=== PATIENT | male | born 1940 | race Caucasian/White ===

== ENCOUNTER 2018-09-08 13:16 | Inpatient (IN) | payer MEDICARE, OTHER ==
[~2018-09-08] VITALS: Ht 188 cm; Wt 103.3 kg
[2018-09-08 13:10] VITALS: BP 134/84
[2018-09-08] MEDS ORDERED: ACETAMINOPHEN 325 MG TABLET PO PRN (13:30)
[2018-09-08] MEDS ORDERED: MAG HYDROX/AL HYDROX/SIMETH 30 ML ORAL.SUSP PO PRN (13:30)
[2018-09-08] MEDS ORDERED: METHYL SALICYLATE/MENTHOL TOPICAL OINTMENT 29GM TUBE. TP PRN (13:30)
[2018-09-08] MEDS ORDERED: ASPI-630 PO (13:35)
[2018-09-08] MEDS ORDERED: [UNRECOGNIZED DRUG - OTHER] PO PRN (13:45)
[2018-09-08] MEDS ORDERED: CHLOR MAL PO PRN (13:45)
[2018-09-08] MEDS ORDERED: DEXTROMETHORPHAN HBR PO PRN (13:45)
[2018-09-08] MEDS ORDERED: MEMA10TA PO (13:47)
[2018-09-08] MEDS ORDERED: MULT1TAB52 PO (13:47)
[2018-09-08] MEDS ORDERED: DONE10TA61 PO (13:47)
[2018-09-08] MEDS ORDERED: DOXA4TAB2 PO (13:47)
[2018-09-08] MEDS ORDERED: SERT100T PO (13:47)
[2018-09-08] MEDS ORDERED: METF500T16 PO (13:47)
[2018-09-08] MEDS ORDERED: DEXT1TAB3 PO (13:47)
[2018-09-08] MEDS ORDERED: FINA5TAB PO (13:47)
[2018-09-08] MEDS ORDERED: NEBI5TAB2 PO (13:47)
[2018-09-08] MEDS ORDERED: LORA2TAB89 PO (13:47)
[2018-09-08] MEDS ORDERED: LISI40TA PO (13:47)
[2018-09-08] MEDS ORDERED: GLYB2.5T2 PO (13:47)
[2018-09-08] MEDS ORDERED: OMEG1CAP38 PO (13:47)
[2018-09-08] MEDS ORDERED: LOSA100T14 PO ×2 (13:47)
[2018-09-08] MEDS ORDERED: DEXTROSE 50% 25 GM / 50ML DISP.SYRIN. IV PRN (14:00)
[2018-09-08] MEDS: LORazepam 1 MG TABLET PO SCH ×2 (16:20→21:25)
[2018-09-08] MEDS: metFORMIN 500 MG TABLET PO SCH (16:20)
[2018-09-08] MEDS: INSULIN LISPRO 300 UNITS/3 ML INSULN.PEN. SQ SCH ×2 (16:30→21:00)
[2018-09-08 16:34] VITALS: BP 160/88
--- NOTE | 2018-09-08 20:15 | HP ---
ADMIT DATE: 09/08/2018 PSYCHIATRIC ADMISSION HISTORY/EVALUATION This note covers elements not covered in my initial note of 09/08/2018. IDENTIFYING DATA: The patient is a 78-year-old male referred to us from [facility] by Dr. Raghu Suggs, his primary care physician, on account of worsening confusion, being physically and verbally aggressive towards his at home. He was unmanageable at the [facility], pulling out his IV, impulsive, restless. He was wandering at night, having marked insomnia. was unable to take care of him at home. He had been on one-on-one status due to the above behaviors. This was discontinued on 09/06/2018. The patient's behaviors have been unmanageable, dangerous. Nursing facility is unable to accept him to be psychiatrically stable and he is referred to us for inpatient psychiatric stabilization. I also discussed the patient with followed La Jones, social service/behavioral therapy coordinator on several occasions and reviewed information from [facility] prior to the patient's admission. CHIEF COMPLAINT: "I don't know." The patient responded after I asked him when he came here and then asked him what kind of work he used to do. He was quite distractible, picking up things on his bed as I met with him in his room, oblivious of his circumstances. HISTORY OF PRESENT ILLNESS: The patient has a history of dementia, Alzheimer's vascular type. He has been living at home with his . Behaviors were progressively unmanageable. He was admitted to [facility] as noted and then referred to us. He has had some sleep and appetite changes, needed on one-on-one status. No clear history of bipolar disorder, suicidal or homicidal ideation. PAST PSYCHIATRIC HISTORY: As above. MEDICAL HISTORY: Hypertension, diabetes mellitus, anemia, atrial flutter, hyperlipidemia. The patient walks independently. He has a history of falls with the last fall on 09/03/2018. ALLERGIES: MORPHINE. CODE STATUS: DNR. DIET: ADA soft diet. CURRENT PSYCHOTROPICS: Electronic medical record was reviewed. FAMILY HISTORY: Noncontributory. SOCIAL HISTORY: The patient lives at home with his . No alcohol or drug abuse, physical, sexual or elder abuse history is noted. Not known to be a perpetrator. REVIEW OF SYSTEMS: No CV, , pulmonary, eye, ENT system symptoms on review. Reliability poor. MENTAL STATUS EXAMINATION: Oriented to himself. Insight, judgment, recent and remote memory, attention, concentration, fund of knowledge poor, consistent with his diagnosis. IMPRESSION: Major neurocognitive disorder, Alzheimer, vascular with delusion, depression, behavioral disturbance; anxiety disorder, unspecified; impulse control disorder, unspecified. Rest as above. PLAN: Admit to Geropsychiatry Unit at [facility]. I will see the patient daily individually from a psychiatric standpoint and medical followup with Dr. Field. Continue the patient on his current psychotropics, observe baseline, then make further adjustments as clinically indicated. Estimated length of stay is 10-12 days. DISPOSITION: To group home at discharge. MAN Alessandra HERNANDEZ MD DR: TIEN/priyank JOB#: [id number] / [id number]
[2018-09-08] MEDS: FINASTERIDE 5 MG TABLET PO SCH (21:25)
[2018-09-08] MEDS: ASPIRIN 81 MG TAB.CHEW PO SCH (21:25)
[2018-09-08] MEDS: LISINOPRIL 20 MG TABLET PO SCH (21:25)
[2018-09-08] MEDS: MEMANTINE 10 MG TABLET. PO SCH (21:25)
[2018-09-08] MEDS: METOPROLOL TART IMMED RELEASE 25 MG TABLET PO SCH (21:26)
[2018-09-08] MEDS: DONEPEZIL HCL 10 MG TABLET PO SCH (21:26)
[2018-09-08] MEDS: LOSARTAN 50 MG TABLET. PO SCH (21:26)
[2018-09-08] MEDS: DOXAZOSIN MESYLATE 4 MG TABLET PO SCH (21:26)
--- NOTE | 2018-09-08 22:42 | PDOC ---
Exam Note: Roderick Note: Please also refer to the separate dictated note~for this date of service dictated separately.~Patient seen individually. Discussed the patient with Nursing staff reviewed the chart.~Reviewed interim history and current functioning. Reviewed vital signs,~Labs/ Radiology~and current medications noted below. Continue current treatment with the changes noted in the dictated addendum note Assessment: Vital Signs: Vital Signs Date Time Temp Pulse Resp B/P (MAP) Pulse Ox O2 Delivery O2 Flow Rate FiO2 09/08/18 21:26 60 160/88 09/08/18 16:34 97.7 18 96 Labs: Laboratory Tests Test 09/08/18 17:05 09/08/18 19:13 Glucose (Fingerstick) 148 mg/dL (70-99) H 238 mg/dL (70-99) H Current Medications: Meds: Current Medications Acetaminophen (Tylenol) 650 mg PRN Q6HRS PRN PO PAIN / TEMP; Start 09/08/18 at 13:30 Multi-Ingredient Ointment (Analgesic [place]) 1 blas PRN QID PRN TP MUSCLE PAIN; Start 09/08/18 at 13:30 Al Hydroxide/Mg Hydroxide (Mylanta Plus Xs) 15 ml PRN AFTMEALHC PRN PO DYSPEPSIA; Start 09/08/18 at 13:30 Magnesium Hydroxide (Milk Of Magnesia) 2,400 mg PRN QHS PRN PO CONSTIPATION; Start 09/08/18 at 13:30 Aspirin (Children'S Aspirin) 81 mg QHS PO Last administered on 09/08/18at 21:25 ; Start 09/08/18 at 21:00 Non-Formulary Medication (Dextromethorphan Hbr/Chlor-Mal (Coricidin Hbp Cough & Cold Tab)) 1 each PRN QID PRN PO COUGH; Start 09/08/18 at 13:45; Status UNV Donepezil HCl (Aricept) 10 mg QHS PO Last administered on 09/08/18at 21:26; Start 09/08/18 at 21:00 Doxazosin Mesylate (Cardura) 4 mg QHS PO Last administered on 09/08/18at 21:26; Start 09/08/18 at 21:00 Finasteride (Proscar) 5 mg QHS PO Last administered on 09/08/18at 21:25; Start 09/08/18 at 21:00 Lisinopril (Prinivil) 40 mg BID PO Last administered on 09/08/18at 21:25; Start 09/08/18 at 21:00 Lorazepam (Ativan) 2 mg TID PO Last administered on 09/08/18at 21:25; Start at 14:00 Losartan Potassium (Cozaar) 50 mg DAILY PO ; Start 09/09/18 at 09:00 Losartan Potassium (Cozaar) 100 mg BID PO Last administered on 09/08/18at 21:26 ; Start 09/08/18 at 21:00 Memantine (Namenda) 10 mg BID PO Last administered on 09/08/18at 21:25; Start at 21:00 Metformin HCl (Glucophage) 500 mg BIDWMEALS PO Last administered on 09/08/18at 16:20; Start 09/08/18 at 17:00 Multivitamins/ Calcium (Thera-M Plus) 1 tab DAILY PO ; Start 09/09/18 at 09:00 Metoprolol Tartrate (Lopressor) 25 mg BID PO Last administered on 09/08/18at 21: 26; Start 09/08/18 at 21:00 Fish Oil (Fish Oil) 1,000 mg DAILY PO ; Start 09/09/18 at 09:00 Insulin Human Lispro (HumaLOG) 0-7 UNITS QIDACHS SQ ; Start 09/08/18 at 16:30 Dextrose 12.5 gm PRN Q15MIN PRN IV SEE COMMENTS; Start 09/08/18 at 14:00 Active Scripts Active Reported Zoloft (Sertraline Hcl) 100 Mg Tablet 100 Mg PO BID Frederic 3 Fish Oil Softgel (Frederic-3 Fatty Acids/Fish Oil) 1 Each Capsule. 1 Each PO DAILY Bystolic (Nebivolol Hcl) 5 Mg Tablet 5 Mg PO DAILY Multivitamins (Multivitamin) 1 Each Tablet 1 Tab PO DAILY Metformin Hcl 500 Mg Tablet 500 Mg PO BIDWMEALS Namenda (Memantine Hcl) 10 Mg Tablet 10 Mg PO BID Losartan Potassium 100 Mg Tablet 100 Mg PO BID Losartan Potassium 100 Mg Tablet 50 Mg PO DAILY Ativan (Lorazepam) 2 Mg Tablet 2 Mg PO TID Lisinopril 40 Mg Tablet 40 Mg PO BID Glyburide 2.5 Mg Tablet 2.5 Mg PO BID Proscar (Finasteride) 5 Mg Tablet 5 Mg PO QHS Cardura (Doxazosin Mesylate) 4 Mg Tablet 4 Mg PO QHS Aricept (Donepezil Hcl) 10 Mg Tablet 10 Mg PO QHS Coricidin Hbp Cough & Cold Tab (Dextromethorphan Hbr/Chlor-Mal) 1 Each Tablet 1 Each PO PRN QID PRN Aspirin 81 Mg Tab.chew 81 Mg PO QHS I have reviewed the current psychotropics carefully including drug interactions. Risk benefit ratio favors no change other than as noted in my dictated progress note. Diagnosis: Problems: (1) Anxiety disorder (2) Dementia in Alzheimer's disease with delusions (3) Dementia in Alzheimer's disease with depression (4) Dementia, vascular, with delusions (5) Dementia, vascular, with depression (6) Impulse control disorder GERTRUDE HERNANDEZ MD Sep 08, 2018 22:42
[2018-09-09 06:54] VITALS: BP 133/84
[2018-09-09] MEDS: INSULIN LISPRO 300 UNITS/3 ML INSULN.PEN. SQ SCH ×4 (07:30→19:53)
[2018-09-09 07:37] LABS: BASO % 1 % (0-3); EOS # 0.3 x10^3/uL (0.0-0.7); EOS % 5 % (0-3); HEMATOCRIT 38.4 % (39.0-53.0); HEMOGLOBIN 12.5 g/dL (13.0-17.5); LYMPH % 19 % (24-48); MEAN CORPUSCULAR HEMOGLOBIN 28 pg (25-35); MEAN CORPUSCULAR HGB CONC 33 g/dL (31-37); MEAN CORPUSCULAR VOLUME 87 fL (79-100); MONO # 0.4 x10^3/uL (0.0-1.1); MONO % 9 % (0-9); NEUT # 3.4 x10^3uL (1.8-7.7); NEUT % 67 % (31-73); PLATELET COUNT 197 x10^3/uL (140-400); RED BLOOD COUNT 4.43 x10^6/uL (4.30-5.70); RED CELL DISTRIBUTION WIDTH 14.8 % (11.5-14.5); WHITE BLOOD COUNT 5.1 x10^3/uL (4.0-11.0)
[2018-09-09 07:51] LABS: ALBUMIN 3.5 g/dL (3.4-5.0); CALCIUM 8.8 mg/dL (8.5-10.1); CREATININE 0.8 mg/dL (0.7-1.3); GFR 93.5; MAGNESIUM 1.7 mg/dL (1.8-2.4); POTASSIUM 3.8 mmol/L (3.5-5.1); TOTAL BILIRUBIN 0.8 mg/dL (0.2-1.0); TOTAL PROTEIN 7.1 g/dL (6.4-8.2)
[2018-09-09] MEDS: MEMANTINE 10 MG TABLET. PO SCH ×2 (08:18→19:52)
[2018-09-09] MEDS: LISINOPRIL 20 MG TABLET PO SCH ×2 (08:20→19:52)
[2018-09-09] MEDS: metFORMIN 500 MG TABLET PO SCH ×2 (08:20→16:45)
[2018-09-09] MEDS: METOPROLOL TART IMMED RELEASE 25 MG TABLET PO SCH ×2 (08:21→20:00)
[2018-09-09] MEDS: LORazepam 1 MG TABLET PO SCH ×3 (08:22→20:00)
[2018-09-09] MEDS: MULTIVITAMIN with MINERAL TABLET. PO SCH (08:23)
[2018-09-09] MEDS: OMEGA-3 FATTY ACIDS/FISH OIL 1,000 MG CAPSULE. PO SCH (08:23)
[2018-09-09] MEDS: SERTRALINE 100 MG TABLET. PO SCH ×2 (08:23→19:52)
[2018-09-09] MEDS: glyBURIDE 5 MG TABLET PO SCH ×2 (08:23→16:45)
[2018-09-09] MEDS ORDERED: LOSARTAN 50 MG TABLET. PO SCH (09:00)
[2018-09-09] MEDS: LOSARTAN 50 MG TABLET. PO SCH ×2 (09:00→19:59)
[2018-09-09 16:17] VITALS: BP 159/84
[2018-09-09] MEDS: DIVALPROEX 125 MG CAP.SPRINK PO SCH (16:45)
[2018-09-09 17:12] LABS: THYROXINE 4.6 ug/dL (4.5-12.0)
[2018-09-09 17:54] LABS: THYROID STIM HORMONE (TSH) 1.687 uIU/mL (0.358-3.740)
[2018-09-09 19:43] VITALS: BP 159/85
[2018-09-09] MEDS: ASPIRIN 81 MG TAB.CHEW PO SCH (19:52)
[2018-09-09] MEDS: FINASTERIDE 5 MG TABLET PO SCH (19:52)
[2018-09-09] MEDS: DONEPEZIL HCL 10 MG TABLET PO SCH (19:52)
[2018-09-09] MEDS: DOXAZOSIN MESYLATE 4 MG TABLET PO SCH (20:00)
[2018-09-09 20:09] LABS: HEMOGLOBIN A1C 5.7 % (4.8-5.6)
--- NOTE | 2018-09-09 22:34 | PDOC ---
Exam Note: Roderick Note: Please also refer to the separate dictated note~for this date of service dictated separately.~Patient seen individually. Discussed the patient with Nursing staff reviewed the chart.~Reviewed interim history and current functioning. Reviewed vital signs,~Labs/ Radiology~and current medications noted below. Continue current treatment with the changes noted in the dictated addendum note Assessment: Vital Signs: Vital Signs Date Time Temp Pulse Resp B/P (MAP) Pulse Ox O2 Delivery O2 Flow Rate FiO2 09/09/18 20:00 81 159/85 09/09/18 16:17 98.7 20 94 I&O Intake and Output 09/09/18 07:01 Intake Total 365 ml Balance 365 ml Intake Oral 365 ml # Voids 2 Labs: Laboratory Tests Test 09/09/18 07:05 09/09/18 07:35 09/09/18 12:25 09/09/18 17:01 White Blood Count 5.1 x10^3/uL (4.0-11.0) Red Blood Count 4.43 x10^6/uL (4.30-5.70) Hemoglobin 12.5 g/dL (13.0-17.5) L Hematocrit 38.4 % (39.0-53.0) L Mean Corpuscular Volume 87 fL (79-100) Mean Corpuscular Hemoglobin 28 pg (25-35) Mean Corpuscular Hemoglobin Concent 33 g/dL (31-37) Red Cell Distribution Width 14.8 % (11.5-14.5) H Platelet Count 197 x10^3/uL (140-400) Neutrophils (%) (Auto) 67 % (31-73) Lymphocytes (%) (Auto) 19 % (24-48) L Monocytes (%) (Auto) 9 % (0-9) Eosinophils (%) (Auto) 5 % (0-3) H Basophils (%) (Auto) 1 % (0-3) Neutrophils # (Auto) 3.4 x10^3uL (1.8-7.7) Lymphocytes # (Auto) 1.0 x10^3/uL (1.0-4.8) Monocytes # (Auto) 0.4 x10^3/uL (0.0-1.1) Eosinophils # (Auto) 0.3 x10^3/uL (0.0-0.7) Basophils # (Auto) 0.0 x10^3/uL (0.0-0.2) Sodium Level 143 mmol/L (136-145) Potassium Level 3.8 mmol/L (3.5-5.1) Chloride Level 104 mmol/L (98-107) Carbon Dioxide Level 30 mmol/L (21-32) Anion Gap 9 (6-14) Blood Urea Nitrogen 17 mg/dL (8-26) Creatinine 0.8 mg/dL (0.7-1.3) Estimated GFR (Cockcroft-Gault) 93.5 BUN/Creatinine Ratio 21 (6-20) H Glucose Level 155 mg/dL (70-99) H Hemoglobin A1c 5.7 % (4.8-5.6) H Calcium Level 8.8 mg/dL (8.5-10.1) Magnesium Level 1.7 mg/dL (1.8-2.4) L Iron Level 47 ug/dL (65-175) L Total Iron Binding Capacity 331 ug/dL (250-450) Iron Saturation 14 % (15-34) L Total Bilirubin 0.8 mg/dL (0.2-1.0) Aspartate Amino Transferase (AST) 18 U/L (15-37) Alanine Aminotransferase (ALT) 22 U/L (16-63) Alkaline Phosphatase 83 U/L (46-116) Total Protein 7.1 g/dL (6.4-8.2) Albumin 3.5 g/dL (3.4-5.0) Albumin/Globulin Ratio 1.0 (1.0-1.7) Triglycerides Level 81 mg/dL (0-150) Cholesterol Level 177 mg/dL (0-200) LDL Cholesterol, Calculated 100 mg/dL (0-100) VLDL Cholesterol, Calculated 16 mg/dL (0-40) Non-HDL Cholesterol Calculated 116 mg/dL (0-129) HDL Cholesterol 61 mg/dL (40-60) H Cholesterol/HDL Ratio 2.0 25-Hydroxy Vitamin D Total 32.4 ng/mL (30-100) Thyroid Stimulating Hormone (TSH) 1.687 uIU/mL (0.358-3.740) Thyroxine (T4) 4.6 ug/dL (4.5-12.0) Total Triiodothyronine (TT3) 67 ng/dL (71-180) L Treponema pallidum Antibody Nonreactive (Nonreactive) Glucose (Fingerstick) 150 mg/dL (70-99) H 131 mg/dL (70-99) H 81 mg/dL (70-99) Test 09/09/18 19:14 Glucose (Fingerstick) 149 mg/dL (70-99) H Current Medications: Meds: Current Medications Acetaminophen (Tylenol) 650 mg PRN Q6HRS PRN PO PAIN / TEMP; Start 09/08/18 at 13:30 Multi-Ingredient Ointment (Analgesic [place]ley) 1 blas PRN QID PRN TP MUSCLE PAIN; Start 09/08/18 at 13:30 Al Hydroxide/Mg Hydroxide (Mylanta Plus Xs) 15 ml PRN AFTMEALHC PRN PO DYSPEPSIA; Start 09/08/18 at 13:30 Magnesium Hydroxide (Milk Of Magnesia) 2,400 mg PRN QHS PRN PO CONSTIPATION; Start 09/08/18 at 13:30 Aspirin (Children'S Aspirin) 81 mg QHS PO Last administered on 09/09/18at 19:52 ; Start 09/08/18 at 21:00 Non-Formulary Medication (Dextromethorphan Hbr/Chlor-Mal (Coricidin Hbp Cough & Cold Tab)) 1 each PRN QID PRN PO COUGH; Start 09/08/18 at 13:45; Status UNV Donepezil HCl (Aricept) 10 mg QHS PO Last administered on 09/09/18at 19:52; Start 09/08/18 at 21:00 Doxazosin Mesylate (Cardura) 4 mg QHS PO Last administered on 09/09/18at 20:00; Start 09/08/18 at 21:00 Finasteride (Proscar) 5 mg QHS PO Last administered on 09/09/18at 19:52; Start 09/08/18 at 21:00 Lisinopril (Prinivil) 40 mg BID PO Last administered on 09/09/18at 19:52; Start 09/08/18 at 21:00 Lorazepam (Ativan) 2 mg TID PO Last administered on 09/08/18at 21:25; Start at 14:00; Stop 09/09/18 at 06:58; Status DC Losartan Potassium (Cozaar) 50 mg DAILY PO Last administered on 09/09/18 08:19 ; Start 09/09/18 at 09:00 Losartan Potassium (Cozaar) 100 mg BID PO Last administered on 09/09/18 19:59 ; Start 09/08/18 at 21:00 Memantine (Namenda) 10 mg BID PO Last administered on 09/09/18 19:52; Start at 21:00 Metformin HCl (Glucophage) 500 mg BIDWMEALS PO Last administered on 09/09/18 16:45; Start 09/08/18 at 17:00 Multivitamins/ Calcium (Thera-M Plus) 1 tab DAILY PO Last administered on 08:23; Start 09/09/18 at 09:00 Metoprolol Tartrate (Lopressor) 25 mg BID PO Last administered on 09/09/18 08: 21; Start 09/08/18 at 21:00; Stop 09/09/18 at 09:58; Status DC Fish Oil (Fish Oil) 1,000 mg DAILY PO Last administered on 09/09/18 08:23; Start 09/09/18 at 09:00 Insulin Human Lispro (HumaLOG) 0-7 UNITS QIDACHS SQ ; Start 09/08/18 at 16:30 Dextrose 12.5 gm PRN Q15MIN PRN IV SEE COMMENTS; Start 09/08/18 at 14:00 Glyburide (Diabeta) 5 mg BIDWMEALS PO Last administered on 09/09/18 16:45; Start 09/09/18 at 08:00 Sertraline HCl (Zoloft) 100 mg BID PO Last administered on 09/09/18 19:52; Start 09/09/18 at 09:00 Lorazepam (Ativan) 1 mg TID PO Last administered on 09/09/18 20:00; Start at 09:00 Divalproex Sodium (Depakote Sprinkles) 125 mg BIDWMEALS PO Last administered on 09/09/18 16:45; Start 09/09/18 at 17:00 Metoprolol Tartrate (Lopressor) 25 mg BID PO Last administered on 09/09/18at 20: 00; Start 09/09/18 at 21:00 Active Scripts Active Reported Zoloft (Sertraline Hcl) 100 Mg Tablet 100 Mg PO BID [place]all 3 Fish Oil Softgel (Walthall-3 Fatty Acids/Fish Oil) 1 Each Capsule.dr 1 Each PO DAILY Bystolic (Nebivolol Hcl) 5 Mg Tablet 5 Mg PO DAILY Multivitamins (Multivitamin) 1 Each Tablet 1 Tab PO DAILY Metformin Hcl 500 Mg Tablet 500 Mg PO BIDWMEALS Namenda (Memantine Hcl) 10 Mg Tablet 10 Mg PO BID Ativan (Lorazepam) 2 Mg Tablet 1 Mg PO TID Lisinopril 40 Mg Tablet 40 Mg PO BID Glyburide 2.5 Mg Tablet 5 Mg PO BID Proscar (Finasteride) 5 Mg Tablet 5 Mg PO QHS Cardura (Doxazosin Mesylate) 4 Mg Tablet 4 Mg PO QHS Aricept (Donepezil Hcl) 10 Mg Tablet 10 Mg PO QHS Coricidin Hbp Cough & Cold Tab (Dextromethorphan Hbr/Chlor-Mal) 1 Each Tablet 1 Each PO PRN QID PRN Aspirin 81 Mg Tab.chew 81 Mg PO QHS I have reviewed the current psychotropics carefully including drug interactions. Risk benefit ratio favors no change other than as noted in my dictated progress note. Diagnosis: Problems: (1) Anxiety disorder (2) Dementia in Alzheimer's disease with delusions (3) Dementia in Alzheimer's disease with depression (4) Dementia, vascular, with delusions (5) Dementia, vascular, with depression (6) Impulse control disorder GERTRUDE HERNANDEZ MD Sep 09, 2018 22:34
--- NOTE | 2018-09-09 23:00 | CONS ---
DATE OF CONSULTATION: 09/09/2018 REASON FOR CONSULTATION: Medical management. HISTORY OF PRESENT ILLNESS: The patient is a 78-year-old male patient who was referred from [facility] by his primary care physician, on account of worsening confusion, being physically and verbally aggressive towards his at home. He was unmanageable even at [facility], pulling out his IV, impulsive, restless. He was wondering at nighttime, having marked insomnia. He was on 1:1 status due to above behavior and as he could not be placed in any other nursing facility because of his behavior. He was admitted to this unit for inpatient psychiatric stabilization. The patient is very demented and does not really give any useful information when I asked him this afternoon. PAST MEDICAL HISTORY: Significant for hypertension, type 2 diabetes mellitus, anemia, atrial fibrillation/flutter, and hyperlipidemia. PAST SURGICAL HISTORY: Unremarkable. ALLERGIES: HE IS ALLERGIC TO MORPHINE. MEDICATIONS: He is currently on following medications: He is on Aricept 10 mg at bedtime, omega-3 fatty acid 1000 mg once a day, Cardura 4 mg at bedtime, Bystolic 5 mg once a day, lisinopril 40 mg twice a day, losartan potassium 50 mg daily, losartan potassium 100 mg b.i.d., aspirin 81 mg once a day, sertraline 100 mg twice a day. He is on lorazepam 1 mg 3 times a day, Namenda 10 mg p.o. b.i.d., dextromethorphan for Coricidin HBP for cough and cold, he takes 1 tablet 4 times a day. He is on metformin 500 mg twice a day, glyburide 5 mg twice a day, multivitamin 1 tablet once a day, finasteride 5 mg at bedtime. FAMILY HISTORY: Noncontributory. SOCIAL HISTORY: Apparently, he used to live at home with his . He does not smoke, drink alcohol, or do recreational drugs. REVIEW OF SYSTEMS: Unobtainable. PHYSICAL EXAMINATION: GENERAL: When I saw him this afternoon, he was sitting on the edge of the bed comfortably in no apparent distress. He was slightly pale, but no jaundice, cyanosis, or thyromegaly. No jugular venous distension. No lower limb edema. VITAL SIGNS: His heart rate was 78, blood pressure was 133/84, temperature was 98, respiratory rate 20, and oxygen saturation was 100% on room air. HEAD, EYES, EAR, NOSE, AND THROAT: Showed normocephalic, atraumatic. NECK: Supple. HEART: Showed normal first and second heart sounds. No gallop, rub, or murmur. CHEST: Clear to auscultation. No crepitation or rhonchi. ABDOMEN: Distended, soft, nontender. NEUROLOGIC: He was demented, but without any obvious lateralizing sign. Apparently, he is able to ambulate with a walker without assistance. LABORATORY DATA: Showed a serum sodium 143, potassium 3.8, chloride 104, bicarbonate 30, anion gap of 9, BUN 17, creatinine 0.8, estimated GFR was 93 mL per minute. His glucose was 155. His calcium was 8.8, magnesium was 1.7. Total bilirubin, AST, ALT, alkaline phosphatase were normal. Total protein was 7.1, albumin was 3.5. His white cell count was 5100, hemoglobin 12.5, hematocrit 38.4, MCV 87, and platelet count of 197,000 with normal manual differential. IMPRESSION AND PLAN: In summary, this is a 78-year-old male patient who was [facility] inpatient psychiatric stabilization as he was becoming extremely confused, being physically and verbally aggressive towards his . Even at the hospital, he was very unmanageable, pulled his IV, impulsive, restless, was wondering throughout the night having marked insomnia and he was actually on 1:1 status due to above behavior. As the patient was unmanageable, nursing facilities were unable to accept him because of his aggressive behavior, and therefore, he was admitted to this unit for inpatient psychiatric stabilization. Medically, the patient apparently is known to have hypertension, type 2 diabetes, atrial flutter, hyperlipidemia. All his vital signs seem to be stable. His lab works are also within acceptable range. I reviewed all his medications and he is on a very strange combination of medication. He is on losartan 100 mg twice a day and again losartan 50 mg once a day and lisinopril 40 mg twice a day. I am not sure what the rationale for that. He is on an FRANSISCO inhibitor and ARB. I would probably discontinue one of them and if he continues to be hypertensive, we will add a different class of antihypertensive medications. Thank you, Dr. Beebe for allowing me to participate in the care of this patient. SUZIE GLEASON MD DR: ARTURO/priyank JOB#: [id number] / [id number]
[2018-09-10 06:28] VITALS: BP 172/86
[2018-09-10] MEDS: MULTIVITAMIN with MINERAL TABLET. PO SCH (08:04)
[2018-09-10] MEDS: LISINOPRIL 20 MG TABLET PO SCH ×2 (08:04→19:54)
[2018-09-10] MEDS: LOSARTAN 50 MG TABLET. PO SCH (08:05)
[2018-09-10] MEDS: SERTRALINE 100 MG TABLET. PO SCH ×2 (08:05→19:55)
[2018-09-10] MEDS: metFORMIN 500 MG TABLET PO SCH ×2 (08:06→17:27)
[2018-09-10] MEDS: OMEGA-3 FATTY ACIDS/FISH OIL 1,000 MG CAPSULE. PO SCH (08:06)
[2018-09-10] MEDS: MEMANTINE 10 MG TABLET. PO SCH ×2 (08:06→19:55)
[2018-09-10] MEDS: glyBURIDE 5 MG TABLET PO SCH ×2 (08:06→17:26)
[2018-09-10] MEDS: METOPROLOL TART IMMED RELEASE 25 MG TABLET PO SCH ×2 (08:06→20:15)
[2018-09-10] MEDS: DIVALPROEX 125 MG CAP.SPRINK PO SCH ×2 (08:06→17:27)
[2018-09-10] MEDS: LORazepam 1 MG TABLET PO SCH ×3 (08:08→19:55)
[2018-09-10] MEDS: INSULIN LISPRO 300 UNITS/3 ML INSULN.PEN. SQ SCH ×4 (08:17→20:16)
[2018-09-10 16:09] VITALS: BP 108/69
[2018-09-10] MEDS: ASPIRIN 81 MG TAB.CHEW PO SCH (19:54)
[2018-09-10] MEDS: DONEPEZIL HCL 10 MG TABLET PO SCH (19:54)
[2018-09-10] MEDS: FINASTERIDE 5 MG TABLET PO SCH (19:54)
[2018-09-10] MEDS: DOXAZOSIN MESYLATE 4 MG TABLET PO SCH (20:15)
[2018-09-10] MEDS: MIRTAZAPINE 7.5 MG TABLET. PO SCH (20:16)
--- NOTE | 2018-09-10 23:00 | PDOC ---
Exam Note: Roderick Note: Please also refer to the separate dictated note~for this date of service dictated separately.~Patient seen individually. Discussed the patient with Nursing staff reviewed the chart.~Reviewed interim history and current functioning. Reviewed vital signs,~Labs/ Radiology~and current medications noted below. Continue current treatment with the changes noted in the dictated addendum note Assessment: Vital Signs: Vital Signs Date Time Temp Pulse Resp B/P (MAP) Pulse Ox O2 Delivery O2 Flow Rate FiO2 09/10/18 20:15 85 108/69 09/10/18 16:09 97.8 19 95 Room Air I&O Intake and Output 09/10/18 07:01 Intake Total 965 ml Balance 965 ml Intake Oral 965 ml # Voids 1 # Bowel Movements 1 Labs: Laboratory Tests Test 09/10/18 07:03 09/10/18 11:45 09/10/18 16:55 09/10/18 19:07 Glucose (Fingerstick) 152 mg/dL (70-99) H 175 mg/dL (70-99) H 245 mg/dL (70-99) H 165 mg/dL (70-99) H Current Medications: Meds: Current Medications Acetaminophen (Tylenol) 650 mg PRN Q6HRS PRN PO PAIN / TEMP; Start 09/08/18 at 13:30 Multi-Ingredient Ointment (Analgesic [place]) 1 blas PRN QID PRN TP MUSCLE PAIN; Start 09/08/18 at 13:30 Al Hydroxide/Mg Hydroxide (Mylanta Plus Xs) 15 ml PRN AFTMEALHC PRN PO DYSPEPSIA; Start 09/08/18 at 13:30 Magnesium Hydroxide (Milk Of Magnesia) 2,400 mg PRN QHS PRN PO CONSTIPATION; Start 09/08/18 at 13:30 Aspirin (Children'S Aspirin) 81 mg QHS PO Last administered on 09/10/18at 19:54; Start 09/08/18 at 21:00 Non-Formulary Medication (Dextromethorphan Hbr/Chlor-Mal (Coricidin Hbp Cough & Cold Tab)) 1 each PRN QID PRN PO COUGH; Start 09/08/18 at 13:45; Status UNV Donepezil HCl (Aricept) 10 mg QHS PO Last administered on 09/10/18at 19:54; Start 09/08/18 at 21:00 Doxazosin Mesylate (Cardura) 4 mg QHS PO Last administered on 09/10/18 20:15; Start 09/08/18 at 21:00 Finasteride (Proscar) 5 mg QHS PO Last administered on 09/10/18 19:54; Start at 21:00 Lisinopril (Prinivil) 40 mg BID PO Last administered on 09/10/18 19:54; Start 09/08/18 at 21:00 Lorazepam (Ativan) 2 mg TID PO Last administered on 09/08/18 21:25; Start at 14:00; Stop 09/09/18 at 06:58; Status DC Losartan Potassium (Cozaar) 50 mg DAILY PO Last administered on 09/09/18at 08:19 ; Start 09/09/18 at 09:00; Stop 09/10/18 at 12:41; Status DC Losartan Potassium (Cozaar) 100 mg BID PO Last administered on 09/10/18 08:05; Start 09/08/18 at 21:00; Stop 09/10/18 at 12:41; Status DC Memantine (Namenda) 10 mg BID PO Last administered on 09/10/18 19:55; Start at 21:00 Metformin HCl (Glucophage) 500 mg BIDWMEALS PO Last administered on 09/10/18 17 :27; Start 09/08/18 at 17:00 Multivitamins/ Calcium (Thera-M Plus) 1 tab DAILY PO Last administered on 08:04; Start 09/09/18 at 09:00 Metoprolol Tartrate (Lopressor) 25 mg BID PO Last administered on 09/09/18 08: 21; Start 09/08/18 at 21:00; Stop 09/09/18 at 09:58; Status DC Fish Oil (Fish Oil) 1,000 mg DAILY PO Last administered on 09/10/18 08:06; Start 09/09/18 at 09:00 Insulin Human Lispro (HumaLOG) 0-7 UNITS QIDACHS SQ Last administered on 17:29; Start 09/08/18 at 16:30 Dextrose 12.5 gm PRN Q15MIN PRN IV SEE COMMENTS; Start 09/08/18 at 14:00 Glyburide (Diabeta) 5 mg BIDWMEALS PO Last administered on 09/10/18at 17:26; Start 09/09/18 at 08:00 Sertraline HCl (Zoloft) 100 mg BID PO Last administered on 09/10/18at 19:55; Start 09/09/18 at 09:00 Lorazepam (Ativan) 1 mg TID PO Last administered on 09/10/18 19:55; Start 09/09 at 09:00 Divalproex Sodium (Depakote Sprinkles) 125 mg BIDWMEALS PO Last administered on 09/10/18 17:27; Start 09/09/18 at 17:00 Metoprolol Tartrate (Lopressor) 25 mg BID PO Last administered on 09/10/18at 08: 06; Start 09/09/18 at 21:00; Stop 09/10/18 at 12:45; Status DC Metoprolol Tartrate (Lopressor) 50 mg BID PO Last administered on 09/10/18at 20: 15; Start 09/10/18 at 21:00 Trazodone HCl (Desyrel) 50 mg PRN QHS PRN PO INSOMNIA, MAY REPEAT IN 1HR; Start 09/10/18 at 17:00 Mirtazapine (Remeron) 7.5 mg QHS PO Last administered on 09/10/18at 20:16; Start 09/10/18 at 21:00 Active Scripts Active Reported Zoloft (Sertraline Hcl) 100 Mg Tablet 100 Mg PO BID [place] 3 Fish Oil Softgel ([place]-3 Fatty Acids/Fish Oil) 1 Each Capsule. 1 Each PO DAILY Bystolic (Nebivolol Hcl) 5 Mg Tablet 5 Mg PO DAILY Multivitamins (Multivitamin) 1 Each Tablet 1 Tab PO DAILY Metformin Hcl 500 Mg Tablet 500 Mg PO BIDWMEALS Namenda (Memantine Hcl) 10 Mg Tablet 10 Mg PO BID Ativan (Lorazepam) 2 Mg Tablet 1 Mg PO TID Lisinopril 40 Mg Tablet 40 Mg PO BID Glyburide 2.5 Mg Tablet 5 Mg PO BID Proscar (Finasteride) 5 Mg Tablet 5 Mg PO QHS Cardura (Doxazosin Mesylate) 4 Mg Tablet 4 Mg PO QHS Aricept (Donepezil Hcl) 10 Mg Tablet 10 Mg PO QHS Coricidin Hbp Cough & Cold Tab (Dextromethorphan Hbr/Chlor-Mal) 1 Each Tablet 1 Each PO PRN QID PRN Aspirin 81 Mg Tab.chew 81 Mg PO QHS I have reviewed the current psychotropics carefully including drug interactions. Risk benefit ratio favors no change other than as noted in my dictated progress note. Diagnosis: Problems: (1) Anxiety disorder (2) Dementia in Alzheimer's disease with delusions (3) Dementia in Alzheimer's disease with depression (4) Dementia, vascular, with delusions (5) Dementia, vascular, with depression (6) Impulse control disorder GERTRUDE HERNANDEZ MD Sep 10, 2018 23:00
--- NOTE | 2018-09-10 23:04 | PN ---
DATE: 09/09/2018 PSYCHIATRIC PROGRESS NOTE This late entry 09/09/2018 covers elements not covered in my initial note. SUBJECTIVE: I met with the patient in the evening, staffed at treatment team meeting with the entire team in the morning. The patient slept 6 hours previous night. Appetite 100%. He has been confused, sexually inappropriate with staff members. He has been grabbing the breasts and butt of female nursing staff per nursing report. He has been aggressive at home, reviewed his history at length. REVIEW OF SYSTEMS: No CV, , pulmonary, eye, ENT system symptoms on review. MENTAL STATUS EXAM: Oriented to himself. Insight, judgment, recent and remote memory, attention, concentration, fund of knowledge poor consistent with his diagnosis mentioned in my initial note. IMPRESSION: Major neurocognitive disorder, Alzheimer, vascular with delusion, depression, behavioral disturbance; anxiety disorder, unspecified; impulse control disorder, unspecified. PLAN: Continue psychotropics from initial note. Start Depakote Sprinkles 125 mg b.i.d. Check CBC, CMP, valproic acid level in 3 days. Rest unchanged from initial note. MAN Alessandra HERNANDEZ MD DR: TIEN/priyank JOB#: [id number] / [id number]
[2018-09-11 06:17] VITALS: BP 111/70
[2018-09-11] MEDS: INSULIN LISPRO 300 UNITS/3 ML INSULN.PEN. SQ SCH ×4 (07:30→20:22)
[2018-09-11] MEDS: METOPROLOL TART IMMED RELEASE 25 MG TABLET PO SCH ×2 (07:42→20:22)
[2018-09-11] MEDS: OMEGA-3 FATTY ACIDS/FISH OIL 1,000 MG CAPSULE. PO SCH (07:42)
[2018-09-11] MEDS: MEMANTINE 10 MG TABLET. PO SCH ×2 (07:42→20:16)
[2018-09-11] MEDS: DIVALPROEX 125 MG CAP.SPRINK PO SCH ×2 (07:42→16:40)
[2018-09-11] MEDS: glyBURIDE 5 MG TABLET PO SCH ×2 (07:42→16:40)
[2018-09-11] MEDS: metFORMIN 500 MG TABLET PO SCH ×2 (07:42→16:40)
[2018-09-11] MEDS: MULTIVITAMIN with MINERAL TABLET. PO SCH (07:42)
[2018-09-11] MEDS: LORazepam 1 MG TABLET PO SCH ×3 (07:43→20:16)
[2018-09-11] MEDS: LISINOPRIL 20 MG TABLET PO SCH ×2 (07:43→20:22)
[2018-09-11] MEDS: SERTRALINE 100 MG TABLET. PO SCH ×2 (07:45→20:16)
[2018-09-11] MEDS: CEPHALEXIN 250 MG CAPSULE PO SCH ×2 (14:00→20:16)
[2018-09-11 16:04] VITALS: BP 110/74
[2018-09-11] MEDS: ASPIRIN 81 MG TAB.CHEW PO SCH (20:16)
[2018-09-11] MEDS: MIRTAZAPINE 7.5 MG TABLET. PO SCH (20:16)
[2018-09-11] MEDS: DONEPEZIL HCL 10 MG TABLET PO SCH (20:16)
[2018-09-11] MEDS: FINASTERIDE 5 MG TABLET PO SCH (20:16)
[2018-09-11 20:21] VITALS: BP 161/74
[2018-09-11] MEDS: DOXAZOSIN MESYLATE 4 MG TABLET PO SCH (20:21)
--- NOTE | 2018-09-11 22:26 | PDOC ---
Exam Note: Roderick Note: Please also refer to the separate dictated note~for this date of service dictated separately.~Patient seen individually. Discussed the patient with Nursing staff reviewed the chart.~Reviewed interim history and current functioning. Reviewed vital signs,~Labs/ Radiology~and current medications noted below. Continue current treatment with the changes noted in the dictated addendum note Assessment: Vital Signs: Vital Signs Date Time Temp Pulse Resp B/P (MAP) Pulse Ox O2 Delivery O2 Flow Rate FiO2 09/11/18 20:22 80 161/74 09/11/18 16:04 97.8 20 97 09/10/18 16:09 Room Air I&O Intake and Output 09/11/18 07:01 Intake Total 840 ml Balance 840 ml Intake Oral 840 ml # Voids 1 Labs: Laboratory Tests Test 09/11/18 07:05 09/11/18 11:46 09/11/18 16:55 09/11/18 19:26 Glucose (Fingerstick) 119 mg/dL (70-99) H 175 mg/dL (70-99) H 119 mg/dL (70-99) H 101 mg/dL (70-99) H Current Medications: Meds: Current Medications Acetaminophen (Tylenol) 650 mg PRN Q6HRS PRN PO PAIN / TEMP; Start 09/08/18 at 13:30 Multi-Ingredient Ointment (Analgesic [place]) 1 blas PRN QID PRN TP MUSCLE PAIN; Start 09/08/18 at 13:30 Al Hydroxide/Mg Hydroxide (Mylanta Plus Xs) 15 ml PRN AFTMEALHC PRN PO DYSPEPSIA; Start 09/08/18 at 13:30 Magnesium Hydroxide (Milk Of Magnesia) 2,400 mg PRN QHS PRN PO CONSTIPATION; Start 09/08/18 at 13:30 Aspirin (Children'S Aspirin) 81 mg QHS PO Last administered on 09/11/18at 20:16; Start 09/08/18 at 21:00 Non-Formulary Medication (Dextromethorphan Hbr/Chlor-Mal (Coricidin Hbp Cough & Cold Tab)) 1 each PRN QID PRN PO COUGH; Start 09/08/18 at 13:45; Status UNV Donepezil HCl (Aricept) 10 mg QHS PO Last administered on 2/2/19at 20:16; Start 09/08/18 at 21:00 Doxazosin Mesylate (Cardura) 4 mg QHS PO Last administered on 09/11/18 20:21; Start 09/08/18 at 21:00 Finasteride (Proscar) 5 mg QHS PO Last administered on 09/11/18 20:16; Start at 21:00 Lisinopril (Prinivil) 40 mg BID PO Last administered on 09/11/18 20:22; Start 09/08/18 at 21:00 Lorazepam (Ativan) 2 mg TID PO Last administered on 09/08/18 21:25; Start at 14:00; Stop 09/09/18 at 06:58; Status DC Losartan Potassium (Cozaar) 50 mg DAILY PO Last administered on 09/09/18 08:19 ; Start 09/09/18 at 09:00; Stop 09/10/18 at 12:41; Status DC Losartan Potassium (Cozaar) 100 mg BID PO Last administered on 09/10/18 08:05; Start 09/08/18 at 21:00; Stop 09/10/18 at 12:41; Status DC Memantine (Namenda) 10 mg BID PO Last administered on 09/11/18 20:16; Start at 21:00 Metformin HCl (Glucophage) 500 mg BIDWMEALS PO Last administered on 09/11/18 16 :40; Start 09/08/18 at 17:00 Multivitamins/ Calcium (Thera-M Plus) 1 tab DAILY PO Last administered on 07:42; Start 09/09/18 at 09:00 Metoprolol Tartrate (Lopressor) 25 mg BID PO Last administered on 09/09/18 08: 21; Start 09/08/18 at 21:00; Stop 09/09/18 at 09:58; Status DC Fish Oil (Fish Oil) 1,000 mg DAILY PO Last administered on 09/11/18 07:42; Start 09/09/18 at 09:00 Insulin Human Lispro (HumaLOG) 0-7 UNITS QIDACHS SQ Last administered on 11:30; Start 09/08/18 at 16:30 Dextrose 12.5 gm PRN Q15MIN PRN IV SEE COMMENTS; Start 09/08/18 at 14:00 Glyburide (Diabeta) 5 mg BIDWMEALS PO Last administered on 09/11/18 16:40; Start 09/09/18 at 08:00 Sertraline HCl (Zoloft) 100 mg BID PO Last administered on 09/11/18 20:16; Start 09/09/18 at 09:00 Lorazepam (Ativan) 1 mg TID PO Last administered on 09/11/18 20:16; Start 09/09 at 09:00 Divalproex Sodium (Depakote Sprinkles) 125 mg BIDWMEALS PO Last administered on 09/11/18 16:40; Start 09/09/18 at 17:00 Metoprolol Tartrate (Lopressor) 25 mg BID PO Last administered on 09/10/18 08: 06; Start 09/09/18 at 21:00; Stop 09/10/18 at 12:45; Status DC Metoprolol Tartrate (Lopressor) 50 mg BID PO Last administered on 09/11/18 20: 22; Start 09/10/18 at 21:00 Trazodone HCl (Desyrel) 50 mg PRN QHS PRN PO INSOMNIA, MAY REPEAT IN 1HR; Start 09/10/18 at 17:00 Mirtazapine (Remeron) 7.5 mg QHS PO Last administered on 09/11/18 20:16; Start 09/10/18 at 21:00 Cephalexin HCl (Keflex) 500 mg TID PO Last administered on 09/11/18 20:16; Start 09/11/18 at 14:00; Stop 09/21/18 at 13:59 Active Scripts Active Reported Zoloft (Sertraline Hcl) 100 Mg Tablet 100 Mg PO BID [place] 3 Fish Oil Softgel ([place]-3 Fatty Acids/Fish Oil) 1 Each Capsule. 1 Each PO DAILY Bystolic (Nebivolol Hcl) 5 Mg Tablet 5 Mg PO DAILY Multivitamins (Multivitamin) 1 Each Tablet 1 Tab PO DAILY Metformin Hcl 500 Mg Tablet 500 Mg PO BIDWMEALS Namenda (Memantine Hcl) 10 Mg Tablet 10 Mg PO BID Ativan (Lorazepam) 2 Mg Tablet 1 Mg PO TID Lisinopril 40 Mg Tablet 40 Mg PO BID Glyburide 2.5 Mg Tablet 5 Mg PO BID Proscar (Finasteride) 5 Mg Tablet 5 Mg PO QHS Cardura (Doxazosin Mesylate) 4 Mg Tablet 4 Mg PO QHS Aricept (Donepezil Hcl) 10 Mg Tablet 10 Mg PO QHS Coricidin Hbp Cough & Cold Tab (Dextromethorphan Hbr/Chlor-Mal) 1 Each Tablet 1 Each PO PRN QID PRN Aspirin 81 Mg Tab.chew 81 Mg PO QHS I have reviewed the current psychotropics carefully including drug interactions. Risk benefit ratio favors no change other than as noted in my dictated progress note. Diagnosis: Problems: (1) Anxiety disorder (2) Dementia in Alzheimer's disease with delusions (3) Dementia in Alzheimer's disease with depression (4) Dementia, vascular, with delusions (5) Dementia, vascular, with depression (6) Impulse control disorder GERTRUDE HERNANDEZ MD Sep 11, 2018 22:26
[2018-09-11] MEDS: traZODone 50 MG TABLET. PO PRN (23:36)
[2018-09-12] MEDS: traZODone 50 MG TABLET. PO PRN (00:41)
[2018-09-12 06:06] VITALS: BP 108/73
[2018-09-12] MEDS: INSULIN LISPRO 300 UNITS/3 ML INSULN.PEN. SQ SCH ×4 (07:30→19:57)
[2018-09-12] MEDS: SERTRALINE 100 MG TABLET. PO SCH (07:40)
[2018-09-12] MEDS: OMEGA-3 FATTY ACIDS/FISH OIL 1,000 MG CAPSULE. PO SCH (07:40)
[2018-09-12] MEDS: MULTIVITAMIN with MINERAL TABLET. PO SCH (07:40)
[2018-09-12] MEDS: metFORMIN 500 MG TABLET PO SCH ×2 (07:40→16:48)
[2018-09-12] MEDS: CEPHALEXIN 250 MG CAPSULE PO SCH ×3 (07:40→19:56)
[2018-09-12] MEDS: MEMANTINE 10 MG TABLET. PO SCH ×2 (07:40→19:52)
[2018-09-12] MEDS: glyBURIDE 5 MG TABLET PO SCH ×2 (07:40→16:49)
[2018-09-12] MEDS: DIVALPROEX 125 MG CAP.SPRINK PO SCH ×2 (07:41→16:48)
[2018-09-12] MEDS: LISINOPRIL 20 MG TABLET PO SCH ×2 (07:41→19:52)
[2018-09-12] MEDS: METOPROLOL TART IMMED RELEASE 25 MG TABLET PO SCH ×2 (07:42→19:53)
[2018-09-12] MEDS: LORazepam 1 MG TABLET PO SCH ×3 (07:43→19:56)
[2018-09-12 10:41] LABS: BASO # 0.1 x10^3/uL (0.0-0.2); BASO % 1 % (0-3); EOS # 0.3 x10^3/uL (0.0-0.7); EOS % 5 % (0-3); HEMATOCRIT 39.4 % (39.0-53.0); HEMOGLOBIN 12.8 g/dL (13.0-17.5); LYMPH % 18 % (24-48); MEAN CORPUSCULAR HEMOGLOBIN 29 pg (25-35); MEAN CORPUSCULAR HGB CONC 33 g/dL (31-37); MEAN CORPUSCULAR VOLUME 88 fL (79-100); MONO # 0.5 x10^3/uL (0.0-1.1); MONO % 9 % (0-9); NEUT # 3.6 x10^3uL (1.8-7.7); NEUT % 67 % (31-73); PLATELET COUNT 202 x10^3/uL (140-400); RED BLOOD COUNT 4.49 x10^6/uL (4.30-5.70); RED CELL DISTRIBUTION WIDTH 14.9 % (11.5-14.5); WHITE BLOOD COUNT 5.4 x10^3/uL (4.0-11.0)
[2018-09-12 10:54] LABS: ALBUMIN 3.6 g/dL (3.4-5.0); ALBUMIN/GLOBULIN RATIO 0.9 (1.0-1.7); ALK PHOS 95 U/L (46-116); ALT (SGPT) 20 U/L (16-63); ANION GAP 9 (6-14); AST (SGOT) 14 U/L (15-37); BLOOD UREA NITROGEN 23 mg/dL (8-26); BUN/CREATININE RATIO 23 (6-20); CALCIUM 9.4 mg/dL (8.5-10.1); CARBON DIOXIDE 30 mmol/L (21-32); CHLORIDE 106 mmol/L (98-107); GFR 72.3; GLUCOSE 248 mg/dL (70-99); POTASSIUM 4.1 mmol/L (3.5-5.1); SODIUM 145 mmol/L (136-145); TOTAL BILIRUBIN 0.6 mg/dL (0.2-1.0); TOTAL PROTEIN 7.4 g/dL (6.4-8.2)
[2018-09-12 11:04] LABS: VAL ACID 17 mcg/mL (50-100)
[2018-09-12 16:11] VITALS: BP 149/86
[2018-09-12] MEDS: ASPIRIN 81 MG TAB.CHEW PO SCH (19:52)
[2018-09-12] MEDS: MIRTAZAPINE 7.5 MG TABLET. PO SCH (19:53)
[2018-09-12] MEDS: DONEPEZIL HCL 10 MG TABLET PO SCH (19:53)
[2018-09-12] MEDS: FINASTERIDE 5 MG TABLET PO SCH (19:53)
[2018-09-12] MEDS: DOXAZOSIN MESYLATE 4 MG TABLET PO SCH (19:56)
[2018-09-12] MEDS: LACTOBACILLUS RHAMNOSUS GG 1 CAPSULE. PO SCH (19:56)
--- NOTE | 2018-09-12 22:28 | PDOC ---
Exam Note: Roderick Note: Please also refer to the separate dictated note~for this date of service dictated separately.~Patient seen individually. Discussed the patient with Nursing staff reviewed the chart.~Reviewed interim history and current functioning. Reviewed vital signs,~Labs/ Radiology~and current medications noted below. Continue current treatment with the changes noted in the dictated addendum note Assessment: Vital Signs: Vital Signs Date Time Temp Pulse Resp B/P (MAP) Pulse Ox O2 Delivery O2 Flow Rate FiO2 09/12/18 19:56 81 149/86 09/12/18 16:11 97.3 20 94 Room Air I&O Intake and Output 09/12/18 07:01 Intake Total 845 ml Balance 845 ml Intake Oral 845 ml # Voids 1 Labs: Laboratory Tests Test 09/12/18 07:37 09/12/18 10:25 09/12/18 11:44 09/12/18 16:33 Glucose (Fingerstick) 137 mg/dL (70-99) H 215 mg/dL (70-99) H 63 mg/dL (70-99) L White Blood Count 5.4 x10^3/uL (4.0-11.0) Red Blood Count 4.49 x10^6/uL (4.30-5.70) Hemoglobin 12.8 g/dL (13.0-17.5) L Hematocrit 39.4 % (39.0-53.0) Mean Corpuscular Volume 88 fL (79-100) Mean Corpuscular Hemoglobin 29 pg (25-35) Mean Corpuscular Hemoglobin Concent 33 g/dL (31-37) Red Cell Distribution Width 14.9 % (11.5-14.5) H Platelet Count 202 x10^3/uL (140-400) Neutrophils (%) (Auto) 67 % (31-73) Lymphocytes (%) (Auto) 18 % (24-48) L Monocytes (%) (Auto) 9 % (0-9) Eosinophils (%) (Auto) 5 % (0-3) H Basophils (%) (Auto) 1 % (0-3) Neutrophils # (Auto) 3.6 x10^3uL (1.8-7.7) Lymphocytes # (Auto) 1.0 x10^3/uL (1.0-4.8) Monocytes # (Auto) 0.5 x10^3/uL (0.0-1.1) Eosinophils # (Auto) 0.3 x10^3/uL (0.0-0.7) Basophils # (Auto) 0.1 x10^3/uL (0.0-0.2) Sodium Level 145 mmol/L (136-145) Potassium Level 4.1 mmol/L (3.5-5.1) Chloride Level 106 mmol/L (98-107) Carbon Dioxide Level 30 mmol/L (21-32) Anion Gap 9 (6-14) Blood Urea Nitrogen 23 mg/dL (8-26) Creatinine 1.0 mg/dL (0.7-1.3) Estimated GFR (Cockcroft-Gault) 72.3 BUN/Creatinine Ratio 23 (6-20) H Glucose Level 248 mg/dL (70-99) H Calcium Level 9.4 mg/dL (8.5-10.1) Total Bilirubin 0.6 mg/dL (0.2-1.0) Aspartate Amino Transferase (AST) 14 U/L (15-37) L Alanine Aminotransferase (ALT) 20 U/L (16-63) Alkaline Phosphatase 95 U/L (46-116) Total Protein 7.4 g/dL (6.4-8.2) Albumin 3.6 g/dL (3.4-5.0) Albumin/Globulin Ratio 0.9 (1.0-1.7) L Valproic Acid Level 17 mcg/mL (50-100) L Valproic Acid Last Dose Date 09/11/2018 Valproic Acid Last Dose Time 1700 Test 09/12/18 19:20 Glucose (Fingerstick) 180 mg/dL (70-99) H Current Medications: Meds: Current Medications Acetaminophen (Tylenol) 650 mg PRN Q6HRS PRN PO PAIN / TEMP; Start 09/08/18 at 13:30 Multi-Ingredient Ointment (Analgesic [place]) 1 blas PRN QID PRN TP MUSCLE PAIN; Start 09/08/18 at 13:30 Al Hydroxide/Mg Hydroxide (Mylanta Plus Xs) 15 ml PRN AFTMEALHC PRN PO DYSPEPSIA; Start 09/08/18 at 13:30 Magnesium Hydroxide (Milk Of Magnesia) 2,400 mg PRN QHS PRN PO CONSTIPATION; Start 09/08/18 at 13:30 Aspirin (Children'S Aspirin) 81 mg QHS PO Last administered on 09/12/18 19:52; Start 09/08/18 at 21:00 Non-Formulary Medication (Dextromethorphan Hbr/Chlor-Mal (Coricidin Hbp Cough & Cold Tab)) 1 each PRN QID PRN PO COUGH; Start 09/08/18 at 13:45; Status UNV Donepezil HCl (Aricept) 10 mg QHS PO Last administered on 09/12/18 19:53; Start 09/08/18 at 21:00 Doxazosin Mesylate (Cardura) 4 mg QHS PO Last administered on 09/12/18 19:56; Start 09/08/18 at 21:00 Finasteride (Proscar) 5 mg QHS PO Last administered on 09/12/18 19:53; Start at 21:00 Lisinopril (Prinivil) 40 mg BID PO Last administered on 09/12/18 19:52; Start 09/08/18 at 21:00 Lorazepam (Ativan) 2 mg TID PO Last administered on 09/08/18 21:25; Start at 14:00; Stop 09/09/18 at 06:58; Status DC Losartan Potassium (Cozaar) 50 mg DAILY PO Last administered on 09/09/18 08:19 ; Start 09/09/18 at 09:00; Stop 09/10/18 at 12:41; Status DC Losartan Potassium (Cozaar) 100 mg BID PO Last administered on 09/10/18 08:05; Start 09/08/18 at 21:00; Stop 09/10/18 at 12:41; Status DC Memantine (Namenda) 10 mg BID PO Last administered on 09/12/18 19:52; Start at 21:00 Metformin HCl (Glucophage) 500 mg BIDWMEALS PO Last administered on 09/12/18 16 :48; Start 09/08/18 at 17:00 Multivitamins/ Calcium (Thera-M Plus) 1 tab DAILY PO Last administered on 07:40; Start 09/09/18 at 09:00 Metoprolol Tartrate (Lopressor) 25 mg BID PO Last administered on 09/09/18 08: 21; Start 09/08/18 at 21:00; Stop 09/09/18 at 09:58; Status DC Fish Oil (Fish Oil) 1,000 mg DAILY PO Last administered on 09/12/18 07:40; Start 09/09/18 at 09:00 Insulin Human Lispro (HumaLOG) 0-7 UNITS QIDACHS SQ Last administered on 13:08; Start 09/08/18 at 16:30 Dextrose 12.5 gm PRN Q15MIN PRN IV SEE COMMENTS; Start 09/08/18 at 14:00 Glyburide (Diabeta) 5 mg BIDWMEALS PO Last administered on 09/12/18 16:49; Start 09/09/18 at 08:00 Sertraline HCl (Zoloft) 100 mg BID PO Last administered on 09/12/18 07:40; Start 09/09/18 at 09:00; Stop 09/12/18 at 19:10; Status DC Lorazepam (Ativan) 1 mg TID PO Last administered on 09/11/18 20:16; Start 09/09 at 09:00; Stop 09/12/18 at 01:04; Status DC Divalproex Sodium (Depakote Sprinkles) 125 mg BIDWMEALS PO Last administered on 09/12/18 16:48; Start 09/09/18 at 17:00 Metoprolol Tartrate (Lopressor) 25 mg BID PO Last administered on 09/10/18 08: 06; Start 09/09/18 at 21:00; Stop 09/10/18 at 12:45; Status DC Metoprolol Tartrate (Lopressor) 50 mg BID PO Last administered on 09/12/18 19: 53; Start 09/10/18 at 21:00 Trazodone HCl (Desyrel) 50 mg PRN QHS PRN PO INSOMNIA, MAY REPEAT IN 1HR Last administered on 09/12/18 00:41; Start 09/10/18 at 17:00 Mirtazapine (Remeron) 7.5 mg QHS PO Last administered on 09/12/18 19:53; Start 09/10/18 at 21:00 Cephalexin HCl (Keflex) 500 mg TID PO Last administered on 09/12/18 19:56; Start 09/11/18 at 14:00; Stop 09/21/18 at 13:59 Lorazepam (Ativan) 0.75 mg DAILY PO Last administered on 09/12/18at 07:43; Start 09/12/18 at 09:00 Lorazepam (Ativan) 1 mg BID@1300,2100 PO Last administered on 09/12/18 19:56; Start 09/12/18 at 13:00; Stop 09/14/18 at 21:01 Lorazepam (Ativan) 0.75 mg DAILY@1300 PO ; Start 09/15/18 at 13:00 Lorazepam (Ativan) 1 mg QHS PO ; Start 09/15/18 at 21:00; Stop 09/17/18 at 21:01 Lorazepam (Ativan) 0.75 mg HS PO ; Start 09/18/18 at 21:00 Lactobacillus Rhamnosus (Culturelle) 1 cap BID PO Last administered on 19:56; Start 09/12/18 at 21:00 Sertraline HCl (Zoloft) 150 mg DAILY08 PO ; Start 09/13/18 at 08:00 Olanzapine (ZyPREXA ZYDIS) 5 mg PRN Q2HR PRN PO PSYCHOSIS Last administered on 09/12/18 21:26; Start 09/12/18 at 21:30 Active Scripts Active Reported Zoloft (Sertraline Hcl) 100 Mg Tablet 100 Mg PO BID [place] 3 Fish Oil Softgel ([place]-3 Fatty Acids/Fish Oil) 1 Each Capsule. 1 Each PO DAILY Bystolic (Nebivolol Hcl) 5 Mg Tablet 5 Mg PO DAILY Multivitamins (Multivitamin) 1 Each Tablet 1 Tab PO DAILY Metformin Hcl 500 Mg Tablet 500 Mg PO BIDWMEALS Namenda (Memantine Hcl) 10 Mg Tablet 10 Mg PO BID Ativan (Lorazepam) 2 Mg Tablet 1 Mg PO TID Lisinopril 40 Mg Tablet 40 Mg PO BID Glyburide 2.5 Mg Tablet 5 Mg PO BID Proscar (Finasteride) 5 Mg Tablet 5 Mg PO QHS Cardura (Doxazosin Mesylate) 4 Mg Tablet 4 Mg PO QHS Aricept (Donepezil Hcl) 10 Mg Tablet 10 Mg PO QHS Coricidin Hbp Cough & Cold Tab (Dextromethorphan Hbr/Chlor-Mal) 1 Each Tablet 1 Each PO PRN QID PRN Aspirin 81 Mg Tab.chew 81 Mg PO QHS I have reviewed the current psychotropics carefully including drug interactions. Risk benefit ratio favors no change other than as noted in my dictated progress note. Diagnosis: Problems: (1) Anxiety disorder (2) Dementia in Alzheimer's disease with delusions (3) Dementia in Alzheimer's disease with depression (4) Dementia, vascular, with delusions (5) Dementia, vascular, with depression (6) Impulse control disorder GERTRUDE HERNANDEZ MD Sep 12, 2018 22:28
--- NOTE | 2018-09-12 23:13 | PN ---
DATE: 09/10/2018 PSYCHIATRIC PROGRESS NOTE This is a late entry for 09/10/2018 and covers elements not covered in my initial note. SUBJECTIVE: I met with the patient in the evening. The patient slept just one hour previous night. He has not been sexually grabbing out others but seems to stare at female nursing staff per nursing report. He has been holding things, somewhat obsessive. REVIEW OF SYSTEMS: No CV, , pulmonary, eye, ENT system symptoms on review. Reliability poor. MENTAL STATUS EXAM: Oriented to himself. Insight, judgment, recent and remote memory, attention, concentration, fund of knowledge poor, consistent with his diagnosis. IMPRESSION: Major neurocognitive disorder, Alzheimer, vascular with delusion, depression, behavioral disturbance. Rest unchanged. PLAN: No change from initial note, but we will go ahead and add Remeron 7.5 mg at bedtime for his insomnia, trazodone 50 mg at bedtime p.r.n., may repeat x 1 for insomnia. Rest unchanged. MAN Alessandra HERNANDEZ MD DR: TIEN/priyank JOB#: [id number] / [id number]
[2018-09-13 06:12] VITALS: BP 101/69
[2018-09-13] MEDS: INSULIN LISPRO 300 UNITS/3 ML INSULN.PEN. SQ SCH ×4 (07:30→20:58)
[2018-09-13] MEDS: OMEGA-3 FATTY ACIDS/FISH OIL 1,000 MG CAPSULE. PO SCH (07:35)
[2018-09-13] MEDS: DIVALPROEX 125 MG CAP.SPRINK PO SCH ×2 (07:35→16:32)
[2018-09-13] MEDS: LACTOBACILLUS RHAMNOSUS GG 1 CAPSULE. PO SCH ×2 (07:36→20:10)
[2018-09-13] MEDS: MEMANTINE 10 MG TABLET. PO SCH ×2 (07:36→20:10)
[2018-09-13] MEDS: LORazepam 1 MG TABLET PO SCH ×3 (07:36→20:12)
[2018-09-13] MEDS: MULTIVITAMIN with MINERAL TABLET. PO SCH (07:36)
[2018-09-13] MEDS: CEPHALEXIN 250 MG CAPSULE PO SCH ×3 (07:36→20:18)
[2018-09-13] MEDS: glyBURIDE 5 MG TABLET PO SCH ×2 (07:36→16:32)
[2018-09-13] MEDS: metFORMIN 500 MG TABLET PO SCH ×2 (07:36→16:32)
[2018-09-13] MEDS: SERTRALINE 100 MG TABLET. PO SCH (07:41)
[2018-09-13] MEDS: LISINOPRIL 20 MG TABLET PO SCH ×2 (09:00→20:19)
[2018-09-13] MEDS: METOPROLOL TART IMMED RELEASE 25 MG TABLET PO SCH ×2 (09:00→20:19)
[2018-09-13 16:16] VITALS: BP 109/73
[2018-09-13] MEDS: ASPIRIN 81 MG TAB.CHEW PO SCH (20:10)
[2018-09-13] MEDS: MIRTAZAPINE 7.5 MG TABLET. PO SCH (20:10)
[2018-09-13] MEDS: FINASTERIDE 5 MG TABLET PO SCH (20:10)
[2018-09-13] MEDS: DONEPEZIL HCL 10 MG TABLET PO SCH (20:11)
--- NOTE | 2018-09-13 20:13 | PN ---
DATE: 09/11/2018 PSYCHIATRIC PROGRESS NOTE This late entry 09/11/2018 covers elements not covered in my initial note. SUBJECTIVE: I met with the patient in the evening. The patient slept 7-1/4 hours previous night. He has been sexually inappropriate with staff and combative with cares, totally disorganized, oriented to himself. Labs are to be checked on 09/12/2018. REVIEW OF SYSTEMS: No CV, , pulmonary, eye, ENT system symptoms on review. Reliability poor. MENTAL STATUS EXAM: Oriented to himself. Insight, judgment, recent and remote memory, attention, concentration, fund of knowledge poor, consistent with his diagnosis mentioned in my initial note. PLAN: No change from initial note. We will make further adjustments, specifically with the Depakote post-labs received back. MAN Alessandra HERNANDEZ MD DR: TIEN/priyank JOB#: [id number] / [id number]
[2018-09-13] MEDS: DOXAZOSIN MESYLATE 4 MG TABLET PO SCH (20:22)
[2018-09-13 20:23] VITALS: BP 131/81
--- NOTE | 2018-09-13 22:34 | PDOC ---
Exam Note: Roderick Note: Please also refer to the separate dictated note~for this date of service dictated separately.~Patient seen individually. Discussed the patient with Nursing staff reviewed the chart.~Reviewed interim history and current functioning. Reviewed vital signs,~Labs/ Radiology~and current medications noted below. Continue current treatment with the changes noted in the dictated addendum note Assessment: Vital Signs: Vital Signs Date Time Temp Pulse Resp B/P (MAP) Pulse Ox O2 Delivery O2 Flow Rate FiO2 09/13/18 20:23 85 131/81 (98) 09/13/18 16:16 98.2 19 95 09/12/18 16:11 Room Air I&O Intake and Output 09/13/18 07:01 Intake Total 820 ml Balance 820 ml Intake Oral 820 ml # Bowel Movements 1 Labs: Laboratory Tests Test 09/13/18 07:19 09/13/18 11:38 09/13/18 17:01 09/13/18 20:52 Glucose (Fingerstick) 99 mg/dL (70-99) 122 mg/dL (70-99) H 226 mg/dL (70-99) H 64 mg/dL (70-99) L Test 09/13/18 21:57 Glucose (Fingerstick) 80 mg/dL (70-99) Current Medications: Meds: Current Medications Acetaminophen (Tylenol) 650 mg PRN Q6HRS PRN PO PAIN / TEMP; Start 09/08/18 at 13:30 Multi-Ingredient Ointment (Analgesic [place]) 1 blas PRN QID PRN TP MUSCLE PAIN; Start 09/08/18 at 13:30 Al Hydroxide/Mg Hydroxide (Mylanta Plus Xs) 15 ml PRN AFTMEALHC PRN PO DYSPEPSIA; Start 09/08/18 at 13:30 Magnesium Hydroxide (Milk Of Magnesia) 2,400 mg PRN QHS PRN PO CONSTIPATION; Start 09/08/18 at 13:30 Aspirin (Children'S Aspirin) 81 mg QHS PO Last administered on 09/13/18at 20:10; Start 09/08/18 at 21:00 Non-Formulary Medication (Dextromethorphan Hbr/Chlor-Mal (Coricidin Hbp Cough & Cold Tab)) 1 each PRN QID PRN PO COUGH; Start 09/08/18 at 13:45; Status UNV Donepezil HCl (Aricept) 10 mg QHS PO Last administered on 09/13/18 20:11; Start 09/08/18 at 21:00 Doxazosin Mesylate (Cardura) 4 mg QHS PO Last administered on 09/13/18 20:22; Start 09/08/18 at 21:00 Finasteride (Proscar) 5 mg QHS PO Last administered on 09/13/18 20:10; Start at 21:00 Lisinopril (Prinivil) 40 mg BID PO Last administered on 09/13/18 20:19; Start 09/08/18 at 21:00 Lorazepam (Ativan) 2 mg TID PO Last administered on 09/08/18 21:25; Start at 14:00; Stop 09/09/18 at 06:58; Status DC Losartan Potassium (Cozaar) 50 mg DAILY PO Last administered on 09/09/18 08:19 ; Start 09/09/18 at 09:00; Stop 09/10/18 at 12:41; Status DC Losartan Potassium (Cozaar) 100 mg BID PO Last administered on 09/10/18 08:05; Start 09/08/18 at 21:00; Stop 09/10/18 at 12:41; Status DC Memantine (Namenda) 10 mg BID PO Last administered on 09/13/18 20:10; Start at 21:00 Metformin HCl (Glucophage) 500 mg BIDWMEALS PO Last administered on 09/13/18 16 :32; Start 09/08/18 at 17:00 Multivitamins/ Calcium (Thera-M Plus) 1 tab DAILY PO Last administered on 07:36; Start 09/09/18 at 09:00 Metoprolol Tartrate (Lopressor) 25 mg BID PO Last administered on 09/09/18 08: 21; Start 09/08/18 at 21:00; Stop 09/09/18 at 09:58; Status DC Fish Oil (Fish Oil) 1,000 mg DAILY PO Last administered on 09/13/18 07:35; Start 09/09/18 at 09:00 Insulin Human Lispro (HumaLOG) 0-7 UNITS QIDACHS SQ Last administered on 18:15; Start 09/08/18 at 16:30 Dextrose 12.5 gm PRN Q15MIN PRN IV SEE COMMENTS; Start 09/08/18 at 14:00 Glyburide (Diabeta) 5 mg BIDWMEALS PO Last administered on 09/13/18 16:32; Start 09/09/18 at 08:00 Sertraline HCl (Zoloft) 100 mg BID PO Last administered on 09/12/18 07:40; Start 09/09/18 at 09:00; Stop 09/12/18 at 19:10; Status DC Lorazepam (Ativan) 1 mg TID PO Last administered on 09/11/18 20:16; Start 09/09 at 09:00; Stop 09/12/18 at 01:04; Status DC Divalproex Sodium (Depakote Sprinkles) 125 mg BIDWMEALS PO Last administered on 09/13/18 16:32; Start 09/09/18 at 17:00 Metoprolol Tartrate (Lopressor) 25 mg BID PO Last administered on 09/10/18 08: 06; Start 09/09/18 at 21:00; Stop 09/10/18 at 12:45; Status DC Metoprolol Tartrate (Lopressor) 50 mg BID PO Last administered on 09/13/18 20: 19; Start 09/10/18 at 21:00 Trazodone HCl (Desyrel) 50 mg PRN QHS PRN PO INSOMNIA, MAY REPEAT IN 1HR Last administered on 09/12/18 00:41; Start 09/10/18 at 17:00 Mirtazapine (Remeron) 7.5 mg QHS PO Last administered on 09/13/18 20:10; Start 09/10/18 at 21:00 Cephalexin HCl (Keflex) 500 mg TID PO Last administered on 09/13/18 20:18; Start 09/11/18 at 14:00; Stop 09/21/18 at 13:59 Lorazepam (Ativan) 0.75 mg DAILY PO Last administered on 09/13/18 07:36; Start 09/12/18 at 09:00 Lorazepam (Ativan) 1 mg BID@1300,2100 PO Last administered on 09/13/18at 20:12; Start 09/12/18 at 13:00; Stop 09/14/18 at 21:01 Lorazepam (Ativan) 0.75 mg DAILY@1300 PO ; Start 09/15/18 at 13:00 Lorazepam (Ativan) 1 mg QHS PO ; Start 09/15/18 at 21:00; Stop 09/17/18 at 21:01 Lorazepam (Ativan) 0.75 mg HS PO ; Start 09/18/18 at 21:00 Lactobacillus Rhamnosus (Culturelle) 1 cap BID PO Last administered on at 20:10; Start 09/12/18 at 21:00 Sertraline HCl (Zoloft) 150 mg DAILY08 PO Last administered on 09/13/18at 07:41; Start 09/13/18 at 08:00 Olanzapine (ZyPREXA ZYDIS) 5 mg PRN Q2HR PRN PO PSYCHOSIS Last administered on 09/12/18at 21:26; Start 09/12/18 at 21:30 Active Scripts Active Reported Zoloft (Sertraline Hcl) 100 Mg Tablet 100 Mg PO BID [place] 3 Fish Oil Softgel ([place]-3 Fatty Acids/Fish Oil) 1 Each Capsule.dr 1 Each PO DAILY Bystolic (Nebivolol Hcl) 5 Mg Tablet 5 Mg PO DAILY Multivitamins (Multivitamin) 1 Each Tablet 1 Tab PO DAILY Metformin Hcl 500 Mg Tablet 500 Mg PO BIDWMEALS Namenda (Memantine Hcl) 10 Mg Tablet 10 Mg PO BID Ativan (Lorazepam) 2 Mg Tablet 1 Mg PO TID Lisinopril 40 Mg Tablet 40 Mg PO BID Glyburide 2.5 Mg Tablet 5 Mg PO BID Proscar (Finasteride) 5 Mg Tablet 5 Mg PO QHS Cardura (Doxazosin Mesylate) 4 Mg Tablet 4 Mg PO QHS Aricept (Donepezil Hcl) 10 Mg Tablet 10 Mg PO QHS Coricidin Hbp Cough & Cold Tab (Dextromethorphan Hbr/Chlor-Mal) 1 Each Tablet 1 Each PO PRN QID PRN Aspirin 81 Mg Tab.chew 81 Mg PO QHS I have reviewed the current psychotropics carefully including drug interactions. Risk benefit ratio favors no change other than as noted in my dictated progress note. Diagnosis: Problems: (1) Anxiety disorder (2) Dementia in Alzheimer's disease with delusions (3) Dementia in Alzheimer's disease with depression (4) Dementia, vascular, with delusions (5) Dementia, vascular, with depression (6) Impulse control disorder GERTRUDE HERNANDEZ MD Sep 13, 2018 22:33
--- NOTE | 2018-09-13 22:51 | PN ---
DATE: 09/12/2018 This late entry for 09/12/2018 covers elements not covered in my initial note. SUBJECTIVE: I met with the patient in the evening. The patient slept just half hour previous night despite trazodone x 2 and Remeron. He has refused his dinner, somewhat sedated earlier in the day. REVIEW OF SYSTEMS: No CV, , pulmonary, eye, ENT system symptoms on review. Reliability poor. MENTAL STATUS EXAM: Oriented to himself. Insight, judgment, recent and remote memory, attention, concentration, fund of knowledge poor, consistent with his diagnosis. Late in the evening of 09/12/2018 and late at night, I was called by the nursing staff. The patient was extremely agitated, aggressive, unmanageable. It took 3 staff members to control him. We did add Zyprexa p.r.n. and this seemed to help him. REVIEW OF SYSTEMS: No CV, , pulmonary, eye, ENT system symptoms on review. Reliability poor. MENTAL STATUS EXAM: Oriented to himself. Insight, judgment, recent and remote memory, attention, concentration, fund of knowledge poor, consistent with his diagnosis. IMPRESSION: Major neurocognitive disorder, Alzheimer, vascular with delusion, depression, behavioral disturbance; anxiety disorder, unspecified; impulse control disorder, unspecified. PLAN: Zoloft at 200 mg a day could be increasing his agitation. We will reduce it to 150 mg a day. Start Zyprexa p.r.n. Rest unchanged from initial note. Ativan is being tapered. GERTRUDE HERNANDEZ MD DR: TIEN/priyank JOB#: [id number] / [id number]
[2018-09-14 06:17] VITALS: BP 109/74
[2018-09-14] MEDS: INSULIN LISPRO 300 UNITS/3 ML INSULN.PEN. SQ SCH ×4 (07:30→19:39)
[2018-09-14] MEDS: OMEGA-3 FATTY ACIDS/FISH OIL 1,000 MG CAPSULE. PO SCH (08:36)
[2018-09-14] MEDS: SERTRALINE 100 MG TABLET. PO SCH (08:37)
[2018-09-14] MEDS: metFORMIN 500 MG TABLET PO SCH ×2 (08:37→17:32)
[2018-09-14] MEDS: DIVALPROEX 125 MG CAP.SPRINK PO SCH ×2 (08:37→17:34)
[2018-09-14] MEDS: MEMANTINE 10 MG TABLET. PO SCH ×2 (08:37→19:36)
[2018-09-14] MEDS: MULTIVITAMIN with MINERAL TABLET. PO SCH (08:37)
[2018-09-14] MEDS: LACTOBACILLUS RHAMNOSUS GG 1 CAPSULE. PO SCH ×2 (08:37→19:38)
[2018-09-14] MEDS: CEPHALEXIN 250 MG CAPSULE PO SCH ×3 (08:37→19:36)
[2018-09-14] MEDS: METOPROLOL TART IMMED RELEASE 25 MG TABLET PO SCH ×2 (08:40→19:36)
[2018-09-14] MEDS: LISINOPRIL 20 MG TABLET PO SCH ×2 (08:40→19:37)
[2018-09-14] MEDS: glyBURIDE 5 MG TABLET PO SCH ×2 (08:41→17:34)
[2018-09-14] MEDS: LORazepam 1 MG TABLET PO SCH ×3 (08:42→19:40)
[2018-09-14 17:06] VITALS: BP 140/89
[2018-09-14] MEDS: traZODone 50 MG TABLET. PO PRN (19:35)
[2018-09-14] MEDS: DOXAZOSIN MESYLATE 4 MG TABLET PO SCH (19:35)
[2018-09-14] MEDS: DONEPEZIL HCL 10 MG TABLET PO SCH (19:36)
[2018-09-14] MEDS: ASPIRIN 81 MG TAB.CHEW PO SCH (19:36)
[2018-09-14] MEDS: FINASTERIDE 5 MG TABLET PO SCH (19:38)
[2018-09-14] MEDS: MIRTAZAPINE 7.5 MG TABLET. PO SCH (19:38)
--- NOTE | 2018-09-14 22:51 | PDOC ---
Exam Note: Roderick Note: Please also refer to the separate dictated note~for this date of service dictated separately.~Patient seen individually. Discussed the patient with Nursing staff reviewed the chart.~Reviewed interim history and current functioning. Reviewed vital signs,~Labs/ Radiology~and current medications noted below. Continue current treatment with the changes noted in the dictated addendum note Assessment: Vital Signs: Vital Signs Date Time Temp Pulse Resp B/P (MAP) Pulse Ox O2 Delivery O2 Flow Rate FiO2 09/14/18 19:37 78 140/89 09/14/18 17:06 98.1 22 100 09/12/18 16:11 Room Air I&O Intake and Output 09/14/18 07:01 Intake Total 820 ml Balance 820 ml Intake Oral 820 ml # Bowel Movements 1 Labs: Laboratory Tests Test 09/14/18 07:46 09/14/18 11:55 09/14/18 17:16 09/14/18 19:15 Glucose (Fingerstick) 86 mg/dL (70-99) 91 mg/dL (70-99) 175 mg/dL (70-99) H 108 mg/dL (70-99) H Current Medications: Meds: Current Medications Acetaminophen (Tylenol) 650 mg PRN Q6HRS PRN PO PAIN / TEMP; Start 09/08/18 at 13:30 Multi-Ingredient Ointment (Analgesic [place]) 1 blas PRN QID PRN TP MUSCLE PAIN; Start 09/08/18 at 13:30 Al Hydroxide/Mg Hydroxide (Mylanta Plus Xs) 15 ml PRN AFTMEALHC PRN PO DYSPEPSIA; Start 09/08/18 at 13:30 Magnesium Hydroxide (Milk Of Magnesia) 2,400 mg PRN QHS PRN PO CONSTIPATION; Start 09/08/18 at 13:30 Aspirin (Children'S Aspirin) 81 mg QHS PO Last administered on 09/14/18at 19:36; Start 09/08/18 at 21:00 Non-Formulary Medication (Dextromethorphan Hbr/Chlor-Mal (Coricidin Hbp Cough & Cold Tab)) 1 each PRN QID PRN PO COUGH; Start 09/08/18 at 13:45; Status UNV Donepezil HCl (Aricept) 10 mg QHS PO Last administered on 09/14/18at 19:36; Start 09/08/18 at 21:00 Doxazosin Mesylate (Cardura) 4 mg QHS PO Last administered on 09/14/18 19:35; Start 09/08/18 at 21:00 Finasteride (Proscar) 5 mg QHS PO Last administered on 09/14/18 19:38; Start at 21:00 Lisinopril (Prinivil) 40 mg BID PO Last administered on 09/14/18 19:37; Start 09/08/18 at 21:00 Lorazepam (Ativan) 2 mg TID PO Last administered on 09/08/18 21:25; Start at 14:00; Stop 09/09/18 at 06:58; Status DC Losartan Potassium (Cozaar) 50 mg DAILY PO Last administered on 09/09/18 08:19 ; Start 09/09/18 at 09:00; Stop 09/10/18 at 12:41; Status DC Losartan Potassium (Cozaar) 100 mg BID PO Last administered on 09/10/18 08:05; Start 09/08/18 at 21:00; Stop 09/10/18 at 12:41; Status DC Memantine (Namenda) 10 mg BID PO Last administered on 09/14/18 19:36; Start at 21:00 Metformin HCl (Glucophage) 500 mg BIDWMEALS PO Last administered on 09/14/18 17 :32; Start 09/08/18 at 17:00 Multivitamins/ Calcium (Thera-M Plus) 1 tab DAILY PO Last administered on 08:37; Start 09/09/18 at 09:00 Metoprolol Tartrate (Lopressor) 25 mg BID PO Last administered on 09/09/18 08: 21; Start 09/08/18 at 21:00; Stop 09/09/18 at 09:58; Status DC Fish Oil (Fish Oil) 1,000 mg DAILY PO Last administered on 09/14/18 08:36; Start 09/09/18 at 09:00 Insulin Human Lispro (HumaLOG) 0-7 UNITS QIDACHS SQ Last administered on 17:36; Start 09/08/18 at 16:30 Dextrose 12.5 gm PRN Q15MIN PRN IV SEE COMMENTS; Start 09/08/18 at 14:00 Glyburide (Diabeta) 5 mg BIDWMEALS PO Last administered on 09/14/18 17:34; Start 09/09/18 at 08:00 Sertraline HCl (Zoloft) 100 mg BID PO Last administered on 09/12/18 07:40; Start 09/09/18 at 09:00; Stop 09/12/18 at 19:10; Status DC Lorazepam (Ativan) 1 mg TID PO Last administered on 09/11/18 20:16; Start 09/09 at 09:00; Stop 09/12/18 at 01:04; Status DC Divalproex Sodium (Depakote Sprinkles) 125 mg BIDWMEALS PO Last administered on 09/14/18 08:37; Start 09/09/18 at 17:00; Stop 09/14/18 at 16:37; Status DC Metoprolol Tartrate (Lopressor) 25 mg BID PO Last administered on 09/10/18 08: 06; Start 09/09/18 at 21:00; Stop 09/10/18 at 12:45; Status DC Metoprolol Tartrate (Lopressor) 50 mg BID PO Last administered on 09/14/18 19: 36; Start 09/10/18 at 21:00 Trazodone HCl (Desyrel) 50 mg PRN QHS PRN PO INSOMNIA, MAY REPEAT IN 1HR Last administered on 09/14/18 19:35; Start 09/10/18 at 17:00 Mirtazapine (Remeron) 7.5 mg QHS PO Last administered on 09/14/18 19:38; Start 09/10/18 at 21:00 Cephalexin HCl (Keflex) 500 mg TID PO Last administered on 09/14/18 19:36; Start 09/11/18 at 14:00; Stop 09/21/18 at 13:59 Lorazepam (Ativan) 0.75 mg DAILY PO Last administered on 09/14/18 08:42; Start 09/12/18 at 09:00 Lorazepam (Ativan) 1 mg BID@1300,2100 PO Last administered on 09/14/18 19:40; Start 09/12/18 at 13:00; Stop 09/14/18 at 21:01; Status DC Lorazepam (Ativan) 0.75 mg DAILY@1300 PO ; Start 09/15/18 at 13:00 Lorazepam (Ativan) 1 mg QHS PO ; Start 09/15/18 at 21:00; Stop 09/17/18 at 21:01 Lorazepam (Ativan) 0.75 mg HS PO ; Start 09/18/18 at 21:00 Lactobacillus Rhamnosus (Culturelle) 1 cap BID PO Last administered on at 19:38; Start 09/12/18 at 21:00 Sertraline HCl (Zoloft) 150 mg DAILY08 PO Last administered on 09/14/18at 08:37; Start 09/13/18 at 08:00 Olanzapine (ZyPREXA ZYDIS) 5 mg PRN Q2HR PRN PO PSYCHOSIS Last administered on 09/12/18at 21:26; Start 09/12/18 at 21:30 Divalproex Sodium (Depakote Sprinkles) 250 mg BIDWMEALS PO Last administered on 09/14/18at 17:34; Start 09/14/18 at 17:00 Active Scripts Active Reported Zoloft (Sertraline Hcl) 100 Mg Tablet 100 Mg PO BID [place] 3 Fish Oil Softgel ([place]-3 Fatty Acids/Fish Oil) 1 Each Capsule.dr 1 Each PO DAILY Bystolic (Nebivolol Hcl) 5 Mg Tablet 5 Mg PO DAILY Multivitamins (Multivitamin) 1 Each Tablet 1 Tab PO DAILY Metformin Hcl 500 Mg Tablet 500 Mg PO BIDWMEALS Namenda (Memantine Hcl) 10 Mg Tablet 10 Mg PO BID Ativan (Lorazepam) 2 Mg Tablet 1 Mg PO TID Lisinopril 40 Mg Tablet 40 Mg PO BID Glyburide 2.5 Mg Tablet 5 Mg PO BID Proscar (Finasteride) 5 Mg Tablet 5 Mg PO QHS Cardura (Doxazosin Mesylate) 4 Mg Tablet 4 Mg PO QHS Aricept (Donepezil Hcl) 10 Mg Tablet 10 Mg PO QHS Coricidin Hbp Cough & Cold Tab (Dextromethorphan Hbr/Chlor-Mal) 1 Each Tablet 1 Each PO PRN QID PRN Aspirin 81 Mg Tab.chew 81 Mg PO QHS I have reviewed the current psychotropics carefully including drug interactions. Risk benefit ratio favors no change other than as noted in my dictated progress note. Diagnosis: Problems: (1) Anxiety disorder (2) Dementia in Alzheimer's disease with delusions (3) Dementia in Alzheimer's disease with depression (4) Dementia, vascular, with delusions (5) Dementia, vascular, with depression (6) Impulse control disorder GERTRUDE HERNANDEZ MD Sep 14, 2018 22:51
--- NOTE | 2018-09-14 23:27 | PN ---
DATE: 09/13/2018 PSYCHIATRIC PROGRESS NOTE This late entry for 09/13/2017 covers elements not covered in my initial note. SUBJECTIVE: I met with the patient in the evening. The patient slept 6-1/4 hours previous night. 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 Three people had to hold him in the quiet room area with the doors open because he was totally out of control. We started Zyprexa p.r.n. He slept until lunchtime, takes meds in pudding, at lunchtime was interactive with physical therapy staff. REVIEW OF SYSTEMS: No CV, , pulmonary, eye, ENT system symptoms on review. Reliability poor. MENTAL STATUS EXAM: Oriented to himself. Insight, judgment, recent and remote memory, attention, concentration, fund of knowledge poor, consistent with his diagnosis mentioned in my initial note. PLAN: No changes from initial note, but we may adjust the Depakote as a mood stabilizer since last valproic acid level was subtherapeutic at 17. We will give it another day and decide. GERTRUDE HERNANDEZ MD DR: TIEN/priyank JOB#: [id number] / [id number]
[2018-09-15 05:53] VITALS: BP 150/87
[2018-09-15] MEDS: INSULIN LISPRO 300 UNITS/3 ML INSULN.PEN. SQ SCH ×4 (07:30→20:55)
[2018-09-15] MEDS: OMEGA-3 FATTY ACIDS/FISH OIL 1,000 MG CAPSULE. PO SCH (07:56)
[2018-09-15] MEDS: MEMANTINE 10 MG TABLET. PO SCH ×2 (07:57→21:00)
[2018-09-15] MEDS: LACTOBACILLUS RHAMNOSUS GG 1 CAPSULE. PO SCH ×2 (07:57→20:58)
[2018-09-15] MEDS: MULTIVITAMIN with MINERAL TABLET. PO SCH (07:57)
[2018-09-15] MEDS: glyBURIDE 5 MG TABLET PO SCH ×2 (07:57→16:33)
[2018-09-15] MEDS: CEPHALEXIN 250 MG CAPSULE PO SCH ×3 (07:57→20:56)
[2018-09-15] MEDS: metFORMIN 500 MG TABLET PO SCH ×2 (07:57→16:33)
[2018-09-15] MEDS: SERTRALINE 100 MG TABLET. PO SCH (07:57)
[2018-09-15] MEDS: DIVALPROEX 125 MG CAP.SPRINK PO SCH ×2 (07:57→16:33)
[2018-09-15] MEDS: LORazepam 1 MG TABLET PO SCH ×3 (08:05→21:00)
[2018-09-15] MEDS: LISINOPRIL 20 MG TABLET PO SCH ×2 (09:00→20:56)
[2018-09-15] MEDS: METOPROLOL TART IMMED RELEASE 25 MG TABLET PO SCH ×2 (09:00→21:00)
[2018-09-15 16:04] VITALS: BP 121/71
[2018-09-15 19:39] VITALS: BP 150/86
[2018-09-15] MEDS: ASPIRIN 81 MG TAB.CHEW PO SCH (20:56)
[2018-09-15] MEDS: DONEPEZIL HCL 10 MG TABLET PO SCH (20:56)
[2018-09-15] MEDS: MIRTAZAPINE 7.5 MG TABLET. PO SCH (20:56)
[2018-09-15] MEDS: DOXAZOSIN MESYLATE 4 MG TABLET PO SCH (20:58)
[2018-09-15] MEDS: FINASTERIDE 5 MG TABLET PO SCH (20:58)
--- NOTE | 2018-09-15 22:50 | PDOC ---
Exam Note: Roderick Note: Please also refer to the separate dictated note~for this date of service dictated separately.~Patient seen individually. Discussed the patient with Nursing staff reviewed the chart.~Reviewed interim history and current functioning. Reviewed vital signs,~Labs/ Radiology~and current medications noted below. Continue current treatment with the changes noted in the dictated addendum note Assessment: Vital Signs: Vital Signs Date Time Temp Pulse Resp B/P (MAP) Pulse Ox O2 Delivery O2 Flow Rate FiO2 09/15/18 21:00 79 150/86 09/15/18 16:04 97.5 18 96 09/12/18 16:11 Room Air I&O Intake and Output 09/15/18 07:01 Intake Total 840 ml Balance 840 ml Intake Oral 840 ml # Voids 1 # Bowel Movements 1 Labs: Laboratory Tests Test 09/15/18 07:19 09/15/18 07:39 09/15/18 08:53 09/15/18 11:46 Glucose (Fingerstick) 58 mg/dL (70-99) L 61 mg/dL (70-99) L 118 mg/dL (70-99) H 106 mg/dL (70-99) H Test 09/15/18 16:11 09/15/18 19:11 Glucose (Fingerstick) 163 mg/dL (70-99) H 171 mg/dL (70-99) H Current Medications: Meds: Current Medications Acetaminophen (Tylenol) 650 mg PRN Q6HRS PRN PO PAIN / TEMP; Start 09/08/18 at 13:30 Multi-Ingredient Ointment (Analgesic [place]) 1 blas PRN QID PRN TP MUSCLE PAIN; Start 09/08/18 at 13:30 Al Hydroxide/Mg Hydroxide (Mylanta Plus Xs) 15 ml PRN AFTMEALHC PRN PO DYSPEPSIA; Start 09/08/18 at 13:30 Magnesium Hydroxide (Milk Of Magnesia) 2,400 mg PRN QHS PRN PO CONSTIPATION; Start 09/08/18 at 13:30 Aspirin (Children'S Aspirin) 81 mg QHS PO Last administered on 09/15/18at 20:56; Start 09/08/18 at 21:00 Non-Formulary Medication (Dextromethorphan Hbr/Chlor-Mal (Coricidin Hbp Cough & Cold Tab)) 1 each PRN QID PRN PO COUGH; Start 09/08/18 at 13:45; Status UNV Donepezil HCl (Aricept) 10 mg QHS PO Last administered on 09/15/18 20:56; Start 09/08/18 at 21:00 Doxazosin Mesylate (Cardura) 4 mg QHS PO Last administered on 09/15/18 20:58; Start 09/08/18 at 21:00 Finasteride (Proscar) 5 mg QHS PO Last administered on 09/15/18 20:58; Start at 21:00 Lisinopril (Prinivil) 40 mg BID PO Last administered on 09/15/18 20:56; Start 09/08/18 at 21:00 Lorazepam (Ativan) 2 mg TID PO Last administered on 09/08/18 21:25; Start at 14:00; Stop 09/09/18 at 06:58; Status DC Losartan Potassium (Cozaar) 50 mg DAILY PO Last administered on 09/09/18 08:19 ; Start 09/09/18 at 09:00; Stop 09/10/18 at 12:41; Status DC Losartan Potassium (Cozaar) 100 mg BID PO Last administered on 09/10/18 08:05; Start 09/08/18 at 21:00; Stop 09/10/18 at 12:41; Status DC Memantine (Namenda) 10 mg BID PO Last administered on 09/15/18 21:00; Start at 21:00 Metformin HCl (Glucophage) 500 mg BIDWMEALS PO Last administered on 09/15/18 16 :33; Start 09/08/18 at 17:00 Multivitamins/ Calcium (Thera-M Plus) 1 tab DAILY PO Last administered on 07:57; Start 09/09/18 at 09:00 Metoprolol Tartrate (Lopressor) 25 mg BID PO Last administered on 09/09/18 08: 21; Start 09/08/18 at 21:00; Stop 09/09/18 at 09:58; Status DC Fish Oil (Fish Oil) 1,000 mg DAILY PO Last administered on 09/15/18 07:56; Start 09/09/18 at 09:00 Insulin Human Lispro (HumaLOG) 0-7 UNITS QIDACHS SQ Last administered on 17:06; Start 09/08/18 at 16:30 Dextrose 12.5 gm PRN Q15MIN PRN IV SEE COMMENTS; Start 09/08/18 at 14:00 Glyburide (Diabeta) 5 mg BIDWMEALS PO Last administered on 09/15/18at 16:33; Start 09/09/18 at 08:00 Sertraline HCl (Zoloft) 100 mg BID PO Last administered on 09/12/18 07:40; Start 09/09/18 at 09:00; Stop 09/12/18 at 19:10; Status DC Lorazepam (Ativan) 1 mg TID PO Last administered on 09/11/18 20:16; Start 09/09 at 09:00; Stop 09/12/18 at 01:04; Status DC Divalproex Sodium (Depakote Sprinkles) 125 mg BIDWMEALS PO Last administered on 09/14/18at 08:37; Start 09/09/18 at 17:00; Stop 09/14/18 at 16:37; Status DC Metoprolol Tartrate (Lopressor) 25 mg BID PO Last administered on 09/10/18 08: 06; Start 09/09/18 at 21:00; Stop 09/10/18 at 12:45; Status DC Metoprolol Tartrate (Lopressor) 50 mg BID PO Last administered on 09/14/18at 19: 36; Start 09/10/18 at 21:00; Stop 09/15/18 at 16:09; Status DC Trazodone HCl (Desyrel) 50 mg PRN QHS PRN PO INSOMNIA, MAY REPEAT IN 1HR Last administered on 09/14/18 19:35; Start 09/10/18 at 17:00 Mirtazapine (Remeron) 7.5 mg QHS PO Last administered on 09/15/18 20:56; Start 09/10/18 at 21:00 Cephalexin HCl (Keflex) 500 mg TID PO Last administered on 09/15/18 20:56; Start 09/11/18 at 14:00; Stop 09/21/18 at 13:59 Lorazepam (Ativan) 0.75 mg DAILY PO Last administered on 09/15/18 08:05; Start 09/12/18 at 09:00 Lorazepam (Ativan) 1 mg BID@1300,2100 PO Last administered on 09/14/18 19:40; Start 09/12/18 at 13:00; Stop 09/14/18 at 21:01; Status DC Lorazepam (Ativan) 0.75 mg DAILY@1300 PO ; Start 09/15/18 at 13:00 Lorazepam (Ativan) 1 mg QHS PO Last administered on 09/15/18 21:00; Start at 21:00; Stop 09/17/18 at 21:01 Lorazepam (Ativan) 0.75 mg HS PO ; Start 09/18/18 at 21:00 Lactobacillus Rhamnosus (Culturelle) 1 cap BID PO Last administered on 20:58; Start 09/12/18 at 21:00 Sertraline HCl (Zoloft) 150 mg DAILY08 PO Last administered on 09/15/18 07:57; Start 09/13/18 at 08:00 Olanzapine (ZyPREXA ZYDIS) 5 mg PRN Q2HR PRN PO PSYCHOSIS Last administered on 09/15/18 13:18; Start 09/12/18 at 21:30 Divalproex Sodium (Depakote Sprinkles) 250 mg BIDWMEALS PO Last administered on 09/15/18 16:33; Start 09/14/18 at 17:00 Metoprolol Tartrate (Lopressor) 25 mg BID PO Last administered on 09/15/18 21: 00; Start 09/15/18 at 21:00 Active Scripts Active Reported Zoloft (Sertraline Hcl) 100 Mg Tablet 100 Mg PO BID [place] 3 Fish Oil Softgel ([place]-3 Fatty Acids/Fish Oil) 1 Each Capsule.dr 1 Each PO DAILY Bystolic (Nebivolol Hcl) 5 Mg Tablet 5 Mg PO DAILY Multivitamins (Multivitamin) 1 Each Tablet 1 Tab PO DAILY Metformin Hcl 500 Mg Tablet 500 Mg PO BIDWMEALS Namenda (Memantine Hcl) 10 Mg Tablet 10 Mg PO BID Ativan (Lorazepam) 2 Mg Tablet 1 Mg PO TID Lisinopril 40 Mg Tablet 40 Mg PO BID Glyburide 2.5 Mg Tablet 5 Mg PO BID Proscar (Finasteride) 5 Mg Tablet 5 Mg PO QHS Cardura (Doxazosin Mesylate) 4 Mg Tablet 4 Mg PO QHS Aricept (Donepezil Hcl) 10 Mg Tablet 10 Mg PO QHS Coricidin Hbp Cough & Cold Tab (Dextromethorphan Hbr/Chlor-Mal) 1 Each Tablet 1 Each PO PRN QID PRN Aspirin 81 Mg Tab.chew 81 Mg PO QHS I have reviewed the current psychotropics carefully including drug interactions. Risk benefit ratio favors no change other than as noted in my dictated progress note. Diagnosis: Problems: (1) Anxiety disorder (2) Dementia in Alzheimer's disease with delusions (3) Dementia in Alzheimer's disease with depression (4) Dementia, vascular, with delusions (5) Dementia, vascular, with depression (6) Impulse control disorder GERTRUDE HERNANDEZ MD Sep 15, 2018 22:50
--- NOTE | 2018-09-15 23:56 | PN ---
DATE: 09/14/2018 PSYCHIATRIC PROGRESS NOTE This late entry, 09/14/2018, covers elements not covered in my initial note. SUBJECTIVE: I met with the patient in the evening. The patient slept 3-3/4 hours previous night. He slept till 11 a.m. He was sexually and verbally aggressive, has had some loose stools grabbing out at staff. REVIEW OF SYSTEMS: No CV, , pulmonary, eye, ENT system symptoms on review. MENTAL STATUS EXAM: Oriented to himself. Insight, judgment, recent and remote memory, attention, concentration, fund of knowledge poor, consistent with his diagnosis mentioned in my initial note. PLAN: Valproic acid level subtherapeutic at 17 on Depakote 125 mg twice a day. We will increase this to 250 mg twice a day. Check CBC, CMP, valproic acid level in 3 days. Rest unchanged from initial note. MAN Alessandra HERNANDEZ MD DR: TIEN/priyank JOB#: [id number] / [id number]
[2018-09-16 06:41] VITALS: BP 125/73
[2018-09-16] MEDS: INSULIN LISPRO 300 UNITS/3 ML INSULN.PEN. SQ SCH ×4 (07:30→19:43)
[2018-09-16] MEDS: DIVALPROEX 125 MG CAP.SPRINK PO SCH ×2 (07:55→17:19)
[2018-09-16] MEDS: metFORMIN 500 MG TABLET PO SCH ×2 (07:56→17:19)
[2018-09-16] MEDS: MULTIVITAMIN with MINERAL TABLET. PO SCH (07:56)
[2018-09-16] MEDS: SERTRALINE 100 MG TABLET. PO SCH (07:56)
[2018-09-16] MEDS: CEPHALEXIN 250 MG CAPSULE PO SCH ×3 (07:56→19:39)
[2018-09-16] MEDS: MEMANTINE 10 MG TABLET. PO SCH ×2 (07:56→19:38)
[2018-09-16] MEDS: glyBURIDE 5 MG TABLET PO SCH ×2 (07:56→17:19)
[2018-09-16] MEDS: LACTOBACILLUS RHAMNOSUS GG 1 CAPSULE. PO SCH ×2 (07:56→19:39)
[2018-09-16] MEDS: OMEGA-3 FATTY ACIDS/FISH OIL 1,000 MG CAPSULE. PO SCH (07:56)
[2018-09-16] MEDS: METOPROLOL TART IMMED RELEASE 25 MG TABLET PO SCH ×2 (07:57→19:39)
[2018-09-16] MEDS: LISINOPRIL 20 MG TABLET PO SCH ×2 (07:57→19:38)
[2018-09-16] MEDS: LORazepam 1 MG TABLET PO SCH ×3 (08:00→19:41)
[2018-09-16 16:57] VITALS: BP 109/71
[2018-09-16] MEDS: DONEPEZIL HCL 10 MG TABLET PO SCH (19:38)
[2018-09-16] MEDS: ASPIRIN 81 MG TAB.CHEW PO SCH (19:39)
[2018-09-16] MEDS: FINASTERIDE 5 MG TABLET PO SCH (19:39)
[2018-09-16] MEDS: MIRTAZAPINE 7.5 MG TABLET. PO SCH (19:39)
[2018-09-16] MEDS: DOXAZOSIN MESYLATE 4 MG TABLET PO SCH (19:40)
[2018-09-16] MEDS: traZODone 50 MG TABLET. PO SCH (19:43)
[2018-09-16] MEDS: traZODone 50 MG TABLET. PO PRN (21:15)
--- NOTE | 2018-09-16 22:28 | PDOC ---
Exam Note: Roderick Note: Please also refer to the separate dictated note~for this date of service dictated separately.~Patient seen individually. Discussed the patient with Nursing staff reviewed the chart.~Reviewed interim history and current functioning. Reviewed vital signs,~Labs/ Radiology~and current medications noted below. Continue current treatment with the changes noted in the dictated addendum note Assessment: Vital Signs: Vital Signs Date Time Temp Pulse Resp B/P (MAP) Pulse Ox O2 Delivery O2 Flow Rate FiO2 09/16/18 19:40 85 132/87 09/16/18 16:57 20 95 09/16/18 06:41 98.3 09/12/18 16:11 Room Air I&O Intake and Output 09/16/18 07:01 Intake Total 1200 ml Balance 1200 ml Intake Oral 1200 ml # Voids 1 Labs: Laboratory Tests Test 09/16/18 07:40 09/16/18 11:18 09/16/18 17:01 09/16/18 19:19 Glucose (Fingerstick) 142 mg/dL (70-99) H 184 mg/dL (70-99) H 206 mg/dL (70-99) H 153 mg/dL (70-99) H Current Medications: Meds: Current Medications Acetaminophen (Tylenol) 650 mg PRN Q6HRS PRN PO PAIN / TEMP; Start 09/08/18 at 13:30 Multi-Ingredient Ointment (Analgesic [place]) 1 blas PRN QID PRN TP MUSCLE PAIN; Start 09/08/18 at 13:30 Al Hydroxide/Mg Hydroxide (Mylanta Plus Xs) 15 ml PRN AFTMEALHC PRN PO DYSPEPSIA; Start 09/08/18 at 13:30 Magnesium Hydroxide (Milk Of Magnesia) 2,400 mg PRN QHS PRN PO CONSTIPATION; Start 09/08/18 at 13:30 Aspirin (Children'S Aspirin) 81 mg QHS PO Last administered on 09/16/18at 19:39; Start 09/08/18 at 21:00 Non-Formulary Medication (Dextromethorphan Hbr/Chlor-Mal (Coricidin Hbp Cough & Cold Tab)) 1 each PRN QID PRN PO COUGH; Start 09/08/18 at 13:45; Status UNV Donepezil HCl (Aricept) 10 mg QHS PO Last administered on 09/16/18 19:38; Start 09/08/18 at 21:00 Doxazosin Mesylate (Cardura) 4 mg QHS PO Last administered on 09/16/18 19:40; Start 09/08/18 at 21:00 Finasteride (Proscar) 5 mg QHS PO Last administered on 09/16/18 19:39; Start at 21:00 Lisinopril (Prinivil) 40 mg BID PO Last administered on 09/16/18 19:38; Start 09/08/18 at 21:00 Lorazepam (Ativan) 2 mg TID PO Last administered on 09/08/18 21:25; Start at 14:00; Stop 09/09/18 at 06:58; Status DC Losartan Potassium (Cozaar) 50 mg DAILY PO Last administered on 09/09/18 08:19 ; Start 09/09/18 at 09:00; Stop 09/10/18 at 12:41; Status DC Losartan Potassium (Cozaar) 100 mg BID PO Last administered on 09/10/18 08:05; Start 09/08/18 at 21:00; Stop 09/10/18 at 12:41; Status DC Memantine (Namenda) 10 mg BID PO Last administered on 09/16/18 19:38; Start at 21:00 Metformin HCl (Glucophage) 500 mg BIDWMEALS PO Last administered on 09/16/18 17 :19; Start 09/08/18 at 17:00 Multivitamins/ Calcium (Thera-M Plus) 1 tab DAILY PO Last administered on 07:56; Start 09/09/18 at 09:00 Metoprolol Tartrate (Lopressor) 25 mg BID PO Last administered on 09/09/18 08: 21; Start 09/08/18 at 21:00; Stop 09/09/18 at 09:58; Status DC Fish Oil (Fish Oil) 1,000 mg DAILY PO Last administered on 09/16/18 07:56; Start 09/09/18 at 09:00 Insulin Human Lispro (HumaLOG) 0-7 UNITS QIDACHS SQ Last administered on 17:19; Start 09/08/18 at 16:30 Dextrose 12.5 gm PRN Q15MIN PRN IV SEE COMMENTS; Start 09/08/18 at 14:00 Glyburide (Diabeta) 5 mg BIDWMEALS PO Last administered on 09/16/18 17:19; Start 09/09/18 at 08:00 Sertraline HCl (Zoloft) 100 mg BID PO Last administered on 09/12/18 07:40; Start 09/09/18 at 09:00; Stop 09/12/18 at 19:10; Status DC Lorazepam (Ativan) 1 mg TID PO Last administered on 09/11/18 20:16; Start 09/09 at 09:00; Stop 09/12/18 at 01:04; Status DC Divalproex Sodium (Depakote Sprinkles) 125 mg BIDWMEALS PO Last administered on 09/14/18 08:37; Start 09/09/18 at 17:00; Stop 09/14/18 at 16:37; Status DC Metoprolol Tartrate (Lopressor) 25 mg BID PO Last administered on 09/10/18 08: 06; Start 09/09/18 at 21:00; Stop 09/10/18 at 12:45; Status DC Metoprolol Tartrate (Lopressor) 50 mg BID PO Last administered on 09/14/18 19: 36; Start 09/10/18 at 21:00; Stop 09/15/18 at 16:09; Status DC Trazodone HCl (Desyrel) 50 mg PRN QHS PRN PO INSOMNIA Last administered on 21:15; Start 09/10/18 at 17:00 Mirtazapine (Remeron) 7.5 mg QHS PO Last administered on 09/16/18 19:39; Start 09/10/18 at 21:00 Cephalexin HCl (Keflex) 500 mg TID PO Last administered on 09/16/18 19:39; Start 09/11/18 at 14:00; Stop 09/21/18 at 13:59 Lorazepam (Ativan) 0.75 mg DAILY PO Last administered on 09/16/18 08:00; Start 09/12/18 at 09:00 Lorazepam (Ativan) 1 mg BID@1300,2100 PO Last administered on 09/14/18 19:40; Start 09/12/18 at 13:00; Stop 09/14/18 at 21:01; Status DC Lorazepam (Ativan) 0.75 mg DAILY@1300 PO Last administered on 09/16/18 12:26; Start 09/15/18 at 13:00 Lorazepam (Ativan) 1 mg QHS PO Last administered on 09/16/18 19:41; Start at 21:00; Stop 09/17/18 at 21:01 Lorazepam (Ativan) 0.75 mg HS PO ; Start 09/18/18 at 21:00 Lactobacillus Rhamnosus (Culturelle) 1 cap BID PO Last administered on 19:39; Start 09/12/18 at 21:00 Sertraline HCl (Zoloft) 150 mg DAILY08 PO Last administered on 09/16/18 07:56; Start 09/13/18 at 08:00 Olanzapine (ZyPREXA ZYDIS) 5 mg PRN Q2HR PRN PO PSYCHOSIS Last administered on 09/16/18 21:15; Start 09/12/18 at 21:30 Divalproex Sodium (Depakote Sprinkles) 250 mg BIDWMEALS PO Last administered on 09/16/18 17:19; Start 09/14/18 at 17:00 Metoprolol Tartrate (Lopressor) 25 mg BID PO Last administered on 09/16/18 19: 39; Start 09/15/18 at 21:00 Trazodone HCl (Desyrel) 50 mg QHS PO Last administered on 09/16/18 19:43; Start 09/16/18 at 21:00 Active Scripts Active Reported Zoloft (Sertraline Hcl) 100 Mg Tablet 100 Mg PO BID [place] 3 Fish Oil Softgel ([place]-3 Fatty Acids/Fish Oil) 1 Each Capsule.dr 1 Each PO DAILY Bystolic (Nebivolol Hcl) 5 Mg Tablet 5 Mg PO DAILY Multivitamins (Multivitamin) 1 Each Tablet 1 Tab PO DAILY Metformin Hcl 500 Mg Tablet 500 Mg PO BIDWMEALS Namenda (Memantine Hcl) 10 Mg Tablet 10 Mg PO BID Ativan (Lorazepam) 2 Mg Tablet 1 Mg PO TID Lisinopril 40 Mg Tablet 40 Mg PO BID Glyburide 2.5 Mg Tablet 5 Mg PO BID Proscar (Finasteride) 5 Mg Tablet 5 Mg PO QHS Cardura (Doxazosin Mesylate) 4 Mg Tablet 4 Mg PO QHS Aricept (Donepezil Hcl) 10 Mg Tablet 10 Mg PO QHS Coricidin Hbp Cough & Cold Tab (Dextromethorphan Hbr/Chlor-Mal) 1 Each Tablet 1 Each PO PRN QID PRN Aspirin 81 Mg Tab.chew 81 Mg PO QHS I have reviewed the current psychotropics carefully including drug interactions. Risk benefit ratio favors no change other than as noted in my dictated progress note. Diagnosis: Problems: (1) Anxiety disorder (2) Dementia in Alzheimer's disease with delusions (3) Dementia in Alzheimer's disease with depression (4) Dementia, vascular, with delusions (5) Dementia, vascular, with depression (6) Impulse control disorder GERTRUDE HERNANDEZ MD Sep 16, 2018 22:28
[2018-09-17 05:54] VITALS: BP 174/96
[2018-09-17] MEDS: INSULIN LISPRO 300 UNITS/3 ML INSULN.PEN. SQ SCH ×4 (07:30→19:35)
[2018-09-17] MEDS: MEMANTINE 10 MG TABLET. PO SCH ×2 (08:56→18:42)
[2018-09-17] MEDS: OMEGA-3 FATTY ACIDS/FISH OIL 1,000 MG CAPSULE. PO SCH (08:56)
[2018-09-17] MEDS: LACTOBACILLUS RHAMNOSUS GG 1 CAPSULE. PO SCH ×2 (08:56→18:42)
[2018-09-17] MEDS: metFORMIN 500 MG TABLET PO SCH ×2 (08:56→17:27)
[2018-09-17] MEDS: DIVALPROEX 125 MG CAP.SPRINK PO SCH ×2 (08:57→17:27)
[2018-09-17] MEDS: CEPHALEXIN 250 MG CAPSULE PO SCH ×3 (08:57→18:43)
[2018-09-17] MEDS: METOPROLOL TART IMMED RELEASE 25 MG TABLET PO SCH ×2 (08:57→18:46)
[2018-09-17] MEDS: glyBURIDE 5 MG TABLET PO SCH ×2 (08:57→17:27)
[2018-09-17] MEDS: LISINOPRIL 20 MG TABLET PO SCH ×2 (08:57→18:44)
[2018-09-17] MEDS: SERTRALINE 100 MG TABLET. PO SCH (08:58)
[2018-09-17] MEDS: MULTIVITAMIN with MINERAL TABLET. PO SCH (09:00)
[2018-09-17] MEDS: LORazepam 1 MG TABLET PO SCH ×3 (09:00→18:43)
[2018-09-17 09:44] LABS: BASO # 0.1 x10^3/uL (0.0-0.2); BASO % 1 % (0-3); EOS # 0.3 x10^3/uL (0.0-0.7); EOS % 5 % (0-3); HEMATOCRIT 38.3 % (39.0-53.0); HEMOGLOBIN 12.6 g/dL (13.0-17.5); LYMPH # 1.1 x10^3/uL (1.0-4.8); LYMPH % 18 % (24-48); MEAN CORPUSCULAR HEMOGLOBIN 29 pg (25-35); MEAN CORPUSCULAR HGB CONC 33 g/dL (31-37); MEAN CORPUSCULAR VOLUME 87 fL (79-100); MONO # 0.5 x10^3/uL (0.0-1.1); MONO % 9 % (0-9); NEUT # 4.1 x10^3uL (1.8-7.7); NEUT % 67 % (31-73); PLATELET COUNT 190 x10^3/uL (140-400); RED BLOOD COUNT 4.39 x10^6/uL (4.30-5.70); RED CELL DISTRIBUTION WIDTH 15.1 % (11.5-14.5)
[2018-09-17 10:00] LABS: ALBUMIN 3.5 g/dL (3.4-5.0); ALBUMIN/GLOBULIN RATIO 0.9 (1.0-1.7); ALK PHOS 89 U/L (46-116); ALT (SGPT) 21 U/L (16-63); ANION GAP 7 (6-14); AST (SGOT) 17 U/L (15-37); BLOOD UREA NITROGEN 24 mg/dL (8-26); BUN/CREATININE RATIO 24 (6-20); CALCIUM 9.2 mg/dL (8.5-10.1); CARBON DIOXIDE 32 mmol/L (21-32); CHLORIDE 106 mmol/L (98-107); GFR 72.3; GLUCOSE 159 mg/dL (70-99); POTASSIUM 4.3 mmol/L (3.5-5.1); SODIUM 145 mmol/L (136-145); TOTAL BILIRUBIN 0.5 mg/dL (0.2-1.0); TOTAL PROTEIN 7.2 g/dL (6.4-8.2)
[2018-09-17 10:02] LABS: VAL ACID 10 mcg/mL (50-100)
[2018-09-17 16:44] VITALS: BP 109/69
[2018-09-17] MEDS: DONEPEZIL HCL 10 MG TABLET PO SCH (18:42)
[2018-09-17] MEDS: MIRTAZAPINE 7.5 MG TABLET. PO SCH (18:42)
[2018-09-17] MEDS: ASPIRIN 81 MG TAB.CHEW PO SCH (18:43)
[2018-09-17] MEDS: FINASTERIDE 5 MG TABLET PO SCH (18:43)
[2018-09-17] MEDS: traZODone 50 MG TABLET. PO SCH (18:43)
[2018-09-17] MEDS: DOXAZOSIN MESYLATE 4 MG TABLET PO SCH (18:46)
--- NOTE | 2018-09-17 20:10 | PN ---
DATE: 09/15/2018 This late entry for 09/15/2018 covers elements not covered in my initial note. SUBJECTIVE: I met with the patient in the evening and staffed at a treatment team meeting with the entire team earlier in the day. The patient's , Hilda Minor, attended the treatment team meeting. Appetite 80%. Slept for 3-1/4 hours previous night, remains confused, pleasant during the day, eating in the dining room, remains somewhat obsessive, tries to flush his briefs in the toilet. indicated how she would always be with them in the toilet at home, so that he did not do things like that, but in nursing facilities and in the hospital, he has a tendency to slip by the staff and gets into the toilet himself. At times, he makes inappropriate comments to female staff that are sexually explicit, sometimes direct and sometimes indirect and we will monitor this. REVIEW OF SYSTEMS: No CV, , pulmonary, eye, ENT system symptoms on review. Reviewed his history at length. MENTAL STATUS EXAM: Oriented to himself. Insight, judgment, recent and remote memory, attention, concentration, fund of knowledge poor, consistent with his diagnosis mentioned in my initial note. PLAN: No change from initial note and we will continue to adjust psychotropics as clinically indicated. MAN Alessandra HERNANDEZ MD DR: TIEN/priyank JOB#: [id number] / [id number]
--- NOTE | 2018-09-17 22:24 | PN ---
DATE: 09/16/2018 This late entry for 09/16/2018 covers elements not covered in my initial note. SUBJECTIVE: I met with the patient in the evening. The patient slept just 1-1/4 hours previous night. He continues to make inappropriate comments to female staff members, wanting to them, compliant with medications. REVIEW OF SYSTEMS: No CV, , pulmonary, eye, ENT system symptoms on review. Reliability poor. MENTAL STATUS EXAM: Oriented to himself. Insight, judgment, recent and remote memory, attention, concentration, fund of knowledge poor, consistent with his diagnosis mentioned in my initial note. PLAN: No change from initial note, but we will change the trazodone to 50 mg at bedtime scheduled, may repeat x 1 for insomnia. Rest unchanged. Consider Provera if sexually inappropriate behaviors persist despite adjustment of the Depakote. Next set of labs are due on 09/17/2018. MAN Alessandra HERNANDEZ MD DR: TIEN/priyank JOB#: [id number] / [id number]
--- NOTE | 2018-09-17 22:38 | PDOC ---
Exam Note: Roderick Note: Please also refer to the separate dictated note~for this date of service dictated separately.~Patient seen individually. Discussed the patient with Nursing staff reviewed the chart.~Reviewed interim history and current functioning. Reviewed vital signs,~Labs/ Radiology~and current medications noted below. Continue current treatment with the changes noted in the dictated addendum note Assessment: Vital Signs: Vital Signs Date Time Temp Pulse Resp B/P (MAP) Pulse Ox O2 Delivery O2 Flow Rate FiO2 09/17/18 18:46 72 109/69 09/17/18 16:44 98.1 20 96 Room Air I&O Intake and Output 09/17/18 07:01 Intake Total 780 ml Balance 780 ml Intake Oral 780 ml # Voids 1 Labs: Laboratory Tests Test 09/17/18 07:05 09/17/18 09:31 09/17/18 11:27 09/17/18 16:47 Glucose (Fingerstick) 77 mg/dL (70-99) 140 mg/dL (70-99) H 214 mg/dL (70-99) H White Blood Count 6.0 x10^3/uL (4.0-11.0) Red Blood Count 4.39 x10^6/uL (4.30-5.70) Hemoglobin 12.6 g/dL (13.0-17.5) L Hematocrit 38.3 % (39.0-53.0) L Mean Corpuscular Volume 87 fL (79-100) Mean Corpuscular Hemoglobin 29 pg (25-35) Mean Corpuscular Hemoglobin Concent 33 g/dL (31-37) Red Cell Distribution Width 15.1 % (11.5-14.5) H Platelet Count 190 x10^3/uL (140-400) Neutrophils (%) (Auto) 67 % (31-73) Lymphocytes (%) (Auto) 18 % (24-48) L Monocytes (%) (Auto) 9 % (0-9) Eosinophils (%) (Auto) 5 % (0-3) H Basophils (%) (Auto) 1 % (0-3) Neutrophils # (Auto) 4.1 x10^3uL (1.8-7.7) Lymphocytes # (Auto) 1.1 x10^3/uL (1.0-4.8) Monocytes # (Auto) 0.5 x10^3/uL (0.0-1.1) Eosinophils # (Auto) 0.3 x10^3/uL (0.0-0.7) Basophils # (Auto) 0.1 x10^3/uL (0.0-0.2) Sodium Level 145 mmol/L (136-145) Potassium Level 4.3 mmol/L (3.5-5.1) Chloride Level 106 mmol/L (98-107) Carbon Dioxide Level 32 mmol/L (21-32) Anion Gap 7 (6-14) Blood Urea Nitrogen 24 mg/dL (8-26) Creatinine 1.0 mg/dL (0.7-1.3) Estimated GFR (Cockcroft-Gault) 72.3 BUN/Creatinine Ratio 24 (6-20) H Glucose Level 159 mg/dL (70-99) H Calcium Level 9.2 mg/dL (8.5-10.1) Total Bilirubin 0.5 mg/dL (0.2-1.0) Aspartate Amino Transferase (AST) 17 U/L (15-37) Alanine Aminotransferase (ALT) 21 U/L (16-63) Alkaline Phosphatase 89 U/L (46-116) Total Protein 7.2 g/dL (6.4-8.2) Albumin 3.5 g/dL (3.4-5.0) Albumin/Globulin Ratio 0.9 (1.0-1.7) L Valproic Acid Level 10 mcg/mL (50-100) L Valproic Acid Last Dose Date 09/16/2018 Valproic Acid Last Dose Time 1700 Test 09/17/18 19:11 Glucose (Fingerstick) 118 mg/dL (70-99) H Current Medications: Meds: Current Medications Acetaminophen (Tylenol) 650 mg PRN Q6HRS PRN PO PAIN / TEMP; Start 09/08/18 at 13:30 Multi-Ingredient Ointment (Analgesic [place]) 1 blas PRN QID PRN TP MUSCLE PAIN; Start 09/08/18 at 13:30 Al Hydroxide/Mg Hydroxide (Mylanta Plus Xs) 15 ml PRN AFTMEALHC PRN PO DYSPEPSIA; Start 09/08/18 at 13:30 Magnesium Hydroxide (Milk Of Magnesia) 2,400 mg PRN QHS PRN PO CONSTIPATION; Start 09/08/18 at 13:30 Aspirin (Children'S Aspirin) 81 mg QHS PO Last administered on 09/17/18 18:43; Start 09/08/18 at 21:00 Non-Formulary Medication (Dextromethorphan Hbr/Chlor-Mal (Coricidin Hbp Cough & Cold Tab)) 1 each PRN QID PRN PO COUGH; Start 09/08/18 at 13:45; Status UNV Donepezil HCl (Aricept) 10 mg QHS PO Last administered on 09/17/18 18:42; Start 09/08/18 at 21:00 Doxazosin Mesylate (Cardura) 4 mg QHS PO Last administered on 09/17/18 18:46; Start 09/08/18 at 21:00 Finasteride (Proscar) 5 mg QHS PO Last administered on 09/17/18 18:43; Start at 21:00 Lisinopril (Prinivil) 40 mg BID PO Last administered on 09/17/18 08:57; Start 09/08/18 at 21:00 Lorazepam (Ativan) 2 mg TID PO Last administered on 09/08/18 21:25; Start at 14:00; Stop 09/09/18 at 06:58; Status DC Losartan Potassium (Cozaar) 50 mg DAILY PO Last administered on 09/09/18 08:19 ; Start 09/09/18 at 09:00; Stop 09/10/18 at 12:41; Status DC Losartan Potassium (Cozaar) 100 mg BID PO Last administered on 09/10/18 08:05; Start 09/08/18 at 21:00; Stop 09/10/18 at 12:41; Status DC Memantine (Namenda) 10 mg BID PO Last administered on 09/17/18 18:42; Start at 21:00 Metformin HCl (Glucophage) 500 mg BIDWMEALS PO Last administered on 09/17/18 17 :27; Start 09/08/18 at 17:00 Multivitamins/ Calcium (Thera-M Plus) 1 tab DAILY PO Last administered on 09:00; Start 09/09/18 at 09:00 Metoprolol Tartrate (Lopressor) 25 mg BID PO Last administered on 09/09/18 08: 21; Start 09/08/18 at 21:00; Stop 09/09/18 at 09:58; Status DC Fish Oil (Fish Oil) 1,000 mg DAILY PO Last administered on 09/17/18 08:56; Start 09/09/18 at 09:00 Insulin Human Lispro (HumaLOG) 0-7 UNITS QIDACHS SQ Last administered on 17:27; Start 09/08/18 at 16:30 Dextrose 12.5 gm PRN Q15MIN PRN IV SEE COMMENTS; Start 09/08/18 at 14:00 Glyburide (Diabeta) 5 mg BIDWMEALS PO Last administered on 09/17/18 17:27; Start 09/09/18 at 08:00 Sertraline HCl (Zoloft) 100 mg BID PO Last administered on 09/12/18 07:40; Start 09/09/18 at 09:00; Stop 09/12/18 at 19:10; Status DC Lorazepam (Ativan) 1 mg TID PO Last administered on 09/11/18 20:16; Start 09/09 at 09:00; Stop 09/12/18 at 01:04; Status DC Divalproex Sodium (Depakote Sprinkles) 125 mg BIDWMEALS PO Last administered on 09/14/18 08:37; Start 09/09/18 at 17:00; Stop 09/14/18 at 16:37; Status DC Metoprolol Tartrate (Lopressor) 25 mg BID PO Last administered on 09/10/18 08: 06; Start 09/09/18 at 21:00; Stop 09/10/18 at 12:45; Status DC Metoprolol Tartrate (Lopressor) 50 mg BID PO Last administered on 09/14/18 19: 36; Start 09/10/18 at 21:00; Stop 09/15/18 at 16:09; Status DC Trazodone HCl (Desyrel) 50 mg PRN QHS PRN PO INSOMNIA Last administered on 21:15; Start 09/10/18 at 17:00 Mirtazapine (Remeron) 7.5 mg QHS PO Last administered on 09/17/18 18:42; Start 09/10/18 at 21:00 Cephalexin HCl (Keflex) 500 mg TID PO Last administered on 09/17/18 18:43; Start 09/11/18 at 14:00; Stop 09/21/18 at 13:59 Lorazepam (Ativan) 0.75 mg DAILY PO Last administered on 09/17/18 09:00; Start 09/12/18 at 09:00 Lorazepam (Ativan) 1 mg BID@1300,2100 PO Last administered on 09/14/18 19:40; Start 09/12/18 at 13:00; Stop 09/14/18 at 21:01; Status DC Lorazepam (Ativan) 0.75 mg DAILY@1300 PO Last administered on 09/17/18 12:59; Start 09/15/18 at 13:00 Lorazepam (Ativan) 1 mg QHS PO Last administered on 09/17/18 18:43; Start at 21:00; Stop 09/17/18 at 21:01; Status DC Lorazepam (Ativan) 0.75 mg HS PO ; Start 09/18/18 at 21:00 Lactobacillus Rhamnosus (Culturelle) 1 cap BID PO Last administered on 18:42; Start 09/12/18 at 21:00 Sertraline HCl (Zoloft) 150 mg DAILY08 PO Last administered on 09/17/18 08:58; Start 09/13/18 at 08:00 Olanzapine (ZyPREXA ZYDIS) 5 mg PRN Q2HR PRN PO PSYCHOSIS Last administered on 09/16/18 21:15; Start 09/12/18 at 21:30 Divalproex Sodium (Depakote Sprinkles) 250 mg BIDWMEALS PO Last administered on 09/17/18 17:27; Start 09/14/18 at 17:00 Metoprolol Tartrate (Lopressor) 25 mg BID PO Last administered on 09/17/18 18: 46; Start 09/15/18 at 21:00 Trazodone HCl (Desyrel) 50 mg QHS PO Last administered on 09/17/18 18:43; Start 09/16/18 at 21:00 Active Scripts Active Reported Zoloft (Sertraline Hcl) 100 Mg Tablet 100 Mg PO BID [place] 3 Fish Oil Softgel ([place]-3 Fatty Acids/Fish Oil) 1 Each Capsule.dr 1 Each PO DAILY Bystolic (Nebivolol Hcl) 5 Mg Tablet 5 Mg PO DAILY Multivitamins (Multivitamin) 1 Each Tablet 1 Tab PO DAILY Metformin Hcl 500 Mg Tablet 500 Mg PO BIDWMEALS Namenda (Memantine Hcl) 10 Mg Tablet 10 Mg PO BID Ativan (Lorazepam) 2 Mg Tablet 1 Mg PO TID Lisinopril 40 Mg Tablet 40 Mg PO BID Glyburide 2.5 Mg Tablet 5 Mg PO BID Proscar (Finasteride) 5 Mg Tablet 5 Mg PO QHS Cardura (Doxazosin Mesylate) 4 Mg Tablet 4 Mg PO QHS Aricept (Donepezil Hcl) 10 Mg Tablet 10 Mg PO QHS Coricidin Hbp Cough & Cold Tab (Dextromethorphan Hbr/Chlor-Mal) 1 Each Tablet 1 Each PO PRN QID PRN Aspirin 81 Mg Tab.chew 81 Mg PO QHS I have reviewed the current psychotropics carefully including drug interactions. Risk benefit ratio favors no change other than as noted in my dictated progress note. Diagnosis: Problems: (1) Anxiety disorder (2) Dementia in Alzheimer's disease with delusions (3) Dementia in Alzheimer's disease with depression (4) Dementia, vascular, with delusions (5) Dementia, vascular, with depression (6) Impulse control disorder GERTRUDE HERNANDEZ MD Sep 17, 2018 22:38
[2018-09-18] MEDS: traZODone 50 MG TABLET. PO PRN (01:22)
[2018-09-18 06:38] VITALS: BP 148/83
[2018-09-18] MEDS: INSULIN LISPRO 300 UNITS/3 ML INSULN.PEN. SQ SCH ×4 (07:48→21:00)
[2018-09-18] MEDS: DIVALPROEX 125 MG CAP.SPRINK PO SCH ×2 (11:34→17:25)
[2018-09-18] MEDS: SERTRALINE 100 MG TABLET. PO SCH (11:35)
[2018-09-18] MEDS: glyBURIDE 5 MG TABLET PO SCH ×2 (11:35→17:24)
[2018-09-18] MEDS: metFORMIN 500 MG TABLET PO SCH ×2 (11:35→17:24)
[2018-09-18] MEDS: LACTOBACILLUS RHAMNOSUS GG 1 CAPSULE. PO SCH ×2 (11:37→21:50)
[2018-09-18] MEDS: OMEGA-3 FATTY ACIDS/FISH OIL 1,000 MG CAPSULE. PO SCH (11:37)
[2018-09-18] MEDS: LORazepam 1 MG TABLET PO SCH ×3 (11:37→21:58)
[2018-09-18] MEDS: CEPHALEXIN 250 MG CAPSULE PO SCH ×3 (11:38→21:51)
[2018-09-18] MEDS: MEMANTINE 10 MG TABLET. PO SCH ×2 (11:38→21:51)
[2018-09-18] MEDS: METOPROLOL TART IMMED RELEASE 25 MG TABLET PO SCH ×2 (11:38→22:13)
[2018-09-18] MEDS: LISINOPRIL 20 MG TABLET PO SCH ×2 (11:39→22:13)
[2018-09-18] MEDS: MULTIVITAMIN with MINERAL TABLET. PO SCH (11:39)
[2018-09-18 16:45] VITALS: BP 174/88
[2018-09-18] MEDS: DONEPEZIL HCL 10 MG TABLET PO SCH (21:50)
[2018-09-18] MEDS: FINASTERIDE 5 MG TABLET PO SCH (21:50)
[2018-09-18] MEDS: ASPIRIN 81 MG TAB.CHEW PO SCH (21:50)
[2018-09-18] MEDS: traZODone 50 MG TABLET. PO SCH (21:51)
[2018-09-18] MEDS: MIRTAZAPINE 7.5 MG TABLET. PO SCH (21:51)
--- NOTE | 2018-09-18 21:58 | PDOC ---
Exam Note: Roderick Note: Please also refer to the separate dictated note~for this date of service dictated separately.~Patient seen individually. Discussed the patient with Nursing staff reviewed the chart.~Reviewed interim history and current functioning. Reviewed vital signs,~Labs/ Radiology~and current medications noted below. Continue current treatment with the changes noted in the dictated addendum note Assessment: Vital Signs: Vital Signs Date Time Temp Pulse Resp B/P (MAP) Pulse Ox O2 Delivery O2 Flow Rate FiO2 09/18/18 16:45 97.9 54 18 174/88 (116) 99 09/18/18 06:38 Room Air I&O Intake and Output 09/18/18 07:01 Intake Total 945 ml Balance 945 ml Intake Oral 945 ml # Voids 1 Labs: Laboratory Tests Test 09/18/18 07:07 09/18/18 11:31 09/18/18 16:43 09/18/18 19:10 Glucose (Fingerstick) 84 mg/dL (70-99) 102 mg/dL (70-99) H 220 mg/dL (70-99) H 129 mg/dL (70-99) H Current Medications: Meds: Current Medications Acetaminophen (Tylenol) 650 mg PRN Q6HRS PRN PO PAIN / TEMP; Start 09/08/18 at 13:30 Multi-Ingredient Ointment (Analgesic [place]) 1 blas PRN QID PRN TP MUSCLE PAIN; Start 09/08/18 at 13:30 Al Hydroxide/Mg Hydroxide (Mylanta Plus Xs) 15 ml PRN AFTMEALHC PRN PO DYSPEPSIA; Start 09/08/18 at 13:30 Magnesium Hydroxide (Milk Of Magnesia) 2,400 mg PRN QHS PRN PO CONSTIPATION; Start 09/08/18 at 13:30 Aspirin (Children'S Aspirin) 81 mg QHS PO Last administered on 09/18/18at 21:50; Start 09/08/18 at 21:00 Non-Formulary Medication (Dextromethorphan Hbr/Chlor-Mal (Coricidin Hbp Cough & Cold Tab)) 1 each PRN QID PRN PO COUGH; Start 09/08/18 at 13:45; Status UNV Donepezil HCl (Aricept) 10 mg QHS PO Last administered on 09/18/18at 21:50; Start 09/08/18 at 21:00 Doxazosin Mesylate (Cardura) 4 mg QHS PO Last administered on 09/17/18 18:46; Start 09/08/18 at 21:00 Finasteride (Proscar) 5 mg QHS PO Last administered on 09/18/18 21:50; Start at 21:00 Lisinopril (Prinivil) 40 mg BID PO Last administered on 09/18/18 11:39; Start 09/08/18 at 21:00 Lorazepam (Ativan) 2 mg TID PO Last administered on 09/08/18 21:25; Start at 14:00; Stop 09/09/18 at 06:58; Status DC Losartan Potassium (Cozaar) 50 mg DAILY PO Last administered on 09/09/18 08:19 ; Start 09/09/18 at 09:00; Stop 09/10/18 at 12:41; Status DC Losartan Potassium (Cozaar) 100 mg BID PO Last administered on 09/10/18 08:05; Start 09/08/18 at 21:00; Stop 09/10/18 at 12:41; Status DC Memantine (Namenda) 10 mg BID PO Last administered on 09/18/18 21:51; Start at 21:00 Metformin HCl (Glucophage) 500 mg BIDWMEALS PO Last administered on 09/18/18 17 :24; Start 09/08/18 at 17:00 Multivitamins/ Calcium (Thera-M Plus) 1 tab DAILY PO Last administered on 11:39; Start 09/09/18 at 09:00 Metoprolol Tartrate (Lopressor) 25 mg BID PO Last administered on 09/09/18 08: 21; Start 09/08/18 at 21:00; Stop 09/09/18 at 09:58; Status DC Fish Oil (Fish Oil) 1,000 mg DAILY PO Last administered on 09/18/18 11:37; Start 09/09/18 at 09:00 Insulin Human Lispro (HumaLOG) 0-7 UNITS QIDACHS SQ Last administered on 17:40; Start 09/08/18 at 16:30 Dextrose 12.5 gm PRN Q15MIN PRN IV SEE COMMENTS; Start 09/08/18 at 14:00 Glyburide (Diabeta) 5 mg BIDWMEALS PO Last administered on 09/18/18 17:24; Start 09/09/18 at 08:00 Sertraline HCl (Zoloft) 100 mg BID PO Last administered on 09/12/18 07:40; Start 09/09/18 at 09:00; Stop 09/12/18 at 19:10; Status DC Lorazepam (Ativan) 1 mg TID PO Last administered on 09/11/18 20:16; Start 09/09 at 09:00; Stop 09/12/18 at 01:04; Status DC Divalproex Sodium (Depakote Sprinkles) 125 mg BIDWMEALS PO Last administered on 09/14/18 08:37; Start 09/09/18 at 17:00; Stop 09/14/18 at 16:37; Status DC Metoprolol Tartrate (Lopressor) 25 mg BID PO Last administered on 09/10/18 08: 06; Start 09/09/18 at 21:00; Stop 09/10/18 at 12:45; Status DC Metoprolol Tartrate (Lopressor) 50 mg BID PO Last administered on 09/14/18 19: 36; Start 09/10/18 at 21:00; Stop 09/15/18 at 16:09; Status DC Trazodone HCl (Desyrel) 50 mg PRN QHS PRN PO INSOMNIA Last administered on 01:22; Start 09/10/18 at 17:00 Mirtazapine (Remeron) 7.5 mg QHS PO Last administered on 09/18/18 21:51; Start 09/10/18 at 21:00 Cephalexin HCl (Keflex) 500 mg TID PO Last administered on 09/18/18 21:51; Start 09/11/18 at 14:00; Stop 09/21/18 at 13:59 Lorazepam (Ativan) 0.75 mg DAILY PO Last administered on 09/18/18 11:37; Start 09/12/18 at 09:00 Lorazepam (Ativan) 1 mg BID@1300,2100 PO Last administered on 09/14/18 19:40; Start 09/12/18 at 13:00; Stop 09/14/18 at 21:01; Status DC Lorazepam (Ativan) 0.75 mg DAILY@1300 PO Last administered on 09/18/18 15:12; Start 09/15/18 at 13:00 Lorazepam (Ativan) 1 mg QHS PO Last administered on 09/17/18 18:43; Start at 21:00; Stop 09/17/18 at 21:01; Status DC Lorazepam (Ativan) 0.75 mg HS PO ; Start 09/18/18 at 21:00 Lactobacillus Rhamnosus (Culturelle) 1 cap BID PO Last administered on 21:50; Start 09/12/18 at 21:00 Sertraline HCl (Zoloft) 150 mg DAILY08 PO Last administered on 09/18/18 11:35; Start 09/13/18 at 08:00 Olanzapine (ZyPREXA ZYDIS) 5 mg PRN Q2HR PRN PO PSYCHOSIS Last administered on 09/16/18 21:15; Start 09/12/18 at 21:30 Divalproex Sodium (Depakote Sprinkles) 250 mg BIDWMEALS PO Last administered on 09/18/18 17:25; Start 09/14/18 at 17:00 Metoprolol Tartrate (Lopressor) 25 mg BID PO Last administered on 09/18/18 11: 38; Start 09/15/18 at 21:00 Trazodone HCl (Desyrel) 50 mg QHS PO Last administered on 09/18/18 21:51; Start 09/16/18 at 21:00 Active Scripts Active Reported Zoloft (Sertraline Hcl) 100 Mg Tablet 100 Mg PO BID [place] 3 Fish Oil Softgel ([place]-3 Fatty Acids/Fish Oil) 1 Each Capsule. 1 Each PO DAILY Bystolic (Nebivolol Hcl) 5 Mg Tablet 5 Mg PO DAILY Multivitamins (Multivitamin) 1 Each Tablet 1 Tab PO DAILY Metformin Hcl 500 Mg Tablet 500 Mg PO BIDWMEALS Namenda (Memantine Hcl) 10 Mg Tablet 10 Mg PO BID Ativan (Lorazepam) 2 Mg Tablet 1 Mg PO TID Lisinopril 40 Mg Tablet 40 Mg PO BID Glyburide 2.5 Mg Tablet 5 Mg PO BID Proscar (Finasteride) 5 Mg Tablet 5 Mg PO QHS Cardura (Doxazosin Mesylate) 4 Mg Tablet 4 Mg PO QHS Aricept (Donepezil Hcl) 10 Mg Tablet 10 Mg PO QHS Coricidin Hbp Cough & Cold Tab (Dextromethorphan Hbr/Chlor-Mal) 1 Each Tablet 1 Each PO PRN QID PRN Aspirin 81 Mg Tab.chew 81 Mg PO QHS I have reviewed the current psychotropics carefully including drug interactions. Risk benefit ratio favors no change other than as noted in my dictated progress note. Diagnosis: Problems: (1) Anxiety disorder (2) Dementia in Alzheimer's disease with delusions (3) Dementia in Alzheimer's disease with depression (4) Dementia, vascular, with delusions (5) Dementia, vascular, with depression (6) Impulse control disorder GERTRUDE HERNANDEZ MD Sep 18, 2018 21:58
[2018-09-18] MEDS: DOXAZOSIN MESYLATE 4 MG TABLET PO SCH (22:12)
--- NOTE | 2018-09-18 23:27 | PN ---
DATE: 09/17/2018 PSYCHIATRIC PROGRESS NOTE This late entry for 09/17/2018 covers elements not covered in my initial note. SUBJECTIVE: I met with the patient in the evening. The patient slept 7 hours previous night. Per nursing report, remains confused, did "pretty good." Remains sexually inappropriate, intrusive at night with the other patients. REVIEW OF SYSTEMS: No CV, , pulmonary, eye, ENT system symptoms on review. Reliability poor. MENTAL STATUS EXAM: Oriented to himself. Insight, judgment, recent and remote memory, attention, concentration, fund of knowledge poor consistent with his diagnosis mentioned in my initial note. PLAN: No change from initial note. MAN Alessandra HERNANDEZ MD DR: TIEN/priyank JOB#: [id number] / [id number]
[2018-09-19 06:47] VITALS: BP 117/65
[2018-09-19] MEDS: INSULIN LISPRO 300 UNITS/3 ML INSULN.PEN. SQ SCH ×4 (07:30→20:13)
[2018-09-19] MEDS: DIVALPROEX 125 MG CAP.SPRINK PO SCH ×2 (12:10→17:17)
[2018-09-19] MEDS: LACTOBACILLUS RHAMNOSUS GG 1 CAPSULE. PO SCH ×2 (12:11→20:06)
[2018-09-19] MEDS: SERTRALINE 100 MG TABLET. PO SCH (12:11)
[2018-09-19] MEDS: CEPHALEXIN 250 MG CAPSULE PO SCH ×3 (12:11→20:05)
[2018-09-19] MEDS: OMEGA-3 FATTY ACIDS/FISH OIL 1,000 MG CAPSULE. PO SCH (12:11)
[2018-09-19] MEDS: metFORMIN 500 MG TABLET PO SCH ×2 (12:11→17:20)
[2018-09-19] MEDS: MEMANTINE 10 MG TABLET. PO SCH ×2 (12:12→20:06)
[2018-09-19] MEDS: METOPROLOL TART IMMED RELEASE 25 MG TABLET PO SCH ×2 (12:12→20:07)
[2018-09-19] MEDS: MULTIVITAMIN with MINERAL TABLET. PO SCH (12:13)
[2018-09-19] MEDS: LISINOPRIL 20 MG TABLET PO SCH ×2 (12:13→20:07)
[2018-09-19] MEDS: glyBURIDE 5 MG TABLET PO SCH ×2 (12:17→17:20)
[2018-09-19] MEDS: LORazepam 1 MG TABLET PO SCH ×3 (12:18→20:06)
[2018-09-19 17:03] VITALS: BP 120/67
[2018-09-19] MEDS: traZODone 50 MG TABLET. PO SCH (20:05)
[2018-09-19] MEDS: DONEPEZIL HCL 10 MG TABLET PO SCH (20:05)
[2018-09-19] MEDS: FINASTERIDE 5 MG TABLET PO SCH (20:05)
[2018-09-19] MEDS: ASPIRIN 81 MG TAB.CHEW PO SCH (20:06)
[2018-09-19] MEDS: DOXAZOSIN MESYLATE 4 MG TABLET PO SCH (20:06)
[2018-09-19] MEDS: MIRTAZAPINE 7.5 MG TABLET. PO SCH (20:15)
--- NOTE | 2018-09-19 22:47 | PDOC ---
Exam Note: Roderick Note: Please also refer to the separate dictated note~for this date of service dictated separately.~Patient seen individually. Discussed the patient with Nursing staff reviewed the chart.~Reviewed interim history and current functioning. Reviewed vital signs,~Labs/ Radiology~and current medications noted below. Continue current treatment with the changes noted in the dictated addendum note Assessment: Vital Signs: Vital Signs Date Time Temp Pulse Resp B/P (MAP) Pulse Ox O2 Delivery O2 Flow Rate FiO2 09/19/18 20:07 88 120/67 09/19/18 17:03 97.7 20 94 09/19/18 06:47 Room Air I&O Intake and Output 09/19/18 07:01 Intake Total 680 ml Balance 680 ml Intake Oral 680 ml # Voids 1 # Bowel Movements 2 Labs: Laboratory Tests Test 09/19/18 08:05 09/19/18 11:56 09/19/18 17:15 09/19/18 19:31 Glucose (Fingerstick) 83 mg/dL (70-99) 103 mg/dL (70-99) H 159 mg/dL (70-99) H 194 mg/dL (70-99) H Current Medications: Meds: Current Medications Acetaminophen (Tylenol) 650 mg PRN Q6HRS PRN PO PAIN / TEMP; Start 09/08/18 at 13:30 Multi-Ingredient Ointment (Analgesic [place]) 1 blas PRN QID PRN TP MUSCLE PAIN; Start 09/08/18 at 13:30 Al Hydroxide/Mg Hydroxide (Mylanta Plus Xs) 15 ml PRN AFTMEALHC PRN PO DYSPEPSIA; Start 09/08/18 at 13:30 Magnesium Hydroxide (Milk Of Magnesia) 2,400 mg PRN QHS PRN PO CONSTIPATION; Start 09/08/18 at 13:30 Aspirin (Children'S Aspirin) 81 mg QHS PO Last administered on 09/19/18at 20:06 ; Start 09/08/18 at 21:00 Non-Formulary Medication (Dextromethorphan Hbr/Chlor-Mal (Coricidin Hbp Cough & Cold Tab)) 1 each PRN QID PRN PO COUGH; Start 09/08/18 at 13:45; Status UNV Donepezil HCl (Aricept) 10 mg QHS PO Last administered on 2/10/19at 20:05; Start 09/08/18 at 21:00 Doxazosin Mesylate (Cardura) 4 mg QHS PO Last administered on 09/19/18 20:06; Start 09/08/18 at 21:00 Finasteride (Proscar) 5 mg QHS PO Last administered on 09/19/18 20:05; Start 09/08/18 at 21:00 Lisinopril (Prinivil) 40 mg BID PO Last administered on 09/19/18 20:07; Start 09/08/18 at 21:00 Lorazepam (Ativan) 2 mg TID PO Last administered on 09/08/18 21:25; Start at 14:00; Stop 09/09/18 at 06:58; Status DC Losartan Potassium (Cozaar) 50 mg DAILY PO Last administered on 09/09/18 08:19 ; Start 09/09/18 at 09:00; Stop 09/10/18 at 12:41; Status DC Losartan Potassium (Cozaar) 100 mg BID PO Last administered on 09/10/18 08:05; Start 09/08/18 at 21:00; Stop 09/10/18 at 12:41; Status DC Memantine (Namenda) 10 mg BID PO Last administered on 09/19/18 20:06; Start at 21:00 Metformin HCl (Glucophage) 500 mg BIDWMEALS PO Last administered on 09/19/18 17:20; Start 09/08/18 at 17:00 Multivitamins/ Calcium (Thera-M Plus) 1 tab DAILY PO Last administered on 12:13; Start 09/09/18 at 09:00 Metoprolol Tartrate (Lopressor) 25 mg BID PO Last administered on 09/09/18 08: 21; Start 09/08/18 at 21:00; Stop 09/09/18 at 09:58; Status DC Fish Oil (Fish Oil) 1,000 mg DAILY PO Last administered on 09/19/18 12:11; Start 09/09/18 at 09:00 Insulin Human Lispro (HumaLOG) 0-7 UNITS QIDACHS SQ Last administered on 17:20; Start 09/08/18 at 16:30 Dextrose 12.5 gm PRN Q15MIN PRN IV SEE COMMENTS; Start 09/08/18 at 14:00 Glyburide (Diabeta) 5 mg BIDWMEALS PO Last administered on 09/19/18 17:20; Start 09/09/18 at 08:00 Sertraline HCl (Zoloft) 100 mg BID PO Last administered on 09/12/18 07:40; Start 09/09/18 at 09:00; Stop 09/12/18 at 19:10; Status DC Lorazepam (Ativan) 1 mg TID PO Last administered on 09/11/18 20:16; Start 09/09 at 09:00; Stop 09/12/18 at 01:04; Status DC Divalproex Sodium (Depakote Sprinkles) 125 mg BIDWMEALS PO Last administered on 09/14/18 08:37; Start 09/09/18 at 17:00; Stop 09/14/18 at 16:37; Status DC Metoprolol Tartrate (Lopressor) 25 mg BID PO Last administered on 09/10/18 08: 06; Start 09/09/18 at 21:00; Stop 09/10/18 at 12:45; Status DC Metoprolol Tartrate (Lopressor) 50 mg BID PO Last administered on 09/14/18 19: 36; Start 09/10/18 at 21:00; Stop 09/15/18 at 16:09; Status DC Trazodone HCl (Desyrel) 50 mg PRN QHS PRN PO INSOMNIA Last administered on 01:22; Start 09/10/18 at 17:00 Mirtazapine (Remeron) 7.5 mg QHS PO Last administered on 09/18/18 21:51; Start 09/10/18 at 21:00; Stop 09/19/18 at 00:07; Status DC Cephalexin HCl (Keflex) 500 mg TID PO Last administered on 09/19/18 20:05; Start 09/11/18 at 14:00; Stop 09/21/18 at 13:59 Lorazepam (Ativan) 0.75 mg DAILY PO Last administered on 09/19/18 12:18; Start 09/12/18 at 09:00 Lorazepam (Ativan) 1 mg BID@1300,2100 PO Last administered on 09/14/18 19:40; Start 09/12/18 at 13:00; Stop 09/14/18 at 21:01; Status DC Lorazepam (Ativan) 0.75 mg DAILY@1300 PO Last administered on 09/18/18 15:12; Start 09/15/18 at 13:00 Lorazepam (Ativan) 1 mg QHS PO Last administered on 09/17/18 18:43; Start at 21:00; Stop 09/17/18 at 21:01; Status DC Lorazepam (Ativan) 0.75 mg HS PO Last administered on 09/19/18 20:06; Start at 21:00 Lactobacillus Rhamnosus (Culturelle) 1 cap BID PO Last administered on 20:06; Start 09/12/18 at 21:00 Sertraline HCl (Zoloft) 150 mg DAILY08 PO Last administered on 09/19/18 12:11 ; Start 09/13/18 at 08:00 Olanzapine (ZyPREXA ZYDIS) 5 mg PRN Q2HR PRN PO PSYCHOSIS Last administered on 09/19/18 18:00; Start 09/12/18 at 21:30 Divalproex Sodium (Depakote Sprinkles) 250 mg BIDWMEALS PO Last administered on 09/19/18 17:17; Start 09/14/18 at 17:00 Metoprolol Tartrate (Lopressor) 25 mg BID PO Last administered on 09/19/18 20: 07; Start 09/15/18 at 21:00 Trazodone HCl (Desyrel) 50 mg QHS PO Last administered on 09/19/18 20:05; Start 09/16/18 at 21:00 Mirtazapine (Remeron) 15 mg QHS PO Last administered on 09/19/18 20:15; Start 09/19/18 at 21:00 Active Scripts Active Reported Zoloft (Sertraline Hcl) 100 Mg Tablet 100 Mg PO BID [place] 3 Fish Oil Softgel ([place]-3 Fatty Acids/Fish Oil) 1 Each Capsule.dr 1 Each PO DAILY Bystolic (Nebivolol Hcl) 5 Mg Tablet 5 Mg PO DAILY Multivitamins (Multivitamin) 1 Each Tablet 1 Tab PO DAILY Metformin Hcl 500 Mg Tablet 500 Mg PO BIDWMEALS Namenda (Memantine Hcl) 10 Mg Tablet 10 Mg PO BID Ativan (Lorazepam) 2 Mg Tablet 1 Mg PO TID Lisinopril 40 Mg Tablet 40 Mg PO BID Glyburide 2.5 Mg Tablet 5 Mg PO BID Proscar (Finasteride) 5 Mg Tablet 5 Mg PO QHS Cardura (Doxazosin Mesylate) 4 Mg Tablet 4 Mg PO QHS Aricept (Donepezil Hcl) 10 Mg Tablet 10 Mg PO QHS Coricidin Hbp Cough & Cold Tab (Dextromethorphan Hbr/Chlor-Mal) 1 Each Tablet 1 Each PO PRN QID PRN Aspirin 81 Mg Tab.chew 81 Mg PO QHS I have reviewed the current psychotropics carefully including drug interactions. Risk benefit ratio favors no change other than as noted in my dictated progress note. Diagnosis: Problems: (1) Anxiety disorder (2) Dementia in Alzheimer's disease with delusions (3) Dementia in Alzheimer's disease with depression (4) Dementia, vascular, with delusions (5) Dementia, vascular, with depression (6) Impulse control disorder GERTRUDE HERNANDEZ MD Sep 19, 2018 22:46
--- NOTE | 2018-09-20 00:23 | PN ---
DATE: 09/18/2018 PSYCHIATRIC PROGRESS NOTE This late entry 09/18/2018 covers elements not covered in my initial note. SUBJECTIVE: I met with the patient in the evening. The patient slept just 1-1/2 hours previous night despite taking trazodone x 2. Continues to wander, makes inappropriate sexual comments at times, but not physically aggressive. REVIEW OF SYSTEMS: No CV, , pulmonary, eye, ENT system symptoms on review. Reliability poor. MENTAL STATUS EXAM: Oriented to himself. Insight, judgment, recent and remote memory, attention, concentration, fund of knowledge poor, consistent with his diagnosis mentioned in my initial note. PLAN: Increase Remeron from 7.5 mg at bedtime to 15 mg p.o. at bedtime consequent to his insomnia. Continue trazodone. Rest of the psychotropics unchanged for now. MAN Alessandra HERNANDEZ MD DR: TIEN/priyank JOB#: [id number] / [id number]
[2018-09-20] MEDS: traZODone 50 MG TABLET. PO PRN (01:00)
[2018-09-20 06:07] VITALS: BP 157/83
[2018-09-20] MEDS: INSULIN LISPRO 300 UNITS/3 ML INSULN.PEN. SQ SCH ×4 (07:30→20:02)
[2018-09-20 07:34] LABS: BASO # 0.1 x10^3/uL (0.0-0.2); BASO % 1 % (0-3); EOS # 0.3 x10^3/uL (0.0-0.7); EOS % 6 % (0-3); HEMATOCRIT 38.3 % (39.0-53.0); HEMOGLOBIN 12.5 g/dL (13.0-17.5); LYMPH # 1.2 x10^3/uL (1.0-4.8); LYMPH % 25 % (24-48); MEAN CORPUSCULAR HEMOGLOBIN 28 pg (25-35); MEAN CORPUSCULAR HGB CONC 33 g/dL (31-37); MEAN CORPUSCULAR VOLUME 87 fL (79-100); MONO # 0.5 x10^3/uL (0.0-1.1); MONO % 10 % (0-9); NEUT # 2.9 x10^3uL (1.8-7.7); NEUT % 59 % (31-73); PLATELET COUNT 182 x10^3/uL (140-400); RED BLOOD COUNT 4.39 x10^6/uL (4.30-5.70); RED CELL DISTRIBUTION WIDTH 15.2 % (11.5-14.5); WHITE BLOOD COUNT 4.9 x10^3/uL (4.0-11.0)
[2018-09-20 07:47] LABS: ALBUMIN 3.2 g/dL (3.4-5.0); ALBUMIN/GLOBULIN RATIO 0.9 (1.0-1.7); ALK PHOS 85 U/L (46-116); ALT (SGPT) 14 U/L (16-63); ANION GAP 5 (6-14); AST (SGOT) 16 U/L (15-37); BLOOD UREA NITROGEN 18 mg/dL (8-26); BUN/CREATININE RATIO 26 (6-20); CALCIUM 9.1 mg/dL (8.5-10.1); CARBON DIOXIDE 33 mmol/L (21-32); CHLORIDE 107 mmol/L (98-107); CREATININE 0.7 mg/dL (0.7-1.3); GFR 109.1; GLUCOSE 77 mg/dL (70-99); POTASSIUM 3.6 mmol/L (3.5-5.1); SODIUM 145 mmol/L (136-145); TOTAL BILIRUBIN 0.5 mg/dL (0.2-1.0); TOTAL PROTEIN 6.8 g/dL (6.4-8.2)
[2018-09-20 07:48] LABS: VAL ACID 19 mcg/mL (50-100)
[2018-09-20] MEDS: DIVALPROEX 125 MG CAP.SPRINK PO SCH ×2 (09:56→17:26)
[2018-09-20] MEDS: glyBURIDE 5 MG TABLET PO SCH ×2 (09:56→17:26)
[2018-09-20] MEDS: metFORMIN 500 MG TABLET PO SCH ×2 (09:56→17:26)
[2018-09-20] MEDS: SERTRALINE 100 MG TABLET. PO SCH (09:57)
[2018-09-20] MEDS: LACTOBACILLUS RHAMNOSUS GG 1 CAPSULE. PO SCH ×2 (09:58→19:52)
[2018-09-20] MEDS: OMEGA-3 FATTY ACIDS/FISH OIL 1,000 MG CAPSULE. PO SCH (09:58)
[2018-09-20] MEDS: LORazepam 1 MG TABLET PO SCH ×3 (09:58→20:01)
[2018-09-20] MEDS: CEPHALEXIN 250 MG CAPSULE PO SCH ×3 (10:16→19:52)
[2018-09-20] MEDS: MEMANTINE 10 MG TABLET. PO SCH ×2 (10:17→19:52)
[2018-09-20] MEDS: METOPROLOL TART IMMED RELEASE 25 MG TABLET PO SCH ×2 (10:17→19:58)
[2018-09-20] MEDS: MULTIVITAMIN with MINERAL TABLET. PO SCH (10:18)
[2018-09-20] MEDS: LISINOPRIL 20 MG TABLET PO SCH ×2 (10:18→19:59)
[2018-09-20 16:37] VITALS: BP 94/57
[2018-09-20] MEDS: FINASTERIDE 5 MG TABLET PO SCH (19:51)
[2018-09-20] MEDS: traZODone 50 MG TABLET. PO SCH (19:51)
[2018-09-20] MEDS: DONEPEZIL HCL 10 MG TABLET PO SCH (19:51)
[2018-09-20] MEDS: MIRTAZAPINE 7.5 MG TABLET. PO SCH (19:52)
[2018-09-20] MEDS: ASPIRIN 81 MG TAB.CHEW PO SCH (19:52)
[2018-09-20 19:57] VITALS: BP 109/75
[2018-09-20] MEDS: DOXAZOSIN MESYLATE 4 MG TABLET PO SCH (19:58)
--- NOTE | 2018-09-20 21:22 | PN ---
DATE: 09/19/2018 PSYCHIATRIC PROGRESS NOTE This late entry for 09/19/2018 covers elements not covered in my initial note. SUBJECTIVE: I met with the patient in the evening. The patient slept 4 hours previous night, which is an improvement for him. He continues to have some sexually inappropriate talk with the female. 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 Agitated around dinnertime, received Zyprexa at 0530. REVIEW OF SYSTEMS: No CV, , pulmonary, eye, ENT system symptoms on review. Reliability poor. MENTAL STATUS EXAM: Oriented to himself. Insight, judgment, recent and remote memory, attention, concentration, fund of knowledge poor consistent with his diagnosis mentioned in my initial note. PLAN: No change from initial note. Check labs morning of 09/20/2018, may start Provera for his sexually inappropriate behaviors. Rest unchanged from initial note. MAN Alessandra HERNANDEZ MD DR: TIEN/priyank JOB#: [id number] / [id number]
[2018-09-21 05:45] VITALS: BP 106/69
[2018-09-21] MEDS: INSULIN LISPRO 300 UNITS/3 ML INSULN.PEN. SQ SCH ×4 (07:52→20:51)
[2018-09-21] MEDS: SERTRALINE 100 MG TABLET. PO SCH (08:12)
[2018-09-21] MEDS: OMEGA-3 FATTY ACIDS/FISH OIL 1,000 MG CAPSULE. PO SCH (08:12)
[2018-09-21] MEDS: CEPHALEXIN 250 MG CAPSULE PO SCH (08:15)
[2018-09-21] MEDS: METOPROLOL TART IMMED RELEASE 25 MG TABLET PO SCH ×2 (08:16→20:48)
[2018-09-21] MEDS: MULTIVITAMIN with MINERAL TABLET. PO SCH (08:16)
[2018-09-21] MEDS: LACTOBACILLUS RHAMNOSUS GG 1 CAPSULE. PO SCH ×2 (08:16→20:48)
[2018-09-21] MEDS: MEMANTINE 10 MG TABLET. PO SCH ×2 (08:16→20:49)
[2018-09-21] MEDS: metFORMIN 500 MG TABLET PO SCH ×2 (08:17→17:13)
[2018-09-21] MEDS: DIVALPROEX 125 MG CAP.SPRINK PO SCH ×2 (08:17→17:13)
[2018-09-21] MEDS: glyBURIDE 5 MG TABLET PO SCH ×2 (08:17→17:13)
[2018-09-21] MEDS: LISINOPRIL 20 MG TABLET PO SCH ×2 (08:17→20:49)
[2018-09-21] MEDS: LORazepam 1 MG TABLET PO SCH ×3 (08:18→20:51)
--- NOTE | 2018-09-21 09:18 | PDOC ---
Exam Note: Roderick Note: Late entry for DOS 09.20.2018. Please also refer to the separate dictated note~ for this date of service dictated separately.~Patient seen individually. Discussed the patient with Nursing staff reviewed the chart.~Reviewed interim history and current functioning. Reviewed vital signs,~Labs/ Radiology~and current medications noted below. Continue current treatment with the changes noted in the dictated addendum note Assessment: Vital Signs: VS - Last 72 Hours, by Label Date Time Temp Pulse Resp B/P (MAP) Pulse Ox O2 Delivery O2 Flow Rate FiO2 09/21/18 08:17 77 106/69 09/21/18 08:16 77 106/69 09/21/18 05:45 97.9 77 18 106/69 (81) 96 09/20/18 19:59 87 109/75 09/20/18 19:58 87 109/75 09/20/18 19:58 87 109/75 09/20/18 19:57 87 109/75 (86) 09/20/18 16:37 97.2 54 18 94/57 (69) 91 09/20/18 10:18 63 157/83 09/20/18 10:17 63 157/83 09/20/18 06:07 98.0 63 16 157/83 (107) 93 09/19/18 20:07 88 120/67 09/19/18 20:07 88 120/67 09/19/18 20:06 88 120/67 09/19/18 17:03 97.7 88 20 120/67 (84) 94 09/19/18 12:13 60 117/65 09/19/18 06:47 98.0 60 18 117/65 (82) 93 Room Air 09/18/18 22:13 80 176/102 09/18/18 22:13 80 176/102 09/18/18 22:12 80 176/102 09/18/18 16:45 97.9 54 18 174/88 (116) 99 09/18/18 11:39 78 148/83 09/18/18 11:38 78 148/83 Vital Signs Date Time Temp Pulse Resp B/P (MAP) Pulse Ox O2 Delivery O2 Flow Rate FiO2 09/21/18 08:17 77 106/69 09/21/18 05:45 97.9 18 96 09/19/18 06:47 Room Air I&O Intake and Output 09/21/18 07:00 Intake Total 600 ml Balance 600 ml Intake Oral 600 ml # Voids 1 Labs: Laboratory Tests Test 09/20/18 11:56 09/20/18 16:59 09/20/18 19:13 09/21/18 07:29 Glucose (Fingerstick) 100 mg/dL (70-99) H 149 mg/dL (70-99) H 226 mg/dL (70-99) H 71 mg/dL (70-99) Current Medications: Meds: Current Medications Acetaminophen (Tylenol) 650 mg PRN Q6HRS PRN PO PAIN / TEMP; Start 09/08/18 at 13:30 Multi-Ingredient Ointment (Analgesic [place]) 1 blas PRN QID PRN TP MUSCLE PAIN; Start 09/08/18 at 13:30 Al Hydroxide/Mg Hydroxide (Mylanta Plus Xs) 15 ml PRN AFTMEALHC PRN PO DYSPEPSIA; Start 09/08/18 at 13:30 Magnesium Hydroxide (Milk Of Magnesia) 2,400 mg PRN QHS PRN PO CONSTIPATION; Start 09/08/18 at 13:30 Aspirin (Children'S Aspirin) 81 mg QHS PO Last administered on 09/20/18 19:52 ; Start 09/08/18 at 21:00 Non-Formulary Medication (Dextromethorphan Hbr/Chlor-Mal (Coricidin Hbp Cough & Cold Tab)) 1 each PRN QID PRN PO COUGH; Start 09/08/18 at 13:45; Status UNV Donepezil HCl (Aricept) 10 mg QHS PO Last administered on 09/20/18 19:51; Start 09/08/18 at 21:00 Doxazosin Mesylate (Cardura) 4 mg QHS PO Last administered on 09/20/18 19:58; Start 09/08/18 at 21:00 Finasteride (Proscar) 5 mg QHS PO Last administered on 09/20/18 19:51; Start 09/08/18 at 21:00 Lisinopril (Prinivil) 40 mg BID PO Last administered on 09/21/18 08:17; Start 09/08/18 at 21:00 Lorazepam (Ativan) 2 mg TID PO Last administered on 09/08/18 21:25; Start at 14:00; Stop 09/09/18 at 06:58; Status DC Losartan Potassium (Cozaar) 50 mg DAILY PO Last administered on 09/09/18 08:19 ; Start 09/09/18 at 09:00; Stop 09/10/18 at 12:41; Status DC Losartan Potassium (Cozaar) 100 mg BID PO Last administered on 09/10/18 08:05; Start 09/08/18 at 21:00; Stop 09/10/18 at 12:41; Status DC Memantine (Namenda) 10 mg BID PO Last administered on 09/21/18 08:16; Start at 21:00 Metformin HCl (Glucophage) 500 mg BIDWMEALS PO Last administered on 09/21/18 08:17; Start 09/08/18 at 17:00 Multivitamins/ Calcium (Thera-M Plus) 1 tab DAILY PO Last administered on 08:16; Start 09/09/18 at 09:00 Metoprolol Tartrate (Lopressor) 25 mg BID PO Last administered on 09/09/18 08: 21; Start 09/08/18 at 21:00; Stop 09/09/18 at 09:58; Status DC Fish Oil (Fish Oil) 1,000 mg DAILY PO Last administered on 09/21/18 08:12; Start 09/09/18 at 09:00 Insulin Human Lispro (HumaLOG) 0-7 UNITS QIDACHS SQ Last administered on 20:02; Start 09/08/18 at 16:30 Dextrose 12.5 gm PRN Q15MIN PRN IV SEE COMMENTS; Start 09/08/18 at 14:00 Glyburide (Diabeta) 5 mg BIDWMEALS PO Last administered on 09/21/18 08:17; Start 09/09/18 at 08:00 Sertraline HCl (Zoloft) 100 mg BID PO Last administered on 09/12/18 07:40; Start 09/09/18 at 09:00; Stop 09/12/18 at 19:10; Status DC Lorazepam (Ativan) 1 mg TID PO Last administered on 2/2/19at 20:16; Start 09/09 at 09:00; Stop 09/12/18 at 01:04; Status DC Divalproex Sodium (Depakote Sprinkles) 125 mg BIDWMEALS PO Last administered on 09/14/18 08:37; Start 09/09/18 at 17:00; Stop 09/14/18 at 16:37; Status DC Metoprolol Tartrate (Lopressor) 25 mg BID PO Last administered on 09/10/18 08: 06; Start 09/09/18 at 21:00; Stop 09/10/18 at 12:45; Status DC Metoprolol Tartrate (Lopressor) 50 mg BID PO Last administered on 09/14/18 19: 36; Start 09/10/18 at 21:00; Stop 09/15/18 at 16:09; Status DC Trazodone HCl (Desyrel) 50 mg PRN QHS PRN PO INSOMNIA Last administered on 09/20 01:00; Start 09/10/18 at 17:00 Mirtazapine (Remeron) 7.5 mg QHS PO Last administered on 09/18/18 21:51; Start 09/10/18 at 21:00; Stop 09/19/18 at 00:07; Status DC Cephalexin HCl (Keflex) 500 mg TID PO Last administered on 09/21/18 08:15; Start 09/11/18 at 14:00; Stop 09/21/18 at 13:59 Lorazepam (Ativan) 0.75 mg DAILY PO Last administered on 09/21/18 08:18; Start 09/12/18 at 09:00 Lorazepam (Ativan) 1 mg BID@1300,2100 PO Last administered on 09/14/18 19:40; Start 09/12/18 at 13:00; Stop 09/14/18 at 21:01; Status DC Lorazepam (Ativan) 0.75 mg DAILY@1300 PO Last administered on 09/20/18 13:05; Start 09/15/18 at 13:00 Lorazepam (Ativan) 1 mg QHS PO Last administered on 09/17/18 18:43; Start at 21:00; Stop 09/17/18 at 21:01; Status DC Lorazepam (Ativan) 0.75 mg HS PO Last administered on 09/20/18 20:01; Start at 21:00 Lactobacillus Rhamnosus (Culturelle) 1 cap BID PO Last administered on 08:16; Start 09/12/18 at 21:00 Sertraline HCl (Zoloft) 150 mg DAILY08 PO Last administered on 09/21/18 08:12 ; Start 09/13/18 at 08:00 Olanzapine (ZyPREXA ZYDIS) 5 mg PRN Q2HR PRN PO PSYCHOSIS Last administered on 09/19/18 18:00; Start 09/12/18 at 21:30 Divalproex Sodium (Depakote Sprinkles) 250 mg BIDWMEALS PO Last administered on 09/21/18 08:17; Start 09/14/18 at 17:00 Metoprolol Tartrate (Lopressor) 25 mg BID PO Last administered on 09/21/18 08: 16; Start 09/15/18 at 21:00 Trazodone HCl (Desyrel) 50 mg QHS PO Last administered on 09/20/18 19:51; Start 09/16/18 at 21:00 Mirtazapine (Remeron) 15 mg QHS PO Last administered on 09/20/18 19:52; Start 09/19/18 at 21:00 Medroxyprogesterone Acetate (Provera) 2.5 mg DAILY PO Last administered on 09/21 08:22; Start 09/21/18 at 09:00 Active Scripts Active Reported Zoloft (Sertraline Hcl) 100 Mg Tablet 100 Mg PO BID [place] 3 Fish Oil Softgel ([place]-3 Fatty Acids/Fish Oil) 1 Each Capsule. 1 Each PO DAILY Bystolic (Nebivolol Hcl) 5 Mg Tablet 5 Mg PO DAILY Multivitamins (Multivitamin) 1 Each Tablet 1 Tab PO DAILY Metformin Hcl 500 Mg Tablet 500 Mg PO BIDWMEALS Namenda (Memantine Hcl) 10 Mg Tablet 10 Mg PO BID Ativan (Lorazepam) 2 Mg Tablet 1 Mg PO TID Lisinopril 40 Mg Tablet 40 Mg PO BID Glyburide 2.5 Mg Tablet 5 Mg PO BID Proscar (Finasteride) 5 Mg Tablet 5 Mg PO QHS Cardura (Doxazosin Mesylate) 4 Mg Tablet 4 Mg PO QHS Aricept (Donepezil Hcl) 10 Mg Tablet 10 Mg PO QHS Coricidin Hbp Cough & Cold Tab (Dextromethorphan Hbr/Chlor-Mal) 1 Each Tablet 1 Each PO PRN QID PRN Aspirin 81 Mg Tab.chew 81 Mg PO QHS I have reviewed the current psychotropics carefully including drug interactions. Risk benefit ratio favors no change other than as noted in my dictated progress note. Diagnosis: Problems: (1) Anxiety disorder (2) Dementia in Alzheimer's disease with delusions (3) Dementia in Alzheimer's disease with depression (4) Dementia, vascular, with delusions (5) Dementia, vascular, with depression (6) Impulse control disorder GERTRUDE HERNANDEZ MD Sep 21, 2018 09:18
[2018-09-21 15:09] VITALS: BP 121/51
[2018-09-21] MEDS: MIRTAZAPINE 7.5 MG TABLET. PO SCH (20:47)
[2018-09-21] MEDS: ASPIRIN 81 MG TAB.CHEW PO SCH (20:47)
[2018-09-21] MEDS: DONEPEZIL HCL 10 MG TABLET PO SCH (20:48)
[2018-09-21] MEDS: FINASTERIDE 5 MG TABLET PO SCH (20:48)
[2018-09-21] MEDS: DOXAZOSIN MESYLATE 4 MG TABLET PO SCH (20:49)
[2018-09-21] MEDS: traZODone 50 MG TABLET. PO SCH (20:49)
--- NOTE | 2018-09-21 21:03 | PN ---
DATE: 09/20/2018 This late entry for 09/20/2018 covers elements not covered in my initial note. SUBJECTIVE: I met with the patient in the evening. The patient slept just 1-1/4 hours previous night. 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 REVIEW OF SYSTEMS: No CV, , pulmonary, eye, ENT system symptoms on review. Reliability poor. MENTAL STATUS EXAM: Oriented to himself. Insight, judgment, recent and remote memory, attention, concentration, fund of knowledge poor, consistent with his diagnosis mentioned in my initial note. PLAN: Continue current psychotropics and we will go ahead and start Provera 2.5 mg p.o. daily. Rest unchanged from initial note. MAN Alessandra HERNANDEZ MD DR: TIEN/priyank JOB#: [id number] / [id number]
--- NOTE | 2018-09-21 22:41 | PDOC ---
Exam Note: Roderick Note: Please also refer to the separate dictated note~for this date of service dictated separately.~Patient seen individually. Discussed the patient with Nursing staff reviewed the chart.~Reviewed interim history and current functioning. Reviewed vital signs,~Labs/ Radiology~and current medications noted below. Continue current treatment with the changes noted in the dictated addendum note Assessment: Vital Signs: Vital Signs Date Time Temp Pulse Resp B/P (MAP) Pulse Ox O2 Delivery O2 Flow Rate FiO2 09/21/18 20:49 78 121/51 09/21/18 15:09 97.7 20 98 09/19/18 06:47 Room Air I&O Intake and Output 09/21/18 07:00 Intake Total 600 ml Balance 600 ml Intake Oral 600 ml # Voids 1 Labs: Laboratory Tests Test 09/21/18 07:29 09/21/18 11:52 09/21/18 16:51 09/21/18 19:29 Glucose (Fingerstick) 71 mg/dL (70-99) 77 mg/dL (70-99) 163 mg/dL (70-99) H 216 mg/dL (70-99) H Current Medications: Meds: Current Medications Acetaminophen (Tylenol) 650 mg PRN Q6HRS PRN PO PAIN / TEMP; Start 09/08/18 at 13:30 Multi-Ingredient Ointment (Analgesic [place]) 1 blas PRN QID PRN TP MUSCLE PAIN; Start 09/08/18 at 13:30 Al Hydroxide/Mg Hydroxide (Mylanta Plus Xs) 15 ml PRN AFTMEALHC PRN PO DYSPEPSIA; Start 09/08/18 at 13:30 Magnesium Hydroxide (Milk Of Magnesia) 2,400 mg PRN QHS PRN PO CONSTIPATION; Start 09/08/18 at 13:30 Aspirin (Children'S Aspirin) 81 mg QHS PO Last administered on 09/21/18at 20:47 ; Start 09/08/18 at 21:00 Non-Formulary Medication (Dextromethorphan Hbr/Chlor-Mal (Coricidin Hbp Cough & Cold Tab)) 1 each PRN QID PRN PO COUGH; Start 09/08/18 at 13:45; Status UNV Donepezil HCl (Aricept) 10 mg QHS PO Last administered on 09/21/18at 20:48; Start 09/08/18 at 21:00 Doxazosin Mesylate (Cardura) 4 mg QHS PO Last administered on 09/20/18 19:58; Start 09/08/18 at 21:00 Finasteride (Proscar) 5 mg QHS PO Last administered on 09/21/18 20:48; Start 09/08/18 at 21:00 Lisinopril (Prinivil) 40 mg BID PO Last administered on 09/21/18 08:17; Start 09/08/18 at 21:00 Lorazepam (Ativan) 2 mg TID PO Last administered on 09/08/18 21:25; Start at 14:00; Stop 09/09/18 at 06:58; Status DC Losartan Potassium (Cozaar) 50 mg DAILY PO Last administered on 09/09/18 08:19 ; Start 09/09/18 at 09:00; Stop 09/10/18 at 12:41; Status DC Losartan Potassium (Cozaar) 100 mg BID PO Last administered on 09/10/18 08:05; Start 09/08/18 at 21:00; Stop 09/10/18 at 12:41; Status DC Memantine (Namenda) 10 mg BID PO Last administered on 09/21/18 20:49; Start at 21:00 Metformin HCl (Glucophage) 500 mg BIDWMEALS PO Last administered on 09/21/18 17:13; Start 09/08/18 at 17:00 Multivitamins/ Calcium (Thera-M Plus) 1 tab DAILY PO Last administered on 08:16; Start 09/09/18 at 09:00 Metoprolol Tartrate (Lopressor) 25 mg BID PO Last administered on 09/09/18 08: 21; Start 09/08/18 at 21:00; Stop 09/09/18 at 09:58; Status DC Fish Oil (Fish Oil) 1,000 mg DAILY PO Last administered on 09/21/18 08:12; Start 09/09/18 at 09:00 Insulin Human Lispro (HumaLOG) 0-7 UNITS QIDACHS SQ Last administered on 17:14; Start 09/08/18 at 16:30 Dextrose 12.5 gm PRN Q15MIN PRN IV SEE COMMENTS; Start 09/08/18 at 14:00 Glyburide (Diabeta) 5 mg BIDWMEALS PO Last administered on 09/21/18 17:13; Start 09/09/18 at 08:00 Sertraline HCl (Zoloft) 100 mg BID PO Last administered on 09/12/18 07:40; Start 09/09/18 at 09:00; Stop 09/12/18 at 19:10; Status DC Lorazepam (Ativan) 1 mg TID PO Last administered on 09/11/18 20:16; Start 09/09 at 09:00; Stop 09/12/18 at 01:04; Status DC Divalproex Sodium (Depakote Sprinkles) 125 mg BIDWMEALS PO Last administered on 09/14/18 08:37; Start 09/09/18 at 17:00; Stop 09/14/18 at 16:37; Status DC Metoprolol Tartrate (Lopressor) 25 mg BID PO Last administered on 09/10/18 08: 06; Start 09/09/18 at 21:00; Stop 09/10/18 at 12:45; Status DC Metoprolol Tartrate (Lopressor) 50 mg BID PO Last administered on 09/14/18 19: 36; Start 09/10/18 at 21:00; Stop 09/15/18 at 16:09; Status DC Trazodone HCl (Desyrel) 50 mg PRN QHS PRN PO INSOMNIA Last administered on 09/20 01:00; Start 09/10/18 at 17:00 Mirtazapine (Remeron) 7.5 mg QHS PO Last administered on 09/18/18 21:51; Start 09/10/18 at 21:00; Stop 09/19/18 at 00:07; Status DC Cephalexin HCl (Keflex) 500 mg TID PO Last administered on 09/21/18 08:15; Start 09/11/18 at 14:00; Stop 09/21/18 at 13:59; Status DC Lorazepam (Ativan) 0.75 mg DAILY PO Last administered on 09/21/18 08:18; Start 09/12/18 at 09:00 Lorazepam (Ativan) 1 mg BID@1300,2100 PO Last administered on 09/14/18 19:40; Start 09/12/18 at 13:00; Stop 09/14/18 at 21:01; Status DC Lorazepam (Ativan) 0.75 mg DAILY@1300 PO Last administered on 09/20/18 13:05; Start 09/15/18 at 13:00 Lorazepam (Ativan) 1 mg QHS PO Last administered on 09/17/18 18:43; Start at 21:00; Stop 09/17/18 at 21:01; Status DC Lorazepam (Ativan) 0.75 mg HS PO Last administered on 09/21/18 20:51; Start at 21:00 Lactobacillus Rhamnosus (Culturelle) 1 cap BID PO Last administered on 20:48; Start 09/12/18 at 21:00 Sertraline HCl (Zoloft) 150 mg DAILY08 PO Last administered on 09/21/18 08:12 ; Start 09/13/18 at 08:00 Olanzapine (ZyPREXA ZYDIS) 5 mg PRN Q2HR PRN PO PSYCHOSIS Last administered on 09/19/18 18:00; Start 09/12/18 at 21:30 Divalproex Sodium (Depakote Sprinkles) 250 mg BIDWMEALS PO Last administered on 09/21/18 08:17; Start 09/14/18 at 17:00; Stop 09/21/18 at 16:47; Status DC Metoprolol Tartrate (Lopressor) 25 mg BID PO Last administered on 09/21/18 20: 48; Start 09/15/18 at 21:00 Trazodone HCl (Desyrel) 50 mg QHS PO Last administered on 09/21/18 20:49; Start 09/16/18 at 21:00 Mirtazapine (Remeron) 15 mg QHS PO Last administered on 09/21/18 20:47; Start 09/19/18 at 21:00 Medroxyprogesterone Acetate (Provera) 2.5 mg DAILY PO Last administered on 09/21 08:22; Start 09/21/18 at 09:00 Divalproex Sodium (Depakote Sprinkles) 375 mg BIDWMEALS PO Last administered on 09/21/18at 17:13; Start 09/21/18 at 17:00 Active Scripts Active Reported Zoloft (Sertraline Hcl) 100 Mg Tablet 100 Mg PO BID [place] 3 Fish Oil Softgel ([place]-3 Fatty Acids/Fish Oil) 1 Each Capsule.dr 1 Each PO DAILY Bystolic (Nebivolol Hcl) 5 Mg Tablet 5 Mg PO DAILY Multivitamins (Multivitamin) 1 Each Tablet 1 Tab PO DAILY Metformin Hcl 500 Mg Tablet 500 Mg PO BIDWMEALS Namenda (Memantine Hcl) 10 Mg Tablet 10 Mg PO BID Ativan (Lorazepam) 2 Mg Tablet 1 Mg PO TID Lisinopril 40 Mg Tablet 40 Mg PO BID Glyburide 2.5 Mg Tablet 5 Mg PO BID Proscar (Finasteride) 5 Mg Tablet 5 Mg PO QHS Cardura (Doxazosin Mesylate) 4 Mg Tablet 4 Mg PO QHS Aricept (Donepezil Hcl) 10 Mg Tablet 10 Mg PO QHS Coricidin Hbp Cough & Cold Tab (Dextromethorphan Hbr/Chlor-Mal) 1 Each Tablet 1 Each PO PRN QID PRN Aspirin 81 Mg Tab.chew 81 Mg PO QHS I have reviewed the current psychotropics carefully including drug interactions. Risk benefit ratio favors no change other than as noted in my dictated progress note. Diagnosis: Problems: (1) Anxiety disorder (2) Dementia in Alzheimer's disease with delusions (3) Dementia in Alzheimer's disease with depression (4) Dementia, vascular, with delusions (5) Dementia, vascular, with depression (6) Impulse control disorder GERTRUDE HERNANDEZ MD Sep 21, 2018 22:41
[2018-09-22 05:59] VITALS: BP 170/78
[2018-09-22] MEDS: DIVALPROEX 125 MG CAP.SPRINK PO SCH ×2 (08:17→17:34)
[2018-09-22] MEDS: glyBURIDE 5 MG TABLET PO SCH ×2 (08:18→17:34)
[2018-09-22] MEDS: SERTRALINE 100 MG TABLET. PO SCH (08:18)
[2018-09-22] MEDS: metFORMIN 500 MG TABLET PO SCH ×2 (08:18→17:34)
[2018-09-22] MEDS: OMEGA-3 FATTY ACIDS/FISH OIL 1,000 MG CAPSULE. PO SCH (08:19)
[2018-09-22] MEDS: LORazepam 1 MG TABLET PO SCH ×3 (08:19→20:18)
[2018-09-22] MEDS: LACTOBACILLUS RHAMNOSUS GG 1 CAPSULE. PO SCH ×2 (08:19→20:13)
[2018-09-22] MEDS: MEMANTINE 10 MG TABLET. PO SCH ×2 (08:20→20:13)
[2018-09-22] MEDS: METOPROLOL TART IMMED RELEASE 25 MG TABLET PO SCH ×2 (08:20→20:14)
[2018-09-22] MEDS: MULTIVITAMIN with MINERAL TABLET. PO SCH (08:21)
[2018-09-22] MEDS: INSULIN LISPRO 300 UNITS/3 ML INSULN.PEN. SQ SCH ×4 (08:21→20:23)
[2018-09-22] MEDS: LISINOPRIL 20 MG TABLET PO SCH ×2 (08:21→20:13)
[2018-09-22 16:10] VITALS: BP 153/84
[2018-09-22] MEDS: MIRTAZAPINE 7.5 MG TABLET. PO SCH (20:12)
[2018-09-22] MEDS: FINASTERIDE 5 MG TABLET PO SCH (20:12)
[2018-09-22] MEDS: traZODone 50 MG TABLET. PO SCH (20:13)
[2018-09-22] MEDS: DOXAZOSIN MESYLATE 4 MG TABLET PO SCH (20:14)
[2018-09-22] MEDS: ASPIRIN 81 MG TAB.CHEW PO SCH (20:14)
[2018-09-22] MEDS: DONEPEZIL HCL 10 MG TABLET PO SCH (20:16)
--- NOTE | 2018-09-22 22:21 | PDOC ---
Exam Note: Roderick Note: Please also refer to the separate dictated note~for this date of service dictated separately.~Patient seen individually. Discussed the patient with Nursing staff reviewed the chart.~Reviewed interim history and current functioning. Reviewed vital signs,~Labs/ Radiology~and current medications noted below. Continue current treatment with the changes noted in the dictated addendum note Assessment: Vital Signs: Vital Signs Date Time Temp Pulse Resp B/P (MAP) Pulse Ox O2 Delivery O2 Flow Rate FiO2 09/22/18 20:14 73 153/84 09/22/18 16:10 98.1 18 95 09/19/18 06:47 Room Air I&O Intake and Output 09/22/18 07:00 Intake Total 960 ml Balance 960 ml Intake Oral 960 ml Labs: Laboratory Tests Test 09/22/18 07:29 09/22/18 11:35 09/22/18 16:24 09/22/18 19:07 Glucose (Fingerstick) 60 mg/dL (70-99) L 163 mg/dL (70-99) H 96 mg/dL (70-99) 163 mg/dL (70-99) H Current Medications: Meds: Current Medications Acetaminophen (Tylenol) 650 mg PRN Q6HRS PRN PO PAIN / TEMP; Start 09/08/18 at 13:30 Multi-Ingredient Ointment (Analgesic [place]) 1 blas PRN QID PRN TP MUSCLE PAIN; Start 09/08/18 at 13:30 Al Hydroxide/Mg Hydroxide (Mylanta Plus Xs) 15 ml PRN AFTMEALHC PRN PO DYSPEPSIA; Start 09/08/18 at 13:30 Magnesium Hydroxide (Milk Of Magnesia) 2,400 mg PRN QHS PRN PO CONSTIPATION; Start 09/08/18 at 13:30 Aspirin (Children'S Aspirin) 81 mg QHS PO Last administered on 09/22/18at 20:14 ; Start 09/08/18 at 21:00 Non-Formulary Medication (Dextromethorphan Hbr/Chlor-Mal (Coricidin Hbp Cough & Cold Tab)) 1 each PRN QID PRN PO COUGH; Start 09/08/18 at 13:45; Status UNV Donepezil HCl (Aricept) 10 mg QHS PO Last administered on 09/22/18at 20:16; Start 09/08/18 at 21:00 Doxazosin Mesylate (Cardura) 4 mg QHS PO Last administered on 09/22/18 20:14; Start 09/08/18 at 21:00 Finasteride (Proscar) 5 mg QHS PO Last administered on 09/22/18 20:12; Start 09/08/18 at 21:00 Lisinopril (Prinivil) 40 mg BID PO Last administered on 09/22/18 20:13; Start 09/08/18 at 21:00 Lorazepam (Ativan) 2 mg TID PO Last administered on 09/08/18 21:25; Start at 14:00; Stop 09/09/18 at 06:58; Status DC Losartan Potassium (Cozaar) 50 mg DAILY PO Last administered on 09/09/18 08:19 ; Start 09/09/18 at 09:00; Stop 09/10/18 at 12:41; Status DC Losartan Potassium (Cozaar) 100 mg BID PO Last administered on 09/10/18 08:05; Start 09/08/18 at 21:00; Stop 09/10/18 at 12:41; Status DC Memantine (Namenda) 10 mg BID PO Last administered on 09/22/18 20:13; Start at 21:00 Metformin HCl (Glucophage) 500 mg BIDWMEALS PO Last administered on 09/22/18 17:34; Start 09/08/18 at 17:00 Multivitamins/ Calcium (Thera-M Plus) 1 tab DAILY PO Last administered on 08:21; Start 09/09/18 at 09:00 Metoprolol Tartrate (Lopressor) 25 mg BID PO Last administered on 09/09/18 08: 21; Start 09/08/18 at 21:00; Stop 09/09/18 at 09:58; Status DC Fish Oil (Fish Oil) 1,000 mg DAILY PO Last administered on 09/22/18 08:19; Start 09/09/18 at 09:00 Insulin Human Lispro (HumaLOG) 0-7 UNITS QIDACHS SQ Last administered on 12:26; Start 09/08/18 at 16:30 Dextrose 12.5 gm PRN Q15MIN PRN IV SEE COMMENTS; Start 09/08/18 at 14:00 Glyburide (Diabeta) 5 mg BIDWMEALS PO Last administered on 09/22/18 17:34; Start 09/09/18 at 08:00 Sertraline HCl (Zoloft) 100 mg BID PO Last administered on 09/12/18 07:40; Start 09/09/18 at 09:00; Stop 09/12/18 at 19:10; Status DC Lorazepam (Ativan) 1 mg TID PO Last administered on 09/11/18 20:16; Start 09/09 at 09:00; Stop 09/12/18 at 01:04; Status DC Divalproex Sodium (Depakote Sprinkles) 125 mg BIDWMEALS PO Last administered on 09/14/18 08:37; Start 09/09/18 at 17:00; Stop 09/14/18 at 16:37; Status DC Metoprolol Tartrate (Lopressor) 25 mg BID PO Last administered on 09/10/18 08: 06; Start 09/09/18 at 21:00; Stop 09/10/18 at 12:45; Status DC Metoprolol Tartrate (Lopressor) 50 mg BID PO Last administered on 09/14/18 19: 36; Start 09/10/18 at 21:00; Stop 09/15/18 at 16:09; Status DC Trazodone HCl (Desyrel) 50 mg PRN QHS PRN PO INSOMNIA Last administered on 09/20 01:00; Start 09/10/18 at 17:00 Mirtazapine (Remeron) 7.5 mg QHS PO Last administered on 09/18/18 21:51; Start 09/10/18 at 21:00; Stop 09/19/18 at 00:07; Status DC Cephalexin HCl (Keflex) 500 mg TID PO Last administered on 09/21/18 08:15; Start 09/11/18 at 14:00; Stop 09/21/18 at 13:59; Status DC Lorazepam (Ativan) 0.75 mg DAILY PO Last administered on 09/22/18 08:19; Start 09/12/18 at 09:00 Lorazepam (Ativan) 1 mg BID@1300,2100 PO Last administered on 09/14/18 19:40; Start 09/12/18 at 13:00; Stop 09/14/18 at 21:01; Status DC Lorazepam (Ativan) 0.75 mg DAILY@1300 PO Last administered on 09/22/18 12:56; Start 09/15/18 at 13:00 Lorazepam (Ativan) 1 mg QHS PO Last administered on 09/17/18 18:43; Start at 21:00; Stop 09/17/18 at 21:01; Status DC Lorazepam (Ativan) 0.75 mg HS PO Last administered on 09/22/18 20:18; Start at 21:00 Lactobacillus Rhamnosus (Culturelle) 1 cap BID PO Last administered on 20:13; Start 09/12/18 at 21:00 Sertraline HCl (Zoloft) 150 mg DAILY08 PO Last administered on 09/22/18 08:18 ; Start 09/13/18 at 08:00 Olanzapine (ZyPREXA ZYDIS) 5 mg PRN Q2HR PRN PO PSYCHOSIS Last administered on 09/22/18 09:14; Start 09/12/18 at 21:30 Divalproex Sodium (Depakote Sprinkles) 250 mg BIDWMEALS PO Last administered on 09/21/18 08:17; Start 09/14/18 at 17:00; Stop 09/21/18 at 16:47; Status DC Metoprolol Tartrate (Lopressor) 25 mg BID PO Last administered on 09/22/18 20: 14; Start 09/15/18 at 21:00 Trazodone HCl (Desyrel) 50 mg QHS PO Last administered on 09/22/18 20:13; Start 09/16/18 at 21:00 Mirtazapine (Remeron) 15 mg QHS PO Last administered on 09/22/18 20:12; Start 09/19/18 at 21:00 Medroxyprogesterone Acetate (Provera) 2.5 mg DAILY PO Last administered on 09/22 08:21; Start 09/21/18 at 09:00 Divalproex Sodium (Depakote Sprinkles) 375 mg BIDWMEALS PO Last administered on 09/22/18at 17:34; Start 09/21/18 at 17:00 Active Scripts Active Reported Zoloft (Sertraline Hcl) 100 Mg Tablet 100 Mg PO BID [place] 3 Fish Oil Softgel ([place]-3 Fatty Acids/Fish Oil) 1 Each Capsule.dr 1 Each PO DAILY Bystolic (Nebivolol Hcl) 5 Mg Tablet 5 Mg PO DAILY Multivitamins (Multivitamin) 1 Each Tablet 1 Tab PO DAILY Metformin Hcl 500 Mg Tablet 500 Mg PO BIDWMEALS Namenda (Memantine Hcl) 10 Mg Tablet 10 Mg PO BID Ativan (Lorazepam) 2 Mg Tablet 1 Mg PO TID Lisinopril 40 Mg Tablet 40 Mg PO BID Glyburide 2.5 Mg Tablet 5 Mg PO BID Proscar (Finasteride) 5 Mg Tablet 5 Mg PO QHS Cardura (Doxazosin Mesylate) 4 Mg Tablet 4 Mg PO QHS Aricept (Donepezil Hcl) 10 Mg Tablet 10 Mg PO QHS Coricidin Hbp Cough & Cold Tab (Dextromethorphan Hbr/Chlor-Mal) 1 Each Tablet 1 Each PO PRN QID PRN Aspirin 81 Mg Tab.chew 81 Mg PO QHS I have reviewed the current psychotropics carefully including drug interactions. Risk benefit ratio favors no change other than as noted in my dictated progress note. Diagnosis: Problems: (1) Anxiety disorder (2) Dementia in Alzheimer's disease with delusions (3) Dementia in Alzheimer's disease with depression (4) Dementia, vascular, with delusions (5) Dementia, vascular, with depression (6) Impulse control disorder GERTRUDE HERNANDEZ MD Sep 22, 2018 22:21
--- NOTE | 2018-09-22 23:00 | PN ---
DATE: 09/21/2018 PSYCHIATRIC PROGRESS NOTE This late entry for 09/21/2018, covers elements not covered in my initial note. SUBJECTIVE: I met with the patient in the evening. The patient slept 5-1/2 hours previous night. The patient slept through breakfast, took a snack later. He runs into the room of other patients, picks up things and has been hoarding them. When the staff tried to get these from him, he was swinging at staff, yelling, cursing, quite labile. Staff were almost concerned about physical safety from him. REVIEW OF SYSTEMS: No CV, , pulmonary, eye, ENT system symptoms on review. Reliability poor. MENTAL STATUS EXAM: Oriented to himself. Insight, judgment, recent and remote memory, attention, concentration, fund of knowledge poor, consistent with his diagnosis mentioned in my initial note. PLAN: Valproic acid level on the was 19, subtherapeutic, increase Depakote sprinkles to 375 mg b.i.d. Check labs and valproic acid level in 3 days. Rest unchanged for now. MAN Alessandra HERNANDEZ MD DR: TIEN/priyank JOB#: [id number] / [id number]
[2018-09-23 05:31] VITALS: BP 123/92
[2018-09-23] MEDS: INSULIN LISPRO 300 UNITS/3 ML INSULN.PEN. SQ SCH ×4 (09:28→19:55)
[2018-09-23] MEDS: DIVALPROEX 125 MG CAP.SPRINK PO SCH ×2 (09:29→17:24)
[2018-09-23] MEDS: metFORMIN 500 MG TABLET PO SCH ×2 (09:38→17:24)
[2018-09-23] MEDS: glyBURIDE 5 MG TABLET PO SCH ×2 (09:38→17:24)
[2018-09-23] MEDS: SERTRALINE 100 MG TABLET. PO SCH (09:39)
[2018-09-23] MEDS: OMEGA-3 FATTY ACIDS/FISH OIL 1,000 MG CAPSULE. PO SCH (09:40)
[2018-09-23] MEDS: LORazepam 1 MG TABLET PO SCH ×3 (09:40→19:58)
[2018-09-23] MEDS: LACTOBACILLUS RHAMNOSUS GG 1 CAPSULE. PO SCH ×2 (09:40→19:39)
[2018-09-23] MEDS: METOPROLOL TART IMMED RELEASE 25 MG TABLET PO SCH ×2 (09:42→19:56)
[2018-09-23] MEDS: MEMANTINE 10 MG TABLET. PO SCH ×2 (09:42→19:39)
[2018-09-23] MEDS: LISINOPRIL 20 MG TABLET PO SCH ×2 (09:42→19:56)
[2018-09-23] MEDS: MULTIVITAMIN with MINERAL TABLET. PO SCH (09:42)
[2018-09-23 16:36] VITALS: BP 101/77
[2018-09-23] MEDS: MIRTAZAPINE 7.5 MG TABLET. PO SCH (19:39)
[2018-09-23] MEDS: FINASTERIDE 5 MG TABLET PO SCH (19:39)
[2018-09-23] MEDS: traZODone 50 MG TABLET. PO SCH (19:40)
[2018-09-23] MEDS: DONEPEZIL HCL 10 MG TABLET PO SCH (19:40)
[2018-09-23] MEDS: ASPIRIN 81 MG TAB.CHEW PO SCH (19:40)
[2018-09-23 19:54] VITALS: BP 114/52
[2018-09-23] MEDS: DOXAZOSIN MESYLATE 4 MG TABLET PO SCH (19:56)
--- NOTE | 2018-09-23 22:41 | PDOC ---
Exam Note: Roderick Note: Please also refer to the separate dictated note~for this date of service dictated separately.~Patient seen individually. Discussed the patient with Nursing staff reviewed the chart.~Reviewed interim history and current functioning. Reviewed vital signs,~Labs/ Radiology~and current medications noted below. Continue current treatment with the changes noted in the dictated addendum note Assessment: Vital Signs: Vital Signs Date Time Temp Pulse Resp B/P (MAP) Pulse Ox O2 Delivery O2 Flow Rate FiO2 09/23/18 19:56 85 114/52 09/23/18 16:36 97.4 18 99 09/19/18 06:47 Room Air I&O Intake and Output 09/23/18 06:59 Intake Total 1440 ml Balance 1440 ml Intake Oral 1440 ml Labs: Laboratory Tests Test 09/23/18 07:57 09/23/18 12:17 09/23/18 16:47 09/23/18 19:24 Glucose (Fingerstick) 77 mg/dL (70-99) 99 mg/dL (70-99) 199 mg/dL (70-99) H 121 mg/dL (70-99) H Current Medications: Meds: Current Medications Acetaminophen (Tylenol) 650 mg PRN Q6HRS PRN PO PAIN / TEMP; Start 09/08/18 at 13:30 Multi-Ingredient Ointment (Analgesic [place]) 1 blas PRN QID PRN TP MUSCLE PAIN; Start 09/08/18 at 13:30 Al Hydroxide/Mg Hydroxide (Mylanta Plus Xs) 15 ml PRN AFTMEALHC PRN PO DYSPEPSIA; Start 09/08/18 at 13:30 Magnesium Hydroxide (Milk Of Magnesia) 2,400 mg PRN QHS PRN PO CONSTIPATION; Start 09/08/18 at 13:30 Aspirin (Children'S Aspirin) 81 mg QHS PO Last administered on 09/23/18at 19:40 ; Start 09/08/18 at 21:00 Non-Formulary Medication (Dextromethorphan Hbr/Chlor-Mal (Coricidin Hbp Cough & Cold Tab)) 1 each PRN QID PRN PO COUGH; Start 09/08/18 at 13:45; Status UNV Donepezil HCl (Aricept) 10 mg QHS PO Last administered on 09/23/18at 19:40; Start 09/08/18 at 21:00 Doxazosin Mesylate (Cardura) 4 mg QHS PO Last administered on 09/23/18 19:56; Start 09/08/18 at 21:00 Finasteride (Proscar) 5 mg QHS PO Last administered on 09/23/18 19:39; Start 09/08/18 at 21:00 Lisinopril (Prinivil) 40 mg BID PO Last administered on 09/23/18 19:56; Start 09/08/18 at 21:00 Lorazepam (Ativan) 2 mg TID PO Last administered on 09/08/18 21:25; Start at 14:00; Stop 09/09/18 at 06:58; Status DC Losartan Potassium (Cozaar) 50 mg DAILY PO Last administered on 09/09/18 08:19 ; Start 09/09/18 at 09:00; Stop 09/10/18 at 12:41; Status DC Losartan Potassium (Cozaar) 100 mg BID PO Last administered on 09/10/18 08:05; Start 09/08/18 at 21:00; Stop 09/10/18 at 12:41; Status DC Memantine (Namenda) 10 mg BID PO Last administered on 09/23/18 19:39; Start at 21:00 Metformin HCl (Glucophage) 500 mg BIDWMEALS PO Last administered on 09/23/18 17:24; Start 09/08/18 at 17:00 Multivitamins/ Calcium (Thera-M Plus) 1 tab DAILY PO Last administered on 09:42; Start 09/09/18 at 09:00 Metoprolol Tartrate (Lopressor) 25 mg BID PO Last administered on 09/09/18 08: 21; Start 09/08/18 at 21:00; Stop 09/09/18 at 09:58; Status DC Fish Oil (Fish Oil) 1,000 mg DAILY PO Last administered on 09/23/18 09:40; Start 09/09/18 at 09:00 Insulin Human Lispro (HumaLOG) 0-7 UNITS QIDACHS SQ Last administered on 17:23; Start 09/08/18 at 16:30 Dextrose 12.5 gm PRN Q15MIN PRN IV SEE COMMENTS; Start 09/08/18 at 14:00 Glyburide (Diabeta) 5 mg BIDWMEALS PO Last administered on 09/23/18 17:24; Start 09/09/18 at 08:00 Sertraline HCl (Zoloft) 100 mg BID PO Last administered on 09/12/18 07:40; Start 09/09/18 at 09:00; Stop 09/12/18 at 19:10; Status DC Lorazepam (Ativan) 1 mg TID PO Last administered on 09/11/18 20:16; Start 09/09 at 09:00; Stop 09/12/18 at 01:04; Status DC Divalproex Sodium (Depakote Sprinkles) 125 mg BIDWMEALS PO Last administered on 09/14/18 08:37; Start 09/09/18 at 17:00; Stop 09/14/18 at 16:37; Status DC Metoprolol Tartrate (Lopressor) 25 mg BID PO Last administered on 09/10/18 08: 06; Start 09/09/18 at 21:00; Stop 09/10/18 at 12:45; Status DC Metoprolol Tartrate (Lopressor) 50 mg BID PO Last administered on 09/14/18 19: 36; Start 09/10/18 at 21:00; Stop 09/15/18 at 16:09; Status DC Trazodone HCl (Desyrel) 50 mg PRN QHS PRN PO INSOMNIA Last administered on 09/20 01:00; Start 09/10/18 at 17:00 Mirtazapine (Remeron) 7.5 mg QHS PO Last administered on 09/18/18 21:51; Start 09/10/18 at 21:00; Stop 09/19/18 at 00:07; Status DC Cephalexin HCl (Keflex) 500 mg TID PO Last administered on 09/21/18 08:15; Start 09/11/18 at 14:00; Stop 09/21/18 at 13:59; Status DC Lorazepam (Ativan) 0.75 mg DAILY PO Last administered on 09/23/18 09:40; Start 09/12/18 at 09:00 Lorazepam (Ativan) 1 mg BID@1300,2100 PO Last administered on 09/14/18 19:40; Start 09/12/18 at 13:00; Stop 09/14/18 at 21:01; Status DC Lorazepam (Ativan) 0.75 mg DAILY@1300 PO Last administered on 09/23/18 12:16; Start 09/15/18 at 13:00 Lorazepam (Ativan) 1 mg QHS PO Last administered on 09/17/18 18:43; Start at 21:00; Stop 09/17/18 at 21:01; Status DC Lorazepam (Ativan) 0.75 mg HS PO Last administered on 09/23/18 19:58; Start at 21:00 Lactobacillus Rhamnosus (Culturelle) 1 cap BID PO Last administered on 19:39; Start 09/12/18 at 21:00 Sertraline HCl (Zoloft) 150 mg DAILY08 PO Last administered on 09/23/18 09:39 ; Start 09/13/18 at 08:00 Olanzapine (ZyPREXA ZYDIS) 5 mg PRN Q2HR PRN PO PSYCHOSIS Last administered on 09/22/18 09:14; Start 09/12/18 at 21:30 Divalproex Sodium (Depakote Sprinkles) 250 mg BIDWMEALS PO Last administered on 09/21/18 08:17; Start 09/14/18 at 17:00; Stop 09/21/18 at 16:47; Status DC Metoprolol Tartrate (Lopressor) 25 mg BID PO Last administered on 09/23/18 19: 56; Start 09/15/18 at 21:00 Trazodone HCl (Desyrel) 50 mg QHS PO Last administered on 09/23/18 19:40; Start 09/16/18 at 21:00 Mirtazapine (Remeron) 15 mg QHS PO Last administered on 09/23/18 19:39; Start 09/19/18 at 21:00 Medroxyprogesterone Acetate (Provera) 2.5 mg DAILY PO Last administered on 09/23 09:42; Start 09/21/18 at 09:00 Divalproex Sodium (Depakote Sprinkles) 375 mg BIDWMEALS PO Last administered on 09/23/18at 17:24; Start 09/21/18 at 17:00 Active Scripts Active Reported Zoloft (Sertraline Hcl) 100 Mg Tablet 100 Mg PO BID [place] 3 Fish Oil Softgel ([place]-3 Fatty Acids/Fish Oil) 1 Each Capsule.dr 1 Each PO DAILY Bystolic (Nebivolol Hcl) 5 Mg Tablet 5 Mg PO DAILY Multivitamins (Multivitamin) 1 Each Tablet 1 Tab PO DAILY Metformin Hcl 500 Mg Tablet 500 Mg PO BIDWMEALS Namenda (Memantine Hcl) 10 Mg Tablet 10 Mg PO BID Ativan (Lorazepam) 2 Mg Tablet 1 Mg PO TID Lisinopril 40 Mg Tablet 40 Mg PO BID Glyburide 2.5 Mg Tablet 5 Mg PO BID Proscar (Finasteride) 5 Mg Tablet 5 Mg PO QHS Cardura (Doxazosin Mesylate) 4 Mg Tablet 4 Mg PO QHS Aricept (Donepezil Hcl) 10 Mg Tablet 10 Mg PO QHS Coricidin Hbp Cough & Cold Tab (Dextromethorphan Hbr/Chlor-Mal) 1 Each Tablet 1 Each PO PRN QID PRN Aspirin 81 Mg Tab.chew 81 Mg PO QHS I have reviewed the current psychotropics carefully including drug interactions. Risk benefit ratio favors no change other than as noted in my dictated progress note. Diagnosis: Problems: (1) Anxiety disorder (2) Dementia in Alzheimer's disease with delusions (3) Dementia in Alzheimer's disease with depression (4) Dementia, vascular, with delusions (5) Dementia, vascular, with depression (6) Impulse control disorder GERTRUDE HERNANDEZ MD Sep 23, 2018 22:41
[2018-09-23] MEDS: traZODone 50 MG TABLET. PO PRN (23:23)
[2018-09-24 06:25] VITALS: BP 136/76
[2018-09-24] MEDS: INSULIN LISPRO 300 UNITS/3 ML INSULN.PEN. SQ SCH ×4 (07:30→19:54)
[2018-09-24] MEDS: MEMANTINE 10 MG TABLET. PO SCH ×2 (09:04→19:49)
[2018-09-24] MEDS: MULTIVITAMIN with MINERAL TABLET. PO SCH (09:04)
[2018-09-24] MEDS: DIVALPROEX 125 MG CAP.SPRINK PO SCH ×2 (09:04→17:22)
[2018-09-24] MEDS: metFORMIN 500 MG TABLET PO SCH ×2 (09:04→17:37)
[2018-09-24] MEDS: OMEGA-3 FATTY ACIDS/FISH OIL 1,000 MG CAPSULE. PO SCH (09:04)
[2018-09-24] MEDS: glyBURIDE 5 MG TABLET PO SCH ×2 (09:05→17:37)
[2018-09-24] MEDS: LISINOPRIL 20 MG TABLET PO SCH ×2 (09:05→19:49)
[2018-09-24] MEDS: METOPROLOL TART IMMED RELEASE 25 MG TABLET PO SCH ×2 (09:05→19:47)
[2018-09-24] MEDS: SERTRALINE 100 MG TABLET. PO SCH (09:06)
[2018-09-24] MEDS: LACTOBACILLUS RHAMNOSUS GG 1 CAPSULE. PO SCH ×2 (09:06→19:46)
[2018-09-24] MEDS: LORazepam 1 MG TABLET PO SCH ×3 (09:09→19:48)
[2018-09-24] MEDS: MAGNESIUM HYDROXIDE 2,400 MG/30 ML ORAL.SUSP. PO PRN (12:29)
[2018-09-24 16:52] VITALS: BP 123/79
[2018-09-24] MEDS ORDERED: traZODone 100 MG TABLET. PO PRN (17:00)
[2018-09-24] MEDS: DOXAZOSIN MESYLATE 4 MG TABLET PO SCH (19:47)
[2018-09-24] MEDS: FINASTERIDE 5 MG TABLET PO SCH (19:48)
[2018-09-24] MEDS: MIRTAZAPINE 7.5 MG TABLET. PO SCH (19:48)
[2018-09-24] MEDS: ASPIRIN 81 MG TAB.CHEW PO SCH (19:49)
[2018-09-24] MEDS: DONEPEZIL HCL 10 MG TABLET PO SCH (19:49)
[2018-09-24] MEDS: traZODone 100 MG TABLET. PO SCH (19:50)
--- NOTE | 2018-09-24 20:33 | PN ---
DATE: 09/22/2018 PSYCHIATRIC PROGRESS NOTE This late entry 09/22/2018 covers elements not covered in my initial note. SUBJECTIVE: I met with the patient in the evening. The patient slept 4 hours previous night. He did better the previous night. Labs on the 09/20/2018, valproic acid level was 19. He makes inappropriate sexual comments to female nursing staff and in the evening slammed his wheelchair into the door, was quite agitated. He is a big man and can come across quite threatening. REVIEW OF SYSTEMS: No CV, , pulmonary, eye, ENT system symptoms on review. Reliability poor. MENTAL STATUS EXAM: Oriented to himself. Insight, judgment, recent and remote memory, attention, concentration, fund of knowledge poor, consistent with his diagnosis mentioned in my initial note. PLAN: No change from initial note, but if sexually inappropriate behaviors persist, we will increase the Provera. MAN Alessandra HERNANDEZ MD DR: TIEN/priyank JOB#: [id number] / [id number]
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
--- NOTE | 2018-09-24 22:40 | PDOC ---
Exam Note: Roderick Note: Please also refer to the separate dictated note~for this date of service dictated separately.~Patient seen individually. Discussed the patient with Nursing staff reviewed the chart.~Reviewed interim history and current functioning. Reviewed vital signs,~Labs/ Radiology~and current medications noted below. Continue current treatment with the changes noted in the dictated addendum note Assessment: Vital Signs: Vital Signs Date Time Temp Pulse Resp B/P (MAP) Pulse Ox O2 Delivery O2 Flow Rate FiO2 09/24/18 19:49 60 123/79 09/24/18 16:52 98.0 20 96 Room Air I&O Intake and Output 09/24/18 07:00 Intake Total 720 ml Balance 720 ml Intake Oral 720 ml Labs: Laboratory Tests Test 09/24/18 07:16 09/24/18 11:39 09/24/18 17:15 09/24/18 19:38 Glucose (Fingerstick) 111 mg/dL (70-99) H 189 mg/dL (70-99) H 119 mg/dL (70-99) H 183 mg/dL (70-99) H Current Medications: Meds: Current Medications Acetaminophen (Tylenol) 650 mg PRN Q6HRS PRN PO PAIN / TEMP; Start 09/08/18 at 13:30 Multi-Ingredient Ointment (Analgesic [place]) 1 blas PRN QID PRN TP MUSCLE PAIN; Start 09/08/18 at 13:30 Al Hydroxide/Mg Hydroxide (Mylanta Plus Xs) 15 ml PRN AFTMEALHC PRN PO DYSPEPSIA; Start 09/08/18 at 13:30 Magnesium Hydroxide (Milk Of Magnesia) 2,400 mg PRN QHS PRN PO CONSTIPATION Last administered on 09/24/18at 12:29; Start 09/08/18 at 13:30 Aspirin (Children'S Aspirin) 81 mg QHS PO Last administered on 09/24/18at 19:49 ; Start 09/08/18 at 21:00 Non-Formulary Medication (Dextromethorphan Hbr/Chlor-Mal (Coricidin Hbp Cough & Cold Tab)) 1 each PRN QID PRN PO COUGH; Start 09/08/18 at 13:45; Status UNV Donepezil HCl (Aricept) 10 mg QHS PO Last administered on 09/24/18at 19:49; Start 09/08/18 at 21:00 Doxazosin Mesylate (Cardura) 4 mg QHS PO Last administered on 09/24/18 19:47; Start 09/08/18 at 21:00 Finasteride (Proscar) 5 mg QHS PO Last administered on 09/24/18 19:48; Start 09/08/18 at 21:00 Lisinopril (Prinivil) 40 mg BID PO Last administered on 09/24/18 19:49; Start 09/08/18 at 21:00 Lorazepam (Ativan) 2 mg TID PO Last administered on 09/08/18 21:25; Start at 14:00; Stop 09/09/18 at 06:58; Status DC Losartan Potassium (Cozaar) 50 mg DAILY PO Last administered on 09/09/18 08:19 ; Start 09/09/18 at 09:00; Stop 09/10/18 at 12:41; Status DC Losartan Potassium (Cozaar) 100 mg BID PO Last administered on 09/10/18 08:05; Start 09/08/18 at 21:00; Stop 09/10/18 at 12:41; Status DC Memantine (Namenda) 10 mg BID PO Last administered on 09/24/18 19:49; Start at 21:00 Metformin HCl (Glucophage) 500 mg BIDWMEALS PO Last administered on 09/24/18 17:37; Start 09/08/18 at 17:00 Multivitamins/ Calcium (Thera-M Plus) 1 tab DAILY PO Last administered on 09:04; Start 09/09/18 at 09:00 Metoprolol Tartrate (Lopressor) 25 mg BID PO Last administered on 09/09/18 08: 21; Start 09/08/18 at 21:00; Stop 09/09/18 at 09:58; Status DC Fish Oil (Fish Oil) 1,000 mg DAILY PO Last administered on 09/24/18 09:04; Start 09/09/18 at 09:00 Insulin Human Lispro (HumaLOG) 0-7 UNITS QIDACHS SQ Last administered on 12:28; Start 09/08/18 at 16:30 Dextrose 12.5 gm PRN Q15MIN PRN IV SEE COMMENTS; Start 09/08/18 at 14:00 Glyburide (Diabeta) 5 mg BIDWMEALS PO Last administered on 09/24/18at 17:37; Start 09/09/18 at 08:00 Sertraline HCl (Zoloft) 100 mg BID PO Last administered on 09/12/18 07:40; Start 09/09/18 at 09:00; Stop 09/12/18 at 19:10; Status DC Lorazepam (Ativan) 1 mg TID PO Last administered on 09/11/18 20:16; Start 09/09 at 09:00; Stop 09/12/18 at 01:04; Status DC Divalproex Sodium (Depakote Sprinkles) 125 mg BIDWMEALS PO Last administered on 09/14/18at 08:37; Start 09/09/18 at 17:00; Stop 09/14/18 at 16:37; Status DC Metoprolol Tartrate (Lopressor) 25 mg BID PO Last administered on 09/10/18at 08: 06; Start 09/09/18 at 21:00; Stop 09/10/18 at 12:45; Status DC Metoprolol Tartrate (Lopressor) 50 mg BID PO Last administered on 09/14/18 19: 36; Start 09/10/18 at 21:00; Stop 09/15/18 at 16:09; Status DC Trazodone HCl (Desyrel) 50 mg PRN QHS PRN PO INSOMNIA Last administered on 09/23 23:23; Start 09/10/18 at 17:00; Stop 09/24/18 at 16:51; Status DC Mirtazapine (Remeron) 7.5 mg QHS PO Last administered on 09/18/18at 21:51; Start 09/10/18 at 21:00; Stop 09/19/18 at 00:07; Status DC Cephalexin HCl (Keflex) 500 mg TID PO Last administered on 09/21/18at 08:15; Start 09/11/18 at 14:00; Stop 09/21/18 at 13:59; Status DC Lorazepam (Ativan) 0.75 mg DAILY PO Last administered on 09/24/18 09:09; Start 09/12/18 at 09:00 Lorazepam (Ativan) 1 mg BID@1300,2100 PO Last administered on 09/14/18 19:40; Start 09/12/18 at 13:00; Stop 09/14/18 at 21:01; Status DC Lorazepam (Ativan) 0.75 mg DAILY@1300 PO Last administered on 09/24/18 12:27; Start 09/15/18 at 13:00 Lorazepam (Ativan) 1 mg QHS PO Last administered on 09/17/18 18:43; Start at 21:00; Stop 09/17/18 at 21:01; Status DC Lorazepam (Ativan) 0.75 mg HS PO Last administered on 09/24/18 19:48; Start at 21:00 Lactobacillus Rhamnosus (Culturelle) 1 cap BID PO Last administered on 19:46; Start 09/12/18 at 21:00 Sertraline HCl (Zoloft) 150 mg DAILY08 PO Last administered on 09/24/18 09:06 ; Start 09/13/18 at 08:00 Olanzapine (ZyPREXA ZYDIS) 5 mg PRN Q2HR PRN PO PSYCHOSIS Last administered on 09/24/18 02:48; Start 09/12/18 at 21:30 Divalproex Sodium (Depakote Sprinkles) 250 mg BIDWMEALS PO Last administered on 09/21/18 08:17; Start 09/14/18 at 17:00; Stop 09/21/18 at 16:47; Status DC Metoprolol Tartrate (Lopressor) 25 mg BID PO Last administered on 09/24/18 19: 47; Start 09/15/18 at 21:00 Trazodone HCl (Desyrel) 50 mg QHS PO Last administered on 09/23/18 19:40; Start 09/16/18 at 21:00; Stop 09/24/18 at 16:51; Status DC Mirtazapine (Remeron) 15 mg QHS PO Last administered on 09/24/18 19:48; Start 09/19/18 at 21:00 Medroxyprogesterone Acetate (Provera) 2.5 mg DAILY PO Last administered on 2/15 /19at 09:06; Start 09/21/18 at 09:00; Stop 09/24/18 at 16:51; Status DC Divalproex Sodium (Depakote Sprinkles) 375 mg BIDWMEALS PO Last administered on 09/24/18at 17:22; Start 09/21/18 at 17:00 Medroxyprogesterone Acetate (Provera) 5 mg DAILY PO ; Start 09/25/18 at 09:00 Trazodone HCl (Desyrel) 100 mg PRN QHS PRN PO INSOMNIA; Start 09/24/18 at 17:00 Trazodone HCl (Desyrel) 100 mg QHS PO Last administered on 09/24/18at 19:50; Start 09/24/18 at 21:00 Active Scripts Active Reported Zoloft (Sertraline Hcl) 100 Mg Tablet 100 Mg PO BID [place] 3 Fish Oil Softgel ([place]-3 Fatty Acids/Fish Oil) 1 Each Capsule.dr 1 Each PO DAILY Bystolic (Nebivolol Hcl) 5 Mg Tablet 5 Mg PO DAILY Multivitamins (Multivitamin) 1 Each Tablet 1 Tab PO DAILY Metformin Hcl 500 Mg Tablet 500 Mg PO BIDWMEALS Namenda (Memantine Hcl) 10 Mg Tablet 10 Mg PO BID Ativan (Lorazepam) 2 Mg Tablet 1 Mg PO TID Lisinopril 40 Mg Tablet 40 Mg PO BID Glyburide 2.5 Mg Tablet 5 Mg PO BID Proscar (Finasteride) 5 Mg Tablet 5 Mg PO QHS Cardura (Doxazosin Mesylate) 4 Mg Tablet 4 Mg PO QHS Aricept (Donepezil Hcl) 10 Mg Tablet 10 Mg PO QHS Coricidin Hbp Cough & Cold Tab (Dextromethorphan Hbr/Chlor-Mal) 1 Each Tablet 1 Each PO PRN QID PRN Aspirin 81 Mg Tab.chew 81 Mg PO QHS I have reviewed the current psychotropics carefully including drug interactions. Risk benefit ratio favors no change other than as noted in my dictated progress note. Diagnosis: Problems: (1) Anxiety disorder (2) Dementia in Alzheimer's disease with delusions (3) Dementia in Alzheimer's disease with depression (4) Dementia, vascular, with delusions (5) Dementia, vascular, with depression (6) Impulse control disorder GERTRUDE HERNANDEZ MD Sep 24, 2018 22:40
[2018-09-25 06:55] VITALS: BP 152/95
[2018-09-25] MEDS: INSULIN LISPRO 300 UNITS/3 ML INSULN.PEN. SQ SCH ×4 (07:30→19:46)
[2018-09-25] MEDS: DIVALPROEX 125 MG CAP.SPRINK PO SCH ×2 (09:02→17:11)
[2018-09-25] MEDS: MEMANTINE 10 MG TABLET. PO SCH ×2 (09:02→19:37)
[2018-09-25] MEDS: metFORMIN 500 MG TABLET PO SCH ×2 (09:03→17:11)
[2018-09-25] MEDS: METOPROLOL TART IMMED RELEASE 25 MG TABLET PO SCH ×2 (09:03→19:38)
[2018-09-25] MEDS: MULTIVITAMIN with MINERAL TABLET. PO SCH (09:03)
[2018-09-25] MEDS: LISINOPRIL 20 MG TABLET PO SCH ×2 (09:03→19:40)
[2018-09-25] MEDS: LACTOBACILLUS RHAMNOSUS GG 1 CAPSULE. PO SCH ×2 (09:03→19:36)
[2018-09-25] MEDS: SERTRALINE 100 MG TABLET. PO SCH (09:04)
[2018-09-25] MEDS: glyBURIDE 5 MG TABLET PO SCH ×2 (09:04→17:11)
[2018-09-25] MEDS: OMEGA-3 FATTY ACIDS/FISH OIL 1,000 MG CAPSULE. PO SCH (09:05)
[2018-09-25] MEDS: medroxyPROGESTERone 5 MG TABLET PO SCH (09:07)
[2018-09-25] MEDS: LORazepam 1 MG TABLET PO SCH ×3 (09:08→19:43)
[2018-09-25 10:55] LABS: BASO % 1 % (0-3); EOS # 0.3 x10^3/uL (0.0-0.7); EOS % 6 % (0-3); HEMATOCRIT 40.7 % (39.0-53.0); HEMOGLOBIN 13.1 g/dL (13.0-17.5); LYMPH % 17 % (24-48); MEAN CORPUSCULAR HEMOGLOBIN 29 pg (25-35); MEAN CORPUSCULAR HGB CONC 32 g/dL (31-37); MEAN CORPUSCULAR VOLUME 88 fL (79-100); MONO # 0.4 x10^3/uL (0.0-1.1); MONO % 7 % (0-9); NEUT % 69 % (31-73); PLATELET COUNT 216 x10^3/uL (140-400); RED BLOOD COUNT 4.61 x10^6/uL (4.30-5.70); RED CELL DISTRIBUTION WIDTH 15.7 % (11.5-14.5); WHITE BLOOD COUNT 5.8 x10^3/uL (4.0-11.0)
[2018-09-25 11:09] LABS: ALBUMIN 3.4 g/dL (3.4-5.0); ALBUMIN/GLOBULIN RATIO 0.8 (1.0-1.7); ALK PHOS 90 U/L (46-116); ALT (SGPT) 17 U/L (16-63); ANION GAP 8 (6-14); AST (SGOT) 19 U/L (15-37); BLOOD UREA NITROGEN 21 mg/dL (8-26); BUN/CREATININE RATIO 26 (6-20); CALCIUM 8.9 mg/dL (8.5-10.1); CARBON DIOXIDE 29 mmol/L (21-32); CHLORIDE 106 mmol/L (98-107); CREATININE 0.8 mg/dL (0.7-1.3); GFR 93.5; GLUCOSE 186 mg/dL (70-99); POTASSIUM 4.1 mmol/L (3.5-5.1); SODIUM 143 mmol/L (136-145); TOTAL BILIRUBIN 0.4 mg/dL (0.2-1.0); TOTAL PROTEIN 7.5 g/dL (6.4-8.2)
[2018-09-25 11:11] LABS: VAL ACID 35 mcg/mL (50-100)
[2018-09-25 16:10] VITALS: BP 105/75
[2018-09-25] MEDS: ASPIRIN 81 MG TAB.CHEW PO SCH (19:36)
[2018-09-25] MEDS: DOXAZOSIN MESYLATE 4 MG TABLET PO SCH (19:37)
[2018-09-25] MEDS: traZODone 100 MG TABLET. PO SCH (19:38)
[2018-09-25] MEDS: DONEPEZIL HCL 10 MG TABLET PO SCH (19:38)
[2018-09-25] MEDS: MIRTAZAPINE 7.5 MG TABLET. PO SCH (19:39)
[2018-09-25] MEDS: FINASTERIDE 5 MG TABLET PO SCH (19:39)
--- NOTE | 2018-09-25 21:56 | PDOC ---
Exam Note: Roderick Note: Please also refer to the separate dictated note~for this date of service dictated separately.~Patient seen individually. Discussed the patient with Nursing staff reviewed the chart.~Reviewed interim history and current functioning. Reviewed vital signs,~Labs/ Radiology~and current medications noted below. Continue current treatment with the changes noted in the dictated addendum note Assessment: Vital Signs: Vital Signs Date Time Temp Pulse Resp B/P (MAP) Pulse Ox O2 Delivery O2 Flow Rate FiO2 09/25/18 19:40 63 105/75 09/25/18 16:10 97.4 18 96 09/24/18 16:52 Room Air I&O Intake and Output 09/25/18 07:00 Intake Total 600 ml Balance 600 ml Intake Oral 600 ml Labs: Laboratory Tests Test 09/25/18 07:26 09/25/18 10:27 09/25/18 11:55 09/25/18 16:39 Glucose (Fingerstick) 71 mg/dL (70-99) 156 mg/dL (70-99) H 111 mg/dL (70-99) H White Blood Count 5.8 x10^3/uL (4.0-11.0) Red Blood Count 4.61 x10^6/uL (4.30-5.70) Hemoglobin 13.1 g/dL (13.0-17.5) Hematocrit 40.7 % (39.0-53.0) Mean Corpuscular Volume 88 fL (79-100) Mean Corpuscular Hemoglobin 29 pg (25-35) Mean Corpuscular Hemoglobin Concent 32 g/dL (31-37) Red Cell Distribution Width 15.7 % (11.5-14.5) H Platelet Count 216 x10^3/uL (140-400) Neutrophils (%) (Auto) 69 % (31-73) Lymphocytes (%) (Auto) 17 % (24-48) L Monocytes (%) (Auto) 7 % (0-9) Eosinophils (%) (Auto) 6 % (0-3) H Basophils (%) (Auto) 1 % (0-3) Neutrophils # (Auto) 4.0 x10^3uL (1.8-7.7) Lymphocytes # (Auto) 1.0 x10^3/uL (1.0-4.8) Monocytes # (Auto) 0.4 x10^3/uL (0.0-1.1) Eosinophils # (Auto) 0.3 x10^3/uL (0.0-0.7) Basophils # (Auto) 0.0 x10^3/uL (0.0-0.2) Sodium Level 143 mmol/L (136-145) Potassium Level 4.1 mmol/L (3.5-5.1) Chloride Level 106 mmol/L (98-107) Carbon Dioxide Level 29 mmol/L (21-32) Anion Gap 8 (6-14) Blood Urea Nitrogen 21 mg/dL (8-26) Creatinine 0.8 mg/dL (0.7-1.3) Estimated GFR (Cockcroft-Gault) 93.5 BUN/Creatinine Ratio 26 (6-20) H Glucose Level 186 mg/dL (70-99) H Calcium Level 8.9 mg/dL (8.5-10.1) Total Bilirubin 0.4 mg/dL (0.2-1.0) Aspartate Amino Transferase (AST) 19 U/L (15-37) Alanine Aminotransferase (ALT) 17 U/L (16-63) Alkaline Phosphatase 90 U/L (46-116) Total Protein 7.5 g/dL (6.4-8.2) Albumin 3.4 g/dL (3.4-5.0) Albumin/Globulin Ratio 0.8 (1.0-1.7) L Valproic Acid Level 35 mcg/mL (50-100) L Valproic Acid Last Dose Date 09/24/18 Valproic Acid Last Dose Time 2100 Test 09/25/18 19:42 Glucose (Fingerstick) 122 mg/dL (70-99) H Current Medications: Meds: Current Medications Acetaminophen (Tylenol) 650 mg PRN Q6HRS PRN PO PAIN / TEMP; Start 09/08/18 at 13:30 Multi-Ingredient Ointment (Analgesic [place]) 1 blas PRN QID PRN TP MUSCLE PAIN; Start 09/08/18 at 13:30 Al Hydroxide/Mg Hydroxide (Mylanta Plus Xs) 15 ml PRN AFTMEALHC PRN PO DYSPEPSIA; Start 09/08/18 at 13:30 Magnesium Hydroxide (Milk Of Magnesia) 2,400 mg PRN QHS PRN PO CONSTIPATION Last administered on 09/24/18 12:29; Start 09/08/18 at 13:30 Aspirin (Children'S Aspirin) 81 mg QHS PO Last administered on 09/25/18 19:36 ; Start 09/08/18 at 21:00 Non-Formulary Medication (Dextromethorphan Hbr/Chlor-Mal (Coricidin Hbp Cough & Cold Tab)) 1 each PRN QID PRN PO COUGH; Start 09/08/18 at 13:45; Status UNV Donepezil HCl (Aricept) 10 mg QHS PO Last administered on 09/25/18 19:38; Start 09/08/18 at 21:00 Doxazosin Mesylate (Cardura) 4 mg QHS PO Last administered on 09/25/18 19:37; Start 09/08/18 at 21:00 Finasteride (Proscar) 5 mg QHS PO Last administered on 09/25/18 19:39; Start 09/08/18 at 21:00 Lisinopril (Prinivil) 40 mg BID PO Last administered on 09/25/18 19:40; Start 09/08/18 at 21:00 Lorazepam (Ativan) 2 mg TID PO Last administered on 09/08/18 21:25; Start at 14:00; Stop 09/09/18 at 06:58; Status DC Losartan Potassium (Cozaar) 50 mg DAILY PO Last administered on 09/09/18 08:19 ; Start 09/09/18 at 09:00; Stop 09/10/18 at 12:41; Status DC Losartan Potassium (Cozaar) 100 mg BID PO Last administered on 09/10/18 08:05; Start 09/08/18 at 21:00; Stop 09/10/18 at 12:41; Status DC Memantine (Namenda) 10 mg BID PO Last administered on 09/25/18 19:37; Start at 21:00 Metformin HCl (Glucophage) 500 mg BIDWMEALS PO Last administered on 09/25/18 17:11; Start 09/08/18 at 17:00 Multivitamins/ Calcium (Thera-M Plus) 1 tab DAILY PO Last administered on 09:03; Start 09/09/18 at 09:00 Metoprolol Tartrate (Lopressor) 25 mg BID PO Last administered on 09/09/18at 08: 21; Start 09/08/18 at 21:00; Stop 09/09/18 at 09:58; Status DC Fish Oil (Fish Oil) 1,000 mg DAILY PO Last administered on 09/25/18at 09:05; Start 09/09/18 at 09:00 Insulin Human Lispro (HumaLOG) 0-7 UNITS QIDACHS SQ Last administered on at 12:04; Start 09/08/18 at 16:30 Dextrose 12.5 gm PRN Q15MIN PRN IV SEE COMMENTS; Start 09/08/18 at 14:00 Glyburide (Diabeta) 5 mg BIDWMEALS PO Last administered on 09/25/18at 17:11; Start 09/09/18 at 08:00 Sertraline HCl (Zoloft) 100 mg BID PO Last administered on 09/12/18at 07:40; Start 09/09/18 at 09:00; Stop 09/12/18 at 19:10; Status DC Lorazepam (Ativan) 1 mg TID PO Last administered on 09/11/18at 20:16; Start 09/09 at 09:00; Stop 09/12/18 at 01:04; Status DC Divalproex Sodium (Depakote Sprinkles) 125 mg BIDWMEALS PO Last administered on 09/14/18at 08:37; Start 09/09/18 at 17:00; Stop 09/14/18 at 16:37; Status DC Metoprolol Tartrate (Lopressor) 25 mg BID PO Last administered on 09/10/18at 08: 06; Start 09/09/18 at 21:00; Stop 09/10/18 at 12:45; Status DC Metoprolol Tartrate (Lopressor) 50 mg BID PO Last administered on 09/14/18at 19: 36; Start 09/10/18 at 21:00; Stop 09/15/18 at 16:09; Status DC Trazodone HCl (Desyrel) 50 mg PRN QHS PRN PO INSOMNIA Last administered on 09/23at 23:23; Start 09/10/18 at 17:00; Stop 09/24/18 at 16:51; Status DC Mirtazapine (Remeron) 7.5 mg QHS PO Last administered on 09/18/18 21:51; Start 09/10/18 at 21:00; Stop 09/19/18 at 00:07; Status DC Cephalexin HCl (Keflex) 500 mg TID PO Last administered on 09/21/18 08:15; Start 09/11/18 at 14:00; Stop 09/21/18 at 13:59; Status DC Lorazepam (Ativan) 0.75 mg DAILY PO Last administered on 09/25/18 09:08; Start 09/12/18 at 09:00 Lorazepam (Ativan) 1 mg BID@1300,2100 PO Last administered on 09/14/18 19:40; Start 09/12/18 at 13:00; Stop 09/14/18 at 21:01; Status DC Lorazepam (Ativan) 0.75 mg DAILY@1300 PO Last administered on 09/25/18 12:06; Start 09/15/18 at 13:00 Lorazepam (Ativan) 1 mg QHS PO Last administered on 09/17/18 18:43; Start at 21:00; Stop 09/17/18 at 21:01; Status DC Lorazepam (Ativan) 0.75 mg HS PO Last administered on 09/25/18 19:43; Start at 21:00 Lactobacillus Rhamnosus (Culturelle) 1 cap BID PO Last administered on 19:36; Start 09/12/18 at 21:00 Sertraline HCl (Zoloft) 150 mg DAILY08 PO Last administered on 09/25/18 09:04 ; Start 09/13/18 at 08:00 Olanzapine (ZyPREXA ZYDIS) 5 mg PRN Q2HR PRN PO PSYCHOSIS Last administered on 09/24/18 02:48; Start 09/12/18 at 21:30 Divalproex Sodium (Depakote Sprinkles) 250 mg BIDWMEALS PO Last administered on 09/21/18 08:17; Start 09/14/18 at 17:00; Stop 09/21/18 at 16:47; Status DC Metoprolol Tartrate (Lopressor) 25 mg BID PO Last administered on 09/25/18 19: 38; Start 09/15/18 at 21:00 Trazodone HCl (Desyrel) 50 mg QHS PO Last administered on 09/23/18at 19:40; Start 09/16/18 at 21:00; Stop 09/24/18 at 16:51; Status DC Mirtazapine (Remeron) 15 mg QHS PO Last administered on 09/25/18at 19:39; Start 09/19/18 at 21:00 Medroxyprogesterone Acetate (Provera) 2.5 mg DAILY PO Last administered on 09/24at 09:06; Start 09/21/18 at 09:00; Stop 09/24/18 at 16:51; Status DC Divalproex Sodium (Depakote Sprinkles) 375 mg BIDWMEALS PO Last administered on 09/25/18at 17:11; Start 09/21/18 at 17:00; Stop 09/25/18 at 19:55; Status DC Medroxyprogesterone Acetate (Provera) 5 mg DAILY PO Last administered on at 09:07; Start 09/25/18 at 09:00 Trazodone HCl (Desyrel) 100 mg PRN QHS PRN PO INSOMNIA; Start 09/24/18 at 17:00 Trazodone HCl (Desyrel) 100 mg QHS PO Last administered on 09/25/18at 19:38; Start 09/24/18 at 21:00 Divalproex Sodium (Depakote Sprinkles) 500 mg BIDWMEALS PO ; Start 09/26/18 at 08:00 Active Scripts Active Reported Zoloft (Sertraline Hcl) 100 Mg Tablet 100 Mg PO BID [place] 3 Fish Oil Softgel ([place]-3 Fatty Acids/Fish Oil) 1 Each Capsule. 1 Each PO DAILY Bystolic (Nebivolol Hcl) 5 Mg Tablet 5 Mg PO DAILY Multivitamins (Multivitamin) 1 Each Tablet 1 Tab PO DAILY Metformin Hcl 500 Mg Tablet 500 Mg PO BIDWMEALS Namenda (Memantine Hcl) 10 Mg Tablet 10 Mg PO BID Ativan (Lorazepam) 2 Mg Tablet 1 Mg PO TID Lisinopril 40 Mg Tablet 40 Mg PO BID Glyburide 2.5 Mg Tablet 5 Mg PO BID Proscar (Finasteride) 5 Mg Tablet 5 Mg PO QHS Cardura (Doxazosin Mesylate) 4 Mg Tablet 4 Mg PO QHS Aricept (Donepezil Hcl) 10 Mg Tablet 10 Mg PO QHS Coricidin Hbp Cough & Cold Tab (Dextromethorphan Hbr/Chlor-Mal) 1 Each Tablet 1 Each PO PRN QID PRN Aspirin 81 Mg Tab.chew 81 Mg PO QHS I have reviewed the current psychotropics carefully including drug interactions. Risk benefit ratio favors no change other than as noted in my dictated progress note. Diagnosis: Problems: (1) Anxiety disorder (2) Dementia in Alzheimer's disease with delusions (3) Dementia in Alzheimer's disease with depression (4) Dementia, vascular, with delusions (5) Dementia, vascular, with depression (6) Impulse control disorder GERTRUDE HERNANDEZ MD Sep 25, 2018 21:56
[2018-09-26] MEDS: traZODone 100 MG TABLET. PO SCH (00:58)
[2018-09-26] MEDS: MAGNESIUM HYDROXIDE 2,400 MG/30 ML ORAL.SUSP. PO PRN (01:04)
[2018-09-26 05:55] VITALS: BP 149/87
[2018-09-26] MEDS: INSULIN LISPRO 300 UNITS/3 ML INSULN.PEN. SQ SCH ×4 (07:46→20:34)
[2018-09-26] MEDS: DIVALPROEX 125 MG CAP.SPRINK PO SCH ×2 (09:33→17:23)
[2018-09-26] MEDS: metFORMIN 500 MG TABLET PO SCH ×2 (09:34→17:23)
[2018-09-26] MEDS: SERTRALINE 100 MG TABLET. PO SCH (09:34)
[2018-09-26] MEDS: glyBURIDE 5 MG TABLET PO SCH ×2 (09:34→17:23)
[2018-09-26] MEDS: LORazepam 1 MG TABLET PO SCH ×3 (09:37→20:34)
[2018-09-26] MEDS: OMEGA-3 FATTY ACIDS/FISH OIL 1,000 MG CAPSULE. PO SCH (09:38)
[2018-09-26] MEDS: LACTOBACILLUS RHAMNOSUS GG 1 CAPSULE. PO SCH (09:38)
[2018-09-26] MEDS: METOPROLOL TART IMMED RELEASE 25 MG TABLET PO SCH ×2 (09:40→20:31)
[2018-09-26] MEDS: medroxyPROGESTERone 5 MG TABLET PO SCH (09:40)
[2018-09-26] MEDS: LISINOPRIL 20 MG TABLET PO SCH ×2 (09:40→20:32)
[2018-09-26] MEDS: MEMANTINE 10 MG TABLET. PO SCH ×2 (09:40→20:08)
[2018-09-26] MEDS: MULTIVITAMIN with MINERAL TABLET. PO SCH (09:41)
[2018-09-26 16:16] VITALS: BP 102/66
[2018-09-26] MEDS: DONEPEZIL HCL 10 MG TABLET PO SCH (20:08)
[2018-09-26] MEDS: MIRTAZAPINE 7.5 MG TABLET. PO SCH (20:08)
[2018-09-26] MEDS: FINASTERIDE 5 MG TABLET PO SCH (20:08)
[2018-09-26] MEDS: ASPIRIN 81 MG TAB.CHEW PO SCH (20:08)
[2018-09-26] MEDS ORDERED: traZODone 100 MG TABLET. PO ONE (20:15)
[2018-09-26 20:25] VITALS: BP 140/93
[2018-09-26] MEDS: DOXAZOSIN MESYLATE 4 MG TABLET PO SCH (20:31)
--- NOTE | 2018-09-26 22:38 | PDOC ---
Exam Note: Roderick Note: Please also refer to the separate dictated note~for this date of service dictated separately.~Patient seen individually. Discussed the patient with Nursing staff reviewed the chart.~Reviewed interim history and current functioning. Reviewed vital signs,~Labs/ Radiology~and current medications noted below. Continue current treatment with the changes noted in the dictated addendum note Assessment: Vital Signs: Vital Signs Date Time Temp Pulse Resp B/P (MAP) Pulse Ox O2 Delivery O2 Flow Rate FiO2 09/26/18 20:32 105 140/93 09/26/18 16:16 97.9 18 94 09/24/18 16:52 Room Air I&O Intake and Output 09/26/18 07:00 Intake Total 1080 ml Balance 1080 ml Intake Oral 1080 ml Labs: Laboratory Tests Test 09/26/18 07:40 09/26/18 11:11 09/26/18 16:57 09/26/18 19:35 Glucose (Fingerstick) 79 mg/dL (70-99) 160 mg/dL (70-99) H 135 mg/dL (70-99) H 130 mg/dL (70-99) H Current Medications: Meds: Current Medications Acetaminophen (Tylenol) 650 mg PRN Q6HRS PRN PO PAIN / TEMP; Start 09/08/18 at 13:30 Multi-Ingredient Ointment (Analgesic [place]) 1 blas PRN QID PRN TP MUSCLE PAIN; Start 09/08/18 at 13:30 Al Hydroxide/Mg Hydroxide (Mylanta Plus Xs) 15 ml PRN AFTMEALHC PRN PO DYSPEPSIA; Start 09/08/18 at 13:30 Magnesium Hydroxide (Milk Of Magnesia) 2,400 mg PRN QHS PRN PO CONSTIPATION Last administered on 09/26/18at 01:04; Start 09/08/18 at 13:30 Aspirin (Children'S Aspirin) 81 mg QHS PO Last administered on 09/26/18at 20:08 ; Start 09/08/18 at 21:00 Non-Formulary Medication (Dextromethorphan Hbr/Chlor-Mal (Coricidin Hbp Cough & Cold Tab)) 1 each PRN QID PRN PO COUGH; Start 09/08/18 at 13:45; Status UNV Donepezil HCl (Aricept) 10 mg QHS PO Last administered on 09/26/18 20:08; Start 09/08/18 at 21:00 Doxazosin Mesylate (Cardura) 4 mg QHS PO Last administered on 09/26/18 20:31; Start 09/08/18 at 21:00 Finasteride (Proscar) 5 mg QHS PO Last administered on 09/26/18 20:08; Start 09/08/18 at 21:00 Lisinopril (Prinivil) 40 mg BID PO Last administered on 09/26/18 20:32; Start 09/08/18 at 21:00 Lorazepam (Ativan) 2 mg TID PO Last administered on 09/08/18 21:25; Start at 14:00; Stop 09/09/18 at 06:58; Status DC Losartan Potassium (Cozaar) 50 mg DAILY PO Last administered on 09/09/18 08:19 ; Start 09/09/18 at 09:00; Stop 09/10/18 at 12:41; Status DC Losartan Potassium (Cozaar) 100 mg BID PO Last administered on 09/10/18 08:05; Start 09/08/18 at 21:00; Stop 09/10/18 at 12:41; Status DC Memantine (Namenda) 10 mg BID PO Last administered on 09/26/18 20:08; Start at 21:00 Metformin HCl (Glucophage) 500 mg BIDWMEALS PO Last administered on 09/26/18 17:23; Start 09/08/18 at 17:00 Multivitamins/ Calcium (Thera-M Plus) 1 tab DAILY PO Last administered on 09:41; Start 09/09/18 at 09:00 Metoprolol Tartrate (Lopressor) 25 mg BID PO Last administered on 09/09/18 08: 21; Start 09/08/18 at 21:00; Stop 09/09/18 at 09:58; Status DC Fish Oil (Fish Oil) 1,000 mg DAILY PO Last administered on 09/26/18 09:38; Start 09/09/18 at 09:00 Insulin Human Lispro (HumaLOG) 0-7 UNITS QIDACHS SQ Last administered on at 11:39; Start 09/08/18 at 16:30 Dextrose 12.5 gm PRN Q15MIN PRN IV SEE COMMENTS; Start 09/08/18 at 14:00 Glyburide (Diabeta) 5 mg BIDWMEALS PO Last administered on 09/26/18 17:23; Start 09/09/18 at 08:00 Sertraline HCl (Zoloft) 100 mg BID PO Last administered on 09/12/18 07:40; Start 09/09/18 at 09:00; Stop 09/12/18 at 19:10; Status DC Lorazepam (Ativan) 1 mg TID PO Last administered on 09/11/18 20:16; Start 09/09 at 09:00; Stop 09/12/18 at 01:04; Status DC Divalproex Sodium (Depakote Sprinkles) 125 mg BIDWMEALS PO Last administered on 09/14/18 08:37; Start 09/09/18 at 17:00; Stop 09/14/18 at 16:37; Status DC Metoprolol Tartrate (Lopressor) 25 mg BID PO Last administered on 09/10/18at 08: 06; Start 09/09/18 at 21:00; Stop 09/10/18 at 12:45; Status DC Metoprolol Tartrate (Lopressor) 50 mg BID PO Last administered on 09/14/18 19: 36; Start 09/10/18 at 21:00; Stop 09/15/18 at 16:09; Status DC Trazodone HCl (Desyrel) 50 mg PRN QHS PRN PO INSOMNIA Last administered on 09/23at 23:23; Start 09/10/18 at 17:00; Stop 09/24/18 at 16:51; Status DC Mirtazapine (Remeron) 7.5 mg QHS PO Last administered on 09/18/18at 21:51; Start 09/10/18 at 21:00; Stop 09/19/18 at 00:07; Status DC Cephalexin HCl (Keflex) 500 mg TID PO Last administered on 09/21/18 08:15; Start 09/11/18 at 14:00; Stop 09/21/18 at 13:59; Status DC Lorazepam (Ativan) 0.75 mg DAILY PO Last administered on 09/26/18 09:37; Start 09/12/18 at 09:00 Lorazepam (Ativan) 1 mg BID@1300,2100 PO Last administered on 09/14/18 19:40; Start 09/12/18 at 13:00; Stop 09/14/18 at 21:01; Status DC Lorazepam (Ativan) 0.75 mg DAILY@1300 PO Last administered on 09/26/18 12:29; Start 09/15/18 at 13:00 Lorazepam (Ativan) 1 mg QHS PO Last administered on 09/17/18 18:43; Start at 21:00; Stop 09/17/18 at 21:01; Status DC Lorazepam (Ativan) 0.75 mg HS PO Last administered on 09/26/18 20:34; Start at 21:00 Lactobacillus Rhamnosus (Culturelle) 1 cap BID PO Last administered on 09:38; Start 09/12/18 at 21:00; Stop 09/26/18 at 14:06; Status DC Sertraline HCl (Zoloft) 150 mg DAILY08 PO Last administered on 09/26/18 09:34 ; Start 09/13/18 at 08:00 Olanzapine (ZyPREXA ZYDIS) 5 mg PRN Q2HR PRN PO PSYCHOSIS Last administered on 09/26/18 18:32; Start 09/12/18 at 21:30 Divalproex Sodium (Depakote Sprinkles) 250 mg BIDWMEALS PO Last administered on 09/21/18 08:17; Start 09/14/18 at 17:00; Stop 09/21/18 at 16:47; Status DC Metoprolol Tartrate (Lopressor) 25 mg BID PO Last administered on 09/26/18 20: 31; Start 09/15/18 at 21:00 Trazodone HCl (Desyrel) 50 mg QHS PO Last administered on 09/23/18 19:40; Start 09/16/18 at 21:00; Stop 09/24/18 at 16:51; Status DC Mirtazapine (Remeron) 15 mg QHS PO Last administered on 09/26/18 20:08; Start 09/19/18 at 21:00 Medroxyprogesterone Acetate (Provera) 2.5 mg DAILY PO Last administered on 09/24at 09:06; Start 09/21/18 at 09:00; Stop 09/24/18 at 16:51; Status DC Divalproex Sodium (Depakote Sprinkles) 375 mg BIDWMEALS PO Last administered on 09/25/18at 17:11; Start 09/21/18 at 17:00; Stop 09/25/18 at 19:55; Status DC Medroxyprogesterone Acetate (Provera) 5 mg DAILY PO Last administered on at 09:40; Start 09/25/18 at 09:00 Trazodone HCl (Desyrel) 100 mg PRN QHS PRN PO INSOMNIA; Start 09/24/18 at 17:00 Trazodone HCl (Desyrel) 100 mg QHS PO Last administered on 09/26/18at 00:58; Start 09/24/18 at 21:00 Divalproex Sodium (Depakote Sprinkles) 500 mg BIDWMEALS PO Last administered on 09/26/18at 17:23; Start 09/26/18 at 08:00 Trazodone HCl (Desyrel) 100 mg 1X ONCE PO Last administered on 09/26/18at 20:31 ; Start 09/26/18 at 20:15; Stop 09/26/18 at 20:16; Status DC Active Scripts Active Reported Zoloft (Sertraline Hcl) 100 Mg Tablet 100 Mg PO BID [place] 3 Fish Oil Softgel ([place]-3 Fatty Acids/Fish Oil) 1 Each Capsule.dr 1 Each PO DAILY Bystolic (Nebivolol Hcl) 5 Mg Tablet 5 Mg PO DAILY Multivitamins (Multivitamin) 1 Each Tablet 1 Tab PO DAILY Metformin Hcl 500 Mg Tablet 500 Mg PO BIDWMEALS Namenda (Memantine Hcl) 10 Mg Tablet 10 Mg PO BID Ativan (Lorazepam) 2 Mg Tablet 1 Mg PO TID Lisinopril 40 Mg Tablet 40 Mg PO BID Glyburide 2.5 Mg Tablet 5 Mg PO BID Proscar (Finasteride) 5 Mg Tablet 5 Mg PO QHS Cardura (Doxazosin Mesylate) 4 Mg Tablet 4 Mg PO QHS Aricept (Donepezil Hcl) 10 Mg Tablet 10 Mg PO QHS Coricidin Hbp Cough & Cold Tab (Dextromethorphan Hbr/Chlor-Mal) 1 Each Tablet 1 Each PO PRN QID PRN Aspirin 81 Mg Tab.chew 81 Mg PO QHS I have reviewed the current psychotropics carefully including drug interactions. Risk benefit ratio favors no change other than as noted in my dictated progress note. Diagnosis: Problems: (1) Anxiety disorder (2) Dementia in Alzheimer's disease with delusions (3) Dementia in Alzheimer's disease with depression (4) Dementia, vascular, with delusions (5) Dementia, vascular, with depression (6) Impulse control disorder GERTRUDE HERNANDEZ MD Sep 26, 2018 22:38
--- NOTE | 2018-09-26 22:57 | PN ---
DATE: 09/24/2018 PSYCHIATRIC PROGRESS NOTE This late entry 09/24/2018 covers elements not covered in my initial note. SUBJECTIVE: I met with the patient in the evening. The patient slept just half an hour, even with trazodone repeated. He remains sexually inappropriate at times, grabbing at the nursing staff, pulling nursing staff towards him. He is trying to touch the nursing staff inappropriately. REVIEW OF SYSTEMS: No CV, , pulmonary, eye, ENT system symptoms on review. Ambulation impaired with walker. Reliability poor. MENTAL STATUS EXAM: Oriented to himself. Insight, judgment, recent and remote memory, attention, concentration, fund of knowledge poor, consistent with his diagnosis mentioned in my initial note. IMPRESSION: Major neurocognitive disorder, Alzheimer, vascular with delusion, depression, behavioral disturbance; anxiety disorder, unspecified; impulse control disorder, unspecified. PLAN: Increase Provera from 2.5 mg a day to 5 mg a day; trazodone from 50 mg at bedtime, may repeat x 1 to 100 mg at bedtime, may repeat x 1. Continue Zoloft, taper the Ativan, maintain Depakote and Aricept at current dosage. MAN Alessandra HERNANDEZ MD DR: TIEN/priyank JOB#: [id number] / [id number]
--- NOTE | 2018-09-26 23:00 | PN ---
DATE: 09/25/2018 PSYCHIATRIC PROGRESS NOTE This late entry 09/25/2018 covers elements not covered in my initial note. SUBJECTIVE: I met with the patient in the evening. The patient slept 5 hours previous night. He has been a little more appropriate, cooperative, still asking female nursing staff "Will you me?" REVIEW OF SYSTEMS: Ambulation impaired with walker. No CV, , pulmonary, eye, ENT system symptoms on review. Reliability poor. MENTAL STATUS EXAM: Oriented to himself. Insight, judgment, recent and remote memory, attention, concentration, fund of knowledge poor, consistent with his diagnosis mentioned in my initial note. PLAN: Increase Depakote Sprinkles from 375 b.i.d. to 500 mg twice a day. Check CBC, CMP, valproic acid level in 3 days. Prior valproic acid level was subtherapeutic at 19. Continue rest psychotropics unchanged. GERTRUDE HERNANDEZ MD DR: TIEN/priyank JOB#: [id number] / [id number]
[2018-09-27 06:17] VITALS: BP 165/70
[2018-09-27] MEDS: INSULIN LISPRO 300 UNITS/3 ML INSULN.PEN. SQ SCH ×4 (07:30→20:26)
[2018-09-27] MEDS: DIVALPROEX 125 MG CAP.SPRINK PO SCH ×2 (07:45→17:13)
[2018-09-27] MEDS: glyBURIDE 5 MG TABLET PO SCH ×2 (07:45→17:13)
[2018-09-27] MEDS: metFORMIN 500 MG TABLET PO SCH ×2 (07:46→17:13)
[2018-09-27] MEDS: SERTRALINE 100 MG TABLET. PO SCH (07:46)
[2018-09-27] MEDS: LORazepam 1 MG TABLET PO SCH ×3 (07:48→20:31)
[2018-09-27] MEDS: MEMANTINE 10 MG TABLET. PO SCH ×2 (07:50→20:28)
[2018-09-27] MEDS: METOPROLOL TART IMMED RELEASE 25 MG TABLET PO SCH ×2 (07:50→20:28)
[2018-09-27] MEDS: OMEGA-3 FATTY ACIDS/FISH OIL 1,000 MG CAPSULE. PO SCH (07:50)
[2018-09-27] MEDS: MULTIVITAMIN with MINERAL TABLET. PO SCH (07:51)
[2018-09-27] MEDS: medroxyPROGESTERone 5 MG TABLET PO SCH (07:51)
[2018-09-27] MEDS: LISINOPRIL 20 MG TABLET PO SCH ×2 (07:51→20:29)
[2018-09-27 16:22] VITALS: BP 112/57
[2018-09-27] MEDS: traZODone 100 MG TABLET. PO SCH (20:27)
[2018-09-27] MEDS: DOXAZOSIN MESYLATE 4 MG TABLET PO SCH (20:27)
[2018-09-27] MEDS: DONEPEZIL HCL 10 MG TABLET PO SCH (20:28)
[2018-09-27] MEDS: MIRTAZAPINE 7.5 MG TABLET. PO SCH (20:28)
[2018-09-27] MEDS: FINASTERIDE 5 MG TABLET PO SCH (20:28)
[2018-09-27] MEDS: ASPIRIN 81 MG TAB.CHEW PO SCH (20:28)
[2018-09-27] MEDS: MELATONIN 3 MG TABLET PO SCH (20:30)
--- NOTE | 2018-09-27 22:26 | PDOC ---
Exam Note: Roderick Note: Please also refer to the separate dictated note~for this date of service dictated separately.~Patient seen individually. Discussed the patient with Nursing staff reviewed the chart.~Reviewed interim history and current functioning. Reviewed vital signs,~Labs/ Radiology~and current medications noted below. Continue current treatment with the changes noted in the dictated addendum note Assessment: Vital Signs: Vital Signs Date Time Temp Pulse Resp B/P (MAP) Pulse Ox O2 Delivery O2 Flow Rate FiO2 09/27/18 20:29 74 112/57 09/27/18 16:22 97.3 16 95 09/24/18 16:52 Room Air I&O Intake and Output 09/27/18 07:00 Intake Total 600 ml Balance 600 ml Intake Oral 600 ml # Bowel Movements 1 Labs: Laboratory Tests Test 09/27/18 07:06 09/27/18 11:37 09/27/18 16:43 09/27/18 19:19 Glucose (Fingerstick) 79 mg/dL (70-99) 121 mg/dL (70-99) H 99 mg/dL (70-99) 160 mg/dL (70-99) H Current Medications: Meds: Current Medications Acetaminophen (Tylenol) 650 mg PRN Q6HRS PRN PO PAIN / TEMP; Start 09/08/18 at 13:30 Multi-Ingredient Ointment (Analgesic [place]) 1 blas PRN QID PRN TP MUSCLE PAIN; Start 09/08/18 at 13:30 Al Hydroxide/Mg Hydroxide (Mylanta Plus Xs) 15 ml PRN AFTMEALHC PRN PO DYSPEPSIA; Start 09/08/18 at 13:30 Magnesium Hydroxide (Milk Of Magnesia) 2,400 mg PRN QHS PRN PO CONSTIPATION Last administered on 09/26/18at 01:04; Start 09/08/18 at 13:30 Aspirin (Children'S Aspirin) 81 mg QHS PO Last administered on 09/27/18at 20:28 ; Start 09/08/18 at 21:00 Non-Formulary Medication (Dextromethorphan Hbr/Chlor-Mal (Coricidin Hbp Cough & Cold Tab)) 1 each PRN QID PRN PO COUGH; Start 09/08/18 at 13:45; Status UNV Donepezil HCl (Aricept) 10 mg QHS PO Last administered on 09/27/18 20:28; Start 09/08/18 at 21:00 Doxazosin Mesylate (Cardura) 4 mg QHS PO Last administered on 09/27/18 20:27; Start 09/08/18 at 21:00 Finasteride (Proscar) 5 mg QHS PO Last administered on 09/27/18 20:28; Start 09/08/18 at 21:00 Lisinopril (Prinivil) 40 mg BID PO Last administered on 09/27/18 20:29; Start 09/08/18 at 21:00 Lorazepam (Ativan) 2 mg TID PO Last administered on 09/08/18 21:25; Start at 14:00; Stop 09/09/18 at 06:58; Status DC Losartan Potassium (Cozaar) 50 mg DAILY PO Last administered on 09/09/18 08:19 ; Start 09/09/18 at 09:00; Stop 09/10/18 at 12:41; Status DC Losartan Potassium (Cozaar) 100 mg BID PO Last administered on 09/10/18 08:05; Start 09/08/18 at 21:00; Stop 09/10/18 at 12:41; Status DC Memantine (Namenda) 10 mg BID PO Last administered on 09/27/18 20:28; Start at 21:00 Metformin HCl (Glucophage) 500 mg BIDWMEALS PO Last administered on 09/27/18 17:13; Start 09/08/18 at 17:00 Multivitamins/ Calcium (Thera-M Plus) 1 tab DAILY PO Last administered on 07:51; Start 09/09/18 at 09:00 Metoprolol Tartrate (Lopressor) 25 mg BID PO Last administered on 09/09/18 08: 21; Start 09/08/18 at 21:00; Stop 09/09/18 at 09:58; Status DC Fish Oil (Fish Oil) 1,000 mg DAILY PO Last administered on 09/27/18 07:50; Start 09/09/18 at 09:00 Insulin Human Lispro (HumaLOG) 0-7 UNITS QIDACHS SQ Last administered on 20:26; Start 09/08/18 at 16:30 Dextrose 12.5 gm PRN Q15MIN PRN IV SEE COMMENTS; Start 09/08/18 at 14:00 Glyburide (Diabeta) 5 mg BIDWMEALS PO Last administered on 09/27/18 17:13; Start 09/09/18 at 08:00 Sertraline HCl (Zoloft) 100 mg BID PO Last administered on 09/12/18 07:40; Start 09/09/18 at 09:00; Stop 09/12/18 at 19:10; Status DC Lorazepam (Ativan) 1 mg TID PO Last administered on 09/11/18 20:16; Start 09/09 at 09:00; Stop 09/12/18 at 01:04; Status DC Divalproex Sodium (Depakote Sprinkles) 125 mg BIDWMEALS PO Last administered on 09/14/18 08:37; Start 09/09/18 at 17:00; Stop 09/14/18 at 16:37; Status DC Metoprolol Tartrate (Lopressor) 25 mg BID PO Last administered on 09/10/18at 08: 06; Start 09/09/18 at 21:00; Stop 09/10/18 at 12:45; Status DC Metoprolol Tartrate (Lopressor) 50 mg BID PO Last administered on 09/14/18 19: 36; Start 09/10/18 at 21:00; Stop 09/15/18 at 16:09; Status DC Trazodone HCl (Desyrel) 50 mg PRN QHS PRN PO INSOMNIA Last administered on 09/23 23:23; Start 09/10/18 at 17:00; Stop 09/24/18 at 16:51; Status DC Mirtazapine (Remeron) 7.5 mg QHS PO Last administered on 09/18/18 21:51; Start 09/10/18 at 21:00; Stop 09/19/18 at 00:07; Status DC Cephalexin HCl (Keflex) 500 mg TID PO Last administered on 09/21/18 08:15; Start 09/11/18 at 14:00; Stop 09/21/18 at 13:59; Status DC Lorazepam (Ativan) 0.75 mg DAILY PO Last administered on 09/27/18 07:48; Start 09/12/18 at 09:00 Lorazepam (Ativan) 1 mg BID@1300,2100 PO Last administered on 09/14/18 19:40; Start 09/12/18 at 13:00; Stop 09/14/18 at 21:01; Status DC Lorazepam (Ativan) 0.75 mg DAILY@1300 PO Last administered on 09/27/18 13:27; Start 09/15/18 at 13:00 Lorazepam (Ativan) 1 mg QHS PO Last administered on 09/17/18 18:43; Start at 21:00; Stop 09/17/18 at 21:01; Status DC Lorazepam (Ativan) 0.75 mg HS PO Last administered on 09/27/18 20:31; Start at 21:00 Lactobacillus Rhamnosus (Culturelle) 1 cap BID PO Last administered on 09:38; Start 09/12/18 at 21:00; Stop 09/26/18 at 14:06; Status DC Sertraline HCl (Zoloft) 150 mg DAILY08 PO Last administered on 09/27/18 07:46 ; Start 09/13/18 at 08:00 Olanzapine (ZyPREXA ZYDIS) 5 mg PRN Q2HR PRN PO PSYCHOSIS Last administered on 09/26/18 18:32; Start 09/12/18 at 21:30 Divalproex Sodium (Depakote Sprinkles) 250 mg BIDWMEALS PO Last administered on 09/21/18 08:17; Start 09/14/18 at 17:00; Stop 09/21/18 at 16:47; Status DC Metoprolol Tartrate (Lopressor) 25 mg BID PO Last administered on 09/27/18 20: 28; Start 09/15/18 at 21:00 Trazodone HCl (Desyrel) 50 mg QHS PO Last administered on 09/23/18 19:40; Start 09/16/18 at 21:00; Stop 09/24/18 at 16:51; Status DC Mirtazapine (Remeron) 15 mg QHS PO Last administered on 09/27/18 20:28; Start 09/19/18 at 21:00 Medroxyprogesterone Acetate (Provera) 2.5 mg DAILY PO Last administered on 09/24at 09:06; Start 09/21/18 at 09:00; Stop 09/24/18 at 16:51; Status DC Divalproex Sodium (Depakote Sprinkles) 375 mg BIDWMEALS PO Last administered on 09/25/18at 17:11; Start 09/21/18 at 17:00; Stop 09/25/18 at 19:55; Status DC Medroxyprogesterone Acetate (Provera) 5 mg DAILY PO Last administered on at 07:51; Start 09/25/18 at 09:00 Trazodone HCl (Desyrel) 100 mg PRN QHS PRN PO INSOMNIA; Start 09/24/18 at 17:00 Trazodone HCl (Desyrel) 100 mg QHS PO Last administered on 09/27/18at 20:27; Start 09/24/18 at 21:00 Divalproex Sodium (Depakote Sprinkles) 500 mg BIDWMEALS PO Last administered on 09/27/18at 17:13; Start 09/26/18 at 08:00 Trazodone HCl (Desyrel) 100 mg 1X ONCE PO Last administered on 09/26/18at 20:31 ; Start 09/26/18 at 20:15; Stop 09/26/18 at 20:16; Status DC Melatonin 3 mg QHS PO Last administered on 09/27/18at 20:30; Start 09/27/18 at 21:00 Active Scripts Active Reported Zoloft (Sertraline Hcl) 100 Mg Tablet 100 Mg PO BID [place] 3 Fish Oil Softgel ([place]-3 Fatty Acids/Fish Oil) 1 Each Capsule. 1 Each PO DAILY Bystolic (Nebivolol Hcl) 5 Mg Tablet 5 Mg PO DAILY Multivitamins (Multivitamin) 1 Each Tablet 1 Tab PO DAILY Metformin Hcl 500 Mg Tablet 500 Mg PO BIDWMEALS Namenda (Memantine Hcl) 10 Mg Tablet 10 Mg PO BID Ativan (Lorazepam) 2 Mg Tablet 1 Mg PO TID Lisinopril 40 Mg Tablet 40 Mg PO BID Glyburide 2.5 Mg Tablet 5 Mg PO BID Proscar (Finasteride) 5 Mg Tablet 5 Mg PO QHS Cardura (Doxazosin Mesylate) 4 Mg Tablet 4 Mg PO QHS Aricept (Donepezil Hcl) 10 Mg Tablet 10 Mg PO QHS Coricidin Hbp Cough & Cold Tab (Dextromethorphan Hbr/Chlor-Mal) 1 Each Tablet 1 Each PO PRN QID PRN Aspirin 81 Mg Tab.chew 81 Mg PO QHS I have reviewed the current psychotropics carefully including drug interactions. Risk benefit ratio favors no change other than as noted in my dictated progress note. Diagnosis: Problems: (1) Anxiety disorder (2) Dementia in Alzheimer's disease with delusions (3) Dementia in Alzheimer's disease with depression (4) Dementia, vascular, with delusions (5) Dementia, vascular, with depression (6) Impulse control disorder GERTRUDE HERNANDEZ MD Sep 27, 2018 22:26
[2018-09-28 05:58] VITALS: BP 145/90
[2018-09-28] MEDS: INSULIN LISPRO 300 UNITS/3 ML INSULN.PEN. SQ SCH ×4 (07:30→20:12)
[2018-09-28 07:49] LABS: HEMATOCRIT 35.6 % (39.0-53.0); HEMOGLOBIN 11.6 g/dL (13.0-17.5); RED BLOOD COUNT 4.11 x10^6/uL (4.30-5.70); RED CELL DISTRIBUTION WIDTH 15.6 % (11.5-14.5); WHITE BLOOD COUNT 6.1 x10^3/uL (4.0-11.0)
[2018-09-28 08:06] LABS: ALBUMIN 2.9 g/dL (3.4-5.0); ALBUMIN/GLOBULIN RATIO 0.9 (1.0-1.7); ALK PHOS 76 U/L (46-116); ALT (SGPT) 18 U/L (16-63); ANION GAP 6 (6-14); AST (SGOT) 17 U/L (15-37); BLOOD UREA NITROGEN 23 mg/dL (8-26); BUN/CREATININE RATIO 26 (6-20); CALCIUM 8.4 mg/dL (8.5-10.1); CARBON DIOXIDE 32 mmol/L (21-32); CHLORIDE 109 mmol/L (98-107); CREATININE 0.9 mg/dL (0.7-1.3); GFR 81.6; GLUCOSE 54 mg/dL (70-99); POTASSIUM 4.2 mmol/L (3.5-5.1); SODIUM 147 mmol/L (136-145); TOTAL BILIRUBIN 0.4 mg/dL (0.2-1.0); TOTAL PROTEIN 6.3 g/dL (6.4-8.2)
[2018-09-28 08:07] LABS: VAL ACID 31 mcg/mL (50-100)
[2018-09-28] MEDS: glyBURIDE 5 MG TABLET PO SCH ×2 (08:08→17:56)
[2018-09-28] MEDS: metFORMIN 500 MG TABLET PO SCH ×2 (08:08→17:56)
[2018-09-28] MEDS: OMEGA-3 FATTY ACIDS/FISH OIL 1,000 MG CAPSULE. PO SCH (08:08)
[2018-09-28] MEDS: medroxyPROGESTERone 5 MG TABLET PO SCH (08:08)
[2018-09-28] MEDS: LISINOPRIL 20 MG TABLET PO SCH ×2 (08:09→19:15)
[2018-09-28] MEDS: MEMANTINE 10 MG TABLET. PO SCH ×2 (08:10→19:12)
[2018-09-28] MEDS: SERTRALINE 100 MG TABLET. PO SCH (08:10)
[2018-09-28] MEDS: DIVALPROEX 125 MG CAP.SPRINK PO SCH ×2 (08:10→17:56)
[2018-09-28] MEDS: MULTIVITAMIN with MINERAL TABLET. PO SCH (08:10)
[2018-09-28] MEDS: METOPROLOL TART IMMED RELEASE 25 MG TABLET PO SCH ×2 (08:11→19:16)
[2018-09-28] MEDS: LORazepam 1 MG TABLET PO SCH ×3 (08:14→19:14)
[2018-09-28 16:30] VITALS: BP 115/83
[2018-09-28] MEDS: MIRTAZAPINE 7.5 MG TABLET. PO SCH (19:11)
[2018-09-28] MEDS: MELATONIN 3 MG TABLET PO SCH (19:11)
[2018-09-28] MEDS: DONEPEZIL HCL 10 MG TABLET PO SCH (19:11)
[2018-09-28] MEDS: DOXAZOSIN MESYLATE 4 MG TABLET PO SCH (19:11)
[2018-09-28] MEDS: ASPIRIN 81 MG TAB.CHEW PO SCH (19:11)
[2018-09-28] MEDS: traZODone 100 MG TABLET. PO SCH (19:11)
[2018-09-28] MEDS: FINASTERIDE 5 MG TABLET PO SCH (19:14)
--- NOTE | 2018-09-28 21:57 | PN ---
DATE: 09/26/2018 PSYCHIATRIC PROGRESS NOTE This late entry 09/26/2018 covers elements not covered in my initial note. SUBJECTIVE: I met with the patient in the evening. The patient did not sleep at all previous night despite trazodone x 2. He has been agitated during the day, had to be in the vest hallway fighting with another patient on the unit. Received Zyprexa at 6:30 p.m., less sexually inappropriate. REVIEW OF SYSTEMS: No CV, , pulmonary, eye, ENT system symptoms on review. Reliability poor. MENTAL STATUS EXAM: Oriented to himself. Insight, judgment, recent and remote memory, attention, concentration, fund of knowledge poor, consistent with his diagnosis mentioned in my initial note. PLAN: Start melatonin 3 mg at bedtime. Rest unchanged from initial note. MAN Alessandra HERNANDEZ MD DR: TIEN/priyank JOB#: [id number] / [id number]
--- NOTE | 2018-09-28 21:59 | PN ---
DATE: 09/27/2018 PSYCHIATRIC PROGRESS NOTE This late entry 09/27/2018 covers elements not covered in my initial note. SUBJECTIVE: I met with the patient in the evening. The patient slept 7 hours previous night. He was aggressive at night. During the day, he defecated on the floor and walked all over it. We will check a valproic acid level in the morning of 09/28/2018. REVIEW OF SYSTEMS: No CV, , pulmonary, eye, ENT system symptoms on review. Reliability poor. MENTAL STATUS EXAM: Oriented to himself. Insight, judgment, recent and remote memory, attention, concentration, fund of knowledge poor, consistent with his diagnosis mentioned in my initial note. PLAN: As above. Rest, no change from initial note. MAN Alessandra HERNANDEZ MD DR: TIEN/priyank JOB#: [id number] / [id number]
--- NOTE | 2018-09-28 22:41 | PDOC ---
Exam Note: Roderick Note: Please also refer to the separate dictated note~for this date of service dictated separately.~Patient seen individually. Discussed the patient with Nursing staff reviewed the chart.~Reviewed interim history and current functioning. Reviewed vital signs,~Labs/ Radiology~and current medications noted below. Continue current treatment with the changes noted in the dictated addendum note Assessment: Vital Signs: Vital Signs Date Time Temp Pulse Resp B/P (MAP) Pulse Ox O2 Delivery O2 Flow Rate FiO2 09/28/18 19:16 86 115/83 09/28/18 16:30 98.5 20 95 Room Air I&O Intake and Output 09/28/18 07:00 Intake Total 1080 ml Balance 1080 ml Intake Oral 1080 ml # Bowel Movements 1 Labs: Laboratory Tests Test 09/28/18 07:40 09/28/18 07:47 09/28/18 08:21 09/28/18 11:40 White Blood Count 6.1 x10^3/uL (4.0-11.0) Red Blood Count 4.11 x10^6/uL (4.30-5.70) L Hemoglobin 11.6 g/dL (13.0-17.5) L Hematocrit 35.6 % (39.0-53.0) L Mean Corpuscular Volume 87 fL (79-100) Mean Corpuscular Hemoglobin 28 pg (25-35) Mean Corpuscular Hemoglobin Concent 33 g/dL (31-37) Red Cell Distribution Width 15.6 % (11.5-14.5) H Platelet Count 182 x10^3/uL (140-400) Sodium Level 147 mmol/L (136-145) H Potassium Level 4.2 mmol/L (3.5-5.1) Chloride Level 109 mmol/L (98-107) H Carbon Dioxide Level 32 mmol/L (21-32) Anion Gap 6 (6-14) Blood Urea Nitrogen 23 mg/dL (8-26) Creatinine 0.9 mg/dL (0.7-1.3) Estimated GFR (Cockcroft-Gault) 81.6 BUN/Creatinine Ratio 26 (6-20) H Glucose Level 54 mg/dL (70-99) L Calcium Level 8.4 mg/dL (8.5-10.1) L Total Bilirubin 0.4 mg/dL (0.2-1.0) Aspartate Amino Transferase (AST) 17 U/L (15-37) Alanine Aminotransferase (ALT) 18 U/L (16-63) Alkaline Phosphatase 76 U/L (46-116) Total Protein 6.3 g/dL (6.4-8.2) L Albumin 2.9 g/dL (3.4-5.0) L Albumin/Globulin Ratio 0.9 (1.0-1.7) L Valproic Acid Level 31 mcg/mL (50-100) L Valproic Acid Last Dose Date 09/27/18 Valproic Acid Last Dose Time 2100 Glucose (Fingerstick) 42 mg/dL (70-99) L 62 mg/dL (70-99) L 233 mg/dL (70-99) H Test 09/28/18 17:09 09/28/18 19:17 Glucose (Fingerstick) 85 mg/dL (70-99) 162 mg/dL (70-99) H Current Medications: Meds: Current Medications Acetaminophen (Tylenol) 650 mg PRN Q6HRS PRN PO PAIN / TEMP; Start 09/08/18 at 13:30 Multi-Ingredient Ointment (Analgesic [place]) 1 blas PRN QID PRN TP MUSCLE PAIN; Start 09/08/18 at 13:30 Al Hydroxide/Mg Hydroxide (Mylanta Plus Xs) 15 ml PRN AFTMEALHC PRN PO DYSPEPSIA; Start 09/08/18 at 13:30 Magnesium Hydroxide (Milk Of Magnesia) 2,400 mg PRN QHS PRN PO CONSTIPATION Last administered on 09/26/18at 01:04; Start 09/08/18 at 13:30 Aspirin (Children'S Aspirin) 81 mg QHS PO Last administered on 09/28/18at 19:11 ; Start 09/08/18 at 21:00 Non-Formulary Medication (Dextromethorphan Hbr/Chlor-Mal (Coricidin Hbp Cough & Cold Tab)) 1 each PRN QID PRN PO COUGH; Start 09/08/18 at 13:45; Status UNV Donepezil HCl (Aricept) 10 mg QHS PO Last administered on 09/28/18at 19:11; Start 09/08/18 at 21:00 Doxazosin Mesylate (Cardura) 4 mg QHS PO Last administered on 09/28/18 19:11; Start 09/08/18 at 21:00 Finasteride (Proscar) 5 mg QHS PO Last administered on 09/28/18 19:14; Start 09/08/18 at 21:00 Lisinopril (Prinivil) 40 mg BID PO Last administered on 09/28/18 08:09; Start 09/08/18 at 21:00 Lorazepam (Ativan) 2 mg TID PO Last administered on 09/08/18at 21:25; Start at 14:00; Stop 09/09/18 at 06:58; Status DC Losartan Potassium (Cozaar) 50 mg DAILY PO Last administered on 09/09/18 08:19 ; Start 09/09/18 at 09:00; Stop 09/10/18 at 12:41; Status DC Losartan Potassium (Cozaar) 100 mg BID PO Last administered on 09/10/18 08:05; Start 09/08/18 at 21:00; Stop 09/10/18 at 12:41; Status DC Memantine (Namenda) 10 mg BID PO Last administered on 09/28/18 19:12; Start at 21:00 Metformin HCl (Glucophage) 500 mg BIDWMEALS PO Last administered on 09/28/18at 17:56; Start 09/08/18 at 17:00 Multivitamins/ Calcium (Thera-M Plus) 1 tab DAILY PO Last administered on 08:10; Start 09/09/18 at 09:00 Metoprolol Tartrate (Lopressor) 25 mg BID PO Last administered on 09/09/18 08: 21; Start 09/08/18 at 21:00; Stop 09/09/18 at 09:58; Status DC Fish Oil (Fish Oil) 1,000 mg DAILY PO Last administered on 09/28/18 08:08; Start 09/09/18 at 09:00 Insulin Human Lispro (HumaLOG) 0-7 UNITS QIDACHS SQ Last administered on at 12:39; Start 09/08/18 at 16:30 Dextrose 12.5 gm PRN Q15MIN PRN IV SEE COMMENTS; Start 09/08/18 at 14:00 Glyburide (Diabeta) 5 mg BIDWMEALS PO Last administered on 09/28/18 17:56; Start 09/09/18 at 08:00 Sertraline HCl (Zoloft) 100 mg BID PO Last administered on 09/12/18 07:40; Start 09/09/18 at 09:00; Stop 09/12/18 at 19:10; Status DC Lorazepam (Ativan) 1 mg TID PO Last administered on 09/11/18 20:16; Start 09/09 at 09:00; Stop 09/12/18 at 01:04; Status DC Divalproex Sodium (Depakote Sprinkles) 125 mg BIDWMEALS PO Last administered on 09/14/18 08:37; Start 09/09/18 at 17:00; Stop 09/14/18 at 16:37; Status DC Metoprolol Tartrate (Lopressor) 25 mg BID PO Last administered on 09/10/18 08: 06; Start 09/09/18 at 21:00; Stop 09/10/18 at 12:45; Status DC Metoprolol Tartrate (Lopressor) 50 mg BID PO Last administered on 09/14/18 19: 36; Start 09/10/18 at 21:00; Stop 09/15/18 at 16:09; Status DC Trazodone HCl (Desyrel) 50 mg PRN QHS PRN PO INSOMNIA Last administered on 09/23 23:23; Start 09/10/18 at 17:00; Stop 09/24/18 at 16:51; Status DC Mirtazapine (Remeron) 7.5 mg QHS PO Last administered on 09/18/18 21:51; Start 09/10/18 at 21:00; Stop 09/19/18 at 00:07; Status DC Cephalexin HCl (Keflex) 500 mg TID PO Last administered on 09/21/18 08:15; Start 09/11/18 at 14:00; Stop 09/21/18 at 13:59; Status DC Lorazepam (Ativan) 0.75 mg DAILY PO Last administered on 09/28/18 08:14; Start 09/12/18 at 09:00 Lorazepam (Ativan) 1 mg BID@1300,2100 PO Last administered on 09/14/18 19:40; Start 09/12/18 at 13:00; Stop 09/14/18 at 21:01; Status DC Lorazepam (Ativan) 0.75 mg DAILY@1300 PO Last administered on 09/28/18 11:49; Start 09/15/18 at 13:00 Lorazepam (Ativan) 1 mg QHS PO Last administered on 09/17/18 18:43; Start at 21:00; Stop 09/17/18 at 21:01; Status DC Lorazepam (Ativan) 0.75 mg HS PO Last administered on 09/28/18 19:14; Start at 21:00 Lactobacillus Rhamnosus (Culturelle) 1 cap BID PO Last administered on 09:38; Start 09/12/18 at 21:00; Stop 09/26/18 at 14:06; Status DC Sertraline HCl (Zoloft) 150 mg DAILY08 PO Last administered on 09/28/18 08:10 ; Start 09/13/18 at 08:00 Olanzapine (ZyPREXA ZYDIS) 5 mg PRN Q2HR PRN PO PSYCHOSIS Last administered on 09/28/18 19:11; Start 09/12/18 at 21:30 Divalproex Sodium (Depakote Sprinkles) 250 mg BIDWMEALS PO Last administered on 09/21/18 08:17; Start 09/14/18 at 17:00; Stop 09/21/18 at 16:47; Status DC Metoprolol Tartrate (Lopressor) 25 mg BID PO Last administered on 09/28/18 19: 16; Start 09/15/18 at 21:00 Trazodone HCl (Desyrel) 50 mg QHS PO Last administered on 09/23/18 19:40; Start 09/16/18 at 21:00; Stop 09/24/18 at 16:51; Status DC Mirtazapine (Remeron) 15 mg QHS PO Last administered on 09/28/18 19:11; Start 09/19/18 at 21:00 Medroxyprogesterone Acetate (Provera) 2.5 mg DAILY PO Last administered on 09/24 09:06; Start 09/21/18 at 09:00; Stop 09/24/18 at 16:51; Status DC Divalproex Sodium (Depakote Sprinkles) 375 mg BIDWMEALS PO Last administered on 09/25/18at 17:11; Start 09/21/18 at 17:00; Stop 09/25/18 at 19:55; Status DC Medroxyprogesterone Acetate (Provera) 5 mg DAILY PO Last administered on at 08:08; Start 09/25/18 at 09:00 Trazodone HCl (Desyrel) 100 mg PRN QHS PRN PO INSOMNIA Last administered on at 19:12; Start 09/24/18 at 17:00 Trazodone HCl (Desyrel) 100 mg QHS PO Last administered on 09/28/18at 19:11; Start 09/24/18 at 21:00 Divalproex Sodium (Depakote Sprinkles) 500 mg BIDWMEALS PO Last administered on 09/28/18at 17:56; Start 09/26/18 at 08:00; Stop 09/28/18 at 19:24; Status DC Trazodone HCl (Desyrel) 100 mg 1X ONCE PO Last administered on 09/26/18at 20:31 ; Start 09/26/18 at 20:15; Stop 09/26/18 at 20:16; Status DC Melatonin 3 mg QHS PO Last administered on 09/28/18at 19:11; Start 09/27/18 at 21:00 Divalproex Sodium (Depakote Sprinkles) 750 mg BIDWMEALS PO ; Start 09/29/18 at 08:00 Active Scripts Active Reported Zoloft (Sertraline Hcl) 100 Mg Tablet 100 Mg PO BID [place] 3 Fish Oil Softgel ([place]-3 Fatty Acids/Fish Oil) 1 Each Capsule. 1 Each PO DAILY Bystolic (Nebivolol Hcl) 5 Mg Tablet 5 Mg PO DAILY Multivitamins (Multivitamin) 1 Each Tablet 1 Tab PO DAILY Metformin Hcl 500 Mg Tablet 500 Mg PO BIDWMEALS Namenda (Memantine Hcl) 10 Mg Tablet 10 Mg PO BID Ativan (Lorazepam) 2 Mg Tablet 1 Mg PO TID Lisinopril 40 Mg Tablet 40 Mg PO BID Glyburide 2.5 Mg Tablet 5 Mg PO BID Proscar (Finasteride) 5 Mg Tablet 5 Mg PO QHS Cardura (Doxazosin Mesylate) 4 Mg Tablet 4 Mg PO QHS Aricept (Donepezil Hcl) 10 Mg Tablet 10 Mg PO QHS Coricidin Hbp Cough & Cold Tab (Dextromethorphan Hbr/Chlor-Mal) 1 Each Tablet 1 Each PO PRN QID PRN Aspirin 81 Mg Tab.chew 81 Mg PO QHS I have reviewed the current psychotropics carefully including drug interactions. Risk benefit ratio favors no change other than as noted in my dictated progress note. Diagnosis: Problems: (1) Anxiety disorder (2) Dementia in Alzheimer's disease with delusions (3) Dementia in Alzheimer's disease with depression (4) Dementia, vascular, with delusions (5) Dementia, vascular, with depression (6) Impulse control disorder GERTRUDE HERNANEDZ MD Sep 28, 2018 22:41
[2018-09-29 05:49] VITALS: BP 168/68
[2018-09-29] MEDS: INSULIN LISPRO 300 UNITS/3 ML INSULN.PEN. SQ SCH ×4 (07:30→19:31)
[2018-09-29] MEDS: DIVALPROEX 125 MG CAP.SPRINK PO SCH ×2 (07:47→17:02)
[2018-09-29] MEDS: medroxyPROGESTERone 5 MG TABLET PO SCH (07:47)
[2018-09-29] MEDS: MEMANTINE 10 MG TABLET. PO SCH ×2 (07:48→19:33)
[2018-09-29] MEDS: MULTIVITAMIN with MINERAL TABLET. PO SCH (07:48)
[2018-09-29] MEDS: SERTRALINE 100 MG TABLET. PO SCH (07:48)
[2018-09-29] MEDS: glyBURIDE 5 MG TABLET PO SCH ×2 (07:48→17:02)
[2018-09-29] MEDS: OMEGA-3 FATTY ACIDS/FISH OIL 1,000 MG CAPSULE. PO SCH (07:48)
[2018-09-29] MEDS: metFORMIN 500 MG TABLET PO SCH ×2 (07:48→17:02)
[2018-09-29] MEDS: LORazepam 1 MG TABLET PO SCH ×3 (07:53→19:35)
[2018-09-29] MEDS: METOPROLOL TART IMMED RELEASE 25 MG TABLET PO SCH ×3 (09:00→19:33)
[2018-09-29] MEDS: LISINOPRIL 20 MG TABLET PO SCH ×2 (10:15→19:33)
[2018-09-29] MEDS ORDERED: traZODone 150 MG TABLET. PO PRN (15:00)
[2018-09-29 15:19] VITALS: BP 121/80
[2018-09-29] MEDS: MELATONIN 3 MG TABLET PO SCH (19:32)
[2018-09-29] MEDS: DONEPEZIL HCL 10 MG TABLET PO SCH (19:32)
[2018-09-29] MEDS: ASPIRIN 81 MG TAB.CHEW PO SCH (19:32)
[2018-09-29] MEDS: FINASTERIDE 5 MG TABLET PO SCH (19:33)
[2018-09-29] MEDS: DOXAZOSIN MESYLATE 4 MG TABLET PO SCH (19:33)
[2018-09-29] MEDS: MIRTAZAPINE 7.5 MG TABLET. PO SCH (19:33)
[2018-09-29] MEDS: traZODone 150 MG TABLET. PO SCH (19:35)
--- NOTE | 2018-09-29 21:34 | PN ---
DATE: 09/28/2018 PSYCHIATRIC PROGRESS NOTE This late entry 09/28/2018 covers elements not covered in my initial note. SUBJECTIVE: I met with the patient in the evening. The patient slept 7-1/2 hours previous night. He has done better most of the day, but had to be in the vest hallway for a period of time 45 minutes later in the day, then did okay. He gets somewhat impulsive, labile, but sexually less inappropriate. REVIEW OF SYSTEMS: No CV, , pulmonary, eye, ENT system symptoms on review. Reliability poor. MENTAL STATUS EXAM: Oriented to himself. Insight, judgment, recent and remote memory, attention, concentration, fund of knowledge poor, consistent with his diagnosis mentioned in my initial note. PLAN: Valproic acid level subtherapeutic at 31; on Depakote 500 mg b.i.d., we will increase it to 750 b.i.d. Check CBC, CMP, valproic acid level in 3 days to reach therapeutic level. Rest unchanged from initial note. MAN Alessandra HERNANDEZ MD DR: TIEN/priyank JOB#: [id number] / [id number]
--- NOTE | 2018-09-29 22:19 | PDOC ---
Exam Note: Roderick Note: Please also refer to the separate dictated note~for this date of service dictated separately.~Patient seen individually. Discussed the patient with Nursing staff reviewed the chart.~Reviewed interim history and current functioning. Reviewed vital signs,~Labs/ Radiology~and current medications noted below. Continue current treatment with the changes noted in the dictated addendum note Assessment: Vital Signs: Vital Signs Date Time Temp Pulse Resp B/P (MAP) Pulse Ox O2 Delivery O2 Flow Rate FiO2 09/29/18 19:33 82 121/80 09/29/18 15:19 97.2 18 96 09/28/18 16:30 Room Air I&O Intake and Output 09/29/18 07:00 Intake Total 1560 ml Balance 1560 ml Intake Oral 1560 ml Labs: Laboratory Tests Test 09/29/18 07:17 09/29/18 11:38 09/29/18 16:50 09/29/18 19:20 Glucose (Fingerstick) 65 mg/dL (70-99) L 132 mg/dL (70-99) H 186 mg/dL (70-99) H 116 mg/dL (70-99) H Current Medications: Meds: Current Medications Acetaminophen (Tylenol) 650 mg PRN Q6HRS PRN PO PAIN / TEMP; Start 09/08/18 at 13:30 Multi-Ingredient Ointment (Analgesic [place]) 1 blas PRN QID PRN TP MUSCLE PAIN; Start 09/08/18 at 13:30 Al Hydroxide/Mg Hydroxide (Mylanta Plus Xs) 15 ml PRN AFTMEALHC PRN PO DYSPEPSIA; Start 09/08/18 at 13:30 Magnesium Hydroxide (Milk Of Magnesia) 2,400 mg PRN QHS PRN PO CONSTIPATION Last administered on 09/26/18at 01:04; Start 09/08/18 at 13:30 Aspirin (Children'S Aspirin) 81 mg QHS PO Last administered on 09/29/18at 19:32 ; Start 09/08/18 at 21:00 Non-Formulary Medication (Dextromethorphan Hbr/Chlor-Mal (Coricidin Hbp Cough & Cold Tab)) 1 each PRN QID PRN PO COUGH; Start 09/08/18 at 13:45; Status UNV Donepezil HCl (Aricept) 10 mg QHS PO Last administered on 09/29/18 19:32; Start 09/08/18 at 21:00 Doxazosin Mesylate (Cardura) 4 mg QHS PO Last administered on 09/29/18 19:33; Start 09/08/18 at 21:00 Finasteride (Proscar) 5 mg QHS PO Last administered on 09/29/18 19:33; Start 09/08/18 at 21:00 Lisinopril (Prinivil) 40 mg BID PO Last administered on 09/29/18 19:33; Start 09/08/18 at 21:00 Lorazepam (Ativan) 2 mg TID PO Last administered on 09/08/18 21:25; Start at 14:00; Stop 09/09/18 at 06:58; Status DC Losartan Potassium (Cozaar) 50 mg DAILY PO Last administered on 09/09/18 08:19 ; Start 09/09/18 at 09:00; Stop 09/10/18 at 12:41; Status DC Losartan Potassium (Cozaar) 100 mg BID PO Last administered on 09/10/18 08:05; Start 09/08/18 at 21:00; Stop 09/10/18 at 12:41; Status DC Memantine (Namenda) 10 mg BID PO Last administered on 09/29/18 19:33; Start at 21:00 Metformin HCl (Glucophage) 500 mg BIDWMEALS PO Last administered on 09/29/18 17:02; Start 09/08/18 at 17:00 Multivitamins/ Calcium (Thera-M Plus) 1 tab DAILY PO Last administered on 07:48; Start 09/09/18 at 09:00 Metoprolol Tartrate (Lopressor) 25 mg BID PO Last administered on 09/09/18 08: 21; Start 09/08/18 at 21:00; Stop 09/09/18 at 09:58; Status DC Fish Oil (Fish Oil) 1,000 mg DAILY PO Last administered on 09/29/18at 07:48; Start 09/09/18 at 09:00 Insulin Human Lispro (HumaLOG) 0-7 UNITS QIDACHS SQ Last administered on at 17:24; Start 09/08/18 at 16:30 Dextrose 12.5 gm PRN Q15MIN PRN IV SEE COMMENTS; Start 09/08/18 at 14:00 Glyburide (Diabeta) 5 mg BIDWMEALS PO Last administered on 09/29/18at 17:02; Start 09/09/18 at 08:00 Sertraline HCl (Zoloft) 100 mg BID PO Last administered on 09/12/18at 07:40; Start 09/09/18 at 09:00; Stop 09/12/18 at 19:10; Status DC Lorazepam (Ativan) 1 mg TID PO Last administered on 09/11/18at 20:16; Start 09/09 at 09:00; Stop 09/12/18 at 01:04; Status DC Divalproex Sodium (Depakote Sprinkles) 125 mg BIDWMEALS PO Last administered on 09/14/18at 08:37; Start 09/09/18 at 17:00; Stop 09/14/18 at 16:37; Status DC Metoprolol Tartrate (Lopressor) 25 mg BID PO Last administered on 09/10/18at 08: 06; Start 09/09/18 at 21:00; Stop 09/10/18 at 12:45; Status DC Metoprolol Tartrate (Lopressor) 50 mg BID PO Last administered on 09/14/18at 19: 36; Start 09/10/18 at 21:00; Stop 09/15/18 at 16:09; Status DC Trazodone HCl (Desyrel) 50 mg PRN QHS PRN PO INSOMNIA Last administered on 09/23at 23:23; Start 09/10/18 at 17:00; Stop 09/24/18 at 16:51; Status DC Mirtazapine (Remeron) 7.5 mg QHS PO Last administered on 09/18/18at 21:51; Start 09/10/18 at 21:00; Stop 09/19/18 at 00:07; Status DC Cephalexin HCl (Keflex) 500 mg TID PO Last administered on 09/21/18at 08:15; Start 09/11/18 at 14:00; Stop 09/21/18 at 13:59; Status DC Lorazepam (Ativan) 0.75 mg DAILY PO Last administered on 09/29/18 07:53; Start 09/12/18 at 09:00 Lorazepam (Ativan) 1 mg BID@1300,2100 PO Last administered on 09/14/18 19:40; Start 09/12/18 at 13:00; Stop 09/14/18 at 21:01; Status DC Lorazepam (Ativan) 0.75 mg DAILY@1300 PO Last administered on 09/29/18 13:31; Start 09/15/18 at 13:00 Lorazepam (Ativan) 1 mg QHS PO Last administered on 09/17/18 18:43; Start at 21:00; Stop 09/17/18 at 21:01; Status DC Lorazepam (Ativan) 0.75 mg HS PO Last administered on 09/29/18 19:35; Start at 21:00 Lactobacillus Rhamnosus (Culturelle) 1 cap BID PO Last administered on 09:38; Start 09/12/18 at 21:00; Stop 09/26/18 at 14:06; Status DC Sertraline HCl (Zoloft) 150 mg DAILY08 PO Last administered on 09/29/18 07:48 ; Start 09/13/18 at 08:00 Olanzapine (ZyPREXA ZYDIS) 5 mg PRN Q2HR PRN PO PSYCHOSIS Last administered on 09/28/18 19:11; Start 09/12/18 at 21:30 Divalproex Sodium (Depakote Sprinkles) 250 mg BIDWMEALS PO Last administered on 09/21/18 08:17; Start 09/14/18 at 17:00; Stop 09/21/18 at 16:47; Status DC Metoprolol Tartrate (Lopressor) 25 mg BID PO Last administered on 09/29/18 19: 33; Start 09/15/18 at 21:00 Trazodone HCl (Desyrel) 50 mg QHS PO Last administered on 09/23/18 19:40; Start 09/16/18 at 21:00; Stop 09/24/18 at 16:51; Status DC Mirtazapine (Remeron) 15 mg QHS PO Last administered on 09/29/18 19:33; Start 09/19/18 at 21:00 Medroxyprogesterone Acetate (Provera) 2.5 mg DAILY PO Last administered on 09/24 09:06; Start 09/21/18 at 09:00; Stop 09/24/18 at 16:51; Status DC Divalproex Sodium (Depakote Sprinkles) 375 mg BIDWMEALS PO Last administered on 09/25/18at 17:11; Start 09/21/18 at 17:00; Stop 09/25/18 at 19:55; Status DC Medroxyprogesterone Acetate (Provera) 5 mg DAILY PO Last administered on at 07:47; Start 09/25/18 at 09:00 Trazodone HCl (Desyrel) 100 mg PRN QHS PRN PO INSOMNIA Last administered on at 19:12; Start 09/24/18 at 17:00; Stop 09/29/18 at 14:43; Status DC Trazodone HCl (Desyrel) 100 mg QHS PO Last administered on 09/28/18at 19:11; Start 09/24/18 at 21:00; Stop 09/29/18 at 14:43; Status DC Divalproex Sodium (Depakote Sprinkles) 500 mg BIDWMEALS PO Last administered on 09/28/18at 17:56; Start 09/26/18 at 08:00; Stop 09/28/18 at 19:24; Status DC Trazodone HCl (Desyrel) 100 mg 1X ONCE PO Last administered on 09/26/18at 20:31 ; Start 09/26/18 at 20:15; Stop 09/26/18 at 20:16; Status DC Melatonin 3 mg QHS PO Last administered on 09/29/18at 19:32; Start 09/27/18 at 21:00 Divalproex Sodium (Depakote Sprinkles) 750 mg BIDWMEALS PO Last administered on 09/29/18at 17:02; Start 09/29/18 at 08:00 Trazodone HCl (Desyrel) 150 mg PRN QHS PRN PO INSOMNIA; Start 09/29/18 at 15:00 Trazodone HCl (Desyrel) 150 mg QHS PO Last administered on 09/29/18at 19:35; Start 09/29/18 at 21:00 Active Scripts Active Reported Zoloft (Sertraline Hcl) 100 Mg Tablet 100 Mg PO BID [place] 3 Fish Oil Softgel ([place]-3 Fatty Acids/Fish Oil) 1 Each Capsule.dr 1 Each PO DAILY Bystolic (Nebivolol Hcl) 5 Mg Tablet 5 Mg PO DAILY Multivitamins (Multivitamin) 1 Each Tablet 1 Tab PO DAILY Metformin Hcl 500 Mg Tablet 500 Mg PO BIDWMEALS Namenda (Memantine Hcl) 10 Mg Tablet 10 Mg PO BID Ativan (Lorazepam) 2 Mg Tablet 1 Mg PO TID Lisinopril 40 Mg Tablet 40 Mg PO BID Glyburide 2.5 Mg Tablet 5 Mg PO BID Proscar (Finasteride) 5 Mg Tablet 5 Mg PO QHS Cardura (Doxazosin Mesylate) 4 Mg Tablet 4 Mg PO QHS Aricept (Donepezil Hcl) 10 Mg Tablet 10 Mg PO QHS Coricidin Hbp Cough & Cold Tab (Dextromethorphan Hbr/Chlor-Mal) 1 Each Tablet 1 Each PO PRN QID PRN Aspirin 81 Mg Tab.chew 81 Mg PO QHS I have reviewed the current psychotropics carefully including drug interactions. Risk benefit ratio favors no change other than as noted in my dictated progress note. Diagnosis: Problems: (1) Anxiety disorder (2) Dementia in Alzheimer's disease with delusions (3) Dementia in Alzheimer's disease with depression (4) Dementia, vascular, with delusions (5) Dementia, vascular, with depression (6) Impulse control disorder GERTRUDE HERNANDEZ MD Sep 29, 2018 22:19
[2018-09-30 06:13] VITALS: BP 115/73
[2018-09-30] MEDS: INSULIN LISPRO 300 UNITS/3 ML INSULN.PEN. SQ SCH ×4 (07:30→19:31)
[2018-09-30] MEDS: DIVALPROEX 125 MG CAP.SPRINK PO SCH ×2 (07:53→17:48)
[2018-09-30] MEDS: medroxyPROGESTERone 5 MG TABLET PO SCH (07:53)
[2018-09-30] MEDS: OMEGA-3 FATTY ACIDS/FISH OIL 1,000 MG CAPSULE. PO SCH (07:53)
[2018-09-30] MEDS: glyBURIDE 5 MG TABLET PO SCH ×2 (07:53→17:48)
[2018-09-30] MEDS: MULTIVITAMIN with MINERAL TABLET. PO SCH (07:53)
[2018-09-30] MEDS: metFORMIN 500 MG TABLET PO SCH ×2 (07:54→17:48)
[2018-09-30] MEDS: SERTRALINE 100 MG TABLET. PO SCH (07:54)
[2018-09-30] MEDS: MEMANTINE 10 MG TABLET. PO SCH ×2 (07:54→19:28)
[2018-09-30] MEDS: LISINOPRIL 20 MG TABLET PO SCH ×2 (07:55→19:27)
[2018-09-30] MEDS: METOPROLOL TART IMMED RELEASE 25 MG TABLET PO SCH ×2 (07:55→19:28)
[2018-09-30] MEDS: LORazepam 1 MG TABLET PO SCH ×3 (07:57→19:33)
[2018-09-30 16:05] VITALS: BP 154/81
[2018-09-30] MEDS: FINASTERIDE 5 MG TABLET PO SCH (19:26)
[2018-09-30] MEDS: MIRTAZAPINE 7.5 MG TABLET. PO SCH (19:26)
[2018-09-30] MEDS: MELATONIN 3 MG TABLET PO SCH (19:28)
[2018-09-30] MEDS: DONEPEZIL HCL 10 MG TABLET PO SCH (19:28)
[2018-09-30] MEDS: traZODone 150 MG TABLET. PO SCH (19:28)
[2018-09-30] MEDS: DOXAZOSIN MESYLATE 4 MG TABLET PO SCH (19:29)
[2018-09-30] MEDS: ASPIRIN 81 MG TAB.CHEW PO SCH (19:29)
--- NOTE | 2018-09-30 22:16 | PDOC ---
Exam Note: Roderick Note: Please also refer to the separate dictated note~for this date of service dictated separately. Discussed the patient with Nursing staff reviewed the chart.~Reviewed interim history and current functioning. Reviewed vital signs,~ Labs/ Radiology~and current medications noted below. Continue current treatment with the changes noted in the dictated addendum note Assessment: Vital Signs: Vital Signs Date Time Temp Pulse Resp B/P (MAP) Pulse Ox O2 Delivery O2 Flow Rate FiO2 09/30/18 19:29 61 154/81 09/30/18 16:05 98.4 16 100 09/28/18 16:30 Room Air I&O Intake and Output 09/30/18 07:00 Intake Total 1320 ml Balance 1320 ml Intake Oral 1320 ml Labs: Laboratory Tests Test 09/30/18 07:38 09/30/18 08:18 09/30/18 12:05 09/30/18 16:28 Glucose (Fingerstick) 56 mg/dL (70-99) L 88 mg/dL (70-99) 196 mg/dL (70-99) H 132 mg/dL (70-99) H Test 09/30/18 19:19 Glucose (Fingerstick) 196 mg/dL (70-99) H Current Medications: Meds: Current Medications Acetaminophen (Tylenol) 650 mg PRN Q6HRS PRN PO PAIN / TEMP; Start 09/08/18 at 13:30 Multi-Ingredient Ointment (Analgesic [place]) 1 blas PRN QID PRN TP MUSCLE PAIN; Start 09/08/18 at 13:30 Al Hydroxide/Mg Hydroxide (Mylanta Plus Xs) 15 ml PRN AFTMEALHC PRN PO DYSPEPSIA; Start 09/08/18 at 13:30 Magnesium Hydroxide (Milk Of Magnesia) 2,400 mg PRN QHS PRN PO CONSTIPATION Last administered on 09/26/18at 01:04; Start 09/08/18 at 13:30 Aspirin (Children'S Aspirin) 81 mg QHS PO Last administered on 09/30/18at 19:29 ; Start 09/08/18 at 21:00 Non-Formulary Medication (Dextromethorphan Hbr/Chlor-Mal (Coricidin Hbp Cough & Cold Tab)) 1 each PRN QID PRN PO COUGH; Start 09/08/18 at 13:45; Status UNV Donepezil HCl (Aricept) 10 mg QHS PO Last administered on 09/30/18 19:28; Start 09/08/18 at 21:00 Doxazosin Mesylate (Cardura) 4 mg QHS PO Last administered on 09/30/18 19:29; Start 09/08/18 at 21:00 Finasteride (Proscar) 5 mg QHS PO Last administered on 09/30/18 19:26; Start 09/08/18 at 21:00 Lisinopril (Prinivil) 40 mg BID PO Last administered on 09/30/18 19:27; Start 09/08/18 at 21:00 Lorazepam (Ativan) 2 mg TID PO Last administered on 09/08/18 21:25; Start at 14:00; Stop 09/09/18 at 06:58; Status DC Losartan Potassium (Cozaar) 50 mg DAILY PO Last administered on 09/09/18 08:19 ; Start 09/09/18 at 09:00; Stop 09/10/18 at 12:41; Status DC Losartan Potassium (Cozaar) 100 mg BID PO Last administered on 09/10/18 08:05; Start 09/08/18 at 21:00; Stop 09/10/18 at 12:41; Status DC Memantine (Namenda) 10 mg BID PO Last administered on 09/30/18 19:28; Start at 21:00 Metformin HCl (Glucophage) 500 mg BIDWMEALS PO Last administered on 09/30/18at 17:48; Start 09/08/18 at 17:00 Multivitamins/ Calcium (Thera-M Plus) 1 tab DAILY PO Last administered on 07:53; Start 09/09/18 at 09:00 Metoprolol Tartrate (Lopressor) 25 mg BID PO Last administered on 09/09/18 08: 21; Start 09/08/18 at 21:00; Stop 09/09/18 at 09:58; Status DC Fish Oil (Fish Oil) 1,000 mg DAILY PO Last administered on 09/30/18 07:53; Start 09/09/18 at 09:00 Insulin Human Lispro (HumaLOG) 0-7 UNITS QIDACHS SQ Last administered on at 12:52; Start 09/08/18 at 16:30 Dextrose 12.5 gm PRN Q15MIN PRN IV SEE COMMENTS; Start 09/08/18 at 14:00 Glyburide (Diabeta) 5 mg BIDWMEALS PO Last administered on 09/30/18at 17:48; Start 09/09/18 at 08:00 Sertraline HCl (Zoloft) 100 mg BID PO Last administered on 09/12/18at 07:40; Start 09/09/18 at 09:00; Stop 09/12/18 at 19:10; Status DC Lorazepam (Ativan) 1 mg TID PO Last administered on 09/11/18 20:16; Start 09/09 at 09:00; Stop 09/12/18 at 01:04; Status DC Divalproex Sodium (Depakote Sprinkles) 125 mg BIDWMEALS PO Last administered on 09/14/18at 08:37; Start 09/09/18 at 17:00; Stop 09/14/18 at 16:37; Status DC Metoprolol Tartrate (Lopressor) 25 mg BID PO Last administered on 09/10/18at 08: 06; Start 09/09/18 at 21:00; Stop 09/10/18 at 12:45; Status DC Metoprolol Tartrate (Lopressor) 50 mg BID PO Last administered on 09/14/18at 19: 36; Start 09/10/18 at 21:00; Stop 09/15/18 at 16:09; Status DC Trazodone HCl (Desyrel) 50 mg PRN QHS PRN PO INSOMNIA Last administered on 09/23at 23:23; Start 09/10/18 at 17:00; Stop 09/24/18 at 16:51; Status DC Mirtazapine (Remeron) 7.5 mg QHS PO Last administered on 09/18/18at 21:51; Start 09/10/18 at 21:00; Stop 09/19/18 at 00:07; Status DC Cephalexin HCl (Keflex) 500 mg TID PO Last administered on 09/21/18at 08:15; Start 09/11/18 at 14:00; Stop 09/21/18 at 13:59; Status DC Lorazepam (Ativan) 0.75 mg DAILY PO Last administered on 09/30/18 07:57; Start 09/12/18 at 09:00 Lorazepam (Ativan) 1 mg BID@1300,2100 PO Last administered on 09/14/18 19:40; Start 09/12/18 at 13:00; Stop 09/14/18 at 21:01; Status DC Lorazepam (Ativan) 0.75 mg DAILY@1300 PO Last administered on 09/30/18 12:52; Start 09/15/18 at 13:00 Lorazepam (Ativan) 1 mg QHS PO Last administered on 09/17/18 18:43; Start at 21:00; Stop 09/17/18 at 21:01; Status DC Lorazepam (Ativan) 0.75 mg HS PO Last administered on 09/30/18 19:33; Start at 21:00 Lactobacillus Rhamnosus (Culturelle) 1 cap BID PO Last administered on 09:38; Start 09/12/18 at 21:00; Stop 09/26/18 at 14:06; Status DC Sertraline HCl (Zoloft) 150 mg DAILY08 PO Last administered on 09/30/18 07:54 ; Start 09/13/18 at 08:00 Olanzapine (ZyPREXA ZYDIS) 5 mg PRN Q2HR PRN PO PSYCHOSIS Last administered on 09/28/18 19:11; Start 09/12/18 at 21:30 Divalproex Sodium (Depakote Sprinkles) 250 mg BIDWMEALS PO Last administered on 09/21/18 08:17; Start 09/14/18 at 17:00; Stop 09/21/18 at 16:47; Status DC Metoprolol Tartrate (Lopressor) 25 mg BID PO Last administered on 09/30/18 19: 28; Start 09/15/18 at 21:00 Trazodone HCl (Desyrel) 50 mg QHS PO Last administered on 09/23/18 19:40; Start 09/16/18 at 21:00; Stop 09/24/18 at 16:51; Status DC Mirtazapine (Remeron) 15 mg QHS PO Last administered on 09/30/18at 19:26; Start 09/19/18 at 21:00 Medroxyprogesterone Acetate (Provera) 2.5 mg DAILY PO Last administered on 09/24at 09:06; Start 09/21/18 at 09:00; Stop 09/24/18 at 16:51; Status DC Divalproex Sodium (Depakote Sprinkles) 375 mg BIDWMEALS PO Last administered on 09/25/18at 17:11; Start 09/21/18 at 17:00; Stop 09/25/18 at 19:55; Status DC Medroxyprogesterone Acetate (Provera) 5 mg DAILY PO Last administered on 07:53; Start 09/25/18 at 09:00 Trazodone HCl (Desyrel) 100 mg PRN QHS PRN PO INSOMNIA Last administered on at 19:12; Start 09/24/18 at 17:00; Stop 09/29/18 at 14:43; Status DC Trazodone HCl (Desyrel) 100 mg QHS PO Last administered on 09/28/18at 19:11; Start 09/24/18 at 21:00; Stop 09/29/18 at 14:43; Status DC Divalproex Sodium (Depakote Sprinkles) 500 mg BIDWMEALS PO Last administered on 09/28/18at 17:56; Start 09/26/18 at 08:00; Stop 09/28/18 at 19:24; Status DC Trazodone HCl (Desyrel) 100 mg 1X ONCE PO Last administered on 09/26/18at 20:31 ; Start 09/26/18 at 20:15; Stop 09/26/18 at 20:16; Status DC Melatonin 3 mg QHS PO Last administered on 09/30/18at 19:28; Start 09/27/18 at 21:00 Divalproex Sodium (Depakote Sprinkles) 750 mg BIDWMEALS PO Last administered on 09/30/18at 17:48; Start 09/29/18 at 08:00 Trazodone HCl (Desyrel) 150 mg PRN QHS PRN PO INSOMNIA; Start 09/29/18 at 15:00 Trazodone HCl (Desyrel) 150 mg QHS PO Last administered on 09/30/18at 19:28; Start 09/29/18 at 21:00 Active Scripts Active Reported Zoloft (Sertraline Hcl) 100 Mg Tablet 100 Mg PO BID [place] 3 Fish Oil Softgel ([place]-3 Fatty Acids/Fish Oil) 1 Each Capsule.dr 1 Each PO DAILY Bystolic (Nebivolol Hcl) 5 Mg Tablet 5 Mg PO DAILY Multivitamins (Multivitamin) 1 Each Tablet 1 Tab PO DAILY Metformin Hcl 500 Mg Tablet 500 Mg PO BIDWMEALS Namenda (Memantine Hcl) 10 Mg Tablet 10 Mg PO BID Ativan (Lorazepam) 2 Mg Tablet 1 Mg PO TID Lisinopril 40 Mg Tablet 40 Mg PO BID Glyburide 2.5 Mg Tablet 5 Mg PO BID Proscar (Finasteride) 5 Mg Tablet 5 Mg PO QHS Cardura (Doxazosin Mesylate) 4 Mg Tablet 4 Mg PO QHS Aricept (Donepezil Hcl) 10 Mg Tablet 10 Mg PO QHS Coricidin Hbp Cough & Cold Tab (Dextromethorphan Hbr/Chlor-Mal) 1 Each Tablet 1 Each PO PRN QID PRN Aspirin 81 Mg Tab.chew 81 Mg PO QHS I have reviewed the current psychotropics carefully including drug interactions. Risk benefit ratio favors no change other than as noted in my dictated progress note. Diagnosis: Problems: (1) Anxiety disorder (2) Dementia in Alzheimer's disease with delusions (3) Dementia in Alzheimer's disease with depression (4) Dementia, vascular, with delusions (5) Dementia, vascular, with depression (6) Impulse control disorder GERTRUDE HERNANDEZ MD Sep 30, 2018 22:16
[2018-10-01 06:26] VITALS: BP 153/90
[2018-10-01] MEDS: INSULIN LISPRO 300 UNITS/3 ML INSULN.PEN. SQ SCH ×4 (08:08→19:50)
[2018-10-01] MEDS: glyBURIDE 5 MG TABLET PO SCH ×2 (08:09→16:56)
[2018-10-01] MEDS: DIVALPROEX 125 MG CAP.SPRINK PO SCH ×2 (08:09→16:56)
[2018-10-01] MEDS: metFORMIN 500 MG TABLET PO SCH ×2 (08:09→16:56)
[2018-10-01] MEDS: SERTRALINE 100 MG TABLET. PO SCH (08:10)
[2018-10-01] MEDS: LORazepam 1 MG TABLET PO SCH ×3 (08:11→19:43)
[2018-10-01] MEDS: OMEGA-3 FATTY ACIDS/FISH OIL 1,000 MG CAPSULE. PO SCH (08:12)
[2018-10-01] MEDS: METOPROLOL TART IMMED RELEASE 25 MG TABLET PO SCH ×2 (08:13→19:41)
[2018-10-01] MEDS: MEMANTINE 10 MG TABLET. PO SCH ×2 (08:14→19:39)
[2018-10-01] MEDS: MULTIVITAMIN with MINERAL TABLET. PO SCH (08:15)
[2018-10-01] MEDS: LISINOPRIL 20 MG TABLET PO SCH ×2 (08:15→19:39)
[2018-10-01] MEDS: medroxyPROGESTERone 5 MG TABLET PO SCH (08:15)
[2018-10-01 16:00] VITALS: BP 171/80
[2018-10-01] MEDS: DONEPEZIL HCL 10 MG TABLET PO SCH (19:38)
--- NOTE | 2018-10-01 19:38 | PN ---
DATE: 09/29/2018 PSYCHIATRIC PROGRESS NOTE This late entry 09/29/2018 covers elements not covered in my initial note. SUBJECTIVE: I met with the patient in the evening and staffed at treatment team meeting earlier in the day. We reviewed the patient's history at length. He is sleeping an average of 6-1/2 hours, slept 2-1/4 hours previous night. Had to be in the vest hallway, removed from stimuli because he is getting more agitated. He was getting inappropriately and verbally aggressive towards female staff members. Repeat labs are due on the . Valproic acid level on the was 31, subtherapeutic and we have adjusted the Depakote since then. REVIEW OF SYSTEMS: No CV, , pulmonary, eye, ENT system symptoms on review. Reliability poor. MENTAL STATUS EXAM: Oriented to himself. Insight, judgment, recent and remote memory, attention, concentration, fund of knowledge poor consistent with his diagnosis mentioned in my initial note. PLAN: Continue psychotropics from initial note. Adjust further if clinically indicated. MAN Alessandra HERNANDEZ MD DR: TIEN/priyank JOB#: [id number] / [id number]
[2018-10-01] MEDS: traZODone 150 MG TABLET. PO SCH (19:39)
[2018-10-01] MEDS: DOXAZOSIN MESYLATE 4 MG TABLET PO SCH (19:39)
[2018-10-01] MEDS: MELATONIN 3 MG TABLET PO SCH (19:40)
[2018-10-01] MEDS: MIRTAZAPINE 7.5 MG TABLET. PO SCH (19:40)
[2018-10-01] MEDS: FINASTERIDE 5 MG TABLET PO SCH (19:40)
[2018-10-01] MEDS: ASPIRIN 81 MG TAB.CHEW PO SCH (19:40)
--- NOTE | 2018-10-01 20:53 | PN ---
DATE: 09/30/2018 PSYCHIATRIC PROGRESS NOTE This late entry 09/30/2018 covers elements not covered in my initial note. SUBJECTIVE: I met with the patient in the evening. The patient slept 6-1/4 hours previous night. Previous night, he was agitated with cares. During the day on 09/30/2018, he was flirtatious with female staff members, but redirectable. Compliant with his medications. REVIEW OF SYSTEMS: No CV, , pulmonary, eye, ENT system symptoms on review. Reliability poor. MENTAL STATUS EXAM: Oriented to himself. Insight, judgment, recent and remote memory, attention, concentration, fund of knowledge poor, consistent with his diagnosis mentioned in my initial note. PLAN: No change from initial note. MAN Alessandra HERNANDEZ MD DR: TIEN/priyank JOB#: [id number] / [id number]
--- NOTE | 2018-10-01 22:44 | PDOC ---
Exam Note: Roderick Note: Please also refer to the separate dictated note~for this date of service dictated separately.~Patient seen individually. Discussed the patient with Nursing staff reviewed the chart.~Reviewed interim history and current functioning. Reviewed vital signs,~Labs/ Radiology~and current medications noted below. Continue current treatment with the changes noted in the dictated addendum note Assessment: Vital Signs: Vital Signs Date Time Temp Pulse Resp B/P (MAP) Pulse Ox O2 Delivery O2 Flow Rate FiO2 10/01/18 19:41 68 171/80 10/01/18 16:00 98.2 18 97 10/01/18 06:26 Room Air I&O Intake and Output 10/01/18 07:00 Intake Total 1440 ml Balance 1440 ml Intake Oral 1440 ml # Voids 2 # Bowel Movements 1 Labs: Laboratory Tests Test 10/01/18 07:18 10/01/18 08:15 10/01/18 12:00 10/01/18 17:05 Glucose (Fingerstick) 50 mg/dL (70-99) L 98 mg/dL (70-99) 155 mg/dL (70-99) H 91 mg/dL (70-99) Test 10/01/18 19:16 Glucose (Fingerstick) 282 mg/dL (70-99) H Current Medications: Meds: Current Medications Acetaminophen (Tylenol) 650 mg PRN Q6HRS PRN PO PAIN / TEMP; Start 09/08/18 at 13:30 Multi-Ingredient Ointment (Analgesic [place]) 1 blas PRN QID PRN TP MUSCLE PAIN; Start 09/08/18 at 13:30 Al Hydroxide/Mg Hydroxide (Mylanta Plus Xs) 15 ml PRN AFTMEALHC PRN PO DYSPEPSIA; Start 09/08/18 at 13:30 Magnesium Hydroxide (Milk Of Magnesia) 2,400 mg PRN QHS PRN PO CONSTIPATION Last administered on 09/26/18at 01:04; Start 09/08/18 at 13:30 Aspirin (Children'S Aspirin) 81 mg QHS PO Last administered on 10/01/18at 19:40 ; Start 09/08/18 at 21:00 Non-Formulary Medication (Dextromethorphan Hbr/Chlor-Mal (Coricidin Hbp Cough & Cold Tab)) 1 each PRN QID PRN PO COUGH; Start 09/08/18 at 13:45; Status UNV Donepezil HCl (Aricept) 10 mg QHS PO Last administered on 10/01/18 19:38; Start 09/08/18 at 21:00 Doxazosin Mesylate (Cardura) 4 mg QHS PO Last administered on 10/01/18 19:39; Start 09/08/18 at 21:00 Finasteride (Proscar) 5 mg QHS PO Last administered on 10/01/18 19:40; Start 09/08/18 at 21:00 Lisinopril (Prinivil) 40 mg BID PO Last administered on 10/01/18 19:39; Start 09/08/18 at 21:00 Lorazepam (Ativan) 2 mg TID PO Last administered on 09/08/18at 21:25; Start at 14:00; Stop 09/09/18 at 06:58; Status DC Losartan Potassium (Cozaar) 50 mg DAILY PO Last administered on 09/09/18at 08:19 ; Start 09/09/18 at 09:00; Stop 09/10/18 at 12:41; Status DC Losartan Potassium (Cozaar) 100 mg BID PO Last administered on 09/10/18 08:05; Start 09/08/18 at 21:00; Stop 09/10/18 at 12:41; Status DC Memantine (Namenda) 10 mg BID PO Last administered on 10/01/18 19:39; Start at 21:00 Metformin HCl (Glucophage) 500 mg BIDWMEALS PO Last administered on 10/01/18at 16:56; Start 09/08/18 at 17:00 Multivitamins/ Calcium (Thera-M Plus) 1 tab DAILY PO Last administered on 08:15; Start 09/09/18 at 09:00 Metoprolol Tartrate (Lopressor) 25 mg BID PO Last administered on 09/09/18 08: 21; Start 09/08/18 at 21:00; Stop 09/09/18 at 09:58; Status DC Fish Oil (Fish Oil) 1,000 mg DAILY PO Last administered on 10/01/18at 08:12; Start 09/09/18 at 09:00 Insulin Human Lispro (HumaLOG) 0-7 UNITS QIDACHS SQ Last administered on at 19:50; Start 09/08/18 at 16:30 Dextrose 12.5 gm PRN Q15MIN PRN IV SEE COMMENTS; Start 09/08/18 at 14:00 Glyburide (Diabeta) 5 mg BIDWMEALS PO Last administered on 10/01/18at 16:56; Start 09/09/18 at 08:00 Sertraline HCl (Zoloft) 100 mg BID PO Last administered on 09/12/18at 07:40; Start 09/09/18 at 09:00; Stop 09/12/18 at 19:10; Status DC Lorazepam (Ativan) 1 mg TID PO Last administered on 09/11/18 20:16; Start 09/09 at 09:00; Stop 09/12/18 at 01:04; Status DC Divalproex Sodium (Depakote Sprinkles) 125 mg BIDWMEALS PO Last administered on 09/14/18at 08:37; Start 09/09/18 at 17:00; Stop 09/14/18 at 16:37; Status DC Metoprolol Tartrate (Lopressor) 25 mg BID PO Last administered on 09/10/18 08: 06; Start 09/09/18 at 21:00; Stop 09/10/18 at 12:45; Status DC Metoprolol Tartrate (Lopressor) 50 mg BID PO Last administered on 09/14/18at 19: 36; Start 09/10/18 at 21:00; Stop 09/15/18 at 16:09; Status DC Trazodone HCl (Desyrel) 50 mg PRN QHS PRN PO INSOMNIA Last administered on 09/23 23:23; Start 09/10/18 at 17:00; Stop 09/24/18 at 16:51; Status DC Mirtazapine (Remeron) 7.5 mg QHS PO Last administered on 09/18/18at 21:51; Start 09/10/18 at 21:00; Stop 09/19/18 at 00:07; Status DC Cephalexin HCl (Keflex) 500 mg TID PO Last administered on 09/21/18at 08:15; Start 09/11/18 at 14:00; Stop 09/21/18 at 13:59; Status DC Lorazepam (Ativan) 0.75 mg DAILY PO Last administered on 10/01/18 08:11; Start 09/12/18 at 09:00 Lorazepam (Ativan) 1 mg BID@1300,2100 PO Last administered on 09/14/18 19:40; Start 09/12/18 at 13:00; Stop 09/14/18 at 21:01; Status DC Lorazepam (Ativan) 0.75 mg DAILY@1300 PO Last administered on 10/01/18 12:13; Start 09/15/18 at 13:00 Lorazepam (Ativan) 1 mg QHS PO Last administered on 09/17/18 18:43; Start at 21:00; Stop 09/17/18 at 21:01; Status DC Lorazepam (Ativan) 0.75 mg HS PO Last administered on 10/01/18 19:43; Start at 21:00 Lactobacillus Rhamnosus (Culturelle) 1 cap BID PO Last administered on 09:38; Start 09/12/18 at 21:00; Stop 09/26/18 at 14:06; Status DC Sertraline HCl (Zoloft) 150 mg DAILY08 PO Last administered on 10/01/18 08:10 ; Start 09/13/18 at 08:00 Olanzapine (ZyPREXA ZYDIS) 5 mg PRN Q2HR PRN PO PSYCHOSIS Last administered on 09/28/18 19:11; Start 09/12/18 at 21:30 Divalproex Sodium (Depakote Sprinkles) 250 mg BIDWMEALS PO Last administered on 09/21/18 08:17; Start 09/14/18 at 17:00; Stop 09/21/18 at 16:47; Status DC Metoprolol Tartrate (Lopressor) 25 mg BID PO Last administered on 10/01/18 19: 41; Start 09/15/18 at 21:00 Trazodone HCl (Desyrel) 50 mg QHS PO Last administered on 09/23/18 19:40; Start 09/16/18 at 21:00; Stop 09/24/18 at 16:51; Status DC Mirtazapine (Remeron) 15 mg QHS PO Last administered on 10/01/18 19:40; Start 09/19/18 at 21:00 Medroxyprogesterone Acetate (Provera) 2.5 mg DAILY PO Last administered on 09/24at 09:06; Start 09/21/18 at 09:00; Stop 09/24/18 at 16:51; Status DC Divalproex Sodium (Depakote Sprinkles) 375 mg BIDWMEALS PO Last administered on 09/25/18at 17:11; Start 09/21/18 at 17:00; Stop 09/25/18 at 19:55; Status DC Medroxyprogesterone Acetate (Provera) 5 mg DAILY PO Last administered on 08:15; Start 09/25/18 at 09:00 Trazodone HCl (Desyrel) 100 mg PRN QHS PRN PO INSOMNIA Last administered on at 19:12; Start 09/24/18 at 17:00; Stop 09/29/18 at 14:43; Status DC Trazodone HCl (Desyrel) 100 mg QHS PO Last administered on 09/28/18at 19:11; Start 09/24/18 at 21:00; Stop 09/29/18 at 14:43; Status DC Divalproex Sodium (Depakote Sprinkles) 500 mg BIDWMEALS PO Last administered on 09/28/18at 17:56; Start 09/26/18 at 08:00; Stop 09/28/18 at 19:24; Status DC Trazodone HCl (Desyrel) 100 mg 1X ONCE PO Last administered on 09/26/18at 20:31 ; Start 09/26/18 at 20:15; Stop 09/26/18 at 20:16; Status DC Melatonin 3 mg QHS PO Last administered on 10/01/18at 19:40; Start 09/27/18 at 21:00 Divalproex Sodium (Depakote Sprinkles) 750 mg BIDWMEALS PO Last administered on 10/01/18at 16:56; Start 09/29/18 at 08:00 Trazodone HCl (Desyrel) 150 mg PRN QHS PRN PO INSOMNIA; Start 09/29/18 at 15:00 Trazodone HCl (Desyrel) 150 mg QHS PO Last administered on 10/01/18at 19:39; Start 09/29/18 at 21:00 Active Scripts Active Reported Zoloft (Sertraline Hcl) 100 Mg Tablet 100 Mg PO BID [place] 3 Fish Oil Softgel ([place]-3 Fatty Acids/Fish Oil) 1 Each Capsule.dr 1 Each PO DAILY Bystolic (Nebivolol Hcl) 5 Mg Tablet 5 Mg PO DAILY Multivitamins (Multivitamin) 1 Each Tablet 1 Tab PO DAILY Metformin Hcl 500 Mg Tablet 500 Mg PO BIDWMEALS Namenda (Memantine Hcl) 10 Mg Tablet 10 Mg PO BID Ativan (Lorazepam) 2 Mg Tablet 1 Mg PO TID Lisinopril 40 Mg Tablet 40 Mg PO BID Glyburide 2.5 Mg Tablet 5 Mg PO BID Proscar (Finasteride) 5 Mg Tablet 5 Mg PO QHS Cardura (Doxazosin Mesylate) 4 Mg Tablet 4 Mg PO QHS Aricept (Donepezil Hcl) 10 Mg Tablet 10 Mg PO QHS Coricidin Hbp Cough & Cold Tab (Dextromethorphan Hbr/Chlor-Mal) 1 Each Tablet 1 Each PO PRN QID PRN Aspirin 81 Mg Tab.chew 81 Mg PO QHS I have reviewed the current psychotropics carefully including drug interactions. Risk benefit ratio favors no change other than as noted in my dictated progress note. Diagnosis: Problems: (1) Anxiety disorder (2) Dementia in Alzheimer's disease with delusions (3) Dementia in Alzheimer's disease with depression (4) Dementia, vascular, with delusions (5) Dementia, vascular, with depression (6) Impulse control disorder GERTRUDE HERNANDEZ MD Oct 01, 2018 22:44
[2018-10-02 07:06] VITALS: BP 174/100
[2018-10-02] MEDS: INSULIN LISPRO 300 UNITS/3 ML INSULN.PEN. SQ SCH ×4 (07:38→19:42)
[2018-10-02] MEDS: DIVALPROEX 125 MG CAP.SPRINK PO SCH ×2 (07:39→17:35)
[2018-10-02] MEDS: glyBURIDE 5 MG TABLET PO SCH ×2 (07:39→17:00)
[2018-10-02] MEDS: metFORMIN 500 MG TABLET PO SCH ×2 (07:40→17:00)
[2018-10-02] MEDS: SERTRALINE 100 MG TABLET. PO SCH (07:40)
[2018-10-02] MEDS: LORazepam 1 MG TABLET PO SCH ×3 (07:42→19:45)
[2018-10-02 07:43] LABS: BASO # 0.1 x10^3/uL (0.0-0.2); BASO % 1 % (0-3); EOS # 0.3 x10^3/uL (0.0-0.7); EOS % 6 % (0-3); HEMATOCRIT 38.9 % (39.0-53.0); HEMOGLOBIN 12.6 g/dL (13.0-17.5); LYMPH # 1.2 x10^3/uL (1.0-4.8); LYMPH % 20 % (24-48); MEAN CORPUSCULAR HEMOGLOBIN 28 pg (25-35); MEAN CORPUSCULAR HGB CONC 32 g/dL (31-37); MEAN CORPUSCULAR VOLUME 88 fL (79-100); MONO # 0.5 x10^3/uL (0.0-1.1); MONO % 9 % (0-9); NEUT # 3.9 x10^3uL (1.8-7.7); NEUT % 65 % (31-73); PLATELET COUNT 202 x10^3/uL (140-400); RED BLOOD COUNT 4.44 x10^6/uL (4.30-5.70); RED CELL DISTRIBUTION WIDTH 15.7 % (11.5-14.5)
[2018-10-02] MEDS: OMEGA-3 FATTY ACIDS/FISH OIL 1,000 MG CAPSULE. PO SCH (07:43)
[2018-10-02] MEDS: MEMANTINE 10 MG TABLET. PO SCH ×2 (07:43→19:41)
[2018-10-02] MEDS: METOPROLOL TART IMMED RELEASE 25 MG TABLET PO SCH ×2 (07:43→19:41)
[2018-10-02] MEDS: LISINOPRIL 20 MG TABLET PO SCH ×2 (07:44→19:41)
[2018-10-02] MEDS: medroxyPROGESTERone 5 MG TABLET PO SCH (07:44)
[2018-10-02] MEDS: MULTIVITAMIN with MINERAL TABLET. PO SCH (07:44)
[2018-10-02 07:59] LABS: ALBUMIN/GLOBULIN RATIO 0.8 (1.0-1.7); ALK PHOS 80 U/L (46-116); ALT (SGPT) 19 U/L (16-63); ANION GAP 5 (6-14); AST (SGOT) 19 U/L (15-37); BLOOD UREA NITROGEN 17 mg/dL (8-26); BUN/CREATININE RATIO 21 (6-20); CALCIUM 8.7 mg/dL (8.5-10.1); CARBON DIOXIDE 32 mmol/L (21-32); CHLORIDE 108 mmol/L (98-107); CREATININE 0.8 mg/dL (0.7-1.3); GFR 93.5; GLUCOSE 66 mg/dL (70-99); POTASSIUM 4.6 mmol/L (3.5-5.1); SODIUM 145 mmol/L (136-145); TOTAL BILIRUBIN 0.3 mg/dL (0.2-1.0); TOTAL PROTEIN 6.7 g/dL (6.4-8.2)
[2018-10-02 08:00] LABS: VAL ACID 44 mcg/mL (50-100)
[2018-10-02 15:44] VITALS: BP 143/91
[2018-10-02] MEDS: DOXAZOSIN MESYLATE 4 MG TABLET PO SCH (19:40)
[2018-10-02] MEDS: traZODone 150 MG TABLET. PO SCH (19:41)
[2018-10-02] MEDS: ASPIRIN 81 MG TAB.CHEW PO SCH (19:41)
[2018-10-02] MEDS: MELATONIN 3 MG TABLET PO SCH (19:41)
[2018-10-02] MEDS: FINASTERIDE 5 MG TABLET PO SCH (19:41)
[2018-10-02] MEDS: DONEPEZIL HCL 10 MG TABLET PO SCH (19:41)
[2018-10-02] MEDS: MIRTAZAPINE 7.5 MG TABLET. PO SCH (19:42)
--- NOTE | 2018-10-02 21:37 | PDOC ---
Exam Note: Roderick Note: Please also refer to the separate dictated note~for this date of service dictated separately.~Patient seen individually. Discussed the patient with Nursing staff reviewed the chart.~Reviewed interim history and current functioning. Reviewed vital signs,~Labs/ Radiology~and current medications noted below. Continue current treatment with the changes noted in the dictated addendum note Assessment: Vital Signs: Vital Signs Date Time Temp Pulse Resp B/P (MAP) Pulse Ox O2 Delivery O2 Flow Rate FiO2 10/02/18 19:41 76 143/91 10/02/18 15:44 98.0 18 98 Room Air I&O Intake and Output 10/02/18 07:00 Intake Total 960 ml Balance 960 ml Intake Oral 960 ml # Voids 1 Labs: Laboratory Tests Test 10/02/18 07:22 10/02/18 07:28 10/02/18 12:27 10/02/18 16:26 Glucose (Fingerstick) 73 mg/dL (70-99) 154 mg/dL (70-99) H 49 mg/dL (70-99) L White Blood Count 6.0 x10^3/uL (4.0-11.0) Red Blood Count 4.44 x10^6/uL (4.30-5.70) Hemoglobin 12.6 g/dL (13.0-17.5) L Hematocrit 38.9 % (39.0-53.0) L Mean Corpuscular Volume 88 fL (79-100) Mean Corpuscular Hemoglobin 28 pg (25-35) Mean Corpuscular Hemoglobin Concent 32 g/dL (31-37) Red Cell Distribution Width 15.7 % (11.5-14.5) H Platelet Count 202 x10^3/uL (140-400) Neutrophils (%) (Auto) 65 % (31-73) Lymphocytes (%) (Auto) 20 % (24-48) L Monocytes (%) (Auto) 9 % (0-9) Eosinophils (%) (Auto) 6 % (0-3) H Basophils (%) (Auto) 1 % (0-3) Neutrophils # (Auto) 3.9 x10^3uL (1.8-7.7) Lymphocytes # (Auto) 1.2 x10^3/uL (1.0-4.8) Monocytes # (Auto) 0.5 x10^3/uL (0.0-1.1) Eosinophils # (Auto) 0.3 x10^3/uL (0.0-0.7) Basophils # (Auto) 0.1 x10^3/uL (0.0-0.2) Sodium Level 145 mmol/L (136-145) Potassium Level 4.6 mmol/L (3.5-5.1) Chloride Level 108 mmol/L (98-107) H Carbon Dioxide Level 32 mmol/L (21-32) Anion Gap 5 (6-14) L Blood Urea Nitrogen 17 mg/dL (8-26) Creatinine 0.8 mg/dL (0.7-1.3) Estimated GFR (Cockcroft-Gault) 93.5 BUN/Creatinine Ratio 21 (6-20) H Glucose Level 66 mg/dL (70-99) L Calcium Level 8.7 mg/dL (8.5-10.1) Total Bilirubin 0.3 mg/dL (0.2-1.0) Aspartate Amino Transferase (AST) 19 U/L (15-37) Alanine Aminotransferase (ALT) 19 U/L (16-63) Alkaline Phosphatase 80 U/L (46-116) Total Protein 6.7 g/dL (6.4-8.2) Albumin 3.0 g/dL (3.4-5.0) L Albumin/Globulin Ratio 0.8 (1.0-1.7) L Valproic Acid Level 44 mcg/mL (50-100) L Valproic Acid Last Dose Date 10/01/2017 Valproic Acid Last Dose Time 1700 Test 10/02/18 16:28 10/02/18 19:10 Glucose (Fingerstick) 56 mg/dL (70-99) L 138 mg/dL (70-99) H Current Medications: Meds: Current Medications Acetaminophen (Tylenol) 650 mg PRN Q6HRS PRN PO PAIN / TEMP; Start 09/08/18 at 13:30 Multi-Ingredient Ointment (Analgesic [place]) 1 blas PRN QID PRN TP MUSCLE PAIN; Start 09/08/18 at 13:30 Al Hydroxide/Mg Hydroxide (Mylanta Plus Xs) 15 ml PRN AFTMEALHC PRN PO DYSPEPSIA; Start 09/08/18 at 13:30 Magnesium Hydroxide (Milk Of Magnesia) 2,400 mg PRN QHS PRN PO CONSTIPATION Last administered on 09/26/18 01:04; Start 09/08/18 at 13:30 Aspirin (Children'S Aspirin) 81 mg QHS PO Last administered on 10/02/18 19:41 ; Start 09/08/18 at 21:00 Non-Formulary Medication (Dextromethorphan Hbr/Chlor-Mal (Coricidin Hbp Cough & Cold Tab)) 1 each PRN QID PRN PO COUGH; Start 09/08/18 at 13:45; Status UNV Donepezil HCl (Aricept) 10 mg QHS PO Last administered on 10/02/18 19:41; Start 09/08/18 at 21:00 Doxazosin Mesylate (Cardura) 4 mg QHS PO Last administered on 10/02/18 19:40; Start 09/08/18 at 21:00 Finasteride (Proscar) 5 mg QHS PO Last administered on 10/02/18 19:41; Start 09/08/18 at 21:00 Lisinopril (Prinivil) 40 mg BID PO Last administered on 10/02/18 19:41; Start 09/08/18 at 21:00 Lorazepam (Ativan) 2 mg TID PO Last administered on 09/08/18 21:25; Start at 14:00; Stop 09/09/18 at 06:58; Status DC Losartan Potassium (Cozaar) 50 mg DAILY PO Last administered on 09/09/18 08:19 ; Start 09/09/18 at 09:00; Stop 09/10/18 at 12:41; Status DC Losartan Potassium (Cozaar) 100 mg BID PO Last administered on 09/10/18 08:05; Start 09/08/18 at 21:00; Stop 09/10/18 at 12:41; Status DC Memantine (Namenda) 10 mg BID PO Last administered on 10/02/18 19:41; Start at 21:00 Metformin HCl (Glucophage) 500 mg BIDWMEALS PO Last administered on 10/02/18 07:40; Start 09/08/18 at 17:00 Multivitamins/ Calcium (Thera-M Plus) 1 tab DAILY PO Last administered on 07:44; Start 09/09/18 at 09:00 Metoprolol Tartrate (Lopressor) 25 mg BID PO Last administered on 09/09/18 08: 21; Start 09/08/18 at 21:00; Stop 09/09/18 at 09:58; Status DC Fish Oil (Fish Oil) 1,000 mg DAILY PO Last administered on 10/02/18 07:43; Start 09/09/18 at 09:00 Insulin Human Lispro (HumaLOG) 0-7 UNITS QIDACHS SQ Last administered on at 19:50; Start 09/08/18 at 16:30 Dextrose 12.5 gm PRN Q15MIN PRN IV SEE COMMENTS; Start 09/08/18 at 14:00 Glyburide (Diabeta) 5 mg BIDWMEALS PO Last administered on 10/02/18at 07:39; Start 09/09/18 at 08:00 Sertraline HCl (Zoloft) 100 mg BID PO Last administered on 09/12/18 07:40; Start 09/09/18 at 09:00; Stop 09/12/18 at 19:10; Status DC Lorazepam (Ativan) 1 mg TID PO Last administered on 09/11/18 20:16; Start 09/09 at 09:00; Stop 09/12/18 at 01:04; Status DC Divalproex Sodium (Depakote Sprinkles) 125 mg BIDWMEALS PO Last administered on 09/14/18 08:37; Start 09/09/18 at 17:00; Stop 09/14/18 at 16:37; Status DC Metoprolol Tartrate (Lopressor) 25 mg BID PO Last administered on 09/10/18 08: 06; Start 09/09/18 at 21:00; Stop 09/10/18 at 12:45; Status DC Metoprolol Tartrate (Lopressor) 50 mg BID PO Last administered on 09/14/18 19: 36; Start 09/10/18 at 21:00; Stop 09/15/18 at 16:09; Status DC Trazodone HCl (Desyrel) 50 mg PRN QHS PRN PO INSOMNIA Last administered on 09/23 23:23; Start 09/10/18 at 17:00; Stop 09/24/18 at 16:51; Status DC Mirtazapine (Remeron) 7.5 mg QHS PO Last administered on 09/18/18 21:51; Start 09/10/18 at 21:00; Stop 09/19/18 at 00:07; Status DC Cephalexin HCl (Keflex) 500 mg TID PO Last administered on 09/21/18 08:15; Start 09/11/18 at 14:00; Stop 09/21/18 at 13:59; Status DC Lorazepam (Ativan) 0.75 mg DAILY PO Last administered on 10/02/18 07:42; Start 09/12/18 at 09:00 Lorazepam (Ativan) 1 mg BID@1300,2100 PO Last administered on 09/14/18 19:40; Start 09/12/18 at 13:00; Stop 09/14/18 at 21:01; Status DC Lorazepam (Ativan) 0.75 mg DAILY@1300 PO Last administered on 10/02/18 13:16; Start 09/15/18 at 13:00 Lorazepam (Ativan) 1 mg QHS PO Last administered on 09/17/18 18:43; Start at 21:00; Stop 09/17/18 at 21:01; Status DC Lorazepam (Ativan) 0.75 mg HS PO Last administered on 10/02/18 19:45; Start at 21:00 Lactobacillus Rhamnosus (Culturelle) 1 cap BID PO Last administered on 09:38; Start 09/12/18 at 21:00; Stop 09/26/18 at 14:06; Status DC Sertraline HCl (Zoloft) 150 mg DAILY08 PO Last administered on 10/02/18 07:40 ; Start 09/13/18 at 08:00 Olanzapine (ZyPREXA ZYDIS) 5 mg PRN Q2HR PRN PO PSYCHOSIS Last administered on 09/28/18 19:11; Start 09/12/18 at 21:30 Divalproex Sodium (Depakote Sprinkles) 250 mg BIDWMEALS PO Last administered on 2/12/19at 08:17; Start 09/14/18 at 17:00; Stop 09/21/18 at 16:47; Status DC Metoprolol Tartrate (Lopressor) 25 mg BID PO Last administered on 10/02/18 19: 41; Start 09/15/18 at 21:00 Trazodone HCl (Desyrel) 50 mg QHS PO Last administered on 09/23/18at 19:40; Start 09/16/18 at 21:00; Stop 09/24/18 at 16:51; Status DC Mirtazapine (Remeron) 15 mg QHS PO Last administered on 10/02/18 19:42; Start 09/19/18 at 21:00 Medroxyprogesterone Acetate (Provera) 2.5 mg DAILY PO Last administered on 09/24at 09:06; Start 09/21/18 at 09:00; Stop 09/24/18 at 16:51; Status DC Divalproex Sodium (Depakote Sprinkles) 375 mg BIDWMEALS PO Last administered on 09/25/18at 17:11; Start 09/21/18 at 17:00; Stop 09/25/18 at 19:55; Status DC Medroxyprogesterone Acetate (Provera) 5 mg DAILY PO Last administered on at 07:44; Start 09/25/18 at 09:00 Trazodone HCl (Desyrel) 100 mg PRN QHS PRN PO INSOMNIA Last administered on at 19:12; Start 09/24/18 at 17:00; Stop 09/29/18 at 14:43; Status DC Trazodone HCl (Desyrel) 100 mg QHS PO Last administered on 09/28/18at 19:11; Start 09/24/18 at 21:00; Stop 09/29/18 at 14:43; Status DC Divalproex Sodium (Depakote Sprinkles) 500 mg BIDWMEALS PO Last administered on 09/28/18at 17:56; Start 09/26/18 at 08:00; Stop 09/28/18 at 19:24; Status DC Trazodone HCl (Desyrel) 100 mg 1X ONCE PO Last administered on 09/26/18at 20:31 ; Start 09/26/18 at 20:15; Stop 09/26/18 at 20:16; Status DC Melatonin 3 mg QHS PO Last administered on 10/02/18 19:41; Start 09/27/18 at 21:00 Divalproex Sodium (Depakote Sprinkles) 750 mg BIDWMEALS PO Last administered on 10/02/18at 17:35; Start 09/29/18 at 08:00 Trazodone HCl (Desyrel) 150 mg PRN QHS PRN PO INSOMNIA; Start 09/29/18 at 15:00 Trazodone HCl (Desyrel) 150 mg QHS PO Last administered on 10/02/18 19:41; Start 09/29/18 at 21:00 Active Scripts Active Reported Zoloft (Sertraline Hcl) 100 Mg Tablet 100 Mg PO BID [place] 3 Fish Oil Softgel ([place]-3 Fatty Acids/Fish Oil) 1 Each Capsule.dr 1 Each PO DAILY Bystolic (Nebivolol Hcl) 5 Mg Tablet 5 Mg PO DAILY Multivitamins (Multivitamin) 1 Each Tablet 1 Tab PO DAILY Metformin Hcl 500 Mg Tablet 500 Mg PO BIDWMEALS Namenda (Memantine Hcl) 10 Mg Tablet 10 Mg PO BID Ativan (Lorazepam) 2 Mg Tablet 1 Mg PO TID Lisinopril 40 Mg Tablet 40 Mg PO BID Glyburide 2.5 Mg Tablet 5 Mg PO BID Proscar (Finasteride) 5 Mg Tablet 5 Mg PO QHS Cardura (Doxazosin Mesylate) 4 Mg Tablet 4 Mg PO QHS Aricept (Donepezil Hcl) 10 Mg Tablet 10 Mg PO QHS Coricidin Hbp Cough & Cold Tab (Dextromethorphan Hbr/Chlor-Mal) 1 Each Tablet 1 Each PO PRN QID PRN Aspirin 81 Mg Tab.chew 81 Mg PO QHS I have reviewed the current psychotropics carefully including drug interactions. Risk benefit ratio favors no change other than as noted in my dictated progress note. Diagnosis: Problems: (1) Anxiety disorder (2) Dementia in Alzheimer's disease with delusions (3) Dementia in Alzheimer's disease with depression (4) Dementia, vascular, with delusions (5) Dementia, vascular, with depression (6) Impulse control disorder GERTRUDE HERNANDEZ MD Oct 02, 2018 21:37
[2018-10-03 06:18] VITALS: BP 98/49
[2018-10-03] MEDS: INSULIN LISPRO 300 UNITS/3 ML INSULN.PEN. SQ SCH ×4 (08:04→19:46)
[2018-10-03] MEDS: glyBURIDE 5 MG TABLET PO SCH ×2 (08:05→17:24)
[2018-10-03] MEDS: LORazepam 1 MG TABLET PO SCH ×3 (08:05→19:48)
[2018-10-03] MEDS: DIVALPROEX 125 MG CAP.SPRINK PO SCH ×2 (08:05→17:24)
[2018-10-03] MEDS: metFORMIN 500 MG TABLET PO SCH ×2 (08:05→17:24)
[2018-10-03] MEDS: SERTRALINE 100 MG TABLET. PO SCH (08:05)
[2018-10-03] MEDS: METOPROLOL TART IMMED RELEASE 25 MG TABLET PO SCH ×2 (08:06→19:45)
[2018-10-03] MEDS: MEMANTINE 10 MG TABLET. PO SCH ×2 (08:06→19:45)
[2018-10-03] MEDS: medroxyPROGESTERone 5 MG TABLET PO SCH (08:06)
[2018-10-03] MEDS: LISINOPRIL 20 MG TABLET PO SCH ×2 (08:06→19:45)
[2018-10-03] MEDS: OMEGA-3 FATTY ACIDS/FISH OIL 1,000 MG CAPSULE. PO SCH (08:06)
[2018-10-03] MEDS: MULTIVITAMIN with MINERAL TABLET. PO SCH (08:07)
--- NOTE | 2018-10-03 15:45 | PN ---
DATE: 10/01/2018 PSYCHIATRIC PROGRESS NOTE This late entry 10/01/2018 covers elements, not covered in my initial note. SUBJECTIVE: I met with the patient in the evening. The patient slept 4-1/4 hours previous night. He has been somewhat flirtatious with female nursing staff previous night and during the day on 10/01/2018 and I addressed this with him. He has not been physically aggressive. REVIEW OF SYSTEMS: No CV, , pulmonary, eye, ENT system symptoms on review. Reliability poor. MENTAL STATUS EXAM: Oriented to himself. Insight, judgment, recent and remote memory, attention, concentration, fund of knowledge poor, consistent with his diagnosis mentioned in my initial note. PLAN: No change from initial note. MAN Alessandra HERNANDEZ MD DR: TIEN/priyank JOB#: [id number] / [id number]
[2018-10-03 16:15] VITALS: BP 176/97
[2018-10-03] MEDS: ASPIRIN 81 MG TAB.CHEW PO SCH (19:44)
[2018-10-03] MEDS: DOXAZOSIN MESYLATE 4 MG TABLET PO SCH (19:44)
--- NOTE | 2018-10-03 19:44 | PDOC ---
Exam Note: Roderick Note: Please also refer to the separate dictated note~for this date of service dictated separately.~Patient seen individually. Discussed the patient with Nursing staff reviewed the chart.~Reviewed interim history and current functioning. Reviewed vital signs,~Labs/ Radiology~and current medications noted below. Continue current treatment with the changes noted in the dictated addendum note Assessment: Vital Signs: Vital Signs Date Time Temp Pulse Resp B/P (MAP) Pulse Ox O2 Delivery O2 Flow Rate FiO2 10/03/18 16:15 97.5 76 20 176/97 (123) 97 10/02/18 15:44 Room Air I&O Intake and Output 10/03/18 06:59 Intake Total 1180 ml Balance 1180 ml Intake Oral 1180 ml # Voids 1 # Bowel Movements 1 Labs: Laboratory Tests Test 10/03/18 07:24 10/03/18 11:50 10/03/18 16:43 10/03/18 19:19 Glucose (Fingerstick) 125 mg/dL (70-99) H 72 mg/dL (70-99) 119 mg/dL (70-99) H 172 mg/dL (70-99) H Current Medications: Meds: Current Medications Acetaminophen (Tylenol) 650 mg PRN Q6HRS PRN PO PAIN / TEMP; Start 09/08/18 at 13:30 Multi-Ingredient Ointment (Analgesic [place]) 1 blas PRN QID PRN TP MUSCLE PAIN; Start 09/08/18 at 13:30 Al Hydroxide/Mg Hydroxide (Mylanta Plus Xs) 15 ml PRN AFTMEALHC PRN PO DYSPEPSIA; Start 09/08/18 at 13:30 Magnesium Hydroxide (Milk Of Magnesia) 2,400 mg PRN QHS PRN PO CONSTIPATION Last administered on 09/26/18at 01:04; Start 09/08/18 at 13:30 Aspirin (Children'S Aspirin) 81 mg QHS PO Last administered on 10/02/18at 19:41 ; Start 09/08/18 at 21:00 Non-Formulary Medication (Dextromethorphan Hbr/Chlor-Mal (Coricidin Hbp Cough & Cold Tab)) 1 each PRN QID PRN PO COUGH; Start 09/08/18 at 13:45; Status UNV Donepezil HCl (Aricept) 10 mg QHS PO Last administered on 10/02/18 19:41; Start 09/08/18 at 21:00 Doxazosin Mesylate (Cardura) 4 mg QHS PO Last administered on 10/02/18 19:40; Start 09/08/18 at 21:00 Finasteride (Proscar) 5 mg QHS PO Last administered on 10/02/18 19:41; Start 09/08/18 at 21:00 Lisinopril (Prinivil) 40 mg BID PO Last administered on 10/02/18 19:41; Start 09/08/18 at 21:00 Lorazepam (Ativan) 2 mg TID PO Last administered on 09/08/18 21:25; Start at 14:00; Stop 09/09/18 at 06:58; Status DC Losartan Potassium (Cozaar) 50 mg DAILY PO Last administered on 09/09/18 08:19 ; Start 09/09/18 at 09:00; Stop 09/10/18 at 12:41; Status DC Losartan Potassium (Cozaar) 100 mg BID PO Last administered on 09/10/18 08:05; Start 09/08/18 at 21:00; Stop 09/10/18 at 12:41; Status DC Memantine (Namenda) 10 mg BID PO Last administered on 10/03/18 08:06; Start at 21:00 Metformin HCl (Glucophage) 500 mg BIDWMEALS PO Last administered on 10/03/18 17:24; Start 09/08/18 at 17:00 Multivitamins/ Calcium (Thera-M Plus) 1 tab DAILY PO Last administered on 08:07; Start 09/09/18 at 09:00 Metoprolol Tartrate (Lopressor) 25 mg BID PO Last administered on 09/09/18 08: 21; Start 09/08/18 at 21:00; Stop 09/09/18 at 09:58; Status DC Fish Oil (Fish Oil) 1,000 mg DAILY PO Last administered on 10/03/18 08:06; Start 09/09/18 at 09:00 Insulin Human Lispro (HumaLOG) 0-7 UNITS QIDACHS SQ Last administered on 2/22/ 19at 19:50; Start 09/08/18 at 16:30 Dextrose 12.5 gm PRN Q15MIN PRN IV SEE COMMENTS; Start 09/08/18 at 14:00 Glyburide (Diabeta) 5 mg BIDWMEALS PO Last administered on 10/03/18at 17:24; Start 09/09/18 at 08:00 Sertraline HCl (Zoloft) 100 mg BID PO Last administered on 09/12/18at 07:40; Start 09/09/18 at 09:00; Stop 09/12/18 at 19:10; Status DC Lorazepam (Ativan) 1 mg TID PO Last administered on 09/11/18at 20:16; Start 09/09 at 09:00; Stop 09/12/18 at 01:04; Status DC Divalproex Sodium (Depakote Sprinkles) 125 mg BIDWMEALS PO Last administered on 09/14/18at 08:37; Start 09/09/18 at 17:00; Stop 09/14/18 at 16:37; Status DC Metoprolol Tartrate (Lopressor) 25 mg BID PO Last administered on 09/10/18at 08: 06; Start 09/09/18 at 21:00; Stop 09/10/18 at 12:45; Status DC Metoprolol Tartrate (Lopressor) 50 mg BID PO Last administered on 09/14/18at 19: 36; Start 09/10/18 at 21:00; Stop 09/15/18 at 16:09; Status DC Trazodone HCl (Desyrel) 50 mg PRN QHS PRN PO INSOMNIA Last administered on 09/23at 23:23; Start 09/10/18 at 17:00; Stop 09/24/18 at 16:51; Status DC Mirtazapine (Remeron) 7.5 mg QHS PO Last administered on 09/18/18at 21:51; Start 09/10/18 at 21:00; Stop 09/19/18 at 00:07; Status DC Cephalexin HCl (Keflex) 500 mg TID PO Last administered on 09/21/18at 08:15; Start 09/11/18 at 14:00; Stop 09/21/18 at 13:59; Status DC Lorazepam (Ativan) 0.75 mg DAILY PO Last administered on 10/03/18 08:05; Start 09/12/18 at 09:00 Lorazepam (Ativan) 1 mg BID@1300,2100 PO Last administered on 09/14/18 19:40; Start 09/12/18 at 13:00; Stop 09/14/18 at 21:01; Status DC Lorazepam (Ativan) 0.75 mg DAILY@1300 PO Last administered on 10/03/18 12:17; Start 09/15/18 at 13:00 Lorazepam (Ativan) 1 mg QHS PO Last administered on 09/17/18 18:43; Start at 21:00; Stop 09/17/18 at 21:01; Status DC Lorazepam (Ativan) 0.75 mg HS PO Last administered on 10/02/18 19:45; Start at 21:00 Lactobacillus Rhamnosus (Culturelle) 1 cap BID PO Last administered on 09:38; Start 09/12/18 at 21:00; Stop 09/26/18 at 14:06; Status DC Sertraline HCl (Zoloft) 150 mg DAILY08 PO Last administered on 10/03/18 08:05 ; Start 09/13/18 at 08:00 Olanzapine (ZyPREXA ZYDIS) 5 mg PRN Q2HR PRN PO PSYCHOSIS Last administered on 09/28/18 19:11; Start 09/12/18 at 21:30 Divalproex Sodium (Depakote Sprinkles) 250 mg BIDWMEALS PO Last administered on 09/21/18 08:17; Start 09/14/18 at 17:00; Stop 09/21/18 at 16:47; Status DC Metoprolol Tartrate (Lopressor) 25 mg BID PO Last administered on 10/02/18 19: 41; Start 09/15/18 at 21:00 Trazodone HCl (Desyrel) 50 mg QHS PO Last administered on 09/23/18 19:40; Start 09/16/18 at 21:00; Stop 09/24/18 at 16:51; Status DC Mirtazapine (Remeron) 15 mg QHS PO Last administered on 10/02/18 19:42; Start 09/19/18 at 21:00 Medroxyprogesterone Acetate (Provera) 2.5 mg DAILY PO Last administered on 09/24at 09:06; Start 09/21/18 at 09:00; Stop 09/24/18 at 16:51; Status DC Divalproex Sodium (Depakote Sprinkles) 375 mg BIDWMEALS PO Last administered on 09/25/18at 17:11; Start 09/21/18 at 17:00; Stop 09/25/18 at 19:55; Status DC Medroxyprogesterone Acetate (Provera) 5 mg DAILY PO Last administered on 08:06; Start 09/25/18 at 09:00 Trazodone HCl (Desyrel) 100 mg PRN QHS PRN PO INSOMNIA Last administered on at 19:12; Start 09/24/18 at 17:00; Stop 09/29/18 at 14:43; Status DC Trazodone HCl (Desyrel) 100 mg QHS PO Last administered on 09/28/18at 19:11; Start 09/24/18 at 21:00; Stop 09/29/18 at 14:43; Status DC Divalproex Sodium (Depakote Sprinkles) 500 mg BIDWMEALS PO Last administered on 09/28/18at 17:56; Start 09/26/18 at 08:00; Stop 09/28/18 at 19:24; Status DC Trazodone HCl (Desyrel) 100 mg 1X ONCE PO Last administered on 09/26/18at 20:31 ; Start 09/26/18 at 20:15; Stop 09/26/18 at 20:16; Status DC Melatonin 3 mg QHS PO Last administered on 10/02/18at 19:41; Start 09/27/18 at 21:00 Divalproex Sodium (Depakote Sprinkles) 750 mg BIDWMEALS PO Last administered on 10/03/18at 17:24; Start 09/29/18 at 08:00 Trazodone HCl (Desyrel) 150 mg PRN QHS PRN PO INSOMNIA; Start 09/29/18 at 15:00 Trazodone HCl (Desyrel) 150 mg QHS PO Last administered on 10/02/18at 19:41; Start 09/29/18 at 21:00 Active Scripts Active Reported Zoloft (Sertraline Hcl) 100 Mg Tablet 100 Mg PO BID [place] 3 Fish Oil Softgel ([place]-3 Fatty Acids/Fish Oil) 1 Each Capsule.dr 1 Each PO DAILY Bystolic (Nebivolol Hcl) 5 Mg Tablet 5 Mg PO DAILY Multivitamins (Multivitamin) 1 Each Tablet 1 Tab PO DAILY Metformin Hcl 500 Mg Tablet 500 Mg PO BIDWMEALS Namenda (Memantine Hcl) 10 Mg Tablet 10 Mg PO BID Ativan (Lorazepam) 2 Mg Tablet 1 Mg PO TID Lisinopril 40 Mg Tablet 40 Mg PO BID Glyburide 2.5 Mg Tablet 5 Mg PO BID Proscar (Finasteride) 5 Mg Tablet 5 Mg PO QHS Cardura (Doxazosin Mesylate) 4 Mg Tablet 4 Mg PO QHS Aricept (Donepezil Hcl) 10 Mg Tablet 10 Mg PO QHS Coricidin Hbp Cough & Cold Tab (Dextromethorphan Hbr/Chlor-Mal) 1 Each Tablet 1 Each PO PRN QID PRN Aspirin 81 Mg Tab.chew 81 Mg PO QHS I have reviewed the current psychotropics carefully including drug interactions. Risk benefit ratio favors no change other than as noted in my dictated progress note. Diagnosis: Problems: (1) Anxiety disorder (2) Dementia in Alzheimer's disease with delusions (3) Dementia in Alzheimer's disease with depression (4) Dementia, vascular, with delusions (5) Dementia, vascular, with depression (6) Impulse control disorder GERTRUDE HERNANDEZ MD Oct 03, 2018 19:44
[2018-10-03] MEDS: DONEPEZIL HCL 10 MG TABLET PO SCH (19:45)
[2018-10-03] MEDS: FINASTERIDE 5 MG TABLET PO SCH (19:45)
[2018-10-03] MEDS: MELATONIN 3 MG TABLET PO SCH (19:45)
[2018-10-03] MEDS: traZODone 150 MG TABLET. PO SCH (19:45)
[2018-10-03] MEDS: MIRTAZAPINE 7.5 MG TABLET. PO SCH (19:46)
[2018-10-04 06:13] VITALS: BP 101/65
[2018-10-04] MEDS: INSULIN LISPRO 300 UNITS/3 ML INSULN.PEN. SQ SCH ×2 (07:53→11:48)
[2018-10-04] MEDS: DIVALPROEX 125 MG CAP.SPRINK PO SCH ×2 (08:02→17:20)
[2018-10-04] MEDS: glyBURIDE 5 MG TABLET PO SCH ×2 (08:02→17:20)
[2018-10-04] MEDS: SERTRALINE 100 MG TABLET. PO SCH (08:02)
[2018-10-04] MEDS: metFORMIN 500 MG TABLET PO SCH ×2 (08:02→17:20)
[2018-10-04] MEDS: LORazepam 1 MG TABLET PO SCH ×3 (08:02→20:43)
[2018-10-04] MEDS: METOPROLOL TART IMMED RELEASE 25 MG TABLET PO SCH ×2 (08:03→20:41)
[2018-10-04] MEDS: MEMANTINE 10 MG TABLET. PO SCH ×2 (08:03→20:40)
[2018-10-04] MEDS: OMEGA-3 FATTY ACIDS/FISH OIL 1,000 MG CAPSULE. PO SCH (08:03)
[2018-10-04] MEDS: MULTIVITAMIN with MINERAL TABLET. PO SCH (08:04)
[2018-10-04] MEDS: medroxyPROGESTERone 5 MG TABLET PO SCH (08:04)
[2018-10-04] MEDS: LISINOPRIL 20 MG TABLET PO SCH ×2 (08:04→20:41)
[2018-10-04 15:56] VITALS: BP 108/72
--- NOTE | 2018-10-04 18:44 | PN ---
DATE: 10/03/2018 PSYCHIATRIC PROGRESS NOTE This late entry 10/03/2018 covers elements not covered in my initial note. SUBJECTIVE: I met with the patient in the evening. The patient slept 7 hours previous night. He remains confused, agitated with cares, flirtatious with staff, redirected him and at times complies. REVIEW OF SYSTEMS: No CV, , pulmonary, eye, ENT system symptoms on review. Reliability poor. MENTAL STATUS EXAM: Oriented to himself. Insight, judgment, recent and remote memory, attention, concentration, fund of knowledge poor, consistent with his diagnosis mentioned in my initial note. PLAN: No change from initial note. MAN Alessandra HERNANDEZ MD DR: TIEN/priyank JOB#: [id number] / [id number]
--- NOTE | 2018-10-04 18:46 | PN ---
DATE: 10/02/2018 PSYCHIATRIC PROGRESS NOTE This is a late entry 10/02/2018, covers elements not covered in my initial note. SUBJECTIVE: I met with the patient in the evening. The patient slept 7 hours previous night. Valproic acid level is 44. He has not been aggressive or sexually inappropriate. REVIEW OF SYSTEMS: No CV, , pulmonary, eye, ENT system symptoms on review. MENTAL STATUS EXAM: Oriented to himself. Insight, judgment, recent and remote memory, attention, concentration, fund of knowledge poor, consistent with his diagnosis mentioned in my initial note. PLAN: No change from initial note. MAN Alessandra HERNANDEZ MD DR: TIEN/priyank JOB#: [id number] / [id number]
[2018-10-04] MEDS: DONEPEZIL HCL 10 MG TABLET PO SCH (20:40)
[2018-10-04] MEDS: MELATONIN 3 MG TABLET PO SCH (20:40)
[2018-10-04] MEDS: ASPIRIN 81 MG TAB.CHEW PO SCH (20:40)
[2018-10-04] MEDS: MIRTAZAPINE 7.5 MG TABLET. PO SCH (20:40)
[2018-10-04] MEDS: DOXAZOSIN MESYLATE 4 MG TABLET PO SCH (20:41)
[2018-10-04] MEDS: traZODone 150 MG TABLET. PO SCH (20:41)
[2018-10-04] MEDS: FINASTERIDE 5 MG TABLET PO SCH (20:41)
--- NOTE | 2018-10-04 22:24 | PDOC ---
Exam Note: Roderick Note: Please also refer to the separate dictated note~for this date of service dictated separately.~Patient seen individually. Discussed the patient with Nursing staff reviewed the chart.~Reviewed interim history and current functioning. Reviewed vital signs,~Labs/ Radiology~and current medications noted below. Continue current treatment with the changes noted in the dictated addendum note Assessment: Vital Signs: Vital Signs Date Time Temp Pulse Resp B/P (MAP) Pulse Ox O2 Delivery O2 Flow Rate FiO2 10/04/18 20:41 83 108/72 10/04/18 15:56 98.4 16 91 10/02/18 15:44 Room Air I&O Intake and Output 10/04/18 06:59 Intake Total 680 ml Balance 680 ml Intake Oral 680 ml # Voids 1 Labs: Laboratory Tests Test 10/04/18 07:23 10/04/18 11:19 10/04/18 16:39 10/04/18 19:28 Glucose (Fingerstick) 65 mg/dL (70-99) L 165 mg/dL (70-99) H 123 mg/dL (70-99) H 151 mg/dL (70-99) H Current Medications: Meds: Current Medications Acetaminophen (Tylenol) 650 mg PRN Q6HRS PRN PO PAIN / TEMP; Start 09/08/18 at 13:30 Multi-Ingredient Ointment (Analgesic [place]) 1 blas PRN QID PRN TP MUSCLE PAIN; Start 09/08/18 at 13:30 Al Hydroxide/Mg Hydroxide (Mylanta Plus Xs) 15 ml PRN AFTMEALHC PRN PO DYSPEPSIA; Start 09/08/18 at 13:30 Magnesium Hydroxide (Milk Of Magnesia) 2,400 mg PRN QHS PRN PO CONSTIPATION Last administered on 09/26/18at 01:04; Start 09/08/18 at 13:30 Aspirin (Children'S Aspirin) 81 mg QHS PO Last administered on 10/04/18at 20:40 ; Start 09/08/18 at 21:00 Non-Formulary Medication (Dextromethorphan Hbr/Chlor-Mal (Coricidin Hbp Cough & Cold Tab)) 1 each PRN QID PRN PO COUGH; Start 09/08/18 at 13:45; Status UNV Donepezil HCl (Aricept) 10 mg QHS PO Last administered on 10/04/18 20:40; Start 09/08/18 at 21:00 Doxazosin Mesylate (Cardura) 4 mg QHS PO Last administered on 10/04/18 20:41; Start 09/08/18 at 21:00 Finasteride (Proscar) 5 mg QHS PO Last administered on 10/04/18 20:41; Start 09/08/18 at 21:00 Lisinopril (Prinivil) 40 mg BID PO Last administered on 10/04/18 20:41; Start 09/08/18 at 21:00 Lorazepam (Ativan) 2 mg TID PO Last administered on 09/08/18 21:25; Start at 14:00; Stop 09/09/18 at 06:58; Status DC Losartan Potassium (Cozaar) 50 mg DAILY PO Last administered on 09/09/18 08:19 ; Start 09/09/18 at 09:00; Stop 09/10/18 at 12:41; Status DC Losartan Potassium (Cozaar) 100 mg BID PO Last administered on 09/10/18 08:05; Start 09/08/18 at 21:00; Stop 09/10/18 at 12:41; Status DC Memantine (Namenda) 10 mg BID PO Last administered on 10/04/18 20:40; Start at 21:00 Metformin HCl (Glucophage) 500 mg BIDWMEALS PO Last administered on 10/04/18 17:20; Start 09/08/18 at 17:00 Multivitamins/ Calcium (Thera-M Plus) 1 tab DAILY PO Last administered on 08:04; Start 09/09/18 at 09:00 Metoprolol Tartrate (Lopressor) 25 mg BID PO Last administered on 09/09/18 08: 21; Start 09/08/18 at 21:00; Stop 09/09/18 at 09:58; Status DC Fish Oil (Fish Oil) 1,000 mg DAILY PO Last administered on 10/04/18 08:03; Start 09/09/18 at 09:00 Insulin Human Lispro (HumaLOG) 0-7 UNITS QIDACHS SQ Last administered on 11:48; Start 09/08/18 at 16:30; Stop 10/04/18 at 13:58; Status DC Dextrose 12.5 gm PRN Q15MIN PRN IV SEE COMMENTS; Start 09/08/18 at 14:00 Glyburide (Diabeta) 5 mg BIDWMEALS PO Last administered on 10/04/18at 17:20; Start 09/09/18 at 08:00 Sertraline HCl (Zoloft) 100 mg BID PO Last administered on 09/12/18at 07:40; Start 09/09/18 at 09:00; Stop 09/12/18 at 19:10; Status DC Lorazepam (Ativan) 1 mg TID PO Last administered on 09/11/18 20:16; Start 09/09 at 09:00; Stop 09/12/18 at 01:04; Status DC Divalproex Sodium (Depakote Sprinkles) 125 mg BIDWMEALS PO Last administered on 09/14/18at 08:37; Start 09/09/18 at 17:00; Stop 09/14/18 at 16:37; Status DC Metoprolol Tartrate (Lopressor) 25 mg BID PO Last administered on 09/10/18at 08: 06; Start 09/09/18 at 21:00; Stop 09/10/18 at 12:45; Status DC Metoprolol Tartrate (Lopressor) 50 mg BID PO Last administered on 09/14/18at 19: 36; Start 09/10/18 at 21:00; Stop 09/15/18 at 16:09; Status DC Trazodone HCl (Desyrel) 50 mg PRN QHS PRN PO INSOMNIA Last administered on 09/23at 23:23; Start 09/10/18 at 17:00; Stop 09/24/18 at 16:51; Status DC Mirtazapine (Remeron) 7.5 mg QHS PO Last administered on 09/18/18at 21:51; Start 09/10/18 at 21:00; Stop 09/19/18 at 00:07; Status DC Cephalexin HCl (Keflex) 500 mg TID PO Last administered on 09/21/18at 08:15; Start 09/11/18 at 14:00; Stop 09/21/18 at 13:59; Status DC Lorazepam (Ativan) 0.75 mg DAILY PO Last administered on 10/04/18 08:02; Start 09/12/18 at 09:00 Lorazepam (Ativan) 1 mg BID@1300,2100 PO Last administered on 09/14/18 19:40; Start 09/12/18 at 13:00; Stop 09/14/18 at 21:01; Status DC Lorazepam (Ativan) 0.75 mg DAILY@1300 PO Last administered on 10/04/18 11:53; Start 09/15/18 at 13:00 Lorazepam (Ativan) 1 mg QHS PO Last administered on 09/17/18 18:43; Start at 21:00; Stop 09/17/18 at 21:01; Status DC Lorazepam (Ativan) 0.75 mg HS PO Last administered on 10/04/18 20:43; Start at 21:00 Lactobacillus Rhamnosus (Culturelle) 1 cap BID PO Last administered on 09:38; Start 09/12/18 at 21:00; Stop 09/26/18 at 14:06; Status DC Sertraline HCl (Zoloft) 150 mg DAILY08 PO Last administered on 10/04/18 08:02 ; Start 09/13/18 at 08:00 Olanzapine (ZyPREXA ZYDIS) 5 mg PRN Q2HR PRN PO PSYCHOSIS Last administered on 10/04/18 20:43; Start 09/12/18 at 21:30 Divalproex Sodium (Depakote Sprinkles) 250 mg BIDWMEALS PO Last administered on 09/21/18 08:17; Start 09/14/18 at 17:00; Stop 09/21/18 at 16:47; Status DC Metoprolol Tartrate (Lopressor) 25 mg BID PO Last administered on 10/04/18 20: 41; Start 09/15/18 at 21:00 Trazodone HCl (Desyrel) 50 mg QHS PO Last administered on 09/23/18 19:40; Start 09/16/18 at 21:00; Stop 09/24/18 at 16:51; Status DC Mirtazapine (Remeron) 15 mg QHS PO Last administered on 10/04/18 20:40; Start 09/19/18 at 21:00 Medroxyprogesterone Acetate (Provera) 2.5 mg DAILY PO Last administered on 09/24 09:06; Start 09/21/18 at 09:00; Stop 09/24/18 at 16:51; Status DC Divalproex Sodium (Depakote Sprinkles) 375 mg BIDWMEALS PO Last administered on 09/25/18 17:11; Start 09/21/18 at 17:00; Stop 09/25/18 at 19:55; Status DC Medroxyprogesterone Acetate (Provera) 5 mg DAILY PO Last administered on 08:04; Start 09/25/18 at 09:00 Trazodone HCl (Desyrel) 100 mg PRN QHS PRN PO INSOMNIA Last administered on 19:12; Start 09/24/18 at 17:00; Stop 09/29/18 at 14:43; Status DC Trazodone HCl (Desyrel) 100 mg QHS PO Last administered on 09/28/18 19:11; Start 09/24/18 at 21:00; Stop 09/29/18 at 14:43; Status DC Divalproex Sodium (Depakote Sprinkles) 500 mg BIDWMEALS PO Last administered on 09/28/18 17:56; Start 09/26/18 at 08:00; Stop 09/28/18 at 19:24; Status DC Trazodone HCl (Desyrel) 100 mg 1X ONCE PO Last administered on 09/26/18at 20:31 ; Start 09/26/18 at 20:15; Stop 09/26/18 at 20:16; Status DC Melatonin 3 mg QHS PO Last administered on 10/04/18 20:40; Start 09/27/18 at 21:00 Divalproex Sodium (Depakote Sprinkles) 750 mg BIDWMEALS PO Last administered on 10/04/18 17:20; Start 09/29/18 at 08:00 Trazodone HCl (Desyrel) 150 mg PRN QHS PRN PO INSOMNIA; Start 09/29/18 at 15:00 Trazodone HCl (Desyrel) 150 mg QHS PO Last administered on 10/04/18at 20:41; Start 09/29/18 at 21:00 Active Scripts Active Reported Zoloft (Sertraline Hcl) 100 Mg Tablet 100 Mg PO BID [place] 3 Fish Oil Softgel ([place]-3 Fatty Acids/Fish Oil) 1 Each Capsule.dr 1 Each PO DAILY Bystolic (Nebivolol Hcl) 5 Mg Tablet 5 Mg PO DAILY Multivitamins (Multivitamin) 1 Each Tablet 1 Tab PO DAILY Metformin Hcl 500 Mg Tablet 500 Mg PO BIDWMEALS Namenda (Memantine Hcl) 10 Mg Tablet 10 Mg PO BID Ativan (Lorazepam) 2 Mg Tablet 1 Mg PO TID Lisinopril 40 Mg Tablet 40 Mg PO BID Glyburide 2.5 Mg Tablet 5 Mg PO BID Proscar (Finasteride) 5 Mg Tablet 5 Mg PO QHS Cardura (Doxazosin Mesylate) 4 Mg Tablet 4 Mg PO QHS Aricept (Donepezil Hcl) 10 Mg Tablet 10 Mg PO QHS Coricidin Hbp Cough & Cold Tab (Dextromethorphan Hbr/Chlor-Mal) 1 Each Tablet 1 Each PO PRN QID PRN Aspirin 81 Mg Tab.chew 81 Mg PO QHS I have reviewed the current psychotropics carefully including drug interactions. Risk benefit ratio favors no change other than as noted in my dictated progress note. Diagnosis: Problems: (1) Anxiety disorder (2) Dementia in Alzheimer's disease with delusions (3) Dementia in Alzheimer's disease with depression (4) Dementia, vascular, with delusions (5) Dementia, vascular, with depression (6) Impulse control disorder GERTRUDE HERNANDEZ MD Oct 04, 2018 22:24
[2018-10-05 06:38] VITALS: BP 142/83
[2018-10-05] MEDS: metFORMIN 500 MG TABLET PO SCH ×2 (08:57→16:36)
[2018-10-05] MEDS: MULTIVITAMIN with MINERAL TABLET. PO SCH (08:57)
[2018-10-05] MEDS: SERTRALINE 100 MG TABLET. PO SCH (08:57)
[2018-10-05] MEDS: OMEGA-3 FATTY ACIDS/FISH OIL 1,000 MG CAPSULE. PO SCH (08:57)
[2018-10-05] MEDS: LISINOPRIL 20 MG TABLET PO SCH ×2 (08:58→20:49)
[2018-10-05] MEDS: glyBURIDE 5 MG TABLET PO SCH ×2 (08:58→16:36)
[2018-10-05] MEDS: DIVALPROEX 125 MG CAP.SPRINK PO SCH ×2 (08:58→16:36)
[2018-10-05] MEDS: MEMANTINE 10 MG TABLET. PO SCH ×2 (08:58→20:48)
[2018-10-05] MEDS: medroxyPROGESTERone 5 MG TABLET PO SCH (08:58)
[2018-10-05] MEDS: METOPROLOL TART IMMED RELEASE 25 MG TABLET PO SCH ×2 (08:59→20:49)
[2018-10-05] MEDS: LORazepam 1 MG TABLET PO SCH ×3 (09:01→20:51)
[2018-10-05 16:23] VITALS: BP 118/72
[2018-10-05] MEDS: DOXAZOSIN MESYLATE 4 MG TABLET PO SCH (20:48)
[2018-10-05] MEDS: FINASTERIDE 5 MG TABLET PO SCH (20:48)
[2018-10-05] MEDS: MELATONIN 3 MG TABLET PO SCH (20:48)
[2018-10-05] MEDS: ASPIRIN 81 MG TAB.CHEW PO SCH (20:48)
[2018-10-05] MEDS: DONEPEZIL HCL 10 MG TABLET PO SCH (20:48)
[2018-10-05] MEDS: MIRTAZAPINE 7.5 MG TABLET. PO SCH (20:49)
[2018-10-05] MEDS: traZODone 150 MG TABLET. PO SCH (20:49)
--- NOTE | 2018-10-05 21:43 | PN ---
DATE: 10/04/2018 PSYCHIATRIC PROGRESS NOTE This late entry 10/04/2018 covers elements not covered in my initial note. SUBJECTIVE: I met with the patient in the evening. Overall, the patient slept 6-1/4 hours previous night. He did well at night and during the day as well. He remains confused, was somewhat humorous at times with nursing staff, giving "Reed Isabel Salute." He has been little flirtatious, but not sexually inappropriate. REVIEW OF SYSTEMS: No CV, , pulmonary, eye, ENT system symptoms on review. Reliability poor. MENTAL STATUS EXAM: Oriented to himself. Insight, judgment, recent and remote memory, attention, concentration, fund of knowledge poor, consistent with his diagnosis. He was pleasant, interactive as I met with him, but his big size makes him somewhat domineering and can come across aggressive even with minimal suggestions for this. LABORATORY DATA: Reviewed. IMPRESSION: Unchanged from initial note. PLAN: No change from initial note. MAN Alessandra HERNANDEZ MD DR: TIEN/priyank JOB#: [id number] / [id number]
--- NOTE | 2018-10-05 22:27 | PDOC ---
Exam Note: Roderick Note: Please also refer to the separate dictated note~for this date of service dictated separately.~Patient seen individually. Discussed the patient with Nursing staff reviewed the chart.~Reviewed interim history and current functioning. Reviewed vital signs,~Labs/ Radiology~and current medications noted below. Continue current treatment with the changes noted in the dictated addendum note Assessment: Vital Signs: Vital Signs Date Time Temp Pulse Resp B/P (MAP) Pulse Ox O2 Delivery O2 Flow Rate FiO2 10/05/18 20:49 72 118/72 10/05/18 16:23 97.8 18 91 10/05/18 06:38 Room Air I&O Intake and Output 10/05/18 06:59 Intake Total 1560 ml Balance 1560 ml Intake Oral 1560 ml Current Medications: Meds: Current Medications Acetaminophen (Tylenol) 650 mg PRN Q6HRS PRN PO PAIN / TEMP; Start 09/08/18 at 13:30 Multi-Ingredient Ointment (Analgesic [place]) 1 blas PRN QID PRN TP MUSCLE PAIN; Start 09/08/18 at 13:30 Al Hydroxide/Mg Hydroxide (Mylanta Plus Xs) 15 ml PRN AFTMEALHC PRN PO DYSPEPSIA; Start 09/08/18 at 13:30 Magnesium Hydroxide (Milk Of Magnesia) 2,400 mg PRN QHS PRN PO CONSTIPATION Last administered on 09/26/18at 01:04; Start 09/08/18 at 13:30 Aspirin (Children'S Aspirin) 81 mg QHS PO Last administered on 10/05/18at 20:48 ; Start 09/08/18 at 21:00 Non-Formulary Medication (Dextromethorphan Hbr/Chlor-Mal (Coricidin Hbp Cough & Cold Tab)) 1 each PRN QID PRN PO COUGH; Start 09/08/18 at 13:45; Status UNV Donepezil HCl (Aricept) 10 mg QHS PO Last administered on 10/05/18 20:48; Start 09/08/18 at 21:00 Doxazosin Mesylate (Cardura) 4 mg QHS PO Last administered on 10/05/18at 20:48; Start 09/08/18 at 21:00 Finasteride (Proscar) 5 mg QHS PO Last administered on 10/05/18at 20:48; Start 09/08/18 at 21:00 Lisinopril (Prinivil) 40 mg BID PO Last administered on 10/05/18 20:49; Start 09/08/18 at 21:00 Lorazepam (Ativan) 2 mg TID PO Last administered on 09/08/18 21:25; Start at 14:00; Stop 09/09/18 at 06:58; Status DC Losartan Potassium (Cozaar) 50 mg DAILY PO Last administered on 09/09/18 08:19 ; Start 09/09/18 at 09:00; Stop 09/10/18 at 12:41; Status DC Losartan Potassium (Cozaar) 100 mg BID PO Last administered on 09/10/18 08:05; Start 09/08/18 at 21:00; Stop 09/10/18 at 12:41; Status DC Memantine (Namenda) 10 mg BID PO Last administered on 10/05/18at 20:48; Start at 21:00 Metformin HCl (Glucophage) 500 mg BIDWMEALS PO Last administered on 10/05/18 16:36; Start 09/08/18 at 17:00 Multivitamins/ Calcium (Thera-M Plus) 1 tab DAILY PO Last administered on 08:57; Start 09/09/18 at 09:00 Metoprolol Tartrate (Lopressor) 25 mg BID PO Last administered on 09/09/18 08: 21; Start 09/08/18 at 21:00; Stop 09/09/18 at 09:58; Status DC Fish Oil (Fish Oil) 1,000 mg DAILY PO Last administered on 10/05/18 08:57; Start 09/09/18 at 09:00 Insulin Human Lispro (HumaLOG) 0-7 UNITS QIDACHS SQ Last administered on 11:48; Start 09/08/18 at 16:30; Stop 10/04/18 at 13:58; Status DC Dextrose 12.5 gm PRN Q15MIN PRN IV SEE COMMENTS; Start 09/08/18 at 14:00 Glyburide (Diabeta) 5 mg BIDWMEALS PO Last administered on 10/05/18at 16:36; Start 09/09/18 at 08:00 Sertraline HCl (Zoloft) 100 mg BID PO Last administered on 09/12/18 07:40; Start 09/09/18 at 09:00; Stop 09/12/18 at 19:10; Status DC Lorazepam (Ativan) 1 mg TID PO Last administered on 09/11/18 20:16; Start 09/09 at 09:00; Stop 09/12/18 at 01:04; Status DC Divalproex Sodium (Depakote Sprinkles) 125 mg BIDWMEALS PO Last administered on 09/14/18 08:37; Start 09/09/18 at 17:00; Stop 09/14/18 at 16:37; Status DC Metoprolol Tartrate (Lopressor) 25 mg BID PO Last administered on 09/10/18 08: 06; Start 09/09/18 at 21:00; Stop 09/10/18 at 12:45; Status DC Metoprolol Tartrate (Lopressor) 50 mg BID PO Last administered on 09/14/18 19: 36; Start 09/10/18 at 21:00; Stop 09/15/18 at 16:09; Status DC Trazodone HCl (Desyrel) 50 mg PRN QHS PRN PO INSOMNIA Last administered on 09/23 23:23; Start 09/10/18 at 17:00; Stop 09/24/18 at 16:51; Status DC Mirtazapine (Remeron) 7.5 mg QHS PO Last administered on 09/18/18at 21:51; Start 09/10/18 at 21:00; Stop 09/19/18 at 00:07; Status DC Cephalexin HCl (Keflex) 500 mg TID PO Last administered on 09/21/18at 08:15; Start 09/11/18 at 14:00; Stop 09/21/18 at 13:59; Status DC Lorazepam (Ativan) 0.75 mg DAILY PO Last administered on 10/05/18at 09:01; Start 09/12/18 at 09:00 Lorazepam (Ativan) 1 mg BID@1300,2100 PO Last administered on 09/14/18 19:40; Start 09/12/18 at 13:00; Stop 09/14/18 at 21:01; Status DC Lorazepam (Ativan) 0.75 mg DAILY@1300 PO Last administered on 10/05/18 13:18; Start 09/15/18 at 13:00 Lorazepam (Ativan) 1 mg QHS PO Last administered on 09/17/18 18:43; Start at 21:00; Stop 09/17/18 at 21:01; Status DC Lorazepam (Ativan) 0.75 mg HS PO Last administered on 10/05/18 20:51; Start at 21:00 Lactobacillus Rhamnosus (Culturelle) 1 cap BID PO Last administered on 09:38; Start 09/12/18 at 21:00; Stop 09/26/18 at 14:06; Status DC Sertraline HCl (Zoloft) 150 mg DAILY08 PO Last administered on 10/05/18 08:57 ; Start 09/13/18 at 08:00 Olanzapine (ZyPREXA ZYDIS) 5 mg PRN Q2HR PRN PO PSYCHOSIS Last administered on 10/05/18 16:36; Start 09/12/18 at 21:30 Divalproex Sodium (Depakote Sprinkles) 250 mg BIDWMEALS PO Last administered on 09/21/18 08:17; Start 09/14/18 at 17:00; Stop 09/21/18 at 16:47; Status DC Metoprolol Tartrate (Lopressor) 25 mg BID PO Last administered on 10/05/18 20: 49; Start 09/15/18 at 21:00 Trazodone HCl (Desyrel) 50 mg QHS PO Last administered on 09/23/18 19:40; Start 09/16/18 at 21:00; Stop 09/24/18 at 16:51; Status DC Mirtazapine (Remeron) 15 mg QHS PO Last administered on 10/05/18 20:49; Start 09/19/18 at 21:00 Medroxyprogesterone Acetate (Provera) 2.5 mg DAILY PO Last administered on 09/24 09:06; Start 09/21/18 at 09:00; Stop 09/24/18 at 16:51; Status DC Divalproex Sodium (Depakote Sprinkles) 375 mg BIDWMEALS PO Last administered on 09/25/18 17:11; Start 09/21/18 at 17:00; Stop 09/25/18 at 19:55; Status DC Medroxyprogesterone Acetate (Provera) 5 mg DAILY PO Last administered on at 08:58; Start 09/25/18 at 09:00 Trazodone HCl (Desyrel) 100 mg PRN QHS PRN PO INSOMNIA Last administered on 19:12; Start 09/24/18 at 17:00; Stop 09/29/18 at 14:43; Status DC Trazodone HCl (Desyrel) 100 mg QHS PO Last administered on 09/28/18 19:11; Start 09/24/18 at 21:00; Stop 09/29/18 at 14:43; Status DC Divalproex Sodium (Depakote Sprinkles) 500 mg BIDWMEALS PO Last administered on 09/28/18at 17:56; Start 09/26/18 at 08:00; Stop 09/28/18 at 19:24; Status DC Trazodone HCl (Desyrel) 100 mg 1X ONCE PO Last administered on 09/26/18 20:31 ; Start 09/26/18 at 20:15; Stop 09/26/18 at 20:16; Status DC Melatonin 3 mg QHS PO Last administered on 10/05/18at 20:48; Start 09/27/18 at 21:00 Divalproex Sodium (Depakote Sprinkles) 750 mg BIDWMEALS PO Last administered on 10/05/18at 16:36; Start 09/29/18 at 08:00; Stop 10/05/18 at 17:15; Status DC Trazodone HCl (Desyrel) 150 mg PRN QHS PRN PO INSOMNIA; Start 09/29/18 at 15:00 Trazodone HCl (Desyrel) 150 mg QHS PO Last administered on 10/05/18at 20:49; Start 09/29/18 at 21:00 Divalproex Sodium (Depakote Sprinkles) 1,000 mg BIDWMEALS PO ; Start 10/06/18 at 08:00 Active Scripts Active Reported Zoloft (Sertraline Hcl) 100 Mg Tablet 100 Mg PO BID [place] 3 Fish Oil Softgel ([place]-3 Fatty Acids/Fish Oil) 1 Each Capsule.dr 1 Each PO DAILY Bystolic (Nebivolol Hcl) 5 Mg Tablet 5 Mg PO DAILY Multivitamins (Multivitamin) 1 Each Tablet 1 Tab PO DAILY Metformin Hcl 500 Mg Tablet 500 Mg PO BIDWMEALS Namenda (Memantine Hcl) 10 Mg Tablet 10 Mg PO BID Ativan (Lorazepam) 2 Mg Tablet 1 Mg PO TID Lisinopril 40 Mg Tablet 40 Mg PO BID Glyburide 2.5 Mg Tablet 5 Mg PO BID Proscar (Finasteride) 5 Mg Tablet 5 Mg PO QHS Cardura (Doxazosin Mesylate) 4 Mg Tablet 4 Mg PO QHS Aricept (Donepezil Hcl) 10 Mg Tablet 10 Mg PO QHS Coricidin Hbp Cough & Cold Tab (Dextromethorphan Hbr/Chlor-Mal) 1 Each Tablet 1 Each PO PRN QID PRN Aspirin 81 Mg Tab.chew 81 Mg PO QHS I have reviewed the current psychotropics carefully including drug interactions. Risk benefit ratio favors no change other than as noted in my dictated progress note. Diagnosis: Problems: (1) Anxiety disorder (2) Dementia in Alzheimer's disease with delusions (3) Dementia in Alzheimer's disease with depression (4) Dementia, vascular, with delusions (5) Dementia, vascular, with depression (6) Impulse control disorder GERTRUDE HERNANDEZ MD Oct 05, 2018 22:27
[2018-10-06 06:37] VITALS: BP 105/69
[2018-10-06] MEDS: medroxyPROGESTERone 5 MG TABLET PO SCH (08:04)
[2018-10-06] MEDS: MEMANTINE 10 MG TABLET. PO SCH ×2 (08:04→19:47)
[2018-10-06] MEDS: OMEGA-3 FATTY ACIDS/FISH OIL 1,000 MG CAPSULE. PO SCH (08:05)
[2018-10-06] MEDS: SERTRALINE 100 MG TABLET. PO SCH (08:05)
[2018-10-06] MEDS: METOPROLOL TART IMMED RELEASE 25 MG TABLET PO SCH ×2 (08:05→19:47)
[2018-10-06] MEDS: glyBURIDE 5 MG TABLET PO SCH ×2 (08:06→18:18)
[2018-10-06] MEDS: LISINOPRIL 20 MG TABLET PO SCH ×2 (08:06→19:47)
[2018-10-06] MEDS: metFORMIN 500 MG TABLET PO SCH ×2 (08:06→18:17)
[2018-10-06] MEDS: LORazepam 1 MG TABLET PO SCH ×3 (08:06→19:48)
[2018-10-06] MEDS: MULTIVITAMIN with MINERAL TABLET. PO SCH (08:06)
[2018-10-06] MEDS: DIVALPROEX 125 MG CAP.SPRINK PO SCH ×2 (08:08→18:17)
[2018-10-06 15:55] VITALS: BP 97/65
[2018-10-06 19:45] VITALS: BP 139/83
[2018-10-06] MEDS: DOXAZOSIN MESYLATE 4 MG TABLET PO SCH (19:46)
[2018-10-06] MEDS: FINASTERIDE 5 MG TABLET PO SCH (19:46)
[2018-10-06] MEDS: MIRTAZAPINE 7.5 MG TABLET. PO SCH (19:46)
[2018-10-06] MEDS: traZODone 150 MG TABLET. PO SCH (19:47)
[2018-10-06] MEDS: ASPIRIN 81 MG TAB.CHEW PO SCH (19:47)
[2018-10-06] MEDS: MELATONIN 3 MG TABLET PO SCH (19:47)
[2018-10-06] MEDS: DONEPEZIL HCL 10 MG TABLET PO SCH (19:47)
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
--- NOTE | 2018-10-06 22:31 | PDOC ---
Exam Note: Roderick Note: Please also refer to the separate dictated note~for this date of service dictated separately.~Patient seen individually. Discussed the patient with Nursing staff reviewed the chart.~Reviewed interim history and current functioning. Reviewed vital signs,~Labs/ Radiology~and current medications noted below. Continue current treatment with the changes noted in the dictated addendum note Assessment: Vital Signs: Vital Signs Date Time Temp Pulse Resp B/P (MAP) Pulse Ox O2 Delivery O2 Flow Rate FiO2 10/06/18 19:47 81 139/83 10/06/18 15:55 97.8 18 96 10/05/18 06:38 Room Air I&O Intake and Output 10/06/18 06:59 Intake Total 1200 ml Balance 1200 ml Intake Oral 1200 ml Current Medications: Meds: Current Medications Acetaminophen (Tylenol) 650 mg PRN Q6HRS PRN PO PAIN / TEMP; Start 09/08/18 at 13:30 Multi-Ingredient Ointment (Analgesic [place]) 1 blas PRN QID PRN TP MUSCLE PAIN; Start 09/08/18 at 13:30 Al Hydroxide/Mg Hydroxide (Mylanta Plus Xs) 15 ml PRN AFTMEALHC PRN PO DYSPEPSIA; Start 09/08/18 at 13:30 Magnesium Hydroxide (Milk Of Magnesia) 2,400 mg PRN QHS PRN PO CONSTIPATION Last administered on 09/26/18at 01:04; Start 09/08/18 at 13:30 Aspirin (Children'S Aspirin) 81 mg QHS PO Last administered on 10/06/18at 19:47 ; Start 09/08/18 at 21:00 Non-Formulary Medication (Dextromethorphan Hbr/Chlor-Mal (Coricidin Hbp Cough & Cold Tab)) 1 each PRN QID PRN PO COUGH; Start 09/08/18 at 13:45; Status UNV Donepezil HCl (Aricept) 10 mg QHS PO Last administered on 10/06/18at 19:47; Start 09/08/18 at 21:00 Doxazosin Mesylate (Cardura) 4 mg QHS PO Last administered on 10/06/18at 19:46; Start 09/08/18 at 21:00 Finasteride (Proscar) 5 mg QHS PO Last administered on 10/06/18at 19:46; Start 09/08/18 at 21:00 Lisinopril (Prinivil) 40 mg BID PO Last administered on 10/06/18 19:47; Start 09/08/18 at 21:00 Lorazepam (Ativan) 2 mg TID PO Last administered on 09/08/18at 21:25; Start at 14:00; Stop 09/09/18 at 06:58; Status DC Losartan Potassium (Cozaar) 50 mg DAILY PO Last administered on 09/09/18 08:19 ; Start 09/09/18 at 09:00; Stop 09/10/18 at 12:41; Status DC Losartan Potassium (Cozaar) 100 mg BID PO Last administered on 09/10/18 08:05; Start 09/08/18 at 21:00; Stop 09/10/18 at 12:41; Status DC Memantine (Namenda) 10 mg BID PO Last administered on 10/06/18at 19:47; Start at 21:00 Metformin HCl (Glucophage) 500 mg BIDWMEALS PO Last administered on 10/06/18at 18:17; Start 09/08/18 at 17:00 Multivitamins/ Calcium (Thera-M Plus) 1 tab DAILY PO Last administered on 08:06; Start 09/09/18 at 09:00 Metoprolol Tartrate (Lopressor) 25 mg BID PO Last administered on 09/09/18at 08: 21; Start 09/08/18 at 21:00; Stop 09/09/18 at 09:58; Status DC Fish Oil (Fish Oil) 1,000 mg DAILY PO Last administered on 10/06/18at 08:05; Start 09/09/18 at 09:00 Insulin Human Lispro (HumaLOG) 0-7 UNITS QIDACHS SQ Last administered on 11:48; Start 09/08/18 at 16:30; Stop 10/04/18 at 13:58; Status DC Dextrose 12.5 gm PRN Q15MIN PRN IV SEE COMMENTS; Start 09/08/18 at 14:00 Glyburide (Diabeta) 5 mg BIDWMEALS PO Last administered on 10/06/18at 18:18; Start 09/09/18 at 08:00 Sertraline HCl (Zoloft) 100 mg BID PO Last administered on 09/12/18 07:40; Start 09/09/18 at 09:00; Stop 09/12/18 at 19:10; Status DC Lorazepam (Ativan) 1 mg TID PO Last administered on 09/11/18 20:16; Start 09/09 at 09:00; Stop 09/12/18 at 01:04; Status DC Divalproex Sodium (Depakote Sprinkles) 125 mg BIDWMEALS PO Last administered on 09/14/18 08:37; Start 09/09/18 at 17:00; Stop 09/14/18 at 16:37; Status DC Metoprolol Tartrate (Lopressor) 25 mg BID PO Last administered on 09/10/18 08: 06; Start 09/09/18 at 21:00; Stop 09/10/18 at 12:45; Status DC Metoprolol Tartrate (Lopressor) 50 mg BID PO Last administered on 09/14/18 19: 36; Start 09/10/18 at 21:00; Stop 09/15/18 at 16:09; Status DC Trazodone HCl (Desyrel) 50 mg PRN QHS PRN PO INSOMNIA Last administered on 09/23 23:23; Start 09/10/18 at 17:00; Stop 09/24/18 at 16:51; Status DC Mirtazapine (Remeron) 7.5 mg QHS PO Last administered on 09/18/18at 21:51; Start 09/10/18 at 21:00; Stop 09/19/18 at 00:07; Status DC Cephalexin HCl (Keflex) 500 mg TID PO Last administered on 09/21/18 08:15; Start 09/11/18 at 14:00; Stop 09/21/18 at 13:59; Status DC Lorazepam (Ativan) 0.75 mg DAILY PO Last administered on 10/06/18 08:06; Start 09/12/18 at 09:00 Lorazepam (Ativan) 1 mg BID@1300,2100 PO Last administered on 09/14/18 19:40; Start 09/12/18 at 13:00; Stop 09/14/18 at 21:01; Status DC Lorazepam (Ativan) 0.75 mg DAILY@1300 PO Last administered on 10/06/18 13:15; Start 09/15/18 at 13:00 Lorazepam (Ativan) 1 mg QHS PO Last administered on 09/17/18 18:43; Start at 21:00; Stop 09/17/18 at 21:01; Status DC Lorazepam (Ativan) 0.75 mg HS PO Last administered on 10/06/18 19:48; Start at 21:00 Lactobacillus Rhamnosus (Culturelle) 1 cap BID PO Last administered on 09:38; Start 09/12/18 at 21:00; Stop 09/26/18 at 14:06; Status DC Sertraline HCl (Zoloft) 150 mg DAILY08 PO Last administered on 10/06/18 08:05 ; Start 09/13/18 at 08:00 Olanzapine (ZyPREXA ZYDIS) 5 mg PRN Q2HR PRN PO PSYCHOSIS Last administered on 10/05/18 16:36; Start 09/12/18 at 21:30 Divalproex Sodium (Depakote Sprinkles) 250 mg BIDWMEALS PO Last administered on 09/21/18 08:17; Start 09/14/18 at 17:00; Stop 09/21/18 at 16:47; Status DC Metoprolol Tartrate (Lopressor) 25 mg BID PO Last administered on 10/06/18 19: 47; Start 09/15/18 at 21:00 Trazodone HCl (Desyrel) 50 mg QHS PO Last administered on 09/23/18 19:40; Start 09/16/18 at 21:00; Stop 09/24/18 at 16:51; Status DC Mirtazapine (Remeron) 15 mg QHS PO Last administered on 10/06/18 19:46; Start 09/19/18 at 21:00 Medroxyprogesterone Acetate (Provera) 2.5 mg DAILY PO Last administered on 09/24 09:06; Start 09/21/18 at 09:00; Stop 09/24/18 at 16:51; Status DC Divalproex Sodium (Depakote Sprinkles) 375 mg BIDWMEALS PO Last administered on 09/25/18 17:11; Start 09/21/18 at 17:00; Stop 09/25/18 at 19:55; Status DC Medroxyprogesterone Acetate (Provera) 5 mg DAILY PO Last administered on 08:04; Start 09/25/18 at 09:00 Trazodone HCl (Desyrel) 100 mg PRN QHS PRN PO INSOMNIA Last administered on 19:12; Start 09/24/18 at 17:00; Stop 09/29/18 at 14:43; Status DC Trazodone HCl (Desyrel) 100 mg QHS PO Last administered on 09/28/18 19:11; Start 09/24/18 at 21:00; Stop 09/29/18 at 14:43; Status DC Divalproex Sodium (Depakote Sprinkles) 500 mg BIDWMEALS PO Last administered on 09/28/18at 17:56; Start 09/26/18 at 08:00; Stop 09/28/18 at 19:24; Status DC Trazodone HCl (Desyrel) 100 mg 1X ONCE PO Last administered on 09/26/18at 20:31 ; Start 09/26/18 at 20:15; Stop 09/26/18 at 20:16; Status DC Melatonin 3 mg QHS PO Last administered on 10/06/18 19:47; Start 09/27/18 at 21:00 Divalproex Sodium (Depakote Sprinkles) 750 mg BIDWMEALS PO Last administered on 10/05/18at 16:36; Start 09/29/18 at 08:00; Stop 10/05/18 at 17:15; Status DC Trazodone HCl (Desyrel) 150 mg PRN QHS PRN PO INSOMNIA; Start 09/29/18 at 15:00 Trazodone HCl (Desyrel) 150 mg QHS PO Last administered on 10/06/18at 19:47; Start 09/29/18 at 21:00 Divalproex Sodium (Depakote Sprinkles) 1,000 mg BIDWMEALS PO Last administered on 10/06/18at 18:17; Start 10/06/18 at 08:00 Active Scripts Active Reported Zoloft (Sertraline Hcl) 100 Mg Tablet 100 Mg PO BID [place] 3 Fish Oil Softgel ([place]-3 Fatty Acids/Fish Oil) 1 Each Capsule.dr 1 Each PO DAILY Bystolic (Nebivolol Hcl) 5 Mg Tablet 5 Mg PO DAILY Multivitamins (Multivitamin) 1 Each Tablet 1 Tab PO DAILY Metformin Hcl 500 Mg Tablet 500 Mg PO BIDWMEALS Namenda (Memantine Hcl) 10 Mg Tablet 10 Mg PO BID Ativan (Lorazepam) 2 Mg Tablet 1 Mg PO TID Lisinopril 40 Mg Tablet 40 Mg PO BID Glyburide 2.5 Mg Tablet 5 Mg PO BID Proscar (Finasteride) 5 Mg Tablet 5 Mg PO QHS Cardura (Doxazosin Mesylate) 4 Mg Tablet 4 Mg PO QHS Aricept (Donepezil Hcl) 10 Mg Tablet 10 Mg PO QHS Coricidin Hbp Cough & Cold Tab (Dextromethorphan Hbr/Chlor-Mal) 1 Each Tablet 1 Each PO PRN QID PRN Aspirin 81 Mg Tab.chew 81 Mg PO QHS I have reviewed the current psychotropics carefully including drug interactions. Risk benefit ratio favors no change other than as noted in my dictated progress note. Diagnosis: Problems: (1) Anxiety disorder (2) Dementia in Alzheimer's disease with delusions (3) Dementia in Alzheimer's disease with depression (4) Dementia, vascular, with delusions (5) Dementia, vascular, with depression (6) Impulse control disorder GERTRUDE HERNANDEZ MD Oct 06, 2018 22:31
[2018-10-07 05:47] VITALS: BP 110/59
[2018-10-07] MEDS: glyBURIDE 5 MG TABLET PO SCH ×2 (08:00→16:55)
[2018-10-07] MEDS: LISINOPRIL 20 MG TABLET PO SCH ×2 (09:02→19:36)
[2018-10-07] MEDS: DIVALPROEX 125 MG CAP.SPRINK PO SCH ×2 (09:02→16:55)
[2018-10-07] MEDS: MULTIVITAMIN with MINERAL TABLET. PO SCH (09:03)
[2018-10-07] MEDS: METOPROLOL TART IMMED RELEASE 25 MG TABLET PO SCH ×2 (09:03→19:36)
[2018-10-07] MEDS: metFORMIN 500 MG TABLET PO SCH ×2 (09:03→16:55)
[2018-10-07] MEDS: MEMANTINE 10 MG TABLET. PO SCH ×2 (09:05→19:33)
[2018-10-07] MEDS: LORazepam 1 MG TABLET PO SCH ×3 (09:05→19:35)
[2018-10-07] MEDS: medroxyPROGESTERone 5 MG TABLET PO SCH (09:05)
[2018-10-07] MEDS: OMEGA-3 FATTY ACIDS/FISH OIL 1,000 MG CAPSULE. PO SCH (09:05)
[2018-10-07] MEDS: SERTRALINE 100 MG TABLET. PO SCH (09:06)
[2018-10-07 16:20] VITALS: BP 158/79
[2018-10-07] MEDS: traZODone 150 MG TABLET. PO SCH (19:32)
[2018-10-07] MEDS: ASPIRIN 81 MG TAB.CHEW PO SCH (19:32)
[2018-10-07] MEDS: MIRTAZAPINE 7.5 MG TABLET. PO SCH (19:33)
[2018-10-07] MEDS: DONEPEZIL HCL 10 MG TABLET PO SCH (19:33)
[2018-10-07] MEDS: FINASTERIDE 5 MG TABLET PO SCH (19:33)
[2018-10-07] MEDS: MELATONIN 3 MG TABLET PO SCH (19:33)
[2018-10-07] MEDS: DOXAZOSIN MESYLATE 4 MG TABLET PO SCH (19:35)
--- NOTE | 2018-10-07 22:27 | PDOC ---
Exam Note: Roderick Note: Please also refer to the separate dictated note~for this date of service dictated separately.~Patient seen individually. Discussed the patient with Nursing staff reviewed the chart.~Reviewed interim history and current functioning. Reviewed vital signs,~Labs/ Radiology~and current medications noted below. Continue current treatment with the changes noted in the dictated addendum note Assessment: Vital Signs: Vital Signs Date Time Temp Pulse Resp B/P (MAP) Pulse Ox O2 Delivery O2 Flow Rate FiO2 10/07/18 19:36 73 158/79 10/07/18 16:20 97.7 16 97 Room Air I&O Intake and Output 10/07/18 07:00 Intake Total 1200 ml Balance 1200 ml Intake Oral 1200 ml # Voids 2 Current Medications: Meds: Current Medications Acetaminophen (Tylenol) 650 mg PRN Q6HRS PRN PO PAIN / TEMP; Start 09/08/18 at 13:30 Multi-Ingredient Ointment (Analgesic [place]) 1 blas PRN QID PRN TP MUSCLE PAIN; Start 09/08/18 at 13:30 Al Hydroxide/Mg Hydroxide (Mylanta Plus Xs) 15 ml PRN AFTMEALHC PRN PO DYSPEPSIA; Start 09/08/18 at 13:30 Magnesium Hydroxide (Milk Of Magnesia) 2,400 mg PRN QHS PRN PO CONSTIPATION Last administered on 09/26/18at 01:04; Start 09/08/18 at 13:30 Aspirin (Children'S Aspirin) 81 mg QHS PO Last administered on 10/07/18at 19:32 ; Start 09/08/18 at 21:00 Non-Formulary Medication (Dextromethorphan Hbr/Chlor-Mal (Coricidin Hbp Cough & Cold Tab)) 1 each PRN QID PRN PO COUGH; Start 09/08/18 at 13:45; Status UNV Donepezil HCl (Aricept) 10 mg QHS PO Last administered on 10/07/18at 19:33; Start 09/08/18 at 21:00 Doxazosin Mesylate (Cardura) 4 mg QHS PO Last administered on 10/07/18at 19:35; Start 09/08/18 at 21:00 Finasteride (Proscar) 5 mg QHS PO Last administered on 10/07/18at 19:33; Start 09/08/18 at 21:00 Lisinopril (Prinivil) 40 mg BID PO Last administered on 10/07/18 19:36; Start 09/08/18 at 21:00 Lorazepam (Ativan) 2 mg TID PO Last administered on 09/08/18 21:25; Start at 14:00; Stop 09/09/18 at 06:58; Status DC Losartan Potassium (Cozaar) 50 mg DAILY PO Last administered on 09/09/18at 08:19 ; Start 09/09/18 at 09:00; Stop 09/10/18 at 12:41; Status DC Losartan Potassium (Cozaar) 100 mg BID PO Last administered on 09/10/18 08:05; Start 09/08/18 at 21:00; Stop 09/10/18 at 12:41; Status DC Memantine (Namenda) 10 mg BID PO Last administered on 10/07/18at 19:33; Start at 21:00 Metformin HCl (Glucophage) 500 mg BIDWMEALS PO Last administered on 10/07/18 16:55; Start 09/08/18 at 17:00 Multivitamins/ Calcium (Thera-M Plus) 1 tab DAILY PO Last administered on 09:03; Start 09/09/18 at 09:00 Metoprolol Tartrate (Lopressor) 25 mg BID PO Last administered on 09/09/18 08: 21; Start 09/08/18 at 21:00; Stop 09/09/18 at 09:58; Status DC Fish Oil (Fish Oil) 1,000 mg DAILY PO Last administered on 10/07/18 09:05; Start 09/09/18 at 09:00 Insulin Human Lispro (HumaLOG) 0-7 UNITS QIDACHS SQ Last administered on 11:48; Start 09/08/18 at 16:30; Stop 10/04/18 at 13:58; Status DC Dextrose 12.5 gm PRN Q15MIN PRN IV SEE COMMENTS; Start 09/08/18 at 14:00 Glyburide (Diabeta) 5 mg BIDWMEALS PO Last administered on 10/07/18 16:55; Start 09/09/18 at 08:00 Sertraline HCl (Zoloft) 100 mg BID PO Last administered on 09/12/18 07:40; Start 09/09/18 at 09:00; Stop 09/12/18 at 19:10; Status DC Lorazepam (Ativan) 1 mg TID PO Last administered on 09/11/18 20:16; Start 09/09 at 09:00; Stop 09/12/18 at 01:04; Status DC Divalproex Sodium (Depakote Sprinkles) 125 mg BIDWMEALS PO Last administered on 09/14/18 08:37; Start 09/09/18 at 17:00; Stop 09/14/18 at 16:37; Status DC Metoprolol Tartrate (Lopressor) 25 mg BID PO Last administered on 09/10/18 08: 06; Start 09/09/18 at 21:00; Stop 09/10/18 at 12:45; Status DC Metoprolol Tartrate (Lopressor) 50 mg BID PO Last administered on 09/14/18 19: 36; Start 09/10/18 at 21:00; Stop 09/15/18 at 16:09; Status DC Trazodone HCl (Desyrel) 50 mg PRN QHS PRN PO INSOMNIA Last administered on 09/23 23:23; Start 09/10/18 at 17:00; Stop 09/24/18 at 16:51; Status DC Mirtazapine (Remeron) 7.5 mg QHS PO Last administered on 09/18/18at 21:51; Start 09/10/18 at 21:00; Stop 09/19/18 at 00:07; Status DC Cephalexin HCl (Keflex) 500 mg TID PO Last administered on 09/21/18 08:15; Start 09/11/18 at 14:00; Stop 09/21/18 at 13:59; Status DC Lorazepam (Ativan) 0.75 mg DAILY PO Last administered on 10/07/18 09:05; Start 09/12/18 at 09:00 Lorazepam (Ativan) 1 mg BID@1300,2100 PO Last administered on 09/14/18 19:40; Start 09/12/18 at 13:00; Stop 09/14/18 at 21:01; Status DC Lorazepam (Ativan) 0.75 mg DAILY@1300 PO Last administered on 10/07/18 12:44; Start 09/15/18 at 13:00 Lorazepam (Ativan) 1 mg QHS PO Last administered on 09/17/18 18:43; Start at 21:00; Stop 09/17/18 at 21:01; Status DC Lorazepam (Ativan) 0.75 mg HS PO Last administered on 10/07/18 19:35; Start at 21:00 Lactobacillus Rhamnosus (Culturelle) 1 cap BID PO Last administered on 09:38; Start 09/12/18 at 21:00; Stop 09/26/18 at 14:06; Status DC Sertraline HCl (Zoloft) 150 mg DAILY08 PO Last administered on 10/07/18 09:06 ; Start 09/13/18 at 08:00 Olanzapine (ZyPREXA ZYDIS) 5 mg PRN Q2HR PRN PO PSYCHOSIS Last administered on 10/05/18 16:36; Start 09/12/18 at 21:30 Divalproex Sodium (Depakote Sprinkles) 250 mg BIDWMEALS PO Last administered on 09/21/18 08:17; Start 09/14/18 at 17:00; Stop 09/21/18 at 16:47; Status DC Metoprolol Tartrate (Lopressor) 25 mg BID PO Last administered on 10/07/18 19: 36; Start 09/15/18 at 21:00 Trazodone HCl (Desyrel) 50 mg QHS PO Last administered on 09/23/18 19:40; Start 09/16/18 at 21:00; Stop 09/24/18 at 16:51; Status DC Mirtazapine (Remeron) 15 mg QHS PO Last administered on 10/07/18 19:33; Start 09/19/18 at 21:00 Medroxyprogesterone Acetate (Provera) 2.5 mg DAILY PO Last administered on 09/24 09:06; Start 09/21/18 at 09:00; Stop 09/24/18 at 16:51; Status DC Divalproex Sodium (Depakote Sprinkles) 375 mg BIDWMEALS PO Last administered on 09/25/18 17:11; Start 09/21/18 at 17:00; Stop 09/25/18 at 19:55; Status DC Medroxyprogesterone Acetate (Provera) 5 mg DAILY PO Last administered on at 09:05; Start 09/25/18 at 09:00 Trazodone HCl (Desyrel) 100 mg PRN QHS PRN PO INSOMNIA Last administered on 19:12; Start 09/24/18 at 17:00; Stop 09/29/18 at 14:43; Status DC Trazodone HCl (Desyrel) 100 mg QHS PO Last administered on 09/28/18 19:11; Start 09/24/18 at 21:00; Stop 09/29/18 at 14:43; Status DC Divalproex Sodium (Depakote Sprinkles) 500 mg BIDWMEALS PO Last administered on 09/28/18at 17:56; Start 09/26/18 at 08:00; Stop 09/28/18 at 19:24; Status DC Trazodone HCl (Desyrel) 100 mg 1X ONCE PO Last administered on 09/26/18at 20:31 ; Start 09/26/18 at 20:15; Stop 09/26/18 at 20:16; Status DC Melatonin 3 mg QHS PO Last administered on 10/07/18at 19:33; Start 09/27/18 at 21:00 Divalproex Sodium (Depakote Sprinkles) 750 mg BIDWMEALS PO Last administered on 10/05/18at 16:36; Start 09/29/18 at 08:00; Stop 10/05/18 at 17:15; Status DC Trazodone HCl (Desyrel) 150 mg PRN QHS PRN PO INSOMNIA; Start 09/29/18 at 15:00 Trazodone HCl (Desyrel) 150 mg QHS PO Last administered on 10/07/18 19:32; Start 09/29/18 at 21:00 Divalproex Sodium (Depakote Sprinkles) 1,000 mg BIDWMEALS PO Last administered on 10/07/18 16:55; Start 10/06/18 at 08:00 Active Scripts Active Reported Zoloft (Sertraline Hcl) 100 Mg Tablet 100 Mg PO BID [place] 3 Fish Oil Softgel ([place]-3 Fatty Acids/Fish Oil) 1 Each Capsule.dr 1 Each PO DAILY Bystolic (Nebivolol Hcl) 5 Mg Tablet 5 Mg PO DAILY Multivitamins (Multivitamin) 1 Each Tablet 1 Tab PO DAILY Metformin Hcl 500 Mg Tablet 500 Mg PO BIDWMEALS Namenda (Memantine Hcl) 10 Mg Tablet 10 Mg PO BID Ativan (Lorazepam) 2 Mg Tablet 1 Mg PO TID Lisinopril 40 Mg Tablet 40 Mg PO BID Glyburide 2.5 Mg Tablet 5 Mg PO BID Proscar (Finasteride) 5 Mg Tablet 5 Mg PO QHS Cardura (Doxazosin Mesylate) 4 Mg Tablet 4 Mg PO QHS Aricept (Donepezil Hcl) 10 Mg Tablet 10 Mg PO QHS Coricidin Hbp Cough & Cold Tab (Dextromethorphan Hbr/Chlor-Mal) 1 Each Tablet 1 Each PO PRN QID PRN Aspirin 81 Mg Tab.chew 81 Mg PO QHS I have reviewed the current psychotropics carefully including drug interactions. Risk benefit ratio favors no change other than as noted in my dictated progress note. Diagnosis: Problems: (1) Anxiety disorder (2) Dementia in Alzheimer's disease with delusions (3) Dementia in Alzheimer's disease with depression (4) Dementia, vascular, with delusions (5) Dementia, vascular, with depression (6) Impulse control disorder GERTRUDE HERNANDEZ MD Oct 07, 2018 22:27
[2018-10-08 05:49] VITALS: BP 109/66
[2018-10-08] MEDS: LISINOPRIL 20 MG TABLET PO SCH ×2 (08:08→19:30)
[2018-10-08] MEDS: metFORMIN 500 MG TABLET PO SCH ×2 (08:08→16:51)
[2018-10-08] MEDS: DIVALPROEX 125 MG CAP.SPRINK PO SCH ×2 (08:08→16:51)
[2018-10-08] MEDS: glyBURIDE 5 MG TABLET PO SCH ×2 (08:09→16:51)
[2018-10-08] MEDS: OMEGA-3 FATTY ACIDS/FISH OIL 1,000 MG CAPSULE. PO SCH (08:09)
[2018-10-08] MEDS: MULTIVITAMIN with MINERAL TABLET. PO SCH (08:09)
[2018-10-08] MEDS: METOPROLOL TART IMMED RELEASE 25 MG TABLET PO SCH ×2 (08:09→19:29)
[2018-10-08] MEDS: LORazepam 1 MG TABLET PO SCH ×3 (08:09→19:34)
[2018-10-08] MEDS: medroxyPROGESTERone 5 MG TABLET PO SCH (08:10)
[2018-10-08] MEDS: SERTRALINE 100 MG TABLET. PO SCH (08:10)
[2018-10-08] MEDS: MEMANTINE 10 MG TABLET. PO SCH ×2 (08:10→19:29)
[2018-10-08 15:50] VITALS: BP 111/66
[2018-10-08] MEDS: traZODone 150 MG TABLET. PO SCH (19:28)
[2018-10-08] MEDS: ASPIRIN 81 MG TAB.CHEW PO SCH (19:29)
[2018-10-08] MEDS: DOXAZOSIN MESYLATE 4 MG TABLET PO SCH (19:29)
[2018-10-08] MEDS: MELATONIN 3 MG TABLET PO SCH (19:29)
[2018-10-08] MEDS: MIRTAZAPINE 7.5 MG TABLET. PO SCH (19:29)
[2018-10-08] MEDS: FINASTERIDE 5 MG TABLET PO SCH (19:30)
[2018-10-08] MEDS: DONEPEZIL HCL 10 MG TABLET PO SCH (19:32)
--- NOTE | 2018-10-08 21:51 | PDOC ---
Exam Note: Roderick Note: Please also refer to the separate dictated note~for this date of service dictated separately.~Patient seen individually. Discussed the patient with Nursing staff reviewed the chart.~Reviewed interim history and current functioning. Reviewed vital signs,~Labs/ Radiology~and current medications noted below. Continue current treatment with the changes noted in the dictated addendum note Assessment: Vital Signs: Vital Signs Date Time Temp Pulse Resp B/P (MAP) Pulse Ox O2 Delivery O2 Flow Rate FiO2 10/08/18 19:30 81 127/73 10/08/18 15:50 98.3 18 96 Room Air I&O Intake and Output 10/08/18 06:59 Intake Total 600 ml Balance 600 ml Intake Oral 600 ml # Voids 1 Current Medications: Meds: Current Medications Acetaminophen (Tylenol) 650 mg PRN Q6HRS PRN PO PAIN / TEMP; Start 09/08/18 at 13:30 Multi-Ingredient Ointment (Analgesic [place]) 1 blas PRN QID PRN TP MUSCLE PAIN; Start 09/08/18 at 13:30 Al Hydroxide/Mg Hydroxide (Mylanta Plus Xs) 15 ml PRN AFTMEALHC PRN PO DYSPEPSIA; Start 09/08/18 at 13:30 Magnesium Hydroxide (Milk Of Magnesia) 2,400 mg PRN QHS PRN PO CONSTIPATION Last administered on 09/26/18at 01:04; Start 09/08/18 at 13:30 Aspirin (Children'S Aspirin) 81 mg QHS PO Last administered on 10/08/18at 19:29; Start 09/08/18 at 21:00 Non-Formulary Medication (Dextromethorphan Hbr/Chlor-Mal (Coricidin Hbp Cough & Cold Tab)) 1 each PRN QID PRN PO COUGH; Start 09/08/18 at 13:45; Status UNV Donepezil HCl (Aricept) 10 mg QHS PO Last administered on 10/08/18 19:32; Start 09/08/18 at 21:00 Doxazosin Mesylate (Cardura) 4 mg QHS PO Last administered on 10/08/18at 19:29; Start 09/08/18 at 21:00 Finasteride (Proscar) 5 mg QHS PO Last administered on 10/08/18at 19:30; Start at 21:00 Lisinopril (Prinivil) 40 mg BID PO Last administered on 10/08/18 19:30; Start 09/08/18 at 21:00 Lorazepam (Ativan) 2 mg TID PO Last administered on 09/08/18 21:25; Start at 14:00; Stop 09/09/18 at 06:58; Status DC Losartan Potassium (Cozaar) 50 mg DAILY PO Last administered on 09/09/18at 08:19 ; Start 09/09/18 at 09:00; Stop 09/10/18 at 12:41; Status DC Losartan Potassium (Cozaar) 100 mg BID PO Last administered on 09/10/18 08:05; Start 09/08/18 at 21:00; Stop 09/10/18 at 12:41; Status DC Memantine (Namenda) 10 mg BID PO Last administered on 10/08/18at 19:29; Start at 21:00 Metformin HCl (Glucophage) 500 mg BIDWMEALS PO Last administered on 10/08/18 16 :51; Start 09/08/18 at 17:00 Multivitamins/ Calcium (Thera-M Plus) 1 tab DAILY PO Last administered on 08:09; Start 09/09/18 at 09:00 Metoprolol Tartrate (Lopressor) 25 mg BID PO Last administered on 09/09/18 08: 21; Start 09/08/18 at 21:00; Stop 09/09/18 at 09:58; Status DC Fish Oil (Fish Oil) 1,000 mg DAILY PO Last administered on 10/08/18 08:09; Start 09/09/18 at 09:00 Insulin Human Lispro (HumaLOG) 0-7 UNITS QIDACHS SQ Last administered on 11:48; Start 09/08/18 at 16:30; Stop 10/04/18 at 13:58; Status DC Dextrose 12.5 gm PRN Q15MIN PRN IV SEE COMMENTS; Start 09/08/18 at 14:00 Glyburide (Diabeta) 5 mg BIDWMEALS PO Last administered on 10/08/18 16:51; Start 09/09/18 at 08:00 Sertraline HCl (Zoloft) 100 mg BID PO Last administered on 09/12/18 07:40; Start 09/09/18 at 09:00; Stop 09/12/18 at 19:10; Status DC Lorazepam (Ativan) 1 mg TID PO Last administered on 09/11/18 20:16; Start 09/09 at 09:00; Stop 09/12/18 at 01:04; Status DC Divalproex Sodium (Depakote Sprinkles) 125 mg BIDWMEALS PO Last administered on 09/14/18 08:37; Start 09/09/18 at 17:00; Stop 09/14/18 at 16:37; Status DC Metoprolol Tartrate (Lopressor) 25 mg BID PO Last administered on 09/10/18 08: 06; Start 09/09/18 at 21:00; Stop 09/10/18 at 12:45; Status DC Metoprolol Tartrate (Lopressor) 50 mg BID PO Last administered on 09/14/18 19: 36; Start 09/10/18 at 21:00; Stop 09/15/18 at 16:09; Status DC Trazodone HCl (Desyrel) 50 mg PRN QHS PRN PO INSOMNIA Last administered on 09/23 23:23; Start 09/10/18 at 17:00; Stop 09/24/18 at 16:51; Status DC Mirtazapine (Remeron) 7.5 mg QHS PO Last administered on 09/18/18at 21:51; Start 09/10/18 at 21:00; Stop 09/19/18 at 00:07; Status DC Cephalexin HCl (Keflex) 500 mg TID PO Last administered on 09/21/18 08:15; Start 09/11/18 at 14:00; Stop 09/21/18 at 13:59; Status DC Lorazepam (Ativan) 0.75 mg DAILY PO Last administered on 10/08/18 08:09; Start 09/12/18 at 09:00 Lorazepam (Ativan) 1 mg BID@1300,2100 PO Last administered on 09/14/18 19:40; Start 09/12/18 at 13:00; Stop 09/14/18 at 21:01; Status DC Lorazepam (Ativan) 0.75 mg DAILY@1300 PO Last administered on 10/08/18 12:57; Start 09/15/18 at 13:00 Lorazepam (Ativan) 1 mg QHS PO Last administered on 09/17/18 18:43; Start at 21:00; Stop 09/17/18 at 21:01; Status DC Lorazepam (Ativan) 0.75 mg HS PO Last administered on 10/08/18 19:34; Start 09/18/18 at 21:00 Lactobacillus Rhamnosus (Culturelle) 1 cap BID PO Last administered on 09:38; Start 09/12/18 at 21:00; Stop 09/26/18 at 14:06; Status DC Sertraline HCl (Zoloft) 150 mg DAILY08 PO Last administered on 10/08/18 08:10; Start 09/13/18 at 08:00 Olanzapine (ZyPREXA ZYDIS) 5 mg PRN Q2HR PRN PO PSYCHOSIS Last administered on 10/05/18 16:36; Start 09/12/18 at 21:30 Divalproex Sodium (Depakote Sprinkles) 250 mg BIDWMEALS PO Last administered on 09/21/18 08:17; Start 09/14/18 at 17:00; Stop 09/21/18 at 16:47; Status DC Metoprolol Tartrate (Lopressor) 25 mg BID PO Last administered on 10/08/18 19: 29; Start 09/15/18 at 21:00 Trazodone HCl (Desyrel) 50 mg QHS PO Last administered on 09/23/18 19:40; Start 09/16/18 at 21:00; Stop 09/24/18 at 16:51; Status DC Mirtazapine (Remeron) 15 mg QHS PO Last administered on 10/08/18 19:29; Start 09/19/18 at 21:00 Medroxyprogesterone Acetate (Provera) 2.5 mg DAILY PO Last administered on 09/24 09:06; Start 09/21/18 at 09:00; Stop 09/24/18 at 16:51; Status DC Divalproex Sodium (Depakote Sprinkles) 375 mg BIDWMEALS PO Last administered on 09/25/18 17:11; Start 09/21/18 at 17:00; Stop 09/25/18 at 19:55; Status DC Medroxyprogesterone Acetate (Provera) 5 mg DAILY PO Last administered on 08:10; Start 09/25/18 at 09:00; Stop 10/08/18 at 16:40; Status DC Trazodone HCl (Desyrel) 100 mg PRN QHS PRN PO INSOMNIA Last administered on 19:12; Start 09/24/18 at 17:00; Stop 09/29/18 at 14:43; Status DC Trazodone HCl (Desyrel) 100 mg QHS PO Last administered on 09/28/18 19:11; Start 09/24/18 at 21:00; Stop 09/29/18 at 14:43; Status DC Divalproex Sodium (Depakote Sprinkles) 500 mg BIDWMEALS PO Last administered on 09/28/18at 17:56; Start 09/26/18 at 08:00; Stop 09/28/18 at 19:24; Status DC Trazodone HCl (Desyrel) 100 mg 1X ONCE PO Last administered on 09/26/18 20:31 ; Start 09/26/18 at 20:15; Stop 09/26/18 at 20:16; Status DC Melatonin 3 mg QHS PO Last administered on 10/08/18 19:29; Start 09/27/18 at 21 :00 Divalproex Sodium (Depakote Sprinkles) 750 mg BIDWMEALS PO Last administered on 10/05/18at 16:36; Start 09/29/18 at 08:00; Stop 10/05/18 at 17:15; Status DC Trazodone HCl (Desyrel) 150 mg PRN QHS PRN PO INSOMNIA; Start 09/29/18 at 15:00 Trazodone HCl (Desyrel) 150 mg QHS PO Last administered on 10/08/18 19:28; Start 09/29/18 at 21:00 Divalproex Sodium (Depakote Sprinkles) 1,000 mg BIDWMEALS PO Last administered on 10/08/18at 16:51; Start 10/06/18 at 08:00 Medroxyprogesterone Acetate (Provera) 7.5 mg DAILY PO ; Start 10/09/18 at 09:00 Active Scripts Active Reported Zoloft (Sertraline Hcl) 100 Mg Tablet 100 Mg PO BID [place] 3 Fish Oil Softgel ([place]-3 Fatty Acids/Fish Oil) 1 Each Capsule.dr 1 Each PO DAILY Bystolic (Nebivolol Hcl) 5 Mg Tablet 5 Mg PO DAILY Multivitamins (Multivitamin) 1 Each Tablet 1 Tab PO DAILY Metformin Hcl 500 Mg Tablet 500 Mg PO BIDWMEALS Namenda (Memantine Hcl) 10 Mg Tablet 10 Mg PO BID Ativan (Lorazepam) 2 Mg Tablet 1 Mg PO TID Lisinopril 40 Mg Tablet 40 Mg PO BID Glyburide 2.5 Mg Tablet 5 Mg PO BID Proscar (Finasteride) 5 Mg Tablet 5 Mg PO QHS Cardura (Doxazosin Mesylate) 4 Mg Tablet 4 Mg PO QHS Aricept (Donepezil Hcl) 10 Mg Tablet 10 Mg PO QHS Coricidin Hbp Cough & Cold Tab (Dextromethorphan Hbr/Chlor-Mal) 1 Each Tablet 1 Each PO PRN QID PRN Aspirin 81 Mg Tab.chew 81 Mg PO QHS I have reviewed the current psychotropics carefully including drug interactions. Risk benefit ratio favors no change other than as noted in my dictated progress note. Diagnosis: Problems: (1) Anxiety disorder (2) Dementia in Alzheimer's disease with delusions (3) Dementia in Alzheimer's disease with depression (4) Dementia, vascular, with delusions (5) Dementia, vascular, with depression (6) Impulse control disorder GERTRUDE HERNANDEZ MD Oct 08, 2018 21:51
--- NOTE | 2018-10-08 22:46 | PN ---
DATE: 10/07/2018 This late entry for 10/07/2018 covers elements not covered in my initial note. SUBJECTIVE: I met with the patient in the evening. The patient is staffed at a treatment team meeting with the entire team earlier in the day. The patient slept 5-3/4 hours. Appetite 85%, compliant with medications, aggressive in the morning, better if he sleeps until about 11:30 a.m. REVIEW OF SYSTEMS: No CV, , pulmonary, eye, ENT system symptoms on review. Reliability poor. MENTAL STATUS EXAM: Oriented to himself. Insight, judgment, recent and remote memory, attention, concentration, fund of knowledge poor, consistent with his diagnosis mentioned in my initial note. PLAN: No change from initial note, but may need to increase Provera if sexually inappropriate behaviors persist and Depakote if aggression resurfaces. MAN Alessandra HERNANDEZ MD DR: TIEN/priyank JOB#: [id number] / [id number]
--- NOTE | 2018-10-08 22:55 | PN ---
DATE: 10/06/2018 PSYCHIATRIC PROGRESS NOTE This late entry, 10/06/2018, covers elements not covered in my initial note. SUBJECTIVE: I met with the patient in the evening. The patient slept 5-1/2 hours previous night. He takes meds crushed in pudding, somewhat flirtatious with female nursing staff. The day before, he was kicking at nursing staff and I addressed this with him. Memory is impaired. REVIEW OF SYSTEMS: No CV, , pulmonary, eye, ENT system symptoms on review. Reliability poor. MENTAL STATUS EXAM: Oriented to himself. Insight, judgment, recent and remote memory, attention, concentration, fund of knowledge poor, consistent with his diagnosis mentioned in my initial note. PLAN: No change from initial note. He continues to be sexually inappropriate. We will increase the Provera and if the aggression persists, we may have to increase the Depakote as well since the level is slightly subtherapeutic at 40. MAN Alessandra HERNANDEZ MD DR: TIEN/priyank JOB#: [id number] / [id number]
[2018-10-09 05:49] VITALS: BP 166/78
[2018-10-09] MEDS: OMEGA-3 FATTY ACIDS/FISH OIL 1,000 MG CAPSULE. PO SCH (08:32)
[2018-10-09] MEDS: SERTRALINE 100 MG TABLET. PO SCH (08:32)
[2018-10-09] MEDS: METOPROLOL TART IMMED RELEASE 25 MG TABLET PO SCH ×2 (08:32→19:26)
[2018-10-09] MEDS: DIVALPROEX 125 MG CAP.SPRINK PO SCH ×2 (08:32→17:04)
[2018-10-09] MEDS: metFORMIN 500 MG TABLET PO SCH ×2 (08:32→17:04)
[2018-10-09] MEDS: MULTIVITAMIN with MINERAL TABLET. PO SCH (08:33)
[2018-10-09] MEDS: glyBURIDE 5 MG TABLET PO SCH ×2 (08:33→17:04)
[2018-10-09] MEDS: LISINOPRIL 20 MG TABLET PO SCH ×2 (08:33→19:26)
[2018-10-09] MEDS: MEMANTINE 10 MG TABLET. PO SCH ×2 (08:33→19:27)
[2018-10-09] MEDS: medroxyPROGESTERone 5 MG TABLET PO SCH (08:35)
[2018-10-09] MEDS: LORazepam 1 MG TABLET PO SCH ×3 (08:35→19:29)
[2018-10-09 09:49] LABS: BASO # 0.1 x10^3/uL (0.0-0.2); BASO % 1 % (0-3); EOS # 0.3 x10^3/uL (0.0-0.7); EOS % 6 % (0-3); HEMATOCRIT 41.1 % (39.0-53.0); HEMOGLOBIN 13.4 g/dL (13.0-17.5); LYMPH # 0.9 x10^3/uL (1.0-4.8); LYMPH % 16 % (24-48); MEAN CORPUSCULAR HEMOGLOBIN 28 pg (25-35); MEAN CORPUSCULAR HGB CONC 33 g/dL (31-37); MEAN CORPUSCULAR VOLUME 87 fL (79-100); MONO # 0.4 x10^3/uL (0.0-1.1); MONO % 7 % (0-9); NEUT % 71 % (31-73); PLATELET COUNT 200 x10^3/uL (140-400); RED BLOOD COUNT 4.72 x10^6/uL (4.30-5.70); RED CELL DISTRIBUTION WIDTH 16.3 % (11.5-14.5); WHITE BLOOD COUNT 5.6 x10^3/uL (4.0-11.0)
[2018-10-09 10:11] LABS: ALBUMIN 3.4 g/dL (3.4-5.0); ALBUMIN/GLOBULIN RATIO 0.9 (1.0-1.7); ALK PHOS 85 U/L (46-116); ALT (SGPT) 22 U/L (16-63); ANION GAP 7 (6-14); AST (SGOT) 25 U/L (15-37); BLOOD UREA NITROGEN 25 mg/dL (8-26); BUN/CREATININE RATIO 28 (6-20); CALCIUM 9.3 mg/dL (8.5-10.1); CARBON DIOXIDE 32 mmol/L (21-32); CHLORIDE 106 mmol/L (98-107); CREATININE 0.9 mg/dL (0.7-1.3); GFR 81.6; GLUCOSE 219 mg/dL (70-99); POTASSIUM 4.9 mmol/L (3.5-5.1); SODIUM 145 mmol/L (136-145); TOTAL BILIRUBIN 0.4 mg/dL (0.2-1.0); TOTAL PROTEIN 7.4 g/dL (6.4-8.2)
[2018-10-09 10:18] LABS: VAL ACID 53 mcg/mL (50-100)
[2018-10-09 15:33] VITALS: BP 127/84
[2018-10-09] MEDS: MIRTAZAPINE 7.5 MG TABLET. PO SCH (19:25)
[2018-10-09] MEDS: traZODone 150 MG TABLET. PO SCH (19:25)
[2018-10-09] MEDS: DOXAZOSIN MESYLATE 4 MG TABLET PO SCH (19:26)
[2018-10-09] MEDS: MELATONIN 3 MG TABLET PO SCH (19:26)
[2018-10-09] MEDS: DONEPEZIL HCL 10 MG TABLET PO SCH (19:26)
[2018-10-09] MEDS: FINASTERIDE 5 MG TABLET PO SCH (19:26)
[2018-10-09] MEDS: ASPIRIN 81 MG TAB.CHEW PO SCH (19:27)
--- NOTE | 2018-10-09 21:51 | PDOC ---
Exam Note: Roderick Note: Please also refer to the separate dictated note~for this date of service dictated separately.~Patient seen individually. Discussed the patient with Nursing staff reviewed the chart.~Reviewed interim history and current functioning. Reviewed vital signs,~Labs/ Radiology~and current medications noted below. Continue current treatment with the changes noted in the dictated addendum note Assessment: Vital Signs: Vital Signs Date Time Temp Pulse Resp B/P (MAP) Pulse Ox O2 Delivery O2 Flow Rate FiO2 10/09/18 19:26 81 127/84 10/09/18 15:33 98.1 15 93 10/09/18 05:49 Room Air I&O Intake and Output 10/09/18 06:59 Intake Total 600 ml Balance 600 ml Intake Oral 600 ml Labs: Laboratory Tests Test 10/09/18 09:35 White Blood Count 5.6 x10^3/uL (4.0-11.0) Red Blood Count 4.72 x10^6/uL (4.30-5.70) Hemoglobin 13.4 g/dL (13.0-17.5) Hematocrit 41.1 % (39.0-53.0) Mean Corpuscular Volume 87 fL (79-100) Mean Corpuscular Hemoglobin 28 pg (25-35) Mean Corpuscular Hemoglobin Concent 33 g/dL (31-37) Red Cell Distribution Width 16.3 % (11.5-14.5) H Platelet Count 200 x10^3/uL (140-400) Neutrophils (%) (Auto) 71 % (31-73) Lymphocytes (%) (Auto) 16 % (24-48) L Monocytes (%) (Auto) 7 % (0-9) Eosinophils (%) (Auto) 6 % (0-3) H Basophils (%) (Auto) 1 % (0-3) Neutrophils # (Auto) 4.0 x10^3uL (1.8-7.7) Lymphocytes # (Auto) 0.9 x10^3/uL (1.0-4.8) L Monocytes # (Auto) 0.4 x10^3/uL (0.0-1.1) Eosinophils # (Auto) 0.3 x10^3/uL (0.0-0.7) Basophils # (Auto) 0.1 x10^3/uL (0.0-0.2) Sodium Level 145 mmol/L (136-145) Potassium Level 4.9 mmol/L (3.5-5.1) Chloride Level 106 mmol/L (98-107) Carbon Dioxide Level 32 mmol/L (21-32) Anion Gap 7 (6-14) Blood Urea Nitrogen 25 mg/dL (8-26) Creatinine 0.9 mg/dL (0.7-1.3) Estimated GFR (Cockcroft-Gault) 81.6 BUN/Creatinine Ratio 28 (6-20) H Glucose Level 219 mg/dL (70-99) H Calcium Level 9.3 mg/dL (8.5-10.1) Total Bilirubin 0.4 mg/dL (0.2-1.0) Aspartate Amino Transferase (AST) 25 U/L (15-37) Alanine Aminotransferase (ALT) 22 U/L (16-63) Alkaline Phosphatase 85 U/L (46-116) Total Protein 7.4 g/dL (6.4-8.2) Albumin 3.4 g/dL (3.4-5.0) Albumin/Globulin Ratio 0.9 (1.0-1.7) L Valproic Acid Level 53 mcg/mL (50-100) Valproic Acid Last Dose Date 10/08/2018 Valproic Acid Last Dose Time 2100 Current Medications: Meds: Current Medications Acetaminophen (Tylenol) 650 mg PRN Q6HRS PRN PO PAIN / TEMP; Start 09/08/18 at 13:30 Multi-Ingredient Ointment (Analgesic [place]) 1 blas PRN QID PRN TP MUSCLE PAIN; Start 09/08/18 at 13:30 Al Hydroxide/Mg Hydroxide (Mylanta Plus Xs) 15 ml PRN AFTMEALHC PRN PO DYSPEPSIA; Start 09/08/18 at 13:30 Magnesium Hydroxide (Milk Of Magnesia) 2,400 mg PRN QHS PRN PO CONSTIPATION Last administered on 09/26/18at 01:04; Start 09/08/18 at 13:30 Aspirin (Children'S Aspirin) 81 mg QHS PO Last administered on 10/09/18at 19:27; Start 09/08/18 at 21:00 Non-Formulary Medication (Dextromethorphan Hbr/Chlor-Mal (Coricidin Hbp Cough & Cold Tab)) 1 each PRN QID PRN PO COUGH; Start 09/08/18 at 13:45; Status UNV Donepezil HCl (Aricept) 10 mg QHS PO Last administered on 10/09/18 19:26; Start 09/08/18 at 21:00; Stop 10/09/18 at 21:07; Status DC Doxazosin Mesylate (Cardura) 4 mg QHS PO Last administered on 10/09/18 19:26; Start 09/08/18 at 21:00 Finasteride (Proscar) 5 mg QHS PO Last administered on 10/09/18 19:26; Start at 21:00 Lisinopril (Prinivil) 40 mg BID PO Last administered on 10/09/18 19:26; Start 09/08/18 at 21:00 Lorazepam (Ativan) 2 mg TID PO Last administered on 09/08/18at 21:25; Start at 14:00; Stop 09/09/18 at 06:58; Status DC Losartan Potassium (Cozaar) 50 mg DAILY PO Last administered on 09/09/18 08:19 ; Start 09/09/18 at 09:00; Stop 09/10/18 at 12:41; Status DC Losartan Potassium (Cozaar) 100 mg BID PO Last administered on 09/10/18 08:05; Start 09/08/18 at 21:00; Stop 09/10/18 at 12:41; Status DC Memantine (Namenda) 10 mg BID PO Last administered on 10/09/18 19:27; Start at 21:00; Stop 10/09/18 at 21:07; Status DC Metformin HCl (Glucophage) 500 mg BIDWMEALS PO Last administered on 10/09/18 17 :04; Start 09/08/18 at 17:00 Multivitamins/ Calcium (Thera-M Plus) 1 tab DAILY PO Last administered on 08:33; Start 09/09/18 at 09:00 Metoprolol Tartrate (Lopressor) 25 mg BID PO Last administered on 09/09/18 08: 21; Start 09/08/18 at 21:00; Stop 09/09/18 at 09:58; Status DC Fish Oil (Fish Oil) 1,000 mg DAILY PO Last administered on 10/09/18 08:32; Start 09/09/18 at 09:00 Insulin Human Lispro (HumaLOG) 0-7 UNITS QIDACHS SQ Last administered on 11:48; Start 09/08/18 at 16:30; Stop 10/04/18 at 13:58; Status DC Dextrose 12.5 gm PRN Q15MIN PRN IV SEE COMMENTS; Start 09/08/18 at 14:00 Glyburide (Diabeta) 5 mg BIDWMEALS PO Last administered on 10/09/18 17:04; Start 09/09/18 at 08:00 Sertraline HCl (Zoloft) 100 mg BID PO Last administered on 09/12/18 07:40; Start 09/09/18 at 09:00; Stop 09/12/18 at 19:10; Status DC Lorazepam (Ativan) 1 mg TID PO Last administered on 09/11/18 20:16; Start 09/09 at 09:00; Stop 09/12/18 at 01:04; Status DC Divalproex Sodium (Depakote Sprinkles) 125 mg BIDWMEALS PO Last administered on 09/14/18 08:37; Start 09/09/18 at 17:00; Stop 09/14/18 at 16:37; Status DC Metoprolol Tartrate (Lopressor) 25 mg BID PO Last administered on 09/10/18 08: 06; Start 09/09/18 at 21:00; Stop 09/10/18 at 12:45; Status DC Metoprolol Tartrate (Lopressor) 50 mg BID PO Last administered on 09/14/18 19: 36; Start 09/10/18 at 21:00; Stop 09/15/18 at 16:09; Status DC Trazodone HCl (Desyrel) 50 mg PRN QHS PRN PO INSOMNIA Last administered on 09/23 23:23; Start 09/10/18 at 17:00; Stop 09/24/18 at 16:51; Status DC Mirtazapine (Remeron) 7.5 mg QHS PO Last administered on 09/18/18at 21:51; Start 09/10/18 at 21:00; Stop 09/19/18 at 00:07; Status DC Cephalexin HCl (Keflex) 500 mg TID PO Last administered on 09/21/18 08:15; Start 09/11/18 at 14:00; Stop 09/21/18 at 13:59; Status DC Lorazepam (Ativan) 0.75 mg DAILY PO Last administered on 10/09/18 08:35; Start 09/12/18 at 09:00 Lorazepam (Ativan) 1 mg BID@1300,2100 PO Last administered on 09/14/18 19:40; Start 09/12/18 at 13:00; Stop 09/14/18 at 21:01; Status DC Lorazepam (Ativan) 0.75 mg DAILY@1300 PO Last administered on 10/09/18 13:03; Start 09/15/18 at 13:00 Lorazepam (Ativan) 1 mg QHS PO Last administered on 09/17/18 18:43; Start at 21:00; Stop 09/17/18 at 21:01; Status DC Lorazepam (Ativan) 0.75 mg HS PO Last administered on 10/09/18 19:29; Start 09/18/18 at 21:00 Lactobacillus Rhamnosus (Culturelle) 1 cap BID PO Last administered on 09:38; Start 09/12/18 at 21:00; Stop 09/26/18 at 14:06; Status DC Sertraline HCl (Zoloft) 150 mg DAILY08 PO Last administered on 10/09/18 08:32; Start 09/13/18 at 08:00 Olanzapine (ZyPREXA ZYDIS) 5 mg PRN Q2HR PRN PO PSYCHOSIS Last administered on 10/09/18 18:31; Start 09/12/18 at 21:30 Divalproex Sodium (Depakote Sprinkles) 250 mg BIDWMEALS PO Last administered on 09/21/18 08:17; Start 09/14/18 at 17:00; Stop 09/21/18 at 16:47; Status DC Metoprolol Tartrate (Lopressor) 25 mg BID PO Last administered on 10/09/18 19: 26; Start 09/15/18 at 21:00 Trazodone HCl (Desyrel) 50 mg QHS PO Last administered on 09/23/18 19:40; Start 09/16/18 at 21:00; Stop 09/24/18 at 16:51; Status DC Mirtazapine (Remeron) 15 mg QHS PO Last administered on 10/09/18 19:25; Start 09/19/18 at 21:00 Medroxyprogesterone Acetate (Provera) 2.5 mg DAILY PO Last administered on 09/24at 09:06; Start 09/21/18 at 09:00; Stop 09/24/18 at 16:51; Status DC Divalproex Sodium (Depakote Sprinkles) 375 mg BIDWMEALS PO Last administered on 09/25/18 17:11; Start 09/21/18 at 17:00; Stop 09/25/18 at 19:55; Status DC Medroxyprogesterone Acetate (Provera) 5 mg DAILY PO Last administered on at 08:10; Start 09/25/18 at 09:00; Stop 10/08/18 at 16:40; Status DC Trazodone HCl (Desyrel) 100 mg PRN QHS PRN PO INSOMNIA Last administered on 19:12; Start 09/24/18 at 17:00; Stop 09/29/18 at 14:43; Status DC Trazodone HCl (Desyrel) 100 mg QHS PO Last administered on 09/28/18at 19:11; Start 09/24/18 at 21:00; Stop 09/29/18 at 14:43; Status DC Divalproex Sodium (Depakote Sprinkles) 500 mg BIDWMEALS PO Last administered on 09/28/18at 17:56; Start 09/26/18 at 08:00; Stop 09/28/18 at 19:24; Status DC Trazodone HCl (Desyrel) 100 mg 1X ONCE PO Last administered on 09/26/18at 20:31 ; Start 09/26/18 at 20:15; Stop 09/26/18 at 20:16; Status DC Melatonin 3 mg QHS PO Last administered on 10/09/18 19:26; Start 09/27/18 at 21 :00 Divalproex Sodium (Depakote Sprinkles) 750 mg BIDWMEALS PO Last administered on 10/05/18at 16:36; Start 09/29/18 at 08:00; Stop 10/05/18 at 17:15; Status DC Trazodone HCl (Desyrel) 150 mg PRN QHS PRN PO INSOMNIA; Start 09/29/18 at 15:00 Trazodone HCl (Desyrel) 150 mg QHS PO Last administered on 10/09/18at 19:25; Start 09/29/18 at 21:00 Divalproex Sodium (Depakote Sprinkles) 1,000 mg BIDWMEALS PO Last administered on 10/09/18at 17:04; Start 10/06/18 at 08:00 Medroxyprogesterone Acetate (Provera) 7.5 mg DAILY PO Last administered on at 08:35; Start 10/09/18 at 09:00 Quetiapine Fumarate (SEROquel) 25 mg DAILYWSUP PO ; Start 10/10/18 at 17:00 Active Scripts Active Reported Zoloft (Sertraline Hcl) 100 Mg Tablet 100 Mg PO BID [place] 3 Fish Oil Softgel ([place]-3 Fatty Acids/Fish Oil) 1 Each Capsule.dr 1 Each PO DAILY Bystolic (Nebivolol Hcl) 5 Mg Tablet 5 Mg PO DAILY Multivitamins (Multivitamin) 1 Each Tablet 1 Tab PO DAILY Metformin Hcl 500 Mg Tablet 500 Mg PO BIDWMEALS Namenda (Memantine Hcl) 10 Mg Tablet 10 Mg PO BID Ativan (Lorazepam) 2 Mg Tablet 1 Mg PO TID Lisinopril 40 Mg Tablet 40 Mg PO BID Glyburide 2.5 Mg Tablet 5 Mg PO BID Proscar (Finasteride) 5 Mg Tablet 5 Mg PO QHS Cardura (Doxazosin Mesylate) 4 Mg Tablet 4 Mg PO QHS Aricept (Donepezil Hcl) 10 Mg Tablet 10 Mg PO QHS Coricidin Hbp Cough & Cold Tab (Dextromethorphan Hbr/Chlor-Mal) 1 Each Tablet 1 Each PO PRN QID PRN Aspirin 81 Mg Tab.chew 81 Mg PO QHS I have reviewed the current psychotropics carefully including drug interactions. Risk benefit ratio favors no change other than as noted in my dictated progress note. Diagnosis: Problems: (1) Anxiety disorder (2) Dementia in Alzheimer's disease with delusions (3) Dementia in Alzheimer's disease with depression (4) Dementia, vascular, with delusions (5) Dementia, vascular, with depression (6) Impulse control disorder GERTRUDE HERNANDEZ MD Oct 09, 2018 21:51
[2018-10-10 05:59] VITALS: BP 158/93
[2018-10-10] MEDS: medroxyPROGESTERone 5 MG TABLET PO SCH (08:32)
[2018-10-10] MEDS: OMEGA-3 FATTY ACIDS/FISH OIL 1,000 MG CAPSULE. PO SCH (08:32)
[2018-10-10] MEDS: LORazepam 1 MG TABLET PO SCH ×3 (08:32→19:52)
[2018-10-10] MEDS: MULTIVITAMIN with MINERAL TABLET. PO SCH (08:32)
[2018-10-10] MEDS: metFORMIN 500 MG TABLET PO SCH ×2 (08:32→17:18)
[2018-10-10] MEDS: METOPROLOL TART IMMED RELEASE 25 MG TABLET PO SCH ×2 (08:33→19:50)
[2018-10-10] MEDS: LISINOPRIL 20 MG TABLET PO SCH ×2 (08:33→19:49)
[2018-10-10] MEDS: SERTRALINE 100 MG TABLET. PO SCH (08:33)
[2018-10-10] MEDS: DIVALPROEX 125 MG CAP.SPRINK PO SCH ×2 (08:34→17:18)
[2018-10-10] MEDS: glyBURIDE 5 MG TABLET PO SCH ×2 (08:34→17:18)
[2018-10-10 16:07] VITALS: BP 127/71
[2018-10-10] MEDS: QUEtiapine 25 MG TABLET. PO SCH (17:18)
[2018-10-10] MEDS: MIRTAZAPINE 7.5 MG TABLET. PO SCH (19:48)
[2018-10-10] MEDS: MELATONIN 3 MG TABLET PO SCH (19:50)
[2018-10-10] MEDS: ASPIRIN 81 MG TAB.CHEW PO SCH (19:50)
[2018-10-10] MEDS: traZODone 150 MG TABLET. PO SCH (19:50)
[2018-10-10] MEDS: DOXAZOSIN MESYLATE 4 MG TABLET PO SCH (19:50)
[2018-10-10] MEDS: FINASTERIDE 5 MG TABLET PO SCH (19:51)
--- NOTE | 2018-10-10 22:03 | PN ---
DATE: 10/08/2018 PSYCHIATRIC PROGRESS NOTE This late entry 10/08/2018 covers elements not covered in my initial note. SUBJECTIVE: I met with the patient in the evening. The patient slept 5-3/4 hours previous night, slept in the morning, took a shower, was quite resistive, later was better. He is telling female nursing staff to come, sit on his lap "I know what you want." He has been trying to touch female nursing staff sexually as well per nursing report. Compliant with medications. REVIEW OF SYSTEMS: No CV, , pulmonary, eye, ENT system symptoms on review. Reliability poor. MENTAL STATUS EXAM: Oriented to himself. Insight, judgment, recent and remote memory, attention, concentration, fund of knowledge poor, consistent with his diagnosis mentioned in my initial note. PLAN: Increase Provera from 5 mg a day to 7.5 mg a day. Rest unchanged. MAN Alessandra HERNANDEZ MD DR: TIEN/priyank JOB#: [id number] / [id number]
--- NOTE | 2018-10-10 22:40 | PDOC ---
Exam Note: Roderick Note: Please also refer to the separate dictated note~for this date of service dictated separately.~Patient seen individually. Discussed the patient with Nursing staff reviewed the chart.~Reviewed interim history and current functioning. Reviewed vital signs,~Labs/ Radiology~and current medications noted below. Continue current treatment with the changes noted in the dictated addendum note Assessment: Vital Signs: Vital Signs Date Time Temp Pulse Resp B/P (MAP) Pulse Ox O2 Delivery O2 Flow Rate FiO2 10/10/18 19:50 67 127/71 10/10/18 16:07 97.4 18 93 10/09/18 05:49 Room Air I&O Intake and Output 10/10/18 07:00 Intake Total 980 ml Balance 980 ml Intake Oral 980 ml Current Medications: Meds: Current Medications Acetaminophen (Tylenol) 650 mg PRN Q6HRS PRN PO PAIN / TEMP; Start 09/08/18 at 13:30 Multi-Ingredient Ointment (Analgesic [place]) 1 blas PRN QID PRN TP MUSCLE PAIN; Start 09/08/18 at 13:30 Al Hydroxide/Mg Hydroxide (Mylanta Plus Xs) 15 ml PRN AFTMEALHC PRN PO DYSPEPSIA; Start 09/08/18 at 13:30 Magnesium Hydroxide (Milk Of Magnesia) 2,400 mg PRN QHS PRN PO CONSTIPATION Last administered on 09/26/18at 01:04; Start 09/08/18 at 13:30 Aspirin (Children'S Aspirin) 81 mg QHS PO Last administered on 10/10/18at 19:50; Start 09/08/18 at 21:00 Non-Formulary Medication (Dextromethorphan Hbr/Chlor-Mal (Coricidin Hbp Cough & Cold Tab)) 1 each PRN QID PRN PO COUGH; Start 09/08/18 at 13:45; Status UNV Donepezil HCl (Aricept) 10 mg QHS PO Last administered on 10/09/18at 19:26; Start 09/08/18 at 21:00; Stop 10/09/18 at 21:07; Status DC Doxazosin Mesylate (Cardura) 4 mg QHS PO Last administered on 10/10/18at 19:50; Start 09/08/18 at 21:00 Finasteride (Proscar) 5 mg QHS PO Last administered on 10/10/18 19:51; Start at 21:00 Lisinopril (Prinivil) 40 mg BID PO Last administered on 10/10/18 19:49; Start 09/08/18 at 21:00 Lorazepam (Ativan) 2 mg TID PO Last administered on 09/08/18 21:25; Start at 14:00; Stop 09/09/18 at 06:58; Status DC Losartan Potassium (Cozaar) 50 mg DAILY PO Last administered on 09/09/18 08:19 ; Start 09/09/18 at 09:00; Stop 09/10/18 at 12:41; Status DC Losartan Potassium (Cozaar) 100 mg BID PO Last administered on 09/10/18 08:05; Start 09/08/18 at 21:00; Stop 09/10/18 at 12:41; Status DC Memantine (Namenda) 10 mg BID PO Last administered on 10/09/18 19:27; Start at 21:00; Stop 10/09/18 at 21:07; Status DC Metformin HCl (Glucophage) 500 mg BIDWMEALS PO Last administered on 10/10/18 17 :18; Start 09/08/18 at 17:00 Multivitamins/ Calcium (Thera-M Plus) 1 tab DAILY PO Last administered on 08:32; Start 09/09/18 at 09:00 Metoprolol Tartrate (Lopressor) 25 mg BID PO Last administered on 09/09/18 08: 21; Start 09/08/18 at 21:00; Stop 09/09/18 at 09:58; Status DC Fish Oil (Fish Oil) 1,000 mg DAILY PO Last administered on 10/10/18 08:32; Start 09/09/18 at 09:00 Insulin Human Lispro (HumaLOG) 0-7 UNITS QIDACHS SQ Last administered on 11:48; Start 09/08/18 at 16:30; Stop 10/04/18 at 13:58; Status DC Dextrose 12.5 gm PRN Q15MIN PRN IV SEE COMMENTS; Start 09/08/18 at 14:00 Glyburide (Diabeta) 5 mg BIDWMEALS PO Last administered on 10/10/18 17:18; Start 09/09/18 at 08:00 Sertraline HCl (Zoloft) 100 mg BID PO Last administered on 09/12/18 07:40; Start 09/09/18 at 09:00; Stop 09/12/18 at 19:10; Status DC Lorazepam (Ativan) 1 mg TID PO Last administered on 09/11/18 20:16; Start 09/09 at 09:00; Stop 09/12/18 at 01:04; Status DC Divalproex Sodium (Depakote Sprinkles) 125 mg BIDWMEALS PO Last administered on 09/14/18 08:37; Start 09/09/18 at 17:00; Stop 09/14/18 at 16:37; Status DC Metoprolol Tartrate (Lopressor) 25 mg BID PO Last administered on 09/10/18 08: 06; Start 09/09/18 at 21:00; Stop 09/10/18 at 12:45; Status DC Metoprolol Tartrate (Lopressor) 50 mg BID PO Last administered on 09/14/18 19: 36; Start 09/10/18 at 21:00; Stop 09/15/18 at 16:09; Status DC Trazodone HCl (Desyrel) 50 mg PRN QHS PRN PO INSOMNIA Last administered on 09/23 23:23; Start 09/10/18 at 17:00; Stop 09/24/18 at 16:51; Status DC Mirtazapine (Remeron) 7.5 mg QHS PO Last administered on 09/18/18 21:51; Start 09/10/18 at 21:00; Stop 09/19/18 at 00:07; Status DC Cephalexin HCl (Keflex) 500 mg TID PO Last administered on 09/21/18 08:15; Start 09/11/18 at 14:00; Stop 09/21/18 at 13:59; Status DC Lorazepam (Ativan) 0.75 mg DAILY PO Last administered on 10/10/18 08:32; Start 09/12/18 at 09:00 Lorazepam (Ativan) 1 mg BID@1300,2100 PO Last administered on 09/14/18 19:40; Start 09/12/18 at 13:00; Stop 09/14/18 at 21:01; Status DC Lorazepam (Ativan) 0.75 mg DAILY@1300 PO Last administered on 10/10/18 12:55; Start 09/15/18 at 13:00 Lorazepam (Ativan) 1 mg QHS PO Last administered on 09/17/18 18:43; Start at 21:00; Stop 09/17/18 at 21:01; Status DC Lorazepam (Ativan) 0.75 mg HS PO Last administered on 10/10/18 19:52; Start 09/18/18 at 21:00 Lactobacillus Rhamnosus (Culturelle) 1 cap BID PO Last administered on 09:38; Start 09/12/18 at 21:00; Stop 09/26/18 at 14:06; Status DC Sertraline HCl (Zoloft) 150 mg DAILY08 PO Last administered on 10/10/18 08:33; Start 09/13/18 at 08:00 Olanzapine (ZyPREXA ZYDIS) 5 mg PRN Q2HR PRN PO PSYCHOSIS Last administered on 10/10/18 10:15; Start 09/12/18 at 21:30 Divalproex Sodium (Depakote Sprinkles) 250 mg BIDWMEALS PO Last administered on 09/21/18 08:17; Start 09/14/18 at 17:00; Stop 09/21/18 at 16:47; Status DC Metoprolol Tartrate (Lopressor) 25 mg BID PO Last administered on 10/10/18 19: 50; Start 09/15/18 at 21:00 Trazodone HCl (Desyrel) 50 mg QHS PO Last administered on 09/23/18 19:40; Start 09/16/18 at 21:00; Stop 09/24/18 at 16:51; Status DC Mirtazapine (Remeron) 15 mg QHS PO Last administered on 10/10/18 19:48; Start 09/19/18 at 21:00 Medroxyprogesterone Acetate (Provera) 2.5 mg DAILY PO Last administered on 09/24 09:06; Start 09/21/18 at 09:00; Stop 09/24/18 at 16:51; Status DC Divalproex Sodium (Depakote Sprinkles) 375 mg BIDWMEALS PO Last administered on 09/25/18at 17:11; Start 09/21/18 at 17:00; Stop 09/25/18 at 19:55; Status DC Medroxyprogesterone Acetate (Provera) 5 mg DAILY PO Last administered on at 08:10; Start 09/25/18 at 09:00; Stop 10/08/18 at 16:40; Status DC Trazodone HCl (Desyrel) 100 mg PRN QHS PRN PO INSOMNIA Last administered on at 19:12; Start 09/24/18 at 17:00; Stop 09/29/18 at 14:43; Status DC Trazodone HCl (Desyrel) 100 mg QHS PO Last administered on 09/28/18at 19:11; Start 09/24/18 at 21:00; Stop 09/29/18 at 14:43; Status DC Divalproex Sodium (Depakote Sprinkles) 500 mg BIDWMEALS PO Last administered on 09/28/18at 17:56; Start 09/26/18 at 08:00; Stop 09/28/18 at 19:24; Status DC Trazodone HCl (Desyrel) 100 mg 1X ONCE PO Last administered on 09/26/18at 20:31 ; Start 09/26/18 at 20:15; Stop 09/26/18 at 20:16; Status DC Melatonin 3 mg QHS PO Last administered on 10/10/18at 19:50; Start 09/27/18 at 21 :00 Divalproex Sodium (Depakote Sprinkles) 750 mg BIDWMEALS PO Last administered on 10/05/18at 16:36; Start 09/29/18 at 08:00; Stop 10/05/18 at 17:15; Status DC Trazodone HCl (Desyrel) 150 mg PRN QHS PRN PO INSOMNIA; Start 09/29/18 at 15:00 Trazodone HCl (Desyrel) 150 mg QHS PO Last administered on 10/10/18at 19:50; Start 09/29/18 at 21:00 Divalproex Sodium (Depakote Sprinkles) 1,000 mg BIDWMEALS PO Last administered on 10/10/18at 17:18; Start 10/06/18 at 08:00 Medroxyprogesterone Acetate (Provera) 7.5 mg DAILY PO Last administered on at 08:32; Start 10/09/18 at 09:00 Quetiapine Fumarate (SEROquel) 25 mg DAILYWSUP PO Last administered on at 17:18; Start 10/10/18 at 17:00 Active Scripts Active Reported Zoloft (Sertraline Hcl) 100 Mg Tablet 100 Mg PO BID [place] 3 Fish Oil Softgel ([place]-3 Fatty Acids/Fish Oil) 1 Each Capsule.dr 1 Each PO DAILY Bystolic (Nebivolol Hcl) 5 Mg Tablet 5 Mg PO DAILY Multivitamins (Multivitamin) 1 Each Tablet 1 Tab PO DAILY Metformin Hcl 500 Mg Tablet 500 Mg PO BIDWMEALS Namenda (Memantine Hcl) 10 Mg Tablet 10 Mg PO BID Ativan (Lorazepam) 2 Mg Tablet 1 Mg PO TID Lisinopril 40 Mg Tablet 40 Mg PO BID Glyburide 2.5 Mg Tablet 5 Mg PO BID Proscar (Finasteride) 5 Mg Tablet 5 Mg PO QHS Cardura (Doxazosin Mesylate) 4 Mg Tablet 4 Mg PO QHS Aricept (Donepezil Hcl) 10 Mg Tablet 10 Mg PO QHS Coricidin Hbp Cough & Cold Tab (Dextromethorphan Hbr/Chlor-Mal) 1 Each Tablet 1 Each PO PRN QID PRN Aspirin 81 Mg Tab.chew 81 Mg PO QHS I have reviewed the current psychotropics carefully including drug interactions. Risk benefit ratio favors no change other than as noted in my dictated progress note. Diagnosis: Problems: (1) Anxiety disorder (2) Dementia in Alzheimer's disease with delusions (3) Dementia in Alzheimer's disease with depression (4) Dementia, vascular, with delusions (5) Dementia, vascular, with depression (6) Impulse control disorder GERTRUDE HERNANDEZ MD Oct 10, 2018 22:40
[2018-10-11 05:45] VITALS: BP 158/85
[2018-10-11] MEDS: medroxyPROGESTERone 5 MG TABLET PO SCH (07:59)
[2018-10-11] MEDS: LORazepam 1 MG TABLET PO SCH ×3 (07:59→20:02)
[2018-10-11] MEDS: OMEGA-3 FATTY ACIDS/FISH OIL 1,000 MG CAPSULE. PO SCH (08:00)
[2018-10-11] MEDS: metFORMIN 500 MG TABLET PO SCH ×2 (08:00→16:12)
[2018-10-11] MEDS: SERTRALINE 100 MG TABLET. PO SCH (08:00)
[2018-10-11] MEDS: MULTIVITAMIN with MINERAL TABLET. PO SCH (08:00)
[2018-10-11] MEDS: glyBURIDE 5 MG TABLET PO SCH ×2 (08:00→16:12)
[2018-10-11] MEDS: DIVALPROEX 125 MG CAP.SPRINK PO SCH ×2 (08:01→16:12)
[2018-10-11] MEDS: METOPROLOL TART IMMED RELEASE 25 MG TABLET PO SCH ×2 (08:01→20:12)
[2018-10-11] MEDS: LISINOPRIL 20 MG TABLET PO SCH ×2 (08:02→20:11)
[2018-10-11 16:04] VITALS: BP 114/70
[2018-10-11] MEDS: QUEtiapine 25 MG TABLET. PO SCH (16:12)
[2018-10-11] MEDS: MELATONIN 3 MG TABLET PO SCH (20:00)
[2018-10-11] MEDS: ASPIRIN 81 MG TAB.CHEW PO SCH (20:00)
[2018-10-11] MEDS: traZODone 150 MG TABLET. PO SCH (20:00)
[2018-10-11] MEDS: MIRTAZAPINE 7.5 MG TABLET. PO SCH (20:00)
[2018-10-11] MEDS: FINASTERIDE 5 MG TABLET PO SCH (20:00)
[2018-10-11] MEDS: DOXAZOSIN MESYLATE 4 MG TABLET PO SCH (20:11)
--- NOTE | 2018-10-11 21:28 | PN ---
DATE: 10/09/2018 PSYCHIATRIC PROGRESS NOTE This late entry 10/09/2018 covers elements not covered in my initial note. SUBJECTIVE: I met with the patient in the evening. The patient slept 7 hours previous night. Around 6:00 p.m., he was extremely aggressive with staff, had to be placed in the [facility] to reduce stimuli, took his meds crushed in pudding, remains confused. No sexually aggressive behaviors noted. Valproic acid level 53 on 10/09/2018. REVIEW OF SYSTEMS: No CV, , pulmonary, eye, ENT system symptoms on review. Reliability poor. MENTAL STATUS EXAM: Oriented to himself. Insight, judgment, recent and remote memory, attention, concentration, fund of knowledge poor, consistent with his diagnosis mentioned in my initial note. PLAN: Change the Seroquel to 25 mg at 5 p.m. Stop the Aricept and Namenda as they probably have little beneficial effect. Continue rest of the psychotropics including Depakote level is therapeutic. MAN Alessandra HERNANDEZ MD DR: TIEN/priyank JOB#: [id number] / [id number]
--- NOTE | 2018-10-11 21:32 | PN ---
DATE: 10/10/2018 PSYCHIATRIC PROGRESS NOTE This late entry 10/10/2018 covers elements not covered in my initial note. SUBJECTIVE: I met with the patient in the evening. The patient slept 6-3/4 hours previous night. On further review, slept 7-3/4 hours previous night. [facility] irritable after breakfast, paranoid, but states the staff is doing this, so that to him per nursing report, received Zyprexa at 10:15 a.m., then did better, making inappropriate sexual statements to female staff members. REVIEW OF SYSTEMS: No CV, , pulmonary, eye, ENT system symptoms on review. Reliability poor. MENTAL STATUS EXAM: Oriented to himself. Insight, judgment, recent and remote memory, attention, concentration, fund of knowledge poor, consistent with his diagnosis mentioned in my initial note. PLAN: No change from initial note. MAN Alessandra HERNANDEZ MD DR: TIEN/priyank JOB#: [id number] / [id number]
--- NOTE | 2018-10-11 22:33 | PDOC ---
Exam Note: Roderick Note: Please also refer to the separate dictated note~for this date of service dictated separately.~Patient seen individually. Discussed the patient with Nursing staff reviewed the chart.~Reviewed interim history and current functioning. Reviewed vital signs,~Labs/ Radiology~and current medications noted below. Continue current treatment with the changes noted in the dictated addendum note Assessment: Vital Signs: Vital Signs Date Time Temp Pulse Resp B/P (MAP) Pulse Ox O2 Delivery O2 Flow Rate FiO2 10/11/18 20:12 80 183/80 10/11/18 16:04 97.3 18 92 10/09/18 05:49 Room Air I&O Intake and Output 10/11/18 06:59 Intake Total 1080 ml Balance 1080 ml Intake Oral 1080 ml Current Medications: Meds: Current Medications Acetaminophen (Tylenol) 650 mg PRN Q6HRS PRN PO PAIN / TEMP; Start 09/08/18 at 13:30 Multi-Ingredient Ointment (Analgesic [place]) 1 blas PRN QID PRN TP MUSCLE PAIN; Start 09/08/18 at 13:30 Al Hydroxide/Mg Hydroxide (Mylanta Plus Xs) 15 ml PRN AFTMEALHC PRN PO DYSPEPSIA; Start 09/08/18 at 13:30 Magnesium Hydroxide (Milk Of Magnesia) 2,400 mg PRN QHS PRN PO CONSTIPATION Last administered on 09/26/18at 01:04; Start 09/08/18 at 13:30 Aspirin (Children'S Aspirin) 81 mg QHS PO Last administered on 10/11/18at 20:00; Start 09/08/18 at 21:00 Non-Formulary Medication (Dextromethorphan Hbr/Chlor-Mal (Coricidin Hbp Cough & Cold Tab)) 1 each PRN QID PRN PO COUGH; Start 09/08/18 at 13:45; Status UNV Donepezil HCl (Aricept) 10 mg QHS PO Last administered on 10/09/18at 19:26; Start 09/08/18 at 21:00; Stop 10/09/18 at 21:07; Status DC Doxazosin Mesylate (Cardura) 4 mg QHS PO Last administered on 10/11/18at 20:11; Start 09/08/18 at 21:00 Finasteride (Proscar) 5 mg QHS PO Last administered on 10/11/18 20:00; Start at 21:00 Lisinopril (Prinivil) 40 mg BID PO Last administered on 10/11/18 20:11; Start 09/08/18 at 21:00 Lorazepam (Ativan) 2 mg TID PO Last administered on 09/08/18 21:25; Start at 14:00; Stop 09/09/18 at 06:58; Status DC Losartan Potassium (Cozaar) 50 mg DAILY PO Last administered on 09/09/18 08:19 ; Start 09/09/18 at 09:00; Stop 09/10/18 at 12:41; Status DC Losartan Potassium (Cozaar) 100 mg BID PO Last administered on 09/10/18 08:05; Start 09/08/18 at 21:00; Stop 09/10/18 at 12:41; Status DC Memantine (Namenda) 10 mg BID PO Last administered on 10/09/18 19:27; Start at 21:00; Stop 10/09/18 at 21:07; Status DC Metformin HCl (Glucophage) 500 mg BIDWMEALS PO Last administered on 10/11/18 16 :12; Start 09/08/18 at 17:00 Multivitamins/ Calcium (Thera-M Plus) 1 tab DAILY PO Last administered on 08:00; Start 09/09/18 at 09:00 Metoprolol Tartrate (Lopressor) 25 mg BID PO Last administered on 09/09/18 08: 21; Start 09/08/18 at 21:00; Stop 09/09/18 at 09:58; Status DC Fish Oil (Fish Oil) 1,000 mg DAILY PO Last administered on 10/11/18 08:00; Start 09/09/18 at 09:00 Insulin Human Lispro (HumaLOG) 0-7 UNITS QIDACHS SQ Last administered on 11:48; Start 09/08/18 at 16:30; Stop 10/04/18 at 13:58; Status DC Dextrose 12.5 gm PRN Q15MIN PRN IV SEE COMMENTS; Start 09/08/18 at 14:00 Glyburide (Diabeta) 5 mg BIDWMEALS PO Last administered on 10/11/18 16:12; Start 09/09/18 at 08:00 Sertraline HCl (Zoloft) 100 mg BID PO Last administered on 09/12/18 07:40; Start 09/09/18 at 09:00; Stop 09/12/18 at 19:10; Status DC Lorazepam (Ativan) 1 mg TID PO Last administered on 09/11/18 20:16; Start 09/09 at 09:00; Stop 09/12/18 at 01:04; Status DC Divalproex Sodium (Depakote Sprinkles) 125 mg BIDWMEALS PO Last administered on 09/14/18 08:37; Start 09/09/18 at 17:00; Stop 09/14/18 at 16:37; Status DC Metoprolol Tartrate (Lopressor) 25 mg BID PO Last administered on 09/10/18 08: 06; Start 09/09/18 at 21:00; Stop 09/10/18 at 12:45; Status DC Metoprolol Tartrate (Lopressor) 50 mg BID PO Last administered on 09/14/18 19: 36; Start 09/10/18 at 21:00; Stop 09/15/18 at 16:09; Status DC Trazodone HCl (Desyrel) 50 mg PRN QHS PRN PO INSOMNIA Last administered on 09/23 23:23; Start 09/10/18 at 17:00; Stop 09/24/18 at 16:51; Status DC Mirtazapine (Remeron) 7.5 mg QHS PO Last administered on 09/18/18 21:51; Start 09/10/18 at 21:00; Stop 09/19/18 at 00:07; Status DC Cephalexin HCl (Keflex) 500 mg TID PO Last administered on 09/21/18 08:15; Start 09/11/18 at 14:00; Stop 09/21/18 at 13:59; Status DC Lorazepam (Ativan) 0.75 mg DAILY PO Last administered on 10/11/18 07:59; Start 09/12/18 at 09:00 Lorazepam (Ativan) 1 mg BID@1300,2100 PO Last administered on 09/14/18 19:40; Start 09/12/18 at 13:00; Stop 09/14/18 at 21:01; Status DC Lorazepam (Ativan) 0.75 mg DAILY@1300 PO Last administered on 10/11/18 12:03; Start 09/15/18 at 13:00 Lorazepam (Ativan) 1 mg QHS PO Last administered on 09/17/18 18:43; Start at 21:00; Stop 09/17/18 at 21:01; Status DC Lorazepam (Ativan) 0.75 mg HS PO Last administered on 10/11/18 20:02; Start 09/18/18 at 21:00 Lactobacillus Rhamnosus (Culturelle) 1 cap BID PO Last administered on 09:38; Start 09/12/18 at 21:00; Stop 09/26/18 at 14:06; Status DC Sertraline HCl (Zoloft) 150 mg DAILY08 PO Last administered on 10/11/18 08:00; Start 09/13/18 at 08:00 Olanzapine (ZyPREXA ZYDIS) 5 mg PRN Q2HR PRN PO PSYCHOSIS Last administered on 10/11/18 20:14; Start 09/12/18 at 21:30 Divalproex Sodium (Depakote Sprinkles) 250 mg BIDWMEALS PO Last administered on 09/21/18 08:17; Start 09/14/18 at 17:00; Stop 09/21/18 at 16:47; Status DC Metoprolol Tartrate (Lopressor) 25 mg BID PO Last administered on 10/11/18 20: 12; Start 09/15/18 at 21:00 Trazodone HCl (Desyrel) 50 mg QHS PO Last administered on 09/23/18 19:40; Start 09/16/18 at 21:00; Stop 09/24/18 at 16:51; Status DC Mirtazapine (Remeron) 15 mg QHS PO Last administered on 10/11/18 20:00; Start 09/19/18 at 21:00 Medroxyprogesterone Acetate (Provera) 2.5 mg DAILY PO Last administered on 09/24 09:06; Start 09/21/18 at 09:00; Stop 09/24/18 at 16:51; Status DC Divalproex Sodium (Depakote Sprinkles) 375 mg BIDWMEALS PO Last administered on 09/25/18at 17:11; Start 09/21/18 at 17:00; Stop 09/25/18 at 19:55; Status DC Medroxyprogesterone Acetate (Provera) 5 mg DAILY PO Last administered on at 08:10; Start 09/25/18 at 09:00; Stop 10/08/18 at 16:40; Status DC Trazodone HCl (Desyrel) 100 mg PRN QHS PRN PO INSOMNIA Last administered on at 19:12; Start 09/24/18 at 17:00; Stop 09/29/18 at 14:43; Status DC Trazodone HCl (Desyrel) 100 mg QHS PO Last administered on 09/28/18at 19:11; Start 09/24/18 at 21:00; Stop 09/29/18 at 14:43; Status DC Divalproex Sodium (Depakote Sprinkles) 500 mg BIDWMEALS PO Last administered on 09/28/18at 17:56; Start 09/26/18 at 08:00; Stop 09/28/18 at 19:24; Status DC Trazodone HCl (Desyrel) 100 mg 1X ONCE PO Last administered on 09/26/18at 20:31 ; Start 09/26/18 at 20:15; Stop 09/26/18 at 20:16; Status DC Melatonin 3 mg QHS PO Last administered on 10/11/18 20:00; Start 09/27/18 at 21 :00 Divalproex Sodium (Depakote Sprinkles) 750 mg BIDWMEALS PO Last administered on 10/05/18at 16:36; Start 09/29/18 at 08:00; Stop 10/05/18 at 17:15; Status DC Trazodone HCl (Desyrel) 150 mg PRN QHS PRN PO INSOMNIA; Start 09/29/18 at 15:00 Trazodone HCl (Desyrel) 150 mg QHS PO Last administered on 10/11/18at 20:00; Start 09/29/18 at 21:00 Divalproex Sodium (Depakote Sprinkles) 1,000 mg BIDWMEALS PO Last administered on 10/11/18at 16:12; Start 10/06/18 at 08:00 Medroxyprogesterone Acetate (Provera) 7.5 mg DAILY PO Last administered on at 07:59; Start 10/09/18 at 09:00 Quetiapine Fumarate (SEROquel) 25 mg DAILYWSUP PO Last administered on at 16:12; Start 10/10/18 at 17:00 Active Scripts Active Reported Zoloft (Sertraline Hcl) 100 Mg Tablet 100 Mg PO BID [place] 3 Fish Oil Softgel ([place]-3 Fatty Acids/Fish Oil) 1 Each Capsule.dr 1 Each PO DAILY Bystolic (Nebivolol Hcl) 5 Mg Tablet 5 Mg PO DAILY Multivitamins (Multivitamin) 1 Each Tablet 1 Tab PO DAILY Metformin Hcl 500 Mg Tablet 500 Mg PO BIDWMEALS Namenda (Memantine Hcl) 10 Mg Tablet 10 Mg PO BID Ativan (Lorazepam) 2 Mg Tablet 1 Mg PO TID Lisinopril 40 Mg Tablet 40 Mg PO BID Glyburide 2.5 Mg Tablet 5 Mg PO BID Proscar (Finasteride) 5 Mg Tablet 5 Mg PO QHS Cardura (Doxazosin Mesylate) 4 Mg Tablet 4 Mg PO QHS Aricept (Donepezil Hcl) 10 Mg Tablet 10 Mg PO QHS Coricidin Hbp Cough & Cold Tab (Dextromethorphan Hbr/Chlor-Mal) 1 Each Tablet 1 Each PO PRN QID PRN Aspirin 81 Mg Tab.chew 81 Mg PO QHS I have reviewed the current psychotropics carefully including drug interactions. Risk benefit ratio favors no change other than as noted in my dictated progress note. Diagnosis: Problems: (1) Anxiety disorder (2) Dementia in Alzheimer's disease with delusions (3) Dementia in Alzheimer's disease with depression (4) Dementia, vascular, with delusions (5) Dementia, vascular, with depression (6) Impulse control disorder GERTRUDE HERNANDEZ MD Oct 11, 2018 22:33
[2018-10-12 05:50] VITALS: BP 171/82
[2018-10-12] MEDS: metFORMIN 500 MG TABLET PO SCH ×2 (07:53→17:04)
[2018-10-12] MEDS: MULTIVITAMIN with MINERAL TABLET. PO SCH (07:53)
[2018-10-12] MEDS: medroxyPROGESTERone 5 MG TABLET PO SCH (07:53)
[2018-10-12] MEDS: glyBURIDE 5 MG TABLET PO SCH ×2 (07:53→17:04)
[2018-10-12] MEDS: OMEGA-3 FATTY ACIDS/FISH OIL 1,000 MG CAPSULE. PO SCH (07:54)
[2018-10-12] MEDS: DIVALPROEX 125 MG CAP.SPRINK PO SCH ×2 (07:54→17:04)
[2018-10-12] MEDS: SERTRALINE 100 MG TABLET. PO SCH (07:54)
[2018-10-12] MEDS: METOPROLOL TART IMMED RELEASE 25 MG TABLET PO SCH ×2 (07:55→19:55)
[2018-10-12] MEDS: LISINOPRIL 20 MG TABLET PO SCH ×2 (07:55→19:56)
[2018-10-12] MEDS: LORazepam 1 MG TABLET PO SCH ×3 (07:59→19:57)
[2018-10-12] MEDS: MAGNESIUM HYDROXIDE 2,400 MG/30 ML ORAL.SUSP. PO PRN (12:15)
[2018-10-12 16:22] VITALS: BP 133/87
[2018-10-12] MEDS: QUEtiapine 25 MG TABLET. PO SCH (17:04)
--- NOTE | 2018-10-12 18:32 | PN ---
DATE: 10/11/2018 PSYCHIATRIC PROGRESS NOTE This late entry 10/11/2018 covers elements not covered in my initial note. SUBJECTIVE: I met with the patient in the evening. The patient slept 6-3/4 hours previous night. He has been intermittently agitated during the day on 10/11/2018, had to be in the vest hallway after breakfast since he was quite irritable with different things. Received Zyprexa at 10:15 a.m., then did better after that. He has been making inappropriate sexual statements to female staff members and I processed this with him. REVIEW OF SYSTEMS: No CV, , pulmonary, eye, ENT system symptoms on review. Reliability poor. MENTAL STATUS EXAM: Oriented to himself. Insight, judgment, recent and remote memory, attention, concentration, fund of knowledge poor, consistent with his diagnosis mentioned in my initial note. PLAN: No change from initial note. MAN Alessandra HERNANDEZ MD DR: TIEN/priyank JOB#: [id number] / [id number]
[2018-10-12 19:55] VITALS: BP 161/94
[2018-10-12] MEDS: MIRTAZAPINE 7.5 MG TABLET. PO SCH (19:55)
[2018-10-12] MEDS: MELATONIN 3 MG TABLET PO SCH (19:55)
[2018-10-12] MEDS: DOXAZOSIN MESYLATE 4 MG TABLET PO SCH (19:55)
[2018-10-12] MEDS: traZODone 150 MG TABLET. PO SCH (19:56)
[2018-10-12] MEDS: FINASTERIDE 5 MG TABLET PO SCH (19:56)
[2018-10-12] MEDS: ASPIRIN 81 MG TAB.CHEW PO SCH (19:56)
--- NOTE | 2018-10-12 21:41 | RAD ---
CT HEAD WO CONTRAST History: Fell and hit back of head this evening Comparison: None. Technique: Noncontrast CT imaging was performed of the head. Exposure: One or more of the following individualized dose reduction techniques were utilized for this examination: 1. Automated exposure control 2. Adjustment of the mA and/or kV according to patient size 3. Use of iterative reconstruction technique. Findings: There is motion degradation. No convincing acute extra-axial or parenchymal hemorrhage is identified. There is no significant intra-axial mass effect, midline shift, or extra-axial fluid collection. The templeton-white differentiation of the major vascular territories is preserved. Ventricular size is proportionate to sulcal spaces. There is mild generalized supratentorial atrophy. There is scattered [id number] ill-defined low-density of the supratentorial parenchyma bilaterally. The mastoid air cells and the visualized paranasal sinuses are aerated. No acute calvarial abnormality is identified. There is posterior scalp hematoma. Nonspecific density in the left external auditory canal is more likely due to cerumen. Impression: 1. Exam is degraded by motion, no convincing acute intracranial abnormality identified. Scattered ill-defined low-density of the supratentorial parenchyma bilaterally is probably due to chronic microvascular ischemic disease. There is mild generalized supratentorial atrophy. Electronically signed by: Magan Han MD (10/12/2018 9:39 PM) [facility]
--- NOTE | 2018-10-12 22:06 | PDOC ---
Exam Note: Roderick Note: Please also refer to the separate dictated note~for this date of service dictated separately.~Patient seen individually. Discussed the patient with Nursing staff reviewed the chart.~Reviewed interim history and current functioning. Reviewed vital signs,~Labs/ Radiology~and current medications noted below. Continue current treatment with the changes noted in the dictated addendum note Assessment: Vital Signs: Vital Signs Date Time Temp Pulse Resp B/P (MAP) Pulse Ox O2 Delivery O2 Flow Rate FiO2 10/12/18 19:56 83 161/94 10/12/18 19:55 97.7 20 96 10/12/18 16:22 Room Air I&O Intake and Output 10/12/18 06:59 Intake Total 1200 ml Balance 1200 ml Intake Oral 1200 ml Current Medications: Meds: Current Medications Acetaminophen (Tylenol) 650 mg PRN Q6HRS PRN PO PAIN / TEMP; Start 09/08/18 at 13:30 Multi-Ingredient Ointment (Analgesic [place]) 1 blas PRN QID PRN TP MUSCLE PAIN; Start 09/08/18 at 13:30 Al Hydroxide/Mg Hydroxide (Mylanta Plus Xs) 15 ml PRN AFTMEALHC PRN PO DYSPEPSIA; Start 09/08/18 at 13:30 Magnesium Hydroxide (Milk Of Magnesia) 2,400 mg PRN QHS PRN PO CONSTIPATION Last administered on 10/12/18at 12:15; Start 09/08/18 at 13:30 Aspirin (Children'S Aspirin) 81 mg QHS PO Last administered on 10/12/18at 19:56; Start 09/08/18 at 21:00 Non-Formulary Medication (Dextromethorphan Hbr/Chlor-Mal (Coricidin Hbp Cough & Cold Tab)) 1 each PRN QID PRN PO COUGH; Start 09/08/18 at 13:45; Status UNV Donepezil HCl (Aricept) 10 mg QHS PO Last administered on 10/09/18at 19:26; Start 09/08/18 at 21:00; Stop 10/09/18 at 21:07; Status DC Doxazosin Mesylate (Cardura) 4 mg QHS PO Last administered on 10/12/18at 19:55; Start 09/08/18 at 21:00 Finasteride (Proscar) 5 mg QHS PO Last administered on 10/12/18 19:56; Start at 21:00 Lisinopril (Prinivil) 40 mg BID PO Last administered on 10/12/18 19:56; Start 09/08/18 at 21:00 Lorazepam (Ativan) 2 mg TID PO Last administered on 09/08/18 21:25; Start at 14:00; Stop 09/09/18 at 06:58; Status DC Losartan Potassium (Cozaar) 50 mg DAILY PO Last administered on 09/09/18 08:19 ; Start 09/09/18 at 09:00; Stop 09/10/18 at 12:41; Status DC Losartan Potassium (Cozaar) 100 mg BID PO Last administered on 09/10/18 08:05; Start 09/08/18 at 21:00; Stop 09/10/18 at 12:41; Status DC Memantine (Namenda) 10 mg BID PO Last administered on 10/09/18 19:27; Start at 21:00; Stop 10/09/18 at 21:07; Status DC Metformin HCl (Glucophage) 500 mg BIDWMEALS PO Last administered on 10/12/18 17 :04; Start 09/08/18 at 17:00 Multivitamins/ Calcium (Thera-M Plus) 1 tab DAILY PO Last administered on 07:53; Start 09/09/18 at 09:00 Metoprolol Tartrate (Lopressor) 25 mg BID PO Last administered on 09/09/18 08: 21; Start 09/08/18 at 21:00; Stop 09/09/18 at 09:58; Status DC Fish Oil (Fish Oil) 1,000 mg DAILY PO Last administered on 10/12/18 07:54; Start 09/09/18 at 09:00 Insulin Human Lispro (HumaLOG) 0-7 UNITS QIDACHS SQ Last administered on at 11:48; Start 09/08/18 at 16:30; Stop 10/04/18 at 13:58; Status DC Dextrose 12.5 gm PRN Q15MIN PRN IV SEE COMMENTS; Start 09/08/18 at 14:00 Glyburide (Diabeta) 5 mg BIDWMEALS PO Last administered on 10/12/18 17:04; Start 09/09/18 at 08:00 Sertraline HCl (Zoloft) 100 mg BID PO Last administered on 09/12/18 07:40; Start 09/09/18 at 09:00; Stop 09/12/18 at 19:10; Status DC Lorazepam (Ativan) 1 mg TID PO Last administered on 09/11/18 20:16; Start 09/09 at 09:00; Stop 09/12/18 at 01:04; Status DC Divalproex Sodium (Depakote Sprinkles) 125 mg BIDWMEALS PO Last administered on 09/14/18 08:37; Start 09/09/18 at 17:00; Stop 09/14/18 at 16:37; Status DC Metoprolol Tartrate (Lopressor) 25 mg BID PO Last administered on 09/10/18 08: 06; Start 09/09/18 at 21:00; Stop 09/10/18 at 12:45; Status DC Metoprolol Tartrate (Lopressor) 50 mg BID PO Last administered on 09/14/18 19: 36; Start 09/10/18 at 21:00; Stop 09/15/18 at 16:09; Status DC Trazodone HCl (Desyrel) 50 mg PRN QHS PRN PO INSOMNIA Last administered on 09/23 23:23; Start 09/10/18 at 17:00; Stop 09/24/18 at 16:51; Status DC Mirtazapine (Remeron) 7.5 mg QHS PO Last administered on 09/18/18 21:51; Start 09/10/18 at 21:00; Stop 09/19/18 at 00:07; Status DC Cephalexin HCl (Keflex) 500 mg TID PO Last administered on 09/21/18 08:15; Start 09/11/18 at 14:00; Stop 09/21/18 at 13:59; Status DC Lorazepam (Ativan) 0.75 mg DAILY PO Last administered on 10/12/18 07:59; Start 09/12/18 at 09:00 Lorazepam (Ativan) 1 mg BID@1300,2100 PO Last administered on 09/14/18 19:40; Start 09/12/18 at 13:00; Stop 09/14/18 at 21:01; Status DC Lorazepam (Ativan) 0.75 mg DAILY@1300 PO Last administered on 10/12/18 12:26; Start 09/15/18 at 13:00 Lorazepam (Ativan) 1 mg QHS PO Last administered on 09/17/18 18:43; Start at 21:00; Stop 09/17/18 at 21:01; Status DC Lorazepam (Ativan) 0.75 mg HS PO Last administered on 10/12/18 19:57; Start 09/18/18 at 21:00 Lactobacillus Rhamnosus (Culturelle) 1 cap BID PO Last administered on 09:38; Start 09/12/18 at 21:00; Stop 09/26/18 at 14:06; Status DC Sertraline HCl (Zoloft) 150 mg DAILY08 PO Last administered on 10/12/18 07:54; Start 09/13/18 at 08:00 Olanzapine (ZyPREXA ZYDIS) 5 mg PRN Q2HR PRN PO PSYCHOSIS Last administered on 10/12/18 18:08; Start 09/12/18 at 21:30 Divalproex Sodium (Depakote Sprinkles) 250 mg BIDWMEALS PO Last administered on 09/21/18 08:17; Start 09/14/18 at 17:00; Stop 09/21/18 at 16:47; Status DC Metoprolol Tartrate (Lopressor) 25 mg BID PO Last administered on 10/12/18 19: 55; Start 09/15/18 at 21:00 Trazodone HCl (Desyrel) 50 mg QHS PO Last administered on 09/23/18 19:40; Start 09/16/18 at 21:00; Stop 09/24/18 at 16:51; Status DC Mirtazapine (Remeron) 15 mg QHS PO Last administered on 10/12/18 19:55; Start 09/19/18 at 21:00 Medroxyprogesterone Acetate (Provera) 2.5 mg DAILY PO Last administered on 09/24 09:06; Start 09/21/18 at 09:00; Stop 09/24/18 at 16:51; Status DC Divalproex Sodium (Depakote Sprinkles) 375 mg BIDWMEALS PO Last administered on 09/25/18 17:11; Start 09/21/18 at 17:00; Stop 09/25/18 at 19:55; Status DC Medroxyprogesterone Acetate (Provera) 5 mg DAILY PO Last administered on at 08:10; Start 09/25/18 at 09:00; Stop 10/08/18 at 16:40; Status DC Trazodone HCl (Desyrel) 100 mg PRN QHS PRN PO INSOMNIA Last administered on 19:12; Start 09/24/18 at 17:00; Stop 09/29/18 at 14:43; Status DC Trazodone HCl (Desyrel) 100 mg QHS PO Last administered on 09/28/18at 19:11; Start 09/24/18 at 21:00; Stop 09/29/18 at 14:43; Status DC Divalproex Sodium (Depakote Sprinkles) 500 mg BIDWMEALS PO Last administered on 09/28/18at 17:56; Start 09/26/18 at 08:00; Stop 09/28/18 at 19:24; Status DC Trazodone HCl (Desyrel) 100 mg 1X ONCE PO Last administered on 09/26/18at 20:31 ; Start 09/26/18 at 20:15; Stop 09/26/18 at 20:16; Status DC Melatonin 3 mg QHS PO Last administered on 10/12/18at 19:55; Start 09/27/18 at 21 :00 Divalproex Sodium (Depakote Sprinkles) 750 mg BIDWMEALS PO Last administered on 10/05/18at 16:36; Start 09/29/18 at 08:00; Stop 10/05/18 at 17:15; Status DC Trazodone HCl (Desyrel) 150 mg PRN QHS PRN PO INSOMNIA Last administered on 10/12 20:00; Start 09/29/18 at 15:00 Trazodone HCl (Desyrel) 150 mg QHS PO Last administered on 10/12/18 19:56; Start 09/29/18 at 21:00 Divalproex Sodium (Depakote Sprinkles) 1,000 mg BIDWMEALS PO Last administered on 10/12/18at 17:04; Start 10/06/18 at 08:00 Medroxyprogesterone Acetate (Provera) 7.5 mg DAILY PO Last administered on at 07:53; Start 10/09/18 at 09:00 Quetiapine Fumarate (SEROquel) 25 mg DAILYWSUP PO Last administered on at 17:04; Start 10/10/18 at 17:00; Stop 10/12/18 at 18:12; Status DC Quetiapine Fumarate (SEROquel) 50 mg DAILYWSUP PO ; Start 10/13/18 at 17:00 Trazodone HCl (Desyrel) 25 mg 0900,1300,1700 PO ; Start 10/13/18 at 09:00 Active Scripts Active Reported Zoloft (Sertraline Hcl) 100 Mg Tablet 100 Mg PO BID [place] 3 Fish Oil Softgel ([place]-3 Fatty Acids/Fish Oil) 1 Each Capsule.dr 1 Each PO DAILY Bystolic (Nebivolol Hcl) 5 Mg Tablet 5 Mg PO DAILY Multivitamins (Multivitamin) 1 Each Tablet 1 Tab PO DAILY Metformin Hcl 500 Mg Tablet 500 Mg PO BIDWMEALS Namenda (Memantine Hcl) 10 Mg Tablet 10 Mg PO BID Ativan (Lorazepam) 2 Mg Tablet 1 Mg PO TID Lisinopril 40 Mg Tablet 40 Mg PO BID Glyburide 2.5 Mg Tablet 5 Mg PO BID Proscar (Finasteride) 5 Mg Tablet 5 Mg PO QHS Cardura (Doxazosin Mesylate) 4 Mg Tablet 4 Mg PO QHS Aricept (Donepezil Hcl) 10 Mg Tablet 10 Mg PO QHS Coricidin Hbp Cough & Cold Tab (Dextromethorphan Hbr/Chlor-Mal) 1 Each Tablet 1 Each PO PRN QID PRN Aspirin 81 Mg Tab.chew 81 Mg PO QHS I have reviewed the current psychotropics carefully including drug interactions. Risk benefit ratio favors no change other than as noted in my dictated progress note. Diagnosis: Problems: (1) Anxiety disorder (2) Dementia in Alzheimer's disease with delusions (3) Dementia in Alzheimer's disease with depression (4) Dementia, vascular, with delusions (5) Dementia, vascular, with depression (6) Impulse control disorder GERTRUDE HERNANDEZ MD Oct 12, 2018 22:06
[2018-10-13 02:15] VITALS: BP 125/72
[2018-10-13 05:46] VITALS: BP 150/93
[2018-10-13] MEDS: medroxyPROGESTERone 5 MG TABLET PO SCH (11:55)
[2018-10-13] MEDS: DIVALPROEX 125 MG CAP.SPRINK PO SCH ×2 (11:55→17:27)
[2018-10-13] MEDS: SERTRALINE 100 MG TABLET. PO SCH (11:56)
[2018-10-13] MEDS: metFORMIN 500 MG TABLET PO SCH ×2 (11:57→17:27)
[2018-10-13] MEDS: LORazepam 1 MG TABLET PO SCH ×3 (11:57→21:09)
[2018-10-13] MEDS: METOPROLOL TART IMMED RELEASE 25 MG TABLET PO SCH ×2 (11:57→21:10)
[2018-10-13] MEDS: glyBURIDE 5 MG TABLET PO SCH ×2 (11:57→17:28)
[2018-10-13] MEDS: traZODone 50 MG TABLET. PO SCH ×3 (11:59→17:27)
[2018-10-13] MEDS: LISINOPRIL 20 MG TABLET PO SCH ×2 (12:03→21:10)
[2018-10-13] MEDS: MULTIVITAMIN with MINERAL TABLET. PO SCH (12:04)
[2018-10-13] MEDS: OMEGA-3 FATTY ACIDS/FISH OIL 1,000 MG CAPSULE. PO SCH (12:04)
--- NOTE | 2018-10-13 13:24 | EKG ---
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
[2018-10-13 16:16] VITALS: BP 162/87
[2018-10-13] MEDS: QUEtiapine 50 MG TABLET. PO SCH (17:29)
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
[2018-10-13] MEDS: DOXAZOSIN MESYLATE 4 MG TABLET PO SCH (21:09)
[2018-10-13] MEDS: FINASTERIDE 5 MG TABLET PO SCH (21:09)
[2018-10-13] MEDS: ASPIRIN 81 MG TAB.CHEW PO SCH (21:09)
[2018-10-13] MEDS: MIRTAZAPINE 7.5 MG TABLET. PO SCH (21:09)
[2018-10-13] MEDS: MELATONIN 3 MG TABLET PO SCH (21:10)
[2018-10-13] MEDS: traZODone 150 MG TABLET. PO SCH (21:10)
--- NOTE | 2018-10-13 22:20 | PDOC ---
Exam Note: Roderick Note: Please also refer to the separate dictated note~for this date of service dictated separately.~Patient seen individually. Discussed the patient with Nursing staff reviewed the chart.~Reviewed interim history and current functioning. Reviewed vital signs,~Labs/ Radiology~and current medications noted below. Continue current treatment with the changes noted in the dictated addendum note Assessment: Vital Signs: Vital Signs Date Time Temp Pulse Resp B/P (MAP) Pulse Ox O2 Delivery O2 Flow Rate FiO2 10/13/18 21:10 60 162/87 10/13/18 16:16 99.0 16 95 10/12/18 16:22 Room Air I&O Intake and Output 10/13/18 06:59 Intake Total 960 ml Balance 960 ml Intake Oral 960 ml Current Medications: Meds: Current Medications Acetaminophen (Tylenol) 650 mg PRN Q6HRS PRN PO PAIN / TEMP; Start 09/08/18 at 13:30 Multi-Ingredient Ointment (Analgesic [place]) 1 blas PRN QID PRN TP MUSCLE PAIN; Start 09/08/18 at 13:30 Al Hydroxide/Mg Hydroxide (Mylanta Plus Xs) 15 ml PRN AFTMEALHC PRN PO DYSPEPSIA; Start 09/08/18 at 13:30 Magnesium Hydroxide (Milk Of Magnesia) 2,400 mg PRN QHS PRN PO CONSTIPATION Last administered on 10/12/18at 12:15; Start 09/08/18 at 13:30 Aspirin (Children'S Aspirin) 81 mg QHS PO Last administered on 10/13/18at 21:09; Start 09/08/18 at 21:00 Non-Formulary Medication (Dextromethorphan Hbr/Chlor-Mal (Coricidin Hbp Cough & Cold Tab)) 1 each PRN QID PRN PO COUGH; Start 09/08/18 at 13:45; Status UNV Donepezil HCl (Aricept) 10 mg QHS PO Last administered on 10/09/18at 19:26; Start 09/08/18 at 21:00; Stop 10/09/18 at 21:07; Status DC Doxazosin Mesylate (Cardura) 4 mg QHS PO Last administered on 10/13/18at 21:09; Start 09/08/18 at 21:00 Finasteride (Proscar) 5 mg QHS PO Last administered on 10/13/18 21:09; Start at 21:00 Lisinopril (Prinivil) 40 mg BID PO Last administered on 10/13/18 21:10; Start 09/08/18 at 21:00 Lorazepam (Ativan) 2 mg TID PO Last administered on 09/08/18 21:25; Start at 14:00; Stop 09/09/18 at 06:58; Status DC Losartan Potassium (Cozaar) 50 mg DAILY PO Last administered on 09/09/18 08:19 ; Start 09/09/18 at 09:00; Stop 09/10/18 at 12:41; Status DC Losartan Potassium (Cozaar) 100 mg BID PO Last administered on 09/10/18 08:05; Start 09/08/18 at 21:00; Stop 09/10/18 at 12:41; Status DC Memantine (Namenda) 10 mg BID PO Last administered on 10/09/18 19:27; Start at 21:00; Stop 10/09/18 at 21:07; Status DC Metformin HCl (Glucophage) 500 mg BIDWMEALS PO Last administered on 10/13/18 17 :27; Start 09/08/18 at 17:00 Multivitamins/ Calcium (Thera-M Plus) 1 tab DAILY PO Last administered on 07:53; Start 09/09/18 at 09:00 Metoprolol Tartrate (Lopressor) 25 mg BID PO Last administered on 09/09/18 08: 21; Start 09/08/18 at 21:00; Stop 09/09/18 at 09:58; Status DC Fish Oil (Fish Oil) 1,000 mg DAILY PO Last administered on 10/12/18 07:54; Start 09/09/18 at 09:00 Insulin Human Lispro (HumaLOG) 0-7 UNITS QIDACHS SQ Last administered on 11:48; Start 09/08/18 at 16:30; Stop 10/04/18 at 13:58; Status DC Dextrose 12.5 gm PRN Q15MIN PRN IV SEE COMMENTS; Start 09/08/18 at 14:00 Glyburide (Diabeta) 5 mg BIDWMEALS PO Last administered on 10/13/18 17:28; Start 09/09/18 at 08:00 Sertraline HCl (Zoloft) 100 mg BID PO Last administered on 09/12/18 07:40; Start 09/09/18 at 09:00; Stop 09/12/18 at 19:10; Status DC Lorazepam (Ativan) 1 mg TID PO Last administered on 09/11/18 20:16; Start 09/09 at 09:00; Stop 09/12/18 at 01:04; Status DC Divalproex Sodium (Depakote Sprinkles) 125 mg BIDWMEALS PO Last administered on 09/14/18 08:37; Start 09/09/18 at 17:00; Stop 09/14/18 at 16:37; Status DC Metoprolol Tartrate (Lopressor) 25 mg BID PO Last administered on 09/10/18 08: 06; Start 09/09/18 at 21:00; Stop 09/10/18 at 12:45; Status DC Metoprolol Tartrate (Lopressor) 50 mg BID PO Last administered on 09/14/18 19: 36; Start 09/10/18 at 21:00; Stop 09/15/18 at 16:09; Status DC Trazodone HCl (Desyrel) 50 mg PRN QHS PRN PO INSOMNIA Last administered on 09/23 23:23; Start 09/10/18 at 17:00; Stop 09/24/18 at 16:51; Status DC Mirtazapine (Remeron) 7.5 mg QHS PO Last administered on 09/18/18 21:51; Start 09/10/18 at 21:00; Stop 09/19/18 at 00:07; Status DC Cephalexin HCl (Keflex) 500 mg TID PO Last administered on 09/21/18 08:15; Start 09/11/18 at 14:00; Stop 09/21/18 at 13:59; Status DC Lorazepam (Ativan) 0.75 mg DAILY PO Last administered on 10/13/18 11:57; Start 09/12/18 at 09:00 Lorazepam (Ativan) 1 mg BID@1300,2100 PO Last administered on 09/14/18 19:40; Start 09/12/18 at 13:00; Stop 09/14/18 at 21:01; Status DC Lorazepam (Ativan) 0.75 mg DAILY@1300 PO Last administered on 10/12/18 12:26; Start 09/15/18 at 13:00 Lorazepam (Ativan) 1 mg QHS PO Last administered on 09/17/18 18:43; Start at 21:00; Stop 09/17/18 at 21:01; Status DC Lorazepam (Ativan) 0.75 mg HS PO Last administered on 10/13/18 21:09; Start 09/18/18 at 21:00 Lactobacillus Rhamnosus (Culturelle) 1 cap BID PO Last administered on 09:38; Start 09/12/18 at 21:00; Stop 09/26/18 at 14:06; Status DC Sertraline HCl (Zoloft) 150 mg DAILY08 PO Last administered on 10/13/18 11:56; Start 09/13/18 at 08:00 Olanzapine (ZyPREXA ZYDIS) 5 mg PRN Q2HR PRN PO PSYCHOSIS Last administered on 10/13/18 11:59; Start 09/12/18 at 21:30 Divalproex Sodium (Depakote Sprinkles) 250 mg BIDWMEALS PO Last administered on 09/21/18 08:17; Start 09/14/18 at 17:00; Stop 09/21/18 at 16:47; Status DC Metoprolol Tartrate (Lopressor) 25 mg BID PO Last administered on 10/13/18 21: 10; Start 09/15/18 at 21:00 Trazodone HCl (Desyrel) 50 mg QHS PO Last administered on 09/23/18 19:40; Start 09/16/18 at 21:00; Stop 09/24/18 at 16:51; Status DC Mirtazapine (Remeron) 15 mg QHS PO Last administered on 10/13/18 21:09; Start 09/19/18 at 21:00 Medroxyprogesterone Acetate (Provera) 2.5 mg DAILY PO Last administered on 09/24 09:06; Start 09/21/18 at 09:00; Stop 09/24/18 at 16:51; Status DC Divalproex Sodium (Depakote Sprinkles) 375 mg BIDWMEALS PO Last administered on 09/25/18at 17:11; Start 09/21/18 at 17:00; Stop 09/25/18 at 19:55; Status DC Medroxyprogesterone Acetate (Provera) 5 mg DAILY PO Last administered on at 08:10; Start 09/25/18 at 09:00; Stop 10/08/18 at 16:40; Status DC Trazodone HCl (Desyrel) 100 mg PRN QHS PRN PO INSOMNIA Last administered on 19:12; Start 09/24/18 at 17:00; Stop 09/29/18 at 14:43; Status DC Trazodone HCl (Desyrel) 100 mg QHS PO Last administered on 09/28/18at 19:11; Start 09/24/18 at 21:00; Stop 09/29/18 at 14:43; Status DC Divalproex Sodium (Depakote Sprinkles) 500 mg BIDWMEALS PO Last administered on 09/28/18at 17:56; Start 09/26/18 at 08:00; Stop 09/28/18 at 19:24; Status DC Trazodone HCl (Desyrel) 100 mg 1X ONCE PO Last administered on 09/26/18at 20:31 ; Start 09/26/18 at 20:15; Stop 09/26/18 at 20:16; Status DC Melatonin 3 mg QHS PO Last administered on 10/13/18at 21:10; Start 09/27/18 at 21 :00 Divalproex Sodium (Depakote Sprinkles) 750 mg BIDWMEALS PO Last administered on 10/05/18at 16:36; Start 09/29/18 at 08:00; Stop 10/05/18 at 17:15; Status DC Trazodone HCl (Desyrel) 150 mg PRN QHS PRN PO INSOMNIA Last administered on 10/12 20:00; Start 09/29/18 at 15:00 Trazodone HCl (Desyrel) 150 mg QHS PO Last administered on 10/13/18 21:10; Start 09/29/18 at 21:00 Divalproex Sodium (Depakote Sprinkles) 1,000 mg BIDWMEALS PO Last administered on 10/13/18 17:27; Start 10/06/18 at 08:00 Medroxyprogesterone Acetate (Provera) 7.5 mg DAILY PO Last administered on at 11:55; Start 10/09/18 at 09:00 Quetiapine Fumarate (SEROquel) 25 mg DAILYWSUP PO Last administered on at 17:04; Start 10/10/18 at 17:00; Stop 10/12/18 at 18:12; Status DC Quetiapine Fumarate (SEROquel) 50 mg DAILYWSUP PO Last administered on 17:29; Start 10/13/18 at 17:00 Trazodone HCl (Desyrel) 25 mg 0900,1300,1700 PO Last administered on 10/13/18 17:27; Start 10/13/18 at 09:00 Active Scripts Active Reported Zoloft (Sertraline Hcl) 100 Mg Tablet 100 Mg PO BID [place] 3 Fish Oil Softgel ([place]-3 Fatty Acids/Fish Oil) 1 Each Capsule.dr 1 Each PO DAILY Bystolic (Nebivolol Hcl) 5 Mg Tablet 5 Mg PO DAILY Multivitamins (Multivitamin) 1 Each Tablet 1 Tab PO DAILY Metformin Hcl 500 Mg Tablet 500 Mg PO BIDWMEALS Namenda (Memantine Hcl) 10 Mg Tablet 10 Mg PO BID Ativan (Lorazepam) 2 Mg Tablet 1 Mg PO TID Lisinopril 40 Mg Tablet 40 Mg PO BID Glyburide 2.5 Mg Tablet 5 Mg PO BID Proscar (Finasteride) 5 Mg Tablet 5 Mg PO QHS Cardura (Doxazosin Mesylate) 4 Mg Tablet 4 Mg PO QHS Aricept (Donepezil Hcl) 10 Mg Tablet 10 Mg PO QHS Coricidin Hbp Cough & Cold Tab (Dextromethorphan Hbr/Chlor-Mal) 1 Each Tablet 1 Each PO PRN QID PRN Aspirin 81 Mg Tab.chew 81 Mg PO QHS I have reviewed the current psychotropics carefully including drug interactions. Risk benefit ratio favors no change other than as noted in my dictated progress note. Diagnosis: Problems: (1) Anxiety disorder (2) Dementia in Alzheimer's disease with delusions (3) Dementia in Alzheimer's disease with depression (4) Dementia, vascular, with delusions (5) Dementia, vascular, with depression (6) Impulse control disorder GERTRUDE HERNANDEZ MD Oct 13, 2018 22:20
[2018-10-14 06:07] VITALS: BP 114/78
[2018-10-14] MEDS: MAGNESIUM HYDROXIDE 2,400 MG/30 ML ORAL.SUSP. PO PRN (06:19)
[2018-10-14] MEDS: medroxyPROGESTERone 5 MG TABLET PO SCH (08:41)
[2018-10-14] MEDS: SERTRALINE 100 MG TABLET. PO SCH (08:41)
[2018-10-14] MEDS: OMEGA-3 FATTY ACIDS/FISH OIL 1,000 MG CAPSULE. PO SCH (08:42)
[2018-10-14] MEDS: DIVALPROEX 125 MG CAP.SPRINK PO SCH ×2 (08:42→17:08)
[2018-10-14] MEDS: glyBURIDE 5 MG TABLET PO SCH ×2 (08:42→17:07)
[2018-10-14] MEDS: MULTIVITAMIN with MINERAL TABLET. PO SCH (08:42)
[2018-10-14] MEDS: traZODone 50 MG TABLET. PO SCH ×3 (08:42→18:00)
[2018-10-14] MEDS: metFORMIN 500 MG TABLET PO SCH ×2 (08:42→17:07)
[2018-10-14] MEDS: LISINOPRIL 20 MG TABLET PO SCH ×2 (08:43→20:30)
[2018-10-14] MEDS: METOPROLOL TART IMMED RELEASE 25 MG TABLET PO SCH ×2 (08:44→20:31)
[2018-10-14] MEDS: LORazepam 1 MG TABLET PO SCH ×3 (08:45→20:32)
[2018-10-14 16:26] VITALS: BP 104/60
[2018-10-14] MEDS: QUEtiapine 50 MG TABLET. PO SCH (17:07)
[2018-10-14 19:30] VITALS: BP 162/93
[2018-10-14] MEDS ORDERED: BISACODYL 10 MG SUPP.RECT PR PRN (19:30)
[2018-10-14] MEDS: ASPIRIN 81 MG TAB.CHEW PO SCH (20:20)
[2018-10-14] MEDS: FINASTERIDE 5 MG TABLET PO SCH (20:20)
[2018-10-14] MEDS: MIRTAZAPINE 7.5 MG TABLET. PO SCH (20:29)
[2018-10-14] MEDS: MELATONIN 3 MG TABLET PO SCH (20:29)
[2018-10-14] MEDS: traZODone 150 MG TABLET. PO SCH (20:29)
[2018-10-14] MEDS: DOXAZOSIN MESYLATE 4 MG TABLET PO SCH (20:29)
--- NOTE | 2018-10-14 22:14 | PDOC ---
Exam Note: Roderick Note: Please also refer to the separate dictated note~for this date of service dictated separately.~Patient seen individually. Discussed the patient with Nursing staff reviewed the chart.~Reviewed interim history and current functioning. Reviewed vital signs,~Labs/ Radiology~and current medications noted below. Continue current treatment with the changes noted in the dictated addendum note Assessment: Vital Signs: Vital Signs Date Time Temp Pulse Resp B/P (MAP) Pulse Ox O2 Delivery O2 Flow Rate FiO2 10/14/18 20:31 81 162/93 10/14/18 16:26 98.2 20 97 Room Air I&O Intake and Output 10/14/18 06:59 Intake Total 400 ml Balance 400 ml Intake Oral 400 ml # Voids 1 Current Medications: Meds: Current Medications Acetaminophen (Tylenol) 650 mg PRN Q6HRS PRN PO PAIN / TEMP; Start 09/08/18 at 13:30 Multi-Ingredient Ointment (Analgesic [place]) 1 blas PRN QID PRN TP MUSCLE PAIN; Start 09/08/18 at 13:30 Al Hydroxide/Mg Hydroxide (Mylanta Plus Xs) 15 ml PRN AFTMEALHC PRN PO DYSPEPSIA; Start 09/08/18 at 13:30 Magnesium Hydroxide (Milk Of Magnesia) 2,400 mg PRN QHS PRN PO CONSTIPATION Last administered on 10/14/18at 06:19; Start 09/08/18 at 13:30 Aspirin (Children'S Aspirin) 81 mg QHS PO Last administered on 10/14/18at 20:20; Start 09/08/18 at 21:00 Non-Formulary Medication (Dextromethorphan Hbr/Chlor-Mal (Coricidin Hbp Cough & Cold Tab)) 1 each PRN QID PRN PO COUGH; Start 09/08/18 at 13:45; Status UNV Donepezil HCl (Aricept) 10 mg QHS PO Last administered on 10/09/18at 19:26; Start 09/08/18 at 21:00; Stop 10/09/18 at 21:07; Status DC Doxazosin Mesylate (Cardura) 4 mg QHS PO Last administered on 10/14/18at 20:29; Start 09/08/18 at 21:00 Finasteride (Proscar) 5 mg QHS PO Last administered on 10/14/18 20:20; Start at 21:00 Lisinopril (Prinivil) 40 mg BID PO Last administered on 10/14/18 20:30; Start 09/08/18 at 21:00 Lorazepam (Ativan) 2 mg TID PO Last administered on 09/08/18 21:25; Start at 14:00; Stop 09/09/18 at 06:58; Status DC Losartan Potassium (Cozaar) 50 mg DAILY PO Last administered on 09/09/18 08:19 ; Start 09/09/18 at 09:00; Stop 09/10/18 at 12:41; Status DC Losartan Potassium (Cozaar) 100 mg BID PO Last administered on 09/10/18 08:05; Start 09/08/18 at 21:00; Stop 09/10/18 at 12:41; Status DC Memantine (Namenda) 10 mg BID PO Last administered on 10/09/18 19:27; Start at 21:00; Stop 10/09/18 at 21:07; Status DC Metformin HCl (Glucophage) 500 mg BIDWMEALS PO Last administered on 10/14/18 17 :07; Start 09/08/18 at 17:00 Multivitamins/ Calcium (Thera-M Plus) 1 tab DAILY PO Last administered on 08:42; Start 09/09/18 at 09:00 Metoprolol Tartrate (Lopressor) 25 mg BID PO Last administered on 09/09/18 08: 21; Start 09/08/18 at 21:00; Stop 09/09/18 at 09:58; Status DC Fish Oil (Fish Oil) 1,000 mg DAILY PO Last administered on 10/14/18 08:42; Start 09/09/18 at 09:00 Insulin Human Lispro (HumaLOG) 0-7 UNITS QIDACHS SQ Last administered on 11:48; Start 09/08/18 at 16:30; Stop 10/04/18 at 13:58; Status DC Dextrose 12.5 gm PRN Q15MIN PRN IV SEE COMMENTS; Start 09/08/18 at 14:00 Glyburide (Diabeta) 5 mg BIDWMEALS PO Last administered on 10/14/18 17:07; Start 09/09/18 at 08:00 Sertraline HCl (Zoloft) 100 mg BID PO Last administered on 09/12/18 07:40; Start 09/09/18 at 09:00; Stop 09/12/18 at 19:10; Status DC Lorazepam (Ativan) 1 mg TID PO Last administered on 09/11/18 20:16; Start 09/09 at 09:00; Stop 09/12/18 at 01:04; Status DC Divalproex Sodium (Depakote Sprinkles) 125 mg BIDWMEALS PO Last administered on 09/14/18 08:37; Start 09/09/18 at 17:00; Stop 09/14/18 at 16:37; Status DC Metoprolol Tartrate (Lopressor) 25 mg BID PO Last administered on 09/10/18 08: 06; Start 09/09/18 at 21:00; Stop 09/10/18 at 12:45; Status DC Metoprolol Tartrate (Lopressor) 50 mg BID PO Last administered on 09/14/18 19: 36; Start 09/10/18 at 21:00; Stop 09/15/18 at 16:09; Status DC Trazodone HCl (Desyrel) 50 mg PRN QHS PRN PO INSOMNIA Last administered on 09/23 23:23; Start 09/10/18 at 17:00; Stop 09/24/18 at 16:51; Status DC Mirtazapine (Remeron) 7.5 mg QHS PO Last administered on 09/18/18 21:51; Start 09/10/18 at 21:00; Stop 09/19/18 at 00:07; Status DC Cephalexin HCl (Keflex) 500 mg TID PO Last administered on 09/21/18 08:15; Start 09/11/18 at 14:00; Stop 09/21/18 at 13:59; Status DC Lorazepam (Ativan) 0.75 mg DAILY PO Last administered on 10/14/18 08:45; Start 09/12/18 at 09:00 Lorazepam (Ativan) 1 mg BID@1300,2100 PO Last administered on 09/14/18 19:40; Start 09/12/18 at 13:00; Stop 09/14/18 at 21:01; Status DC Lorazepam (Ativan) 0.75 mg DAILY@1300 PO Last administered on 10/14/18 15:12; Start 09/15/18 at 13:00 Lorazepam (Ativan) 1 mg QHS PO Last administered on 09/17/18 18:43; Start at 21:00; Stop 09/17/18 at 21:01; Status DC Lorazepam (Ativan) 0.75 mg HS PO Last administered on 10/14/18 20:32; Start 09/18/18 at 21:00 Lactobacillus Rhamnosus (Culturelle) 1 cap BID PO Last administered on 09:38; Start 09/12/18 at 21:00; Stop 09/26/18 at 14:06; Status DC Sertraline HCl (Zoloft) 150 mg DAILY08 PO Last administered on 10/14/18 08:41; Start 09/13/18 at 08:00 Olanzapine (ZyPREXA ZYDIS) 5 mg PRN Q2HR PRN PO PSYCHOSIS Last administered on 10/13/18 11:59; Start 09/12/18 at 21:30 Divalproex Sodium (Depakote Sprinkles) 250 mg BIDWMEALS PO Last administered on 09/21/18 08:17; Start 09/14/18 at 17:00; Stop 09/21/18 at 16:47; Status DC Metoprolol Tartrate (Lopressor) 25 mg BID PO Last administered on 10/14/18 20: 31; Start 09/15/18 at 21:00 Trazodone HCl (Desyrel) 50 mg QHS PO Last administered on 09/23/18 19:40; Start 09/16/18 at 21:00; Stop 09/24/18 at 16:51; Status DC Mirtazapine (Remeron) 15 mg QHS PO Last administered on 10/14/18 20:29; Start 09/19/18 at 21:00 Medroxyprogesterone Acetate (Provera) 2.5 mg DAILY PO Last administered on 09/24 09:06; Start 09/21/18 at 09:00; Stop 09/24/18 at 16:51; Status DC Divalproex Sodium (Depakote Sprinkles) 375 mg BIDWMEALS PO Last administered on 09/25/18 17:11; Start 09/21/18 at 17:00; Stop 09/25/18 at 19:55; Status DC Medroxyprogesterone Acetate (Provera) 5 mg DAILY PO Last administered on at 08:10; Start 09/25/18 at 09:00; Stop 10/08/18 at 16:40; Status DC Trazodone HCl (Desyrel) 100 mg PRN QHS PRN PO INSOMNIA Last administered on 19:12; Start 09/24/18 at 17:00; Stop 09/29/18 at 14:43; Status DC Trazodone HCl (Desyrel) 100 mg QHS PO Last administered on 09/28/18 19:11; Start 09/24/18 at 21:00; Stop 09/29/18 at 14:43; Status DC Divalproex Sodium (Depakote Sprinkles) 500 mg BIDWMEALS PO Last administered on 09/28/18 17:56; Start 09/26/18 at 08:00; Stop 09/28/18 at 19:24; Status DC Trazodone HCl (Desyrel) 100 mg 1X ONCE PO Last administered on 09/26/18at 20:31 ; Start 09/26/18 at 20:15; Stop 09/26/18 at 20:16; Status DC Melatonin 3 mg QHS PO Last administered on 10/14/18 20:29; Start 09/27/18 at 21 :00 Divalproex Sodium (Depakote Sprinkles) 750 mg BIDWMEALS PO Last administered on 10/05/18 16:36; Start 09/29/18 at 08:00; Stop 10/05/18 at 17:15; Status DC Trazodone HCl (Desyrel) 150 mg PRN QHS PRN PO INSOMNIA Last administered on 10/12 20:00; Start 09/29/18 at 15:00 Trazodone HCl (Desyrel) 150 mg QHS PO Last administered on 10/14/18 20:29; Start 09/29/18 at 21:00 Divalproex Sodium (Depakote Sprinkles) 1,000 mg BIDWMEALS PO Last administered on 10/14/18 17:08; Start 10/06/18 at 08:00 Medroxyprogesterone Acetate (Provera) 7.5 mg DAILY PO Last administered on 08:41; Start 10/09/18 at 09:00 Quetiapine Fumarate (SEROquel) 25 mg DAILYWSUP PO Last administered on at 17:04; Start 10/10/18 at 17:00; Stop 10/12/18 at 18:12; Status DC Quetiapine Fumarate (SEROquel) 50 mg DAILYWSUP PO Last administered on at 17:07; Start 10/13/18 at 17:00 Trazodone HCl (Desyrel) 25 mg 0900,1300,1700 PO Last administered on 10/14/18at 18:00; Start 10/13/18 at 09:00 Bisacodyl (Dulcolax Supp) 10 mg PRN DAILY PRN [place] CONSTIPATION; Start 10/14/18 at 19:30 Active Scripts Active Reported Zoloft (Sertraline Hcl) 100 Mg Tablet 100 Mg PO BID [place] 3 Fish Oil Softgel ([place]-3 Fatty Acids/Fish Oil) 1 Each Capsule.dr 1 Each PO DAILY Bystolic (Nebivolol Hcl) 5 Mg Tablet 5 Mg PO DAILY Multivitamins (Multivitamin) 1 Each Tablet 1 Tab PO DAILY Metformin Hcl 500 Mg Tablet 500 Mg PO BIDWMEALS Namenda (Memantine Hcl) 10 Mg Tablet 10 Mg PO BID Ativan (Lorazepam) 2 Mg Tablet 1 Mg PO TID Lisinopril 40 Mg Tablet 40 Mg PO BID Glyburide 2.5 Mg Tablet 5 Mg PO BID Proscar (Finasteride) 5 Mg Tablet 5 Mg PO QHS Cardura (Doxazosin Mesylate) 4 Mg Tablet 4 Mg PO QHS Aricept (Donepezil Hcl) 10 Mg Tablet 10 Mg PO QHS Coricidin Hbp Cough & Cold Tab (Dextromethorphan Hbr/Chlor-Mal) 1 Each Tablet 1 Each PO PRN QID PRN Aspirin 81 Mg Tab.chew 81 Mg PO QHS I have reviewed the current psychotropics carefully including drug interactions. Risk benefit ratio favors no change other than as noted in my dictated progress note. Diagnosis: Problems: (1) Anxiety disorder (2) Dementia in Alzheimer's disease with delusions (3) Dementia in Alzheimer's disease with depression (4) Dementia, vascular, with delusions (5) Dementia, vascular, with depression (6) Impulse control disorder GERTRUDE HERNANDEZ MD Oct 14, 2018 22:14
[2018-10-15 04:58] LABS: BILIRUBIN,URINE NEG (NEG); CLARITY,URINE CLEAR; COLOR,URINE YELLOW; GLUCOSE,URINE NEG (NEG); NITRITE,URINE NEG (NEG); UROBILINOGEN,URINE 1 mg/dL (0.2 mg/dL)
[2018-10-15 04:59] LABS: BACTERIA,URINE 0 /HPF (0-FEW); SQUAMOUS EPITHELIAL CELL,UR OCC /LPF; WBC,URINE OCC /HPF (0-4)
[2018-10-15 06:46] VITALS: BP 173/78
--- NOTE | 2018-10-15 07:46 | RAD ---
Bilateral feet, 4 views, 10/14/2018: HISTORY: Bilateral toe redness and swelling, multiple falls There is patchy bony demineralization. The toes are held in dorsiflexion at the MTP joints. There are mild scattered degenerative changes. No fracture or destructive bony lesion is seen. There is diffuse subcutaneous edema. Moderate scattered arterial calcifications are present. IMPRESSION: 1. Demineralization. 2. Scattered degenerative changes. 3. No acute bony abnormality is detected. Electronically signed by: Elvin Krishna MD (10/15/2018 7:43 AM) [facility]
[2018-10-15] MEDS: metFORMIN 500 MG TABLET PO SCH ×2 (09:32→17:47)
[2018-10-15] MEDS: OMEGA-3 FATTY ACIDS/FISH OIL 1,000 MG CAPSULE. PO SCH (09:32)
[2018-10-15] MEDS: SERTRALINE 100 MG TABLET. PO SCH (09:32)
[2018-10-15] MEDS: traZODone 50 MG TABLET. PO SCH ×3 (09:33→17:47)
[2018-10-15] MEDS: medroxyPROGESTERone 5 MG TABLET PO SCH (09:33)
[2018-10-15] MEDS: glyBURIDE 5 MG TABLET PO SCH ×2 (09:33→17:46)
[2018-10-15] MEDS: MULTIVITAMIN with MINERAL TABLET. PO SCH (09:34)
[2018-10-15] MEDS: METOPROLOL TART IMMED RELEASE 25 MG TABLET PO SCH ×2 (09:34→21:02)
[2018-10-15] MEDS: DIVALPROEX 125 MG CAP.SPRINK PO SCH ×2 (09:35→17:47)
[2018-10-15] MEDS: LISINOPRIL 20 MG TABLET PO SCH ×2 (09:36→21:02)
[2018-10-15] MEDS: LORazepam 1 MG TABLET PO SCH ×3 (09:58→21:05)
[2018-10-15 15:33] VITALS: BP 121/84
[2018-10-15] MEDS: QUEtiapine 50 MG TABLET. PO SCH (17:46)
--- NOTE | 2018-10-15 20:49 | PN ---
DATE: 10/13/2018 PSYCHIATRIC PROGRESS NOTE This late entry 10/13/2018 covers elements not covered in my initial note. SUBJECTIVE: I met with the patient in the evening. The patient slept 7-1/2 hours. He has had [address] head was unremarkable. He is combative during dressing changes. It took 3 staff members in the morning to help him with this. Received Zyprexa at noon. visited. REVIEW OF SYSTEMS: No CV, , pulmonary, eye, ENT system symptoms on review. Reliability poor. MENTAL STATUS EXAM: Oriented to himself. Insight, judgment, recent and remote memory, attention, concentration, fund of knowledge poor, consistent with his diagnosis mentioned in my initial note. PLAN: No change from initial note for now. MAN Alessandra HERNANDEZ MD DR: TIEN/priyank JOB#: [id number] / [id number]
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
[2018-10-15] MEDS: FINASTERIDE 5 MG TABLET PO SCH (21:01)
[2018-10-15] MEDS: MELATONIN 3 MG TABLET PO SCH (21:02)
[2018-10-15] MEDS: traZODone 150 MG TABLET. PO SCH (21:02)
[2018-10-15] MEDS: DOXAZOSIN MESYLATE 4 MG TABLET PO SCH (21:02)
[2018-10-15] MEDS: ASPIRIN 81 MG TAB.CHEW PO SCH (21:03)
[2018-10-15] MEDS: MIRTAZAPINE 7.5 MG TABLET. PO SCH (21:03)
--- NOTE | 2018-10-15 22:33 | PDOC ---
Exam Note: Roderick Note: Please also refer to the separate dictated note~for this date of service dictated separately.~Patient seen individually. Discussed the patient with Nursing staff reviewed the chart.~Reviewed interim history and current functioning. Reviewed vital signs,~Labs/ Radiology~and current medications noted below. Continue current treatment with the changes noted in the dictated addendum note Assessment: Vital Signs: Vital Signs Date Time Temp Pulse Resp B/P (MAP) Pulse Ox O2 Delivery O2 Flow Rate FiO2 10/15/18 21:02 86 121/84 10/15/18 15:33 97.1 18 97 Room Air I&O Intake and Output 10/15/18 06:59 Intake Total 720 ml Balance 720 ml Intake Oral 720 ml Labs: Laboratory Tests Test 10/15/18 04:25 Urine Collection Type Unknown Urine Color Yellow Urine Clarity Clear Urine pH 7.0 Urine Specific [place] 1.015 Urine Protein Trace (NEG-TRACE) Urine Glucose (UA) Neg mg/dL (NEG) Urine Ketones (Stick) 15 mg/dL (NEG) Urine Blood Trace (NEG) Urine Nitrite Neg (NEG) Urine Bilirubin Neg (NEG) Urine Urobilinogen Dipstick 1 mg/dL (0.2 mg/dL) Urine Leukocyte Esterase Neg (NEG) Urine RBC 3-5 /HPF (0-2) Urine WBC Occ /HPF (0-4) Urine Squamous Epithelial Cells Occ /LPF Urine Bacteria 0 /HPF (0-FEW) Current Medications: Meds: Current Medications Acetaminophen (Tylenol) 650 mg PRN Q6HRS PRN PO PAIN / TEMP; Start 09/08/18 at 13:30 Multi-Ingredient Ointment (Analgesic [place]) 1 blas PRN QID PRN TP MUSCLE PAIN; Start 09/08/18 at 13:30 Al Hydroxide/Mg Hydroxide (Mylanta Plus Xs) 15 ml PRN AFTMEALHC PRN PO DYSPEPSIA; Start 09/08/18 at 13:30 Magnesium Hydroxide (Milk Of Magnesia) 2,400 mg PRN QHS PRN PO CONSTIPATION Last administered on 10/14/18at 06:19; Start 09/08/18 at 13:30 Aspirin (Children'S Aspirin) 81 mg QHS PO Last administered on 10/15/18at 21:03; Start 09/08/18 at 21:00 Non-Formulary Medication (Dextromethorphan Hbr/Chlor-Mal (Coricidin Hbp Cough & Cold Tab)) 1 each PRN QID PRN PO COUGH; Start 09/08/18 at 13:45; Status UNV Donepezil HCl (Aricept) 10 mg QHS PO Last administered on 10/09/18 19:26; Start 09/08/18 at 21:00; Stop 10/09/18 at 21:07; Status DC Doxazosin Mesylate (Cardura) 4 mg QHS PO Last administered on 10/15/18 21:02; Start 09/08/18 at 21:00 Finasteride (Proscar) 5 mg QHS PO Last administered on 10/15/18 21:01; Start at 21:00 Lisinopril (Prinivil) 40 mg BID PO Last administered on 10/15/18 21:02; Start 09/08/18 at 21:00 Lorazepam (Ativan) 2 mg TID PO Last administered on 09/08/18 21:25; Start at 14:00; Stop 09/09/18 at 06:58; Status DC Losartan Potassium (Cozaar) 50 mg DAILY PO Last administered on 09/09/18 08:19 ; Start 09/09/18 at 09:00; Stop 09/10/18 at 12:41; Status DC Losartan Potassium (Cozaar) 100 mg BID PO Last administered on 09/10/18 08:05; Start 09/08/18 at 21:00; Stop 09/10/18 at 12:41; Status DC Memantine (Namenda) 10 mg BID PO Last administered on 10/09/18 19:27; Start at 21:00; Stop 10/09/18 at 21:07; Status DC Metformin HCl (Glucophage) 500 mg BIDWMEALS PO Last administered on 10/15/18 17 :47; Start 09/08/18 at 17:00 Multivitamins/ Calcium (Thera-M Plus) 1 tab DAILY PO Last administered on 09:34; Start 09/09/18 at 09:00 Metoprolol Tartrate (Lopressor) 25 mg BID PO Last administered on 09/09/18 08: 21; Start 09/08/18 at 21:00; Stop 09/09/18 at 09:58; Status DC Fish Oil (Fish Oil) 1,000 mg DAILY PO Last administered on 10/15/18at 09:32; Start 09/09/18 at 09:00 Insulin Human Lispro (HumaLOG) 0-7 UNITS QIDACHS SQ Last administered on at 11:48; Start 09/08/18 at 16:30; Stop 10/04/18 at 13:58; Status DC Dextrose 12.5 gm PRN Q15MIN PRN IV SEE COMMENTS; Start 09/08/18 at 14:00 Glyburide (Diabeta) 5 mg BIDWMEALS PO Last administered on 10/15/18 17:46; Start 09/09/18 at 08:00 Sertraline HCl (Zoloft) 100 mg BID PO Last administered on 09/12/18 07:40; Start 09/09/18 at 09:00; Stop 09/12/18 at 19:10; Status DC Lorazepam (Ativan) 1 mg TID PO Last administered on 09/11/18at 20:16; Start 09/09 at 09:00; Stop 09/12/18 at 01:04; Status DC Divalproex Sodium (Depakote Sprinkles) 125 mg BIDWMEALS PO Last administered on 09/14/18 08:37; Start 09/09/18 at 17:00; Stop 09/14/18 at 16:37; Status DC Metoprolol Tartrate (Lopressor) 25 mg BID PO Last administered on 09/10/18at 08: 06; Start 09/09/18 at 21:00; Stop 09/10/18 at 12:45; Status DC Metoprolol Tartrate (Lopressor) 50 mg BID PO Last administered on 09/14/18 19: 36; Start 09/10/18 at 21:00; Stop 09/15/18 at 16:09; Status DC Trazodone HCl (Desyrel) 50 mg PRN QHS PRN PO INSOMNIA Last administered on 09/23 23:23; Start 09/10/18 at 17:00; Stop 09/24/18 at 16:51; Status DC Mirtazapine (Remeron) 7.5 mg QHS PO Last administered on 09/18/18 21:51; Start 09/10/18 at 21:00; Stop 09/19/18 at 00:07; Status DC Cephalexin HCl (Keflex) 500 mg TID PO Last administered on 09/21/18 08:15; Start 09/11/18 at 14:00; Stop 09/21/18 at 13:59; Status DC Lorazepam (Ativan) 0.75 mg DAILY PO Last administered on 10/15/18 09:58; Start 09/12/18 at 09:00 Lorazepam (Ativan) 1 mg BID@1300,2100 PO Last administered on 09/14/18 19:40; Start 09/12/18 at 13:00; Stop 09/14/18 at 21:01; Status DC Lorazepam (Ativan) 0.75 mg DAILY@1300 PO Last administered on 10/15/18 13:01; Start 09/15/18 at 13:00 Lorazepam (Ativan) 1 mg QHS PO Last administered on 09/17/18 18:43; Start at 21:00; Stop 09/17/18 at 21:01; Status DC Lorazepam (Ativan) 0.75 mg HS PO Last administered on 10/15/18 21:05; Start 09/18/18 at 21:00 Lactobacillus Rhamnosus (Culturelle) 1 cap BID PO Last administered on 09:38; Start 09/12/18 at 21:00; Stop 09/26/18 at 14:06; Status DC Sertraline HCl (Zoloft) 150 mg DAILY08 PO Last administered on 10/15/18 09:32; Start 09/13/18 at 08:00 Olanzapine (ZyPREXA ZYDIS) 5 mg PRN Q2HR PRN PO PSYCHOSIS Last administered on 10/13/18 11:59; Start 09/12/18 at 21:30 Divalproex Sodium (Depakote Sprinkles) 250 mg BIDWMEALS PO Last administered on 09/21/18 08:17; Start 09/14/18 at 17:00; Stop 09/21/18 at 16:47; Status DC Metoprolol Tartrate (Lopressor) 25 mg BID PO Last administered on 10/15/18 21: 02; Start 09/15/18 at 21:00 Trazodone HCl (Desyrel) 50 mg QHS PO Last administered on 09/23/18 19:40; Start 09/16/18 at 21:00; Stop 09/24/18 at 16:51; Status DC Mirtazapine (Remeron) 15 mg QHS PO Last administered on 10/15/18 21:03; Start 09/19/18 at 21:00 Medroxyprogesterone Acetate (Provera) 2.5 mg DAILY PO Last administered on 09/24 09:06; Start 09/21/18 at 09:00; Stop 09/24/18 at 16:51; Status DC Divalproex Sodium (Depakote Sprinkles) 375 mg BIDWMEALS PO Last administered on 09/25/18 17:11; Start 09/21/18 at 17:00; Stop 09/25/18 at 19:55; Status DC Medroxyprogesterone Acetate (Provera) 5 mg DAILY PO Last administered on 08:10; Start 09/25/18 at 09:00; Stop 10/08/18 at 16:40; Status DC Trazodone HCl (Desyrel) 100 mg PRN QHS PRN PO INSOMNIA Last administered on 19:12; Start 09/24/18 at 17:00; Stop 09/29/18 at 14:43; Status DC Trazodone HCl (Desyrel) 100 mg QHS PO Last administered on 09/28/18 19:11; Start 09/24/18 at 21:00; Stop 09/29/18 at 14:43; Status DC Divalproex Sodium (Depakote Sprinkles) 500 mg BIDWMEALS PO Last administered on 09/28/18 17:56; Start 09/26/18 at 08:00; Stop 09/28/18 at 19:24; Status DC Trazodone HCl (Desyrel) 100 mg 1X ONCE PO Last administered on 09/26/18 20:31 ; Start 09/26/18 at 20:15; Stop 09/26/18 at 20:16; Status DC Melatonin 3 mg QHS PO Last administered on 10/15/18 21:02; Start 09/27/18 at 21 :00 Divalproex Sodium (Depakote Sprinkles) 750 mg BIDWMEALS PO Last administered on 10/05/18 16:36; Start 09/29/18 at 08:00; Stop 10/05/18 at 17:15; Status DC Trazodone HCl (Desyrel) 150 mg PRN QHS PRN PO INSOMNIA Last administered on 10/12 20:00; Start 09/29/18 at 15:00 Trazodone HCl (Desyrel) 150 mg QHS PO Last administered on 10/15/18 21:02; Start 09/29/18 at 21:00 Divalproex Sodium (Depakote Sprinkles) 1,000 mg BIDWMEALS PO Last administered on 10/15/18 17:47; Start 10/06/18 at 08:00 Medroxyprogesterone Acetate (Provera) 7.5 mg DAILY PO Last administered on 09:33; Start 10/09/18 at 09:00 Quetiapine Fumarate (SEROquel) 25 mg DAILYWSUP PO Last administered on 17:04; Start 10/10/18 at 17:00; Stop 10/12/18 at 18:12; Status DC Quetiapine Fumarate (SEROquel) 50 mg DAILYWSUP PO Last administered on 17:46; Start 10/13/18 at 17:00 Trazodone HCl (Desyrel) 25 mg 0900,1300,1700 PO Last administered on 10/15/18 17:47; Start 10/13/18 at 09:00 Bisacodyl (Dulcolax Supp) 10 mg PRN DAILY PRN [place] CONSTIPATION Last administered on 10/15/18 04:12; Start 10/14/18 at 19:30 Active Scripts Active Reported Zoloft (Sertraline Hcl) 100 Mg Tablet 100 Mg PO BID [place] 3 Fish Oil Softgel ([place]-3 Fatty Acids/Fish Oil) 1 Each Capsule. 1 Each PO DAILY Bystolic (Nebivolol Hcl) 5 Mg Tablet 5 Mg PO DAILY Multivitamins (Multivitamin) 1 Each Tablet 1 Tab PO DAILY Metformin Hcl 500 Mg Tablet 500 Mg PO BIDWMEALS Namenda (Memantine Hcl) 10 Mg Tablet 10 Mg PO BID Ativan (Lorazepam) 2 Mg Tablet 1 Mg PO TID Lisinopril 40 Mg Tablet 40 Mg PO BID Glyburide 2.5 Mg Tablet 5 Mg PO BID Proscar (Finasteride) 5 Mg Tablet 5 Mg PO QHS Cardura (Doxazosin Mesylate) 4 Mg Tablet 4 Mg PO QHS Aricept (Donepezil Hcl) 10 Mg Tablet 10 Mg PO QHS Coricidin Hbp Cough & Cold Tab (Dextromethorphan Hbr/Chlor-Mal) 1 Each Tablet 1 Each PO PRN QID PRN Aspirin 81 Mg Tab.chew 81 Mg PO QHS I have reviewed the current psychotropics carefully including drug interactions. Risk benefit ratio favors no change other than as noted in my dictated progress note. Diagnosis: Problems: (1) Anxiety disorder (2) Dementia in Alzheimer's disease with delusions (3) Dementia in Alzheimer's disease with depression (4) Dementia, vascular, with delusions (5) Dementia, vascular, with depression (6) Impulse control disorder GERTRUDE HERNANDEZ MD Oct 15, 2018 22:33
[2018-10-16 05:53] VITALS: BP 135/63
[2018-10-16] MEDS: medroxyPROGESTERone 5 MG TABLET PO SCH (12:19)
[2018-10-16] MEDS: DIVALPROEX 125 MG CAP.SPRINK PO SCH ×2 (12:19→16:40)
[2018-10-16] MEDS: traZODone 50 MG TABLET. PO SCH ×3 (12:20→16:40)
[2018-10-16] MEDS: METOPROLOL TART IMMED RELEASE 25 MG TABLET PO SCH ×2 (12:20→19:28)
[2018-10-16] MEDS: OMEGA-3 FATTY ACIDS/FISH OIL 1,000 MG CAPSULE. PO SCH (12:21)
[2018-10-16] MEDS: SERTRALINE 100 MG TABLET. PO SCH (12:21)
[2018-10-16] MEDS: glyBURIDE 5 MG TABLET PO SCH ×2 (12:22→16:41)
[2018-10-16] MEDS: LISINOPRIL 20 MG TABLET PO SCH ×2 (12:22→19:30)
[2018-10-16] MEDS: LORazepam 1 MG TABLET PO SCH ×3 (12:25→19:31)
[2018-10-16] MEDS: metFORMIN 500 MG TABLET PO SCH ×2 (12:26→16:41)
[2018-10-16] MEDS: MULTIVITAMIN with MINERAL TABLET. PO SCH (12:26)
[2018-10-16 15:40] VITALS: BP 130/73
[2018-10-16] MEDS: QUEtiapine 50 MG TABLET. PO SCH (16:48)
[2018-10-16] MEDS: MELATONIN 3 MG TABLET PO SCH (19:29)
[2018-10-16] MEDS: ASPIRIN 81 MG TAB.CHEW PO SCH (19:29)
[2018-10-16] MEDS: MIRTAZAPINE 7.5 MG TABLET. PO SCH (19:29)
[2018-10-16] MEDS: DOXAZOSIN MESYLATE 4 MG TABLET PO SCH (19:29)
[2018-10-16] MEDS: traZODone 150 MG TABLET. PO SCH (19:29)
[2018-10-16] MEDS: FINASTERIDE 5 MG TABLET PO SCH (19:29)
--- NOTE | 2018-10-16 23:20 | PN ---
DATE: 10/16/2018 SUBJECTIVE: The patient was seen today, met with the staff, chart reviewed. The patient continues to exhibit inappropriate behaviors. The patient apparently had a recent fall, tend to wander at night, being combative and resistive to care. OBSERVATION: VITAL SIGNS: Temperature 97.2, blood pressure 135/63, pulse 80, respiration 18, O2 sat is 96%. Slept about 7 hours last night. His appetite improved. MEDICATIONS: Reviewed. Currently on Seroquel 50 mg daily, trazodone 25 mg t.i.d., Depakote 1000 mg b.i.d., trazodone 150 mg at night, melatonin 3 mg at night, mirtazapine 15 mg at night, lorazepam 0.75 mg at night, also 0.75 mg daily, Zoloft 150 mg daily and lorazepam 0.75 mg daily. The patient is not having any side effects to the medications. ASSESSMENT: Major neurocognitive disorder, Alzheimer, vascular with delusions, depression, and behavioral disturbances. TESFAYE XIAO MD DR: HASMUKH/priyank JOB#: [id number] / [id number]
[2018-10-17 06:16] VITALS: BP 137/85
[2018-10-17] MEDS: metFORMIN 500 MG TABLET PO SCH ×2 (07:55→18:09)
[2018-10-17] MEDS: DIVALPROEX 125 MG CAP.SPRINK PO SCH ×2 (07:55→18:09)
[2018-10-17] MEDS: glyBURIDE 5 MG TABLET PO SCH ×2 (07:55→18:09)
[2018-10-17] MEDS: SERTRALINE 100 MG TABLET. PO SCH (07:56)
[2018-10-17] MEDS: LORazepam 1 MG TABLET PO SCH ×3 (08:00→20:03)
[2018-10-17] MEDS: OMEGA-3 FATTY ACIDS/FISH OIL 1,000 MG CAPSULE. PO SCH (08:01)
[2018-10-17] MEDS: traZODone 50 MG TABLET. PO SCH ×3 (08:01→18:09)
[2018-10-17] MEDS: METOPROLOL TART IMMED RELEASE 25 MG TABLET PO SCH ×2 (08:02→20:02)
[2018-10-17] MEDS: LISINOPRIL 20 MG TABLET PO SCH ×2 (08:03→20:01)
[2018-10-17] MEDS: MULTIVITAMIN with MINERAL TABLET. PO SCH (08:03)
[2018-10-17] MEDS: medroxyPROGESTERone 5 MG TABLET PO SCH (08:03)
[2018-10-17 09:25] LABS: BASO % 1 % (0-3); EOS # 0.2 x10^3/uL (0.0-0.7); EOS % 3 % (0-3); HEMATOCRIT 41.3 % (39.0-53.0); HEMOGLOBIN 13.4 g/dL (13.0-17.5); LYMPH # 0.9 x10^3/uL (1.0-4.8); LYMPH % 14 % (24-48); MEAN CORPUSCULAR HEMOGLOBIN 28 pg (25-35); MEAN CORPUSCULAR HGB CONC 32 g/dL (31-37); MEAN CORPUSCULAR VOLUME 87 fL (79-100); MONO # 0.6 x10^3/uL (0.0-1.1); MONO % 8 % (0-9); NEUT # 5.1 x10^3uL (1.8-7.7); NEUT % 75 % (31-73); PLATELET COUNT 181 x10^3/uL (140-400); RED BLOOD COUNT 4.74 x10^6/uL (4.30-5.70); RED CELL DISTRIBUTION WIDTH 17.1 % (11.5-14.5); WHITE BLOOD COUNT 6.8 x10^3/uL (4.0-11.0)
[2018-10-17 09:36] LABS: ALBUMIN 3.2 g/dL (3.4-5.0); ALBUMIN/GLOBULIN RATIO 0.7 (1.0-1.7); CALCIUM 9.5 mg/dL (8.5-10.1); CREATININE 0.8 mg/dL (0.7-1.3); GFR 93.5; POTASSIUM 4.1 mmol/L (3.5-5.1); TOTAL BILIRUBIN 0.6 mg/dL (0.2-1.0); TOTAL PROTEIN 7.5 g/dL (6.4-8.2)
[2018-10-17 16:26] VITALS: BP 140/68
[2018-10-17] MEDS: QUEtiapine 50 MG TABLET. PO SCH (18:09)
[2018-10-17] MEDS: FINASTERIDE 5 MG TABLET PO SCH (20:00)
[2018-10-17] MEDS: traZODone 150 MG TABLET. PO SCH (20:00)
[2018-10-17] MEDS: DOXAZOSIN MESYLATE 4 MG TABLET PO SCH (20:01)
[2018-10-17] MEDS: MIRTAZAPINE 7.5 MG TABLET. PO SCH (20:01)
[2018-10-17] MEDS: ASPIRIN 81 MG TAB.CHEW PO SCH (20:02)
[2018-10-17] MEDS: MELATONIN 3 MG TABLET PO SCH (20:02)
--- NOTE | 2018-10-18 02:18 | PN ---
DATE: 10/17/2018 SUBJECTIVE: The patient was seen today, met with the staff, chart reviewed. The patient continues to exhibit behavioral problems, tend to wanders off. The patient also has problems following directions. The patient also refusing to take his medications. The patient forces himself to the floor, seeking attention and also getting angry at times, kicking. OBSERVATION: Vital signs stable. Sleeping fair. Appetite improved. MEDICATIONS: Current medications include Seroquel 50 mg daily, trazodone 25 mg t.i.d., Depakote 1000 mg b.i.d., trazodone 150 mg at night, melatonin 3 mg at night, mirtazapine 15 mg at night, lorazepam 0.75 mg at night and daily. The patient is also on Zoloft 150 mg daily. The patient is not having any side effects from medications. ASSESSMENT: Major neurocognitive disorder, Alzheimer's, vascular with delusions, depression and behavioral disturbances. PLAN: To continue with the treatment. TESFAYE XIAO MD DR: HASMUKH/priyank JOB#: [id number] / [id number]
--- NOTE | 2018-10-18 02:41 | PN ---
DATE: 10/15/2018 PSYCHIATRIC PROGRESS NOTE This late entry 10/15/2018 covers elements not covered in my initial note. SUBJECTIVE: I met with the patient in the evening. The patient slept 6-3/4 hours previous night. UA is negative. He slept through breakfast, takes his medications crushed in pudding. Previous night, he was combative, trying to pull by him. He is quite active, labile, still remains quite intermittently impulsive and dangerous. REVIEW OF SYSTEMS: No CV, , pulmonary, eye, ENT system symptoms on review. Reliability poor. MENTAL STATUS EXAM: Oriented to himself. Insight, judgment, recent and remote memory, attention, concentration, fund of knowledge poor, consistent with his diagnosis mentioned in my initial note. PLAN: No change from initial note. We will hold the trazodone if sedated. Continue rest unchanged. MAN Alessandra HERNANDEZ MD DR: TIEN/priyank JOB#: [id number] / [id number]
[2018-10-18 06:08] VITALS: BP 171/93
[2018-10-18] MEDS: OMEGA-3 FATTY ACIDS/FISH OIL 1,000 MG CAPSULE. PO SCH (09:00)
[2018-10-18] MEDS: traZODone 50 MG TABLET. PO SCH ×3 (09:00→17:00)
[2018-10-18 09:46] LABS: ALBUMIN/GLOBULIN RATIO 0.7 (1.0-1.7); CALCIUM 9.1 mg/dL (8.5-10.1); CREATININE 0.9 mg/dL (0.7-1.3); GFR 81.6; TOTAL BILIRUBIN 0.6 mg/dL (0.2-1.0); TOTAL PROTEIN 7.2 g/dL (6.4-8.2)
[2018-10-18] MEDS: DIVALPROEX 125 MG CAP.SPRINK PO SCH ×3 (10:16→17:34)
[2018-10-18] MEDS: glyBURIDE 5 MG TABLET PO SCH ×3 (10:16→17:34)
[2018-10-18] MEDS: LORazepam 1 MG TABLET PO SCH ×3 (10:17→21:57)
[2018-10-18] MEDS: SERTRALINE 100 MG TABLET. PO SCH (10:17)
[2018-10-18] MEDS: metFORMIN 500 MG TABLET PO SCH ×3 (10:17→17:34)
[2018-10-18] MEDS: METOPROLOL TART IMMED RELEASE 25 MG TABLET PO SCH ×2 (10:19→21:58)
[2018-10-18] MEDS: LISINOPRIL 20 MG TABLET PO SCH ×2 (10:20→21:59)
[2018-10-18] MEDS: MULTIVITAMIN with MINERAL TABLET. PO SCH (10:20)
[2018-10-18] MEDS: medroxyPROGESTERone 5 MG TABLET PO SCH (10:26)
[2018-10-18 16:27] VITALS: BP 100/75
[2018-10-18] MEDS: QUEtiapine 50 MG TABLET. PO SCH ×2 (17:00→17:34)
[2018-10-18] MEDS: DOXAZOSIN MESYLATE 4 MG TABLET PO SCH (21:57)
[2018-10-18] MEDS: FINASTERIDE 5 MG TABLET PO SCH (22:00)
[2018-10-18] MEDS: MELATONIN 3 MG TABLET PO SCH (22:00)
[2018-10-18] MEDS: MIRTAZAPINE 7.5 MG TABLET. PO SCH (22:01)
[2018-10-18] MEDS: ASPIRIN 81 MG TAB.CHEW PO SCH (22:01)
[2018-10-18] MEDS: traZODone 150 MG TABLET. PO SCH (23:01)
[2018-10-18 23:09] VITALS: BP 124/80
--- NOTE | 2018-10-19 03:24 | PN ---
DATE: 10/18/2018 SUBJECTIVE: The patient was seen today, met with the staff, chart reviewed. The patient continues to wander, difficult to redirect, also refusing his medications at times. The patient is also attention-seeking, making demands, tend to become aggressive, at times physical. OBSERVATION: VITAL SIGNS: Temperature 97.5, blood pressure 171/93, pulse 96, respirations 18, O2 sat 97%. Slept about an hour and a half last night. CURRENT MEDICATIONS: The patient's current medications include Seroquel 50 mg daily, trazodone 25 mg t.i.d., Depakote 1000 mg b.i.d., trazodone 150 mg at night, melatonin 3 mg at night, mirtazapine 15 mg at night, lorazepam 0.75 mg at night, also daily. The patient is also on Zoloft 150 mg daily. The patient is not having any side effects. The patient is also not showing much improvement at this point. His behavior problems continues. ASSESSMENT: Major neurocognitive disorder, Alzheimer's, vascular with delusions, depression and behavioral disturbances. PLAN: Continue with the treatment and the patient's medication changed. The patient's Seroquel to be increased to 25 mg t.i.d. p.o. The patient will be taken off trazodone. The patient's sodium level is 153. The patient's Depakote level 53. TESFAYE XIAO MD DR: HASMUKH/priyank JOB#: [id number] / [id number]
[2018-10-19 06:32] VITALS: BP 141/89
[2018-10-19 08:24] LABS: ALBUMIN 2.9 g/dL (3.4-5.0); ALBUMIN/GLOBULIN RATIO 0.7 (1.0-1.7); CREATININE 0.8 mg/dL (0.7-1.3); GFR 93.5; POTASSIUM 4.2 mmol/L (3.5-5.1); TOTAL BILIRUBIN 0.6 mg/dL (0.2-1.0); TOTAL PROTEIN 7.1 g/dL (6.4-8.2)
[2018-10-19] MEDS: MULTIVITAMIN with MINERAL TABLET. PO SCH (09:00)
[2018-10-19] MEDS: LISINOPRIL 20 MG TABLET PO SCH ×2 (09:00→20:40)
[2018-10-19] MEDS: LORazepam 1 MG TABLET PO SCH ×3 (09:00→20:42)
[2018-10-19] MEDS: METOPROLOL TART IMMED RELEASE 25 MG TABLET PO SCH ×2 (09:00→20:39)
[2018-10-19] MEDS: OMEGA-3 FATTY ACIDS/FISH OIL 1,000 MG CAPSULE. PO SCH (09:00)
[2018-10-19] MEDS: DIVALPROEX 125 MG CAP.SPRINK PO SCH ×2 (12:27→17:25)
[2018-10-19] MEDS: glyBURIDE 5 MG TABLET PO SCH ×2 (12:27→17:25)
[2018-10-19] MEDS: metFORMIN 500 MG TABLET PO SCH ×2 (12:27→17:26)
[2018-10-19] MEDS: SERTRALINE 100 MG TABLET. PO SCH (12:28)
[2018-10-19] MEDS: medroxyPROGESTERone 5 MG TABLET PO SCH (12:28)
[2018-10-19] MEDS: QUEtiapine 25 MG TABLET. PO SCH ×3 (12:29→17:26)
--- NOTE | 2018-10-19 15:31 | RAD ---
CT head without contrast dated 10/19/2018. Comparison made to 10/12/2018. CLINICAL INDICATION: Altered mental status. Recent fall. Pain and lump. TECHNIQUE: Contiguous axial imaging the head was performed from skull base to vertex. No contrast administered. One or more of the following individualized dose reduction techniques were utilized for this examination: 1. Automated exposure control 2. Adjustment of the mA and/or kV according to patient size 3. Use of iterative reconstruction technique. FINDINGS: Ventricles and sulci are mildly prominent for age. No midline shift or mass effect. Mild to moderate patchy low density in the deep/subcortical periventricular white matter. No hemorrhage or extra axial collection. Posterior fossa and brainstem unremarkable. There is a small scalp hematoma posteriorly on the left. Underlying osseous structures intact. Paranasal sinuses and mastoid air cells are clear. IMPRESSION: 1. No evidence of acute cranial hemorrhage or mass. 2. Mild chronic small vessel ischemic changes and atrophy. 3. Small posterior left scalp hematoma with no evidence of underlying fracture. Electronically signed by: Ifeanyi Goodrich MD (10/19/2018 3:28 PM) [id number]
[2018-10-19 16:23] VITALS: BP 128/88
[2018-10-19] MEDS: MELATONIN 3 MG TABLET PO SCH (20:36)
[2018-10-19] MEDS: ASPIRIN 81 MG TAB.CHEW PO SCH (20:39)
[2018-10-19] MEDS: traZODone 150 MG TABLET. PO SCH (20:39)
[2018-10-19] MEDS: DOXAZOSIN MESYLATE 4 MG TABLET PO SCH (20:39)
[2018-10-19] MEDS: MIRTAZAPINE 7.5 MG TABLET. PO SCH (20:40)
[2018-10-19] MEDS: FINASTERIDE 5 MG TABLET PO SCH (20:40)
--- NOTE | 2018-10-20 02:37 | PN ---
DATE: 10/19/2018 SUBJECTIVE: The patient was seen today, met with the staff, chart reviewed. The patient continues to have problems, withdrawn, high level of anxiety, aggressive, attention seeking, making demands. OBSERVATION: VITAL SIGNS: Temperature 97.9, blood pressure 123/88, pulse 94, respirations 20, O2 sat 96%. The patient's sleep and appetite have improved. CURRENT MEDICATIONS: Reviewed. The patient's Seroquel was increased yesterday to 25 mg t.i.d. The patient has been off trazodone. The patient will continue on other medications including Depakote, melatonin, mirtazapine, lorazepam, and Zoloft. The patient is not having any side effects. ASSESSMENT: Major neurocognitive disorder, Alzheimer's, vascular with delusions, depression, and behavioral disturbances. PLAN: To continue with the treatment. TESFAYE XIAO MD DR: HASMUKH/priyank JOB#: [id number] / [id number]
[2018-10-20] MEDS ORDERED: LORA0.5T PO (04:48)
[2018-10-20] MEDS ORDERED: ACET325T9 PO (04:52)
[2018-10-20] MEDS ORDERED: BISA10EN RC (04:53)
[2018-10-20] MEDS ORDERED: DIVA125C2 PO (04:55)
[2018-10-20] MEDS ORDERED: MAG30ORA2 PO (04:56)
[2018-10-20] MEDS ORDERED: MAGN2400 PO (04:57)
[2018-10-20] MEDS ORDERED: MELA3TAB2 PO (04:58)
[2018-10-20] MEDS ORDERED: METO25TA4 PO (04:59)
[2018-10-20] MEDS ORDERED: METH29OI TP (04:59)
[2018-10-20] MEDS ORDERED: MIRT15TA3 PO (05:00)
[2018-10-20] MEDS ORDERED: OLAN5TAB3 PO (05:01)
[2018-10-20] MEDS ORDERED: QUET25TA5 PO (05:03)
[2018-10-20] MEDS ORDERED: MEDR5TAB PO (05:05)
[2018-10-20] MEDS ORDERED: TRAZ150T49 PO ×2 (05:06)
[2018-10-20 06:01] VITALS: BP 132/80
[2018-10-20] MEDS: medroxyPROGESTERone 5 MG TABLET PO SCH (09:34)
[2018-10-20] MEDS: metFORMIN 500 MG TABLET PO SCH ×2 (09:34→17:36)
[2018-10-20] MEDS: DIVALPROEX 125 MG CAP.SPRINK PO SCH ×2 (09:34→17:36)
[2018-10-20] MEDS: MULTIVITAMIN with MINERAL TABLET. PO SCH (09:35)
[2018-10-20] MEDS: METOPROLOL TART IMMED RELEASE 25 MG TABLET PO SCH ×2 (09:35→19:59)
[2018-10-20] MEDS: SERTRALINE 100 MG TABLET. PO SCH (09:35)
[2018-10-20] MEDS: OMEGA-3 FATTY ACIDS/FISH OIL 1,000 MG CAPSULE. PO SCH (09:36)
[2018-10-20] MEDS: glyBURIDE 5 MG TABLET PO SCH ×2 (09:36→17:36)
[2018-10-20] MEDS: QUEtiapine 25 MG TABLET. PO SCH ×3 (09:36→17:36)
[2018-10-20] MEDS: LISINOPRIL 20 MG TABLET PO SCH ×2 (09:36→19:59)
[2018-10-20] MEDS: LORazepam 1 MG TABLET PO SCH ×3 (09:38→20:02)
[2018-10-20] MEDS: NYSTATIN TOPICAL POWDER 15GM BOTTLE. TP SCH ×2 (09:38→20:00)
[2018-10-20 17:29] VITALS: BP 143/85
[2018-10-20] MEDS: MELATONIN 3 MG TABLET PO SCH (19:56)
[2018-10-20] MEDS: traZODone 150 MG TABLET. PO SCH (19:58)
[2018-10-20] MEDS: ASPIRIN 81 MG TAB.CHEW PO SCH (19:58)
[2018-10-20] MEDS: DOXAZOSIN MESYLATE 4 MG TABLET PO SCH (19:58)
[2018-10-20] MEDS: FINASTERIDE 5 MG TABLET PO SCH (19:59)
[2018-10-20] MEDS: MIRTAZAPINE 7.5 MG TABLET. PO SCH (20:00)
[2018-10-21 07:00] VITALS: BP 135/88
[2018-10-21] MEDS: DIVALPROEX 125 MG CAP.SPRINK PO SCH ×2 (10:06→18:20)
[2018-10-21] MEDS: OMEGA-3 FATTY ACIDS/FISH OIL 1,000 MG CAPSULE. PO SCH (10:06)
[2018-10-21] MEDS: LISINOPRIL 20 MG TABLET PO SCH ×2 (10:06→19:36)
[2018-10-21] MEDS: METOPROLOL TART IMMED RELEASE 25 MG TABLET PO SCH ×2 (10:07→19:36)
[2018-10-21] MEDS: metFORMIN 500 MG TABLET PO SCH ×2 (10:07→18:20)
[2018-10-21] MEDS: MULTIVITAMIN with MINERAL TABLET. PO SCH (10:07)
[2018-10-21] MEDS: QUEtiapine 25 MG TABLET. PO SCH ×3 (10:07→18:20)
[2018-10-21] MEDS: glyBURIDE 5 MG TABLET PO SCH ×2 (10:08→18:20)
[2018-10-21] MEDS: NYSTATIN TOPICAL POWDER 15GM BOTTLE. TP SCH ×2 (10:08→19:39)
[2018-10-21] MEDS: SERTRALINE 100 MG TABLET. PO SCH (10:08)
[2018-10-21] MEDS: LORazepam 1 MG TABLET PO SCH ×3 (10:10→19:39)
[2018-10-21] MEDS: medroxyPROGESTERone 5 MG TABLET PO SCH (10:14)
[2018-10-21 16:31] VITALS: BP 145/90
[2018-10-21] MEDS: MIRTAZAPINE 7.5 MG TABLET. PO SCH (19:35)
[2018-10-21] MEDS: ASPIRIN 81 MG TAB.CHEW PO SCH (19:36)
[2018-10-21] MEDS: traZODone 150 MG TABLET. PO SCH (19:36)
[2018-10-21] MEDS: MELATONIN 3 MG TABLET PO SCH (19:36)
[2018-10-21] MEDS: DOXAZOSIN MESYLATE 4 MG TABLET PO SCH (19:36)
[2018-10-21] MEDS: FINASTERIDE 5 MG TABLET PO SCH (19:37)
--- NOTE | 2018-10-21 23:55 | PN ---
DATE: 10/21/2018 SUBJECTIVE: The patient was seen today, met with the staff, chart reviewed. The patient continues to have behavior problems, aggressive, combative, resistive to care. OBSERVATION: Temperature 97.8, blood pressure 145/90, pulse 86, respirations 17, O2 sat 96%. MEDICATIONS: The patient's current medications include Seroquel 25 mg t.i.d. p.o. The patient is also on Depakote, melatonin, mirtazapine, lorazepam, and Zoloft. The patient is not having any side effects. No falls. ASSESSMENT: Major neurocognitive disorder, vascular with delusions, depression, and behavioral disturbances. PLAN: To continue with the treatment. TESFAYE XIAO MD DR: HASMUKH/priyank JOB#: [id number] / [id number]
[2018-10-22 06:05] VITALS: BP 150/80
[2018-10-22] MEDS: medroxyPROGESTERone 5 MG TABLET PO SCH (08:31)
[2018-10-22] MEDS: QUEtiapine 25 MG TABLET. PO SCH ×3 (08:31→17:21)
[2018-10-22] MEDS: DIVALPROEX 125 MG CAP.SPRINK PO SCH ×2 (08:31→17:22)
[2018-10-22] MEDS: glyBURIDE 5 MG TABLET PO SCH ×2 (08:31→17:21)
[2018-10-22] MEDS: SERTRALINE 100 MG TABLET. PO SCH (08:32)
[2018-10-22] MEDS: metFORMIN 500 MG TABLET PO SCH ×2 (08:32→17:21)
[2018-10-22] MEDS: OMEGA-3 FATTY ACIDS/FISH OIL 1,000 MG CAPSULE. PO SCH (08:32)
[2018-10-22] MEDS: METOPROLOL TART IMMED RELEASE 25 MG TABLET PO SCH ×2 (08:32→19:33)
[2018-10-22] MEDS: MULTIVITAMIN with MINERAL TABLET. PO SCH (08:32)
[2018-10-22] MEDS: LORazepam 1 MG TABLET PO SCH ×3 (08:33→19:27)
[2018-10-22] MEDS: NYSTATIN TOPICAL POWDER 15GM BOTTLE. TP SCH ×2 (08:33→20:19)
[2018-10-22] MEDS: LISINOPRIL 20 MG TABLET PO SCH ×2 (08:33→19:34)
[2018-10-22 16:16] VITALS: BP 95/63
[2018-10-22] MEDS: MELATONIN 3 MG TABLET PO SCH (19:25)
[2018-10-22] MEDS: traZODone 150 MG TABLET. PO SCH (19:25)
[2018-10-22] MEDS: ASPIRIN 81 MG TAB.CHEW PO SCH (19:25)
[2018-10-22] MEDS: MIRTAZAPINE 7.5 MG TABLET. PO SCH (19:25)
[2018-10-22] MEDS: FINASTERIDE 5 MG TABLET PO SCH (19:26)
[2018-10-22] MEDS: DOXAZOSIN MESYLATE 4 MG TABLET PO SCH (19:33)
--- NOTE | 2018-10-22 23:58 | PN ---
DATE: 10/22/2018 SUBJECTIVE: The patient was seen today, met with the staff, chart reviewed. The patient has had falls recently, otherwise no major behavior problem, still confused, currently on wheelchair. OBSERVATION: VITAL SIGNS: Temperature 97.9, blood pressure 150/80, pulse 87, respirations 20, O2 sat 94%. Slept about 6 hours last night. The patient is not having any physical problems. MEDICATIONS: The patient's current medications include Seroquel 25 mg t.i.d. p.o., Depakote, melatonin, mirtazapine, lorazepam, and Zoloft. ASSESSMENT: Major neurocognitive disorder, vascular with delusions, depression, and behavioral disturbances. PLAN: To continue with the treatment. TESFAYE XIAO MD DR: HASMUKH/priyank JOB#: [id number] / [id number]
[2018-10-23 05:55] VITALS: BP 135/86
[2018-10-23 08:26] LABS: BASO % 0 % (0-3); EOS # 0.1 x10^3/uL (0.0-0.7); EOS % 2 % (0-3); HEMATOCRIT 44.6 % (39.0-53.0); HEMOGLOBIN 14.8 g/dL (13.0-17.5); LYMPH % 12 % (24-48); MEAN CORPUSCULAR HEMOGLOBIN 29 pg (25-35); MEAN CORPUSCULAR HGB CONC 33 g/dL (31-37); MEAN CORPUSCULAR VOLUME 87 fL (79-100); MONO # 0.8 x10^3/uL (0.0-1.1); MONO % 9 % (0-9); NEUT # 6.3 x10^3uL (1.8-7.7); NEUT % 77 % (31-73); PLATELET COUNT 190 x10^3/uL (140-400); RED BLOOD COUNT 5.13 x10^6/uL (4.30-5.70); RED CELL DISTRIBUTION WIDTH 17.2 % (11.5-14.5); WHITE BLOOD COUNT 8.2 x10^3/uL (4.0-11.0)
[2018-10-23] MEDS: DIVALPROEX 125 MG CAP.SPRINK PO SCH (08:27)
[2018-10-23] MEDS: SERTRALINE 100 MG TABLET. PO SCH (08:27)
[2018-10-23] MEDS: metFORMIN 500 MG TABLET PO SCH (08:27)
[2018-10-23] MEDS: glyBURIDE 5 MG TABLET PO SCH (08:27)
[2018-10-23] MEDS: LORazepam 1 MG TABLET PO SCH (08:28)
[2018-10-23] MEDS: OMEGA-3 FATTY ACIDS/FISH OIL 1,000 MG CAPSULE. PO SCH (08:28)
[2018-10-23] MEDS: METOPROLOL TART IMMED RELEASE 25 MG TABLET PO SCH (08:29)
[2018-10-23 08:30] VITALS: BP 135/86
[2018-10-23] MEDS: medroxyPROGESTERone 5 MG TABLET PO SCH (08:30)
[2018-10-23] MEDS: QUEtiapine 25 MG TABLET. PO SCH (08:30)
[2018-10-23] MEDS: LISINOPRIL 20 MG TABLET PO SCH (08:30)
[2018-10-23] MEDS: MULTIVITAMIN with MINERAL TABLET. PO SCH (08:30)
[2018-10-23 08:52] LABS: ALBUMIN 3.2 g/dL (3.4-5.0); ALBUMIN/GLOBULIN RATIO 0.8 (1.0-1.7); CALCIUM 9.5 mg/dL (8.5-10.1); GFR 72.3; TOTAL BILIRUBIN 0.5 mg/dL (0.2-1.0); TOTAL PROTEIN 7.4 g/dL (6.4-8.2)
[2018-10-23] MEDS: NYSTATIN TOPICAL POWDER 15GM BOTTLE. TP SCH (09:04)
[2018-10-23] MEDS ORDERED: NYST15PO9 TP (09:12)
[2018-10-23 09:51] LABS: MAGNESIUM 2.3 mg/dL (1.8-2.4)
--- NOTE | 2018-10-23 17:16 | DS ---
DATE OF DISCHARGE: 10/23/2018 FINAL DIAGNOSES: AXIS I: 1. Major neurocognitive disorder, Alzheimer's, vascular with delusions, depression and behavioral disturbances. 2. Anxiety disorder, unspecified. 3. Impulse control disorder, unspecified. AXIS II: None. AXIS III: Hypertension, diabetes mellitus, anemia, atrial flutter, hyperlipidemia. The patient had a history of falls in the past. The patient's lab was abnormal. The patient's sodium was 61 and also elevated BUN. REASON FOR ADMISSION: This 78-year-old male, who was admitted to [facility] from [facility] because of increased confusion, being physically and verbally aggressive towards his at home and the patient also become aggressive, confused, unmanageable. He was trying to pull his IV line. He was wandering at night, having problems with sleep. He was not able to take care of his needs. HISTORY OF PRESENT ILLNESS: He has a long history of dementia, Alzheimer's vascular type and has been living at home with his . His behavior progressively worsened. The patient also had changes with sleep and appetite lately. The patient did not show any evidence of bipolar disorder and also slow homicidal ideation. HOSPITAL COURSE: The patient had a physical exam, routine lab work including CBC, chem profile, urinalysis. The patient's glucose fluctuated. The patient's sodium on admission was 145, BUN was 23, glucose level 215. The patient's sodium level was elevated. Last week it was 57 and then currently 162. The patient's BUN was 39, initially it was 25. The patient's lactic acid was 2.6, AST 54. The patient was on the following medications during the stay here including Seroquel 25 mg daily, Depakote 1000 mg b.i.d., trazodone 150 mg at night, melatonin 3 mg at night, mirtazapine 15 mg at night, lorazepam 0.75 mg at night, metoprolol 25 mg b.i.d., lorazepam 0.75 mg daily, Zoloft 150 mg daily. He was also on p.r.n. Zyprexa, was also on lisinopril, Proscar, aspirin, and metformin. The patient continued to have problems with his behavior during the stay here including history of falls. DISCHARGE PLANS: The patient was transferred to medical floor because of his abnormal lab values. The patient will be reevaluated for readmission to [facility] when is medically stable. TESFAYE XIAO MD DR: HASMUKH/priyank JOB#: [id number] / [id number]
== END 2018-10-23 10:09 | disposition home or self-care (01) | DRG 57 ==
LOC: GEROPSY 13:16
PROVIDERS: ADMIT Psychiatry & Neurology Psychiatry; ATTEND Psychiatry & Neurology Psychiatry
DX: G30.9 Alzheimer's disease, unspecified (principal); F01.51 Vascular dementia, unspecified severity, with behavioral disturbance; F32.9 Major depressive disorder, single episode, unspecified; F63.9 Impulse disorder, unspecified; F41.9 Anxiety disorder, unspecified; I10 Essential (primary) hypertension; E11.9 Type 2 diabetes mellitus without complications; E78.5 Hyperlipidemia, unspecified; Z66 Do not resuscitate; G47.00 Insomnia, unspecified; I48.91 Unspecified atrial fibrillation; D64.9 Anemia, unspecified; Z91.81 History of falling; Z79.899 Other long term (current) drug therapy; Z88.5 Allergy status to narcotic agent
CPT/HCPCS: 36415; 70450; 73620; 80053; 80061; 80164; 81001; 82306; 82550; 82947; 83036; 83540; 83550; 83605; 83735; 84436; 84443; 84480; 84484; 85025; 85027; 85379; 86592; 93005; J1815; 97110; 97116; 97530; 97535

== ENCOUNTER 2018-10-23 10:17 | Inpatient (IN) | payer MEDICARE, OTHER ==
[2018-10-23] VITALS (10 sets, daily range): BP systolic 123–178; BP diastolic 62–101
[~2018-10-23] VITALS: Ht 188 cm; Wt 101.6 kg
[2018-10-23] MEDS: IV DEXTROSE 5% 1,000 ML IV SCH ×2 (00:30→11:34)
[~2018-10-23 10:17] MED LIST: ACET325T9 PO; ASPI-630 PO; BISA10EN RC; DEXT1TAB3 PO; DIVA125C2 PO; DONE10TA61 PO; DOXA4TAB2 PO; FINA5TAB PO; GLYB2.5T2 PO; LISI40TA PO; LORA0.5T PO; LORA2TAB89 PO; LOSA100T14 PO; MAG30ORA2 PO; MAGN2400 PO; MEDR5TAB PO; MELA3TAB2 PO; MEMA10TA PO; METF500T16 PO; METH29OI TP; METO25TA4 PO; MIRT15TA3 PO; MULT1TAB52 PO; NEBI5TAB2 PO; NYST15PO9 TP; OLAN5TAB3 PO; OMEG1CAP38 PO; QUET25TA5 PO; SERT100T PO; TRAZ150T49 PO
[2018-10-23] MEDS ORDERED: DEXTROSE 50% 25 GM / 50ML DISP.SYRIN. IV PRN (11:00)
[2018-10-23 12:32] LABS: CALCIUM 9.2 mg/dL (8.5-10.1); GFR 72.3; POTASSIUM 3.9 mmol/L (3.5-5.1)
[2018-10-23] MEDS: INSULIN LISPRO 300 UNITS/3 ML INSULN.PEN. SQ SCH ×2 (12:48→17:10)
[2018-10-23] MEDS: QUEtiapine 25 MG TABLET. PO SCH ×2 (13:00→17:09)
[2018-10-23] MEDS ORDERED: METHYL SALICYLATE/MENTHOL TOPICAL OINTMENT 29GM TUBE. TP PRN (13:15)
[2018-10-23] MEDS ORDERED: BISACODYL 10 MG/30 ML ENEMA RC PRN (13:15)
[2018-10-23] MEDS ORDERED: MAG HYDROX/AL HYDROX/SIMETH 30 ML ORAL.SUSP PO PRN (13:15)
[2018-10-23 15:45] LABS: BILIRUBIN,URINE NEG (NEG); CLARITY,URINE CLOUDY; COLOR,URINE AMBER; GLUCOSE,URINE 100 mg/dL (NEG); NITRITE,URINE NEG (NEG); UROBILINOGEN,URINE 2 mg/dL (0.2 mg/dL)
[2018-10-23 15:46] LABS: AMORPHOUS SEDIMENT,UR PRESENT /HPF; BACTERIA,URINE FEW /HPF (0-FEW); RBC,URINE TNTC /HPF (0-2); SQUAMOUS EPITHELIAL CELL,UR OCC /LPF
[2018-10-23] MEDS: DIVALPROEX 125 MG CAP.SPRINK PO SCH (17:09)
[2018-10-23] MEDS ORDERED: ACETAMINOPHEN 325 MG TABLET PO SCH (18:00)
[2018-10-23 18:11] LABS: CREATININE 0.9 mg/dL (0.7-1.3); GFR 81.6; POTASSIUM 4.3 mmol/L (3.5-5.1)
--- NOTE | 2018-10-23 18:28 | PDOC1 ---
History of Present Illness History of Present Illness The patient is a 78-year-old male with severe Alzheimers dementia, BPH, hypertension, insomnia. I was called this morning by the behavioral unit nurse because he had an elevated sodium of 163. The patient is accompanied by his at this time. The is adamant that the patient has not been eating or drinking that well and his mental status has worsened since he was admitted to the behavioral unit. He apparently was discharged from [facility] and came to the behavioral unit for further therapy for his Alzheimers and behavioral status. The patient apparently does not drink that much water. his states that he has stopped recognizing her. His also state that he is more somnolent now that he was before. No fevers, chills have been documented. However, he does not provide any history given his clinical status. 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 Review of Systems Review Of Systems the patient cannot provide any ROS due to his severe dementia Medications Current Medications Insulin Human Lispro (HumaLOG) 0-9 UNITS TIDWMEALS SQ Last administered on 10/23at 17:10; Start 10/23/18 at 12:00 Dextrose 12.5 gm PRN Q15MIN PRN IV SEE COMMENTS; Start 10/23/18 at 11:00 Dextrose 1,000 ml @ 80 mls/hr [id number] IV Last administered on 10/23/18at 11:34 ; Start 10/23/18 at 11:15 Acetaminophen (Tylenol) 650 mg Q6HRS PO ; Start 10/23/18 at 18:00; Stop at 18:00; Status DC Bisacodyl (Fleet Bisacodyl) 10 mg PRN DAILY PRN RC CONSTIPATION; Start at 13:15 Al Hydroxide/Mg Hydroxide (Mylanta Plus Xs) 15 ml PRN AFTMEALHC PRN PO DYSPEPSIA; Start 10/23/18 at 13:15 Medroxyprogesterone Acetate (Provera) 7.5 mg DAILY PO ; Start 10/24/18 at 09:00 Multi-Ingredient Ointment (Analgesic [place]) 1 blas PRN QID PRN TP MUSCLE PAIN; Start 10/23/18 at 13:15 Metoprolol Tartrate (Lopressor) 25 mg BID PO ; Start 10/23/18 at 21:00 Nystatin (Nystop) 1 blas BID TP ; Start 10/23/18 at 21:00 Sertraline HCl (Zoloft) 150 mg DAILY08 PO ; Start 10/24/18 at 08:00 Aspirin (Children'S Aspirin) 81 mg QHS PO ; Start 10/23/18 at 21:00 Divalproex Sodium (Depakote Sprinkles) 1,000 mg BIDWMEALS PO Last administered on 10/23/18at 17:09; Start 10/23/18 at 17:00 Doxazosin Mesylate (Cardura) 4 mg QHS PO ; Start 10/23/18 at 21:00 Finasteride (Proscar) 5 mg QHS PO ; Start 10/23/18 at 21:00 Melatonin 3 mg QHS PO ; Start 10/23/18 at 21:00 Mirtazapine (Remeron) 15 mg QHS PO ; Start 10/23/18 at 21:00 Olanzapine (ZyPREXA ZYDIS) 5 mg PRN Q2HR PRN PO PSYCHOSIS; Start 10/23/18 at 13 :15 Quetiapine Fumarate (SEROquel) 25 mg TID@0900,1300,1700 PO Last administered on 10/23/18at 17:09; Start 10/23/18 at 13:00 Enoxaparin Sodium (Lovenox 40mg Syringe) 40 mg Q24H SQ ; Start 10/23/18 at 21:00 Acetaminophen (Tylenol) 650 mg Q6HRS PRN PO PAIN / TEMP; Start 10/23/18 at 13: 30 Insulin Glargine (Lantus) 10 units QHS SQ ; Start 10/23/18 at 21:00; Status UNV Insulin Glargine (Lantus) 10 units QHS SQ ; Start 10/23/18 at 21:00; Status UNV Non-Formulary Medication (Lisinopril ) 40 mg BID PO ; Start 10/23/18 at 21:00; Status UNV Active Scripts Active Reported Nystatin 15 Gm Powder 1 Blas TP BID Trazodone Hcl 150 Mg Tablet 150 Mg PO PRN QHS PRN Trazodone Hcl 150 Mg Tablet 150 Mg PO HS Provera (Medroxyprogesterone Acetate) 5 Mg Tablet 7.5 Mg PO DAILY Seroquel (Quetiapine Fumarate) 25 Mg Tablet 25 Mg PO TID ,,17 Zyprexa (Olanzapine) 5 Mg Tablet 5 Mg PO PRN Q2HR PRN Mirtazapine 15 Mg Tablet 15 Mg PO QHS Metoprolol Tartrate 25 Mg Tablet 25 Mg PO BID Analgesic [place] (Methyl Salicylate/Menthol) 28 Gm Oint...g. 1 Blas TP PRN QID PRN Melatonin 3 Mg Tablet 3 Mg PO QHS Milk Of Magnesia (Magnesium Hydroxide) 2,400 Mg/10 Ml Oral.susp 2,400 Mg PO PRN QHS PRN Mag-Al Plus Xs Suspension (Mag Hydrox/Al Hydrox/Simeth) 30 Ml Oral.susp 15 Ml PO PRN AFTMEALHC PRN Depakote Sprinkle (Divalproex Sodium) 125 Mg Cap.sprink 1,000 Mg PO BIDWMEALS Bisacodyl 10 Mg/30 Ml Enema 10 Mg RC PRN DAILY PRN Tylenol (Acetaminophen) 325 Mg Tablet 650 Mg PO [id number] Lorazepam 0.5 Mg Tablet 0.75 Mg PO TID,, Zoloft (Sertraline Hcl) 100 Mg Tablet 150 Mg PO DAILY08 Mason 3 Fish Oil Softgel (Mason-3 Fatty Acids/Fish Oil) 1 Each Capsule.dr 1 Each PO DAILY Multivitamins (Multivitamin) 1 Each Tablet 1 Tab PO DAILY Metformin Hcl 500 Mg Tablet 500 Mg PO BIDWMEALS Lisinopril 40 Mg Tablet 40 Mg PO BID Glyburide 2.5 Mg Tablet 5 Mg PO BIDWMEALS Proscar (Finasteride) 5 Mg Tablet 5 Mg PO QHS Cardura (Doxazosin Mesylate) 4 Mg Tablet 4 Mg PO QHS Aspirin 81 Mg Tab.chew 81 Mg PO QHS Exam Vital Signs Vital Signs Date Time Temp Pulse Resp B/P (MAP) Pulse Ox O2 Delivery O2 Flow Rate FiO2 10/23/18 17:54 134/100 (111) 10/23/18 16:30 88 26 awake, anxious, mildly agitated, not oriented at all PERRLA Tachycardic, regular Clear to auscultation at the apex Positive bowel sounds, nontender, nondistended Cranial nerves cannot be tested but appear intact Assessment/Plan Assessment/Plan Hypernatremia-likely due to dehydration -D5 water IV fluids -Continue checking BMP every 6 hours Lactic acidosis--likely due to above Continue checking lactic acid until less than 2 Diabetes type 2-- -Holding glyburide and metformin -Sliding-scale insulin-high correction -Starting Lantus 10 units at night Hypertension -Continue lisinopril Acute encephalopathy-likely due to oversedation and hyponatremia -Holding trazodone at night -Continue other medications Alzheimers dementia-severe -Continue most psych meds -Holding trazodone at night due to somnolence ppx lovenox DNR COURSE Allergies Coded Allergies Type Severity Reaction Last Updated Verified morphine Allergy Intermediate 09/11/18 Yes Laboratory Tests Test 10/23/18 12:12 10/23/18 14:00 10/23/18 14:55 10/23/18 17:05 Sodium Level 161 mmol/L (136-145) Potassium Level 3.9 mmol/L (3.5-5.1) Chloride Level 122 mmol/L (98-107) Carbon Dioxide Level 30 mmol/L (21-32) Anion Gap 9 (6-14) Blood Urea Nitrogen 40 mg/dL (8-26) Creatinine 1.0 mg/dL (0.7-1.3) Estimated GFR (Cockcroft-Gault) 72.3 Glucose Level 258 mg/dL (70-99) Calcium Level 9.2 mg/dL (8.5-10.1) Urine Collection Type Unknown Urine Color Violet Urine Clarity Cloudy Urine pH 6.0 Urine Specific [place] 1.025 Urine Protein 30 mg/dl (NEG-TRACE) Urine Glucose (UA) 100 mg/dL (NEG) Urine Ketones (Stick) 15 mg/dL (NEG) Urine Blood Large (NEG) Urine Nitrite Neg (NEG) Urine Bilirubin Neg (NEG) Urine Urobilinogen Dipstick 2 mg/dL (0.2 mg/dL) Urine Leukocyte Esterase Trace (NEG) Urine RBC Tntc /HPF (0-2) Urine WBC 5-10 /HPF (0-4) Urine Squamous Epithelial Cells Occ /LPF Urine Amorphous Sediment Present /HPF Urine Bacteria Few /HPF (0-FEW) Urine Mucus Slight /LPF Lactic Acid Level 3.5 mmol/L (0.4-2.0) Glucose (Fingerstick) 162 mg/dL (70-99) Current Medications Medications (Trade) Dose Ordered Sig/Rosario Route PRN Reason Start Time Stop Time Status Last Admin Dose Admin Insulin Human Lispro (HumaLOG) 0-9 UNITS TIDWMEALS SQ 10/23/18 12:00 10/23/18 17:10 Dextrose 12.5 gm PRN Q15MIN PRN IV SEE COMMENTS 10/23/18 11:00 Dextrose 1,000 ml @ 80 mls/hr [id number] IV 10/23/18 11:15 10/23/18 11:34 Acetaminophen (Tylenol) 650 mg Q6HRS PO 10/23/18 18:00 10/23/18 18:00 DC Bisacodyl (Fleet Bisacodyl) 10 mg PRN DAILY PRN RC CONSTIPATION 10/23/18 13:15 Al Hydroxide/Mg Hydroxide (Mylanta Plus Xs) 15 ml PRN AFTMEALHC PRN PO DYSPEPSIA 10/23/18 13:15 Medroxyprogesterone Acetate (Provera) 7.5 mg DAILY PO 10/24/18 09:00 Multi-Ingredient Ointment (Analgesic [place]) 1 blas PRN QID PRN TP MUSCLE PAIN 10/23/18 13:15 Metoprolol Tartrate (Lopressor) 25 mg BID PO 10/23/18 21:00 Nystatin (Nystop) 1 blas BID TP 10/23/18 21:00 Sertraline HCl (Zoloft) 150 mg DAILY08 PO 10/24/18 08:00 Aspirin (Children'S Aspirin) 81 mg QHS PO 10/23/18 21:00 Divalproex Sodium (Depakote Sprinkles) 1,000 mg BIDWMEALS PO 10/23/18 17:00 10/23/18 17:09 Doxazosin Mesylate (Cardura) 4 mg QHS PO 10/23/18 21:00 Finasteride (Proscar) 5 mg QHS PO 10/23/18 21:00 Melatonin 3 mg QHS PO 10/23/18 21:00 Mirtazapine (Remeron) 15 mg QHS PO 10/23/18 21:00 Olanzapine (ZyPREXA ZYDIS) 5 mg PRN Q2HR PRN PO PSYCHOSIS 10/23/18 13:15 Quetiapine Fumarate (SEROquel) 25 mg TID@0900,1300,1700 PO 10/23/18 13:00 10/23/18 17:09 Enoxaparin Sodium (Lovenox 40mg Syringe) 40 mg Q24H SQ 10/23/18 21:00 Acetaminophen (Tylenol) 650 mg Q6HRS PRN PO PAIN / TEMP 10/23/18 13:30 Insulin Glargine (Lantus) 10 units QHS SQ 10/23/18 21:00 UNV Insulin Glargine (Lantus) 10 units QHS SQ 10/23/18 21:00 UNV Non-Formulary Medication (Lisinopril ) 40 mg BID PO 10/23/18 21:00 UNV Orders Procedure Category Date Status Time Admit Orders ADT 10/23/18 Transmitted Mrsa, Pcr LAB 10/23/18 In Process 10:40 Dysphagia Iii DIET 10/23/18 Transmitted Lunch Basic Metabolic Panel LAB 10/23/18 Complete 12:00 Basic Metabolic Panel LAB 10/23/18 In Process 18:00 Basic Metabolic Panel LAB 10/24/18 Verified 00:00 Basic Metabolic Panel LAB 10/24/18 Verified 06:00 Basic Metabolic Panel LAB 10/24/18 Verified 12:00 Basic Metabolic Panel LAB 10/24/18 Verified 18:00 Basic Metabolic Panel LAB 10/25/18 Verified 00:00 Basic Metabolic Panel LAB 10/25/18 Verified 06:00 Basic Metabolic Panel LAB 10/25/18 Verified 12:00 Basic Metabolic Panel LAB 10/25/18 Verified 18:00 Glucose Poct Achs JANICE 10/23/18 In Process 10:48 Insulin Lispro PHA 10/23/18 In Process (Humalog) 12:00 Dextrose 50% PHA 10/23/18 In Process 11:00 Lactic Acid LAB 10/23/18 Complete 14:39 Iv Dextrose 5% PHA 10/23/18 In Process 11:15 12 Lead Ekg EKG 10/23/18 Logged Acetaminophen PHA 10/23/18 Complete (Tylenol) 18:00 Bisacodyl (Fleet PHA 10/23/18 In Process Bisacodyl) 13:15 Mag Hydrox/Al PHA 10/23/18 In Process Hydrox/Simeth 13:15 Medroxyprogesterone PHA 10/24/18 In Process (Provera) 09:00 Methyl PHA 10/23/18 In Process Salicylate/Menthol 13:15 Metoprolol Tart Immed PHA 10/23/18 In Process Release (Lopressor 21:00 Nystatin Topical PHA 10/23/18 In Process Powder (Nystop) 21:00 Sertraline (Zoloft) PHA 10/24/18 In Process 08:00 Aspirin (Children's PHA 10/23/18 In Process Aspirin) 21:00 Divalproex (Depakote PHA 10/23/18 In Process Sprinkles) 17:00 Doxazosin Mesylate PHA 10/23/18 In Process (Cardura) 21:00 Finasteride (Proscar) PHA 10/23/18 In Process 21:00 Melatonin PHA 10/23/18 In Process 21:00 Mirtazapine (Remeron) PHA 10/23/18 In Process 21:00 Olanzapine Zydis PHA 10/23/18 In Process (Zyprexa Zydis) 13:15 Quetiapine (Seroquel) PHA 10/23/18 In Process 13:00 Ua, Cult If Indicated LAB 10/23/18 Complete 15:08 Vitamin-B12 LAB 10/23/18 In Process 13:16 Thyroid Stim Hormone LAB 10/23/18 In Process (Tsh) 13:16 Cbc W Autodiff LAB 10/24/18 Verified 05:00 Enoxaparin 40mg PHA 10/23/18 In Process Syringe (Lovenox 40mg 21:00 Acetaminophen PHA 10/23/18 In Process (Tylenol) 13:30 Urine Culture PAUL 10/23/18 In Process 15:47 Code Status CODE 10/23/18 Transmitted 16:38 Lactic Acid LAB 10/23/18 Logged 23:59 Insulin Glargine PHA 10/23/18 Complete (Lantus) 21:00 Insulin Glargine PHA 10/23/18 Logged (Lantus) 21:00 (Nf) Lisinopril PHA 10/23/18 Logged 21:00 KUB RAD 10/23/18 Logged 18:10 Vital Signs Date Time Temp Pulse Resp B/P (MAP) Pulse Ox O2 Delivery O2 Flow Rate FiO2 10/23/18 17:54 134/100 (111) 10/23/18 16:30 88 26 SHARMILA NATARAJAN MD Oct 23, 2018 18:28
--- NOTE | 2018-10-23 19:21 | RAD ---
AP chest. HISTORY: Mild desaturation, mental status change AP view was taken of the chest. Patient is not taken a deep inspiration. Heart is upper normal in size. The aorta is tortuous. There is no effusion. There is mild density in the medial right lung apex, focal consolidation or mass is possible. Mild atelectasis or infiltrate in the left midlung field. No other infiltrates are noted. Follow-up study or PA and lateral view could be of benefit. IMPRESSION: 1. Density in the medial right lung apex. 2. Poor inspiration. 3. Mild atelectasis or infiltrate left midlung field without other infiltrates. Electronically signed by: Jaleel Will MD (10/23/2018 7:18 PM) [id number]
--- NOTE | 2018-10-23 19:22 | RAD ---
Supine abdomen. HISTORY: Constipation, evaluate for obstruction Supine views were taken of the abdomen. There is increased gas and stool in the colon. There is a possible fecal impaction at the rectum. There is no small bowel obstruction. There is degenerative change in lumbar spine. There are no abnormal calcifications. IMPRESSION: 1. Increased gas and stool in the colon. 2. No small bowel obstruction. 3. Possible fecal impaction at the rectum. Electronically signed by: Jaleel Will MD (10/23/2018 7:20 PM) [id number]
[2018-10-23] MEDS: POLYETHYLENE GLYCOL 3350 17 GM PACKET. PO SCH (19:30)
[2018-10-23] MEDS ORDERED: CONTRAST GIVEN MC PRN (19:45)
[2018-10-23] MEDS ORDERED: IOHEXOL 350 MG/ML 100 ML VIAL. IV ONE (19:45)
[2018-10-23] MEDS: LISINOPRIL 20 MG TABLET PO SCH (20:10)
[2018-10-23] MEDS: NYSTATIN TOPICAL POWDER 15GM BOTTLE. TP SCH (20:10)
[2018-10-23] MEDS: MIRTAZAPINE 15 MG TABLET PO SCH (20:10)
[2018-10-23] MEDS: METOPROLOL TART IMMED RELEASE 25 MG TABLET PO SCH (20:11)
[2018-10-23] MEDS: DOXAZOSIN MESYLATE 4 MG TABLET PO SCH (20:11)
[2018-10-23] MEDS: ACETAMINOPHEN 325 MG TABLET PO PRN (20:11)
[2018-10-23] MEDS: MELATONIN 3 MG TABLET PO SCH (20:11)
[2018-10-23] MEDS: FINASTERIDE 5 MG TABLET PO SCH (20:12)
[2018-10-23] MEDS: ASPIRIN 81 MG TAB.CHEW PO SCH (20:13)
[2018-10-23] MEDS ORDERED: INSULIN GLARGINE 300 UNITS/3 ML INSULN.PEN. SQ SCH ×2 (21:00)
[2018-10-23] MEDS ORDERED: ENOXAPARIN 40 MG/0.4 ML SYRINGE. SQ SCH (21:00)
--- NOTE | 2018-10-23 22:53 | RAD ---
CT angiogram of the chest with contrast: Reason for examination: Elevated d-dimer and hypoxia. Patient with altered mental status. Unable to hold breath for study. Helical images were obtained through the chest with intravenous administration 100 cc Omnipaque 350 using PE protocol. 3-D MIPS reconstruction was performed in sagittal and coronal planes. The examination is compromised by motion artifact. Exposure: One or more of the following individualized dose reduction techniques were utilized for this examination: 1. Automated exposure control 2. Adjustment of the mA and/or kV according to patient size 3. Use of iterative reconstruction technique. No abnormality seen at the thyroid gland. The trachea and mainstem bronchi show no intraluminal lesions. No abnormality seen at the esophagus. The thoracic aorta shows no aneurysmal dilatation or dissection. The heart size is normal with no pericardial effusion. There is suggestion of filling defects distally in the right lower lobe subsegmental pulmonary arteries and more centrally in a right upper lobe branch. The lung fernández show no consolidative infiltrates or pleural effusions. No pneumothorax is seen. No abnormality seen at the liver, spleen, adrenal glands or gallbladder. There are some hypertrophic changes in the spine. No acute bony abnormalities are seen. IMPRESSION: Pulmonary emboli in the right upper and lower lobe distribution. Electronically signed by: Jaycee Del Rosario MD (10/23/2018 10:50 PM) [place] [id number]
[2018-10-23] MEDS ORDERED: HEPARIN for IV BOLUS 10,000 UNIT/10 ML VIAL. IV PRN ×2 (23:30)
[2018-10-23] MEDS ORDERED: HEPARIN 25,000UTS/500ML PREMIX 500 ML IV PRN (23:30)
[2018-10-23] MEDS ORDERED: HEPARIN for IV BOLUS 10,000 UNIT/10 ML VIAL. IV ONE ×2 (23:45)
[2018-10-23] MEDS ORDERED: ANTI-COAG MONITOR BY PHARMACY. MC PRN (23:45)
[2018-10-24] VITALS (15 sets, daily range): BP systolic 135–196; BP diastolic 74–98
[2018-10-24 00:39] LABS: BASO # 0.1 x10^3/uL (0.0-0.2); BASO % 2 % (0-3); EOS # 0.2 x10^3/uL (0.0-0.7); EOS % 2 % (0-3); HEMATOCRIT 41.8 % (39.0-53.0); HEMOGLOBIN 13.5 g/dL (13.0-17.5); LYMPH # 1.1 x10^3/uL (1.0-4.8); LYMPH % 14 % (24-48); MEAN CORPUSCULAR HEMOGLOBIN 29 pg (25-35); MEAN CORPUSCULAR HGB CONC 32 g/dL (31-37); MEAN CORPUSCULAR VOLUME 89 fL (79-100); MONO # 0.7 x10^3/uL (0.0-1.1); MONO % 9 % (0-9); NEUT % 74 % (31-73); PLATELET COUNT 283 x10^3/uL (140-400); RED BLOOD COUNT 4.71 x10^6/uL (4.30-5.70); WHITE BLOOD COUNT 8.1 x10^3/uL (4.0-11.0)
[2018-10-24] MEDS: HEPARIN 25,000UTS/500ML PREMIX 500 ML IV PRN ×2 (00:51→17:38)
[2018-10-24 01:42] LABS: CALCIUM 8.7 mg/dL (8.5-10.1); CREATININE 0.8 mg/dL (0.7-1.3); GFR 93.5; POTASSIUM 3.8 mmol/L (3.5-5.1)
[2018-10-24] MEDS: IV DEXTROSE 5% 1,000 ML IV SCH ×3 (05:45→20:35)
[2018-10-24 07:19] LABS: BASO % 1 % (0-3); EOS # 0.2 x10^3/uL (0.0-0.7); EOS % 3 % (0-3); HEMOGLOBIN 12.7 g/dL (13.0-17.5); LYMPH # 1.1 x10^3/uL (1.0-4.8); LYMPH % 16 % (24-48); MEAN CORPUSCULAR HEMOGLOBIN 29 pg (25-35); MEAN CORPUSCULAR HGB CONC 33 g/dL (31-37); MEAN CORPUSCULAR VOLUME 88 fL (79-100); MONO # 0.5 x10^3/uL (0.0-1.1); MONO % 8 % (0-9); NEUT # 4.6 x10^3uL (1.8-7.7); NEUT % 72 % (31-73); PLATELET COUNT 147 x10^3/uL (140-400); RED BLOOD COUNT 4.45 x10^6/uL (4.30-5.70); RED CELL DISTRIBUTION WIDTH 17.4 % (11.5-14.5); WHITE BLOOD COUNT 6.4 x10^3/uL (4.0-11.0)
[2018-10-24 07:30] LABS: CALCIUM 8.4 mg/dL (8.5-10.1); CREATININE 0.8 mg/dL (0.7-1.3); GFR 93.5; POTASSIUM 3.3 mmol/L (3.5-5.1)
[2018-10-24] MEDS ORDERED: POTASSIUM CHLORIDE 20 MEQ/15 ML ORAL LIQUID. PO ONE (07:45)
[2018-10-24] MEDS ORDERED: POTASSIUM CHLORIDE 20 MEQ TABLET.ER. PO ONE (07:45)
[2018-10-24] MEDS: SERTRALINE 100 MG TABLET. PO SCH (07:56)
[2018-10-24] MEDS: LISINOPRIL 20 MG TABLET PO SCH ×2 (07:57→20:29)
[2018-10-24] MEDS: POLYETHYLENE GLYCOL 3350 17 GM PACKET. PO SCH (07:58)
[2018-10-24] MEDS: DIVALPROEX 125 MG CAP.SPRINK PO SCH ×2 (07:59→16:55)
[2018-10-24] MEDS: QUEtiapine 25 MG TABLET. PO SCH ×3 (08:00→16:55)
[2018-10-24] MEDS: NYSTATIN TOPICAL POWDER 15GM BOTTLE. TP SCH ×2 (08:00→20:35)
[2018-10-24] MEDS: METOPROLOL TART IMMED RELEASE 25 MG TABLET PO SCH (08:00)
[2018-10-24] MEDS: medroxyPROGESTERone 5 MG TABLET PO SCH (08:01)
[2018-10-24] MEDS: INSULIN LISPRO 300 UNITS/3 ML INSULN.PEN. SQ SCH ×3 (08:04→17:00)
--- NOTE | 2018-10-24 12:58 | PDOC ---
PROGRESS NOTES Diagnosis DRAGON Assessment/Plan Hypernatremia-likely due to dehydration -D5 water IV fluids -Continue checking BMP every 6 hours PE- -on heparin gtt -US of lower extremities -we will need to discuss tx with Possible Hollie type II AV block -Cards consult -troponin check Hypokalemia- replacing Diabetes type 2-- -Holding glyburide and metformin -Sliding-scale insulin-high correction -lantus - changed to 13 u qhs Lactic acidosis--likely due to above---resolved Hypertension -Continue lisinopril -hydralazine 10 mg q4h prn for systolic >160 Acute encephalopathy-likely due to oversedation and hyponatremia -Holding trazodone at night -Continue other medications Alzheimers dementia-severe -Continue most psych meds -Holding trazodone at night due to somnolence ppx lovenox DNR SUBJECTIVE: confused, mildly agitated no F/C PHYSICAL EXAM: awake, anxious, mildly agitated, not oriented at all PERRLA irregular Clear to auscultation at the apex Positive bowel sounds, nontender, nondistended Cranial nerves cannot be tested but appear intact Objective Vital Signs Date Time Temp Pulse Resp B/P (MAP) Pulse Ox O2 Delivery O2 Flow Rate FiO2 10/24/18 12:02 80 10/24/18 10:56 141/85 (103) 10/24/18 08:37 97.7 10/24/18 06:03 24 94 Nasal Cannula 2.0 Intake and Output 10/24/18 06:59 Intake Total 360 ml Output Total 900 ml Balance -540 ml Intake Oral 360 ml Output Urine Total 900 ml Review of Relevant I have reviewed the following items alejandra (where applicable) has been applied. Labs Laboratory Tests Test 10/23/18 10:00 10/23/18 12:12 10/23/18 14:00 10/23/18 14:55 Thyroid Stimulating Hormone (TSH) 1.251 uIU/mL (0.358-3.740) Sodium Level 161 mmol/L (136-145) Potassium Level 3.9 mmol/L (3.5-5.1) Chloride Level 122 mmol/L (98-107) Carbon Dioxide Level 30 mmol/L (21-32) Anion Gap 9 (6-14) Blood Urea Nitrogen 40 mg/dL (8-26) Creatinine 1.0 mg/dL (0.7-1.3) Estimated GFR (Cockcroft-Gault) 72.3 Glucose Level 258 mg/dL (70-99) Calcium Level 9.2 mg/dL (8.5-10.1) Urine Collection Type Unknown Urine Color Violet Urine Clarity Cloudy Urine pH 6.0 Urine Specific [place] 1.025 Urine Protein 30 mg/dl (NEG-TRACE) Urine Glucose (UA) 100 mg/dL (NEG) Urine Ketones (Stick) 15 mg/dL (NEG) Urine Blood Large (NEG) Urine Nitrite Neg (NEG) Urine Bilirubin Neg (NEG) Urine Urobilinogen Dipstick 2 mg/dL (0.2 mg/dL) Urine Leukocyte Esterase Trace (NEG) Urine RBC Tntc /HPF (0-2) Urine WBC 5-10 /HPF (0-4) Urine Squamous Epithelial Cells Occ /LPF Urine Amorphous Sediment Present /HPF Urine Bacteria Few /HPF (0-FEW) Urine Mucus Slight /LPF Lactic Acid Level 3.5 mmol/L (0.4-2.0) Test 10/23/18 17:05 10/23/18 17:45 10/23/18 20:19 10/23/18 23:20 Glucose (Fingerstick) 162 mg/dL (70-99) 122 mg/dL (70-99) Sodium Level 162 mmol/L (136-145) 159 mmol/L (136-145) Potassium Level 4.3 mmol/L (3.5-5.1) 3.8 mmol/L (3.5-5.1) Chloride Level 121 mmol/L (98-107) 121 mmol/L (98-107) Carbon Dioxide Level 31 mmol/L (21-32) 31 mmol/L (21-32) Anion Gap 10 (6-14) 7 (6-14) Blood Urea Nitrogen 35 mg/dL (8-26) 31 mg/dL (8-26) Creatinine 0.9 mg/dL (0.7-1.3) 0.8 mg/dL (0.7-1.3) Estimated GFR (Cockcroft-Gault) 81.6 93.5 Glucose Level 188 mg/dL (70-99) 227 mg/dL (70-99) Calcium Level 9.0 mg/dL (8.5-10.1) 8.7 mg/dL (8.5-10.1) Lactic Acid Level 1.5 mmol/L (0.4-2.0) Test 10/24/18 00:15 10/24/18 01:02 10/24/18 07:05 10/24/18 11:30 White Blood Count 8.1 x10^3/uL (4.0-11.0) 6.4 x10^3/uL (4.0-11.0) Red Blood Count 4.71 x10^6/uL (4.30-5.70) 4.45 x10^6/uL (4.30-5.70) Hemoglobin 13.5 g/dL (13.0-17.5) 12.7 g/dL (13.0-17.5) Hematocrit 41.8 % (39.0-53.0) 39.0 % (39.0-53.0) Mean Corpuscular Volume 89 fL (79-100) 88 fL (79-100) Mean Corpuscular Hemoglobin 29 pg (25-35) 29 pg (25-35) Mean Corpuscular Hemoglobin Concent 32 g/dL (31-37) 33 g/dL (31-37) Red Cell Distribution Width 18.0 % (11.5-14.5) 17.4 % (11.5-14.5) Platelet Count 283 x10^3/uL (140-400) 147 x10^3/uL (140-400) Neutrophils (%) (Auto) 74 % (31-73) 72 % (31-73) Lymphocytes (%) (Auto) 14 % (24-48) 16 % (24-48) Monocytes (%) (Auto) 9 % (0-9) 8 % (0-9) Eosinophils (%) (Auto) 2 % (0-3) 3 % (0-3) Basophils (%) (Auto) 2 % (0-3) 1 % (0-3) Neutrophils # (Auto) 6.0 x10^3uL (1.8-7.7) 4.6 x10^3uL (1.8-7.7) Lymphocytes # (Auto) 1.1 x10^3/uL (1.0-4.8) 1.1 x10^3/uL (1.0-4.8) Monocytes # (Auto) 0.7 x10^3/uL (0.0-1.1) 0.5 x10^3/uL (0.0-1.1) Eosinophils # (Auto) 0.2 x10^3/uL (0.0-0.7) 0.2 x10^3/uL (0.0-0.7) Basophils # (Auto) 0.1 x10^3/uL (0.0-0.2) 0.0 x10^3/uL (0.0-0.2) Prothrombin Time 12.4 SEC (9.4-11.4) Prothromb Time International Ratio 1.3 (0.9-1.1) Activated Partial Thromboplast Time 26 SEC (23-33) 121 SEC (23-33) Sodium Level 156 mmol/L (136-145) Potassium Level 3.3 mmol/L (3.5-5.1) Chloride Level 118 mmol/L (98-107) Carbon Dioxide Level 29 mmol/L (21-32) Anion Gap 9 (6-14) Blood Urea Nitrogen 26 mg/dL (8-26) Creatinine 0.8 mg/dL (0.7-1.3) Estimated GFR (Cockcroft-Gault) 93.5 Glucose Level 304 mg/dL (70-99) Calcium Level 8.4 mg/dL (8.5-10.1) Magnesium Level 1.9 mg/dL (1.8-2.4) Glucose (Fingerstick) 213 mg/dL (70-99) Medications Current Medications Insulin Human Lispro (HumaLOG) 0-9 UNITS TIDWMEALS SQ Last administered on 10/24at 11:56; Start 10/23/18 at 12:00 Dextrose 12.5 gm PRN Q15MIN PRN IV SEE COMMENTS; Start 10/23/18 at 11:00 Dextrose 1,000 ml @ 125 mls/hr Q8H IV Last administered on 10/24/18at 05:45; Start 10/23/18 at 11:15 Acetaminophen (Tylenol) 650 mg Q6HRS PO ; Start 10/23/18 at 18:00; Stop at 18:00; Status DC Bisacodyl (Fleet Bisacodyl) 10 mg PRN DAILY PRN RC CONSTIPATION; Start at 13:15 Al Hydroxide/Mg Hydroxide (Mylanta Plus Xs) 15 ml PRN AFTMEALHC PRN PO DYSPEPSIA; Start 10/23/18 at 13:15 Medroxyprogesterone Acetate (Provera) 7.5 mg DAILY PO Last administered on 10/24at 08:01; Start 10/24/18 at 09:00 Multi-Ingredient Ointment (Analgesic [place]) 1 john PRN QID PRN TP MUSCLE PAIN; Start 10/23/18 at 13:15 Metoprolol Tartrate (Lopressor) 25 mg BID PO Last administered on 10/24/18 08: 00; Start 10/23/18 at 21:00 Nystatin (Nystop) 1 john BID TP Last administered on 10/24/18at 08:00; Start at 21:00 Sertraline HCl (Zoloft) 150 mg DAILY08 PO Last administered on 10/24/18at 07:56 ; Start 10/24/18 at 08:00 Aspirin (Children'S Aspirin) 81 mg QHS PO Last administered on 10/23/18 20:13 ; Start 10/23/18 at 21:00 Divalproex Sodium (Depakote Sprinkles) 1,000 mg BIDWMEALS PO Last administered on 10/24/18at 07:59; Start 10/23/18 at 17:00 Doxazosin Mesylate (Cardura) 4 mg QHS PO Last administered on 10/23/18at 20:11; Start 10/23/18 at 21:00 Finasteride (Proscar) 5 mg QHS PO Last administered on 10/23/18 20:12; Start 10/23/18 at 21:00 Melatonin 3 mg QHS PO Last administered on 10/23/18 20:11; Start 10/23/18 at 21:00 Mirtazapine (Remeron) 15 mg QHS PO Last administered on 10/23/18at 20:10; Start 10/23/18 at 21:00 Olanzapine (ZyPREXA ZYDIS) 5 mg PRN Q2HR PRN PO PSYCHOSIS Last administered on 10/24/18at 05:45; Start 10/23/18 at 13:15 Quetiapine Fumarate (SEROquel) 25 mg TID@0900,1300,1700 PO Last administered on 10/24/18at 11:56; Start 10/23/18 at 13:00 Enoxaparin Sodium (Lovenox 40mg Syringe) 40 mg Q24H SQ Last administered on at 20:12; Start 10/23/18 at 21:00; Stop 10/23/18 at 23:25; Status DC Acetaminophen (Tylenol) 650 mg Q6HRS PRN PO PAIN / TEMP Last administered on at 20:11; Start 10/23/18 at 13:30 Insulin Glargine (Lantus) 10 units QHS SQ ; Start 10/23/18 at 21:00; Stop at 21:00; Status DC Insulin Glargine (Lantus) 10 units QHS SQ ; Start 10/23/18 at 21:00 Lisinopril (Prinivil) 40 mg BID PO Last administered on 10/24/18at 07:57; Start 10/23/18 at 21:00 Polyethylene Glycol (miraLAX) 17 gm DAILY PO Last administered on 10/24/18at 07: 58; Start 10/23/18 at 19:30 Iohexol (Omnipaque 350 Mg/ml) 100 ml 1X ONCE IV Last administered on at 22:17; Start 10/23/18 at 19:45; Stop 10/23/18 at 19:46; Status DC Info (Do NOT chart on this entry -- for MONITORING) 1 each PRN DAILY PRN MC SEE COMMENTS; Start 10/23/18 at 19:45; Stop 10/25/18 at 19:44 Heparin Sodium/ Dextrose 500 ml @ 0 mls/hr CONT PRN IV SEE I/O RECORD; Start at 23:30; Status UNV Heparin Sodium/ Dextrose 500 ml @ 0 mls/hr CONT PRN IV SEE I/O RECORD Last administered on 10/24/18at 00:51; Start 10/23/18 at 23:30 Heparin Sodium (Porcine) (Heparin Sodium) 2,175 unit 1X ONCE IV ; Start at 23:45; Stop 10/23/18 at 23:45; Status DC Heparin Sodium (Porcine) (Heparin Sodium) 2,000 unit PRN Q6HRS PRN IV FOLLOW PROTOCOL GUIDELINES; Start 10/23/18 at 23:30 Heparin Sodium (Porcine) (Heparin Sodium) 1,000 unit PRN Q6HRS PRN IV FOLLOW PROTOCOL GUIDELINES; Start 10/23/18 at 23:30 Info (Anti-Coagulation Monitoring By Pharmacy) 1 each PRN DAILY PRN MC SEE COMMENTS; Start 10/23/18 at 23:45; Stop 10/24/18 at 07:33; Status DC Heparin Sodium (Porcine) (Heparin Sodium) 7,740 unit 1X ONCE IV Last administered on 10/24/18at 00:52; Start 10/23/18 at 23:45; Stop 10/23/18 at 23:46 ; Status DC Potassium Chloride (Klor-Con) 40 meq 1X ONCE PO Last administered on at 07:55; Start 10/24/18 at 07:45; Stop 10/24/18 at 07:50; Status DC Potassium Chloride (KCl Oral Soln) 40 meq 1X ONCE PO ; Start 10/24/18 at 07:45 ; Stop 10/24/18 at 07:50; Status DC Active Scripts Active Reported Nystatin 15 Gm Powder 1 John TP BID Trazodone Hcl 150 Mg Tablet 150 Mg PO PRN QHS PRN Trazodone Hcl 150 Mg Tablet 150 Mg PO HS Provera (Medroxyprogesterone Acetate) 5 Mg Tablet 7.5 Mg PO DAILY Seroquel (Quetiapine Fumarate) 25 Mg Tablet 25 Mg PO TID ,,17 Zyprexa (Olanzapine) 5 Mg Tablet 5 Mg PO PRN Q2HR PRN Mirtazapine 15 Mg Tablet 15 Mg PO QHS Metoprolol Tartrate 25 Mg Tablet 25 Mg PO BID Analgesic [place] (Methyl Salicylate/Menthol) 28 Gm Oint...g. 1 John TP PRN QID PRN Melatonin 3 Mg Tablet 3 Mg PO QHS Milk Of Magnesia (Magnesium Hydroxide) 2,400 Mg/10 Ml Oral.susp 2,400 Mg PO PRN QHS PRN Mag-Al Plus Xs Suspension (Mag Hydrox/Al Hydrox/Simeth) 30 Ml Oral.susp 15 Ml PO PRN AFTMEALHC PRN Depakote Sprinkle (Divalproex Sodium) 125 Mg Cap.sprink 1,000 Mg PO BIDWMEALS Bisacodyl 10 Mg/30 Ml Enema 10 Mg RC PRN DAILY PRN Tylenol (Acetaminophen) 325 Mg Tablet 650 Mg PO [id number] Lorazepam 0.5 Mg Tablet 0.75 Mg PO TID09,13,21 Zoloft (Sertraline Hcl) 100 Mg Tablet 150 Mg PO DAILY08 [place] 3 Fish Oil Softgel ([place]-3 Fatty Acids/Fish Oil) 1 Each Capsule.dr 1 Each PO DAILY Multivitamins (Multivitamin) 1 Each Tablet 1 Tab PO DAILY Metformin Hcl 500 Mg Tablet 500 Mg PO BIDWMEALS Lisinopril 40 Mg Tablet 40 Mg PO BID Glyburide 2.5 Mg Tablet 5 Mg PO BIDWMEALS Proscar (Finasteride) 5 Mg Tablet 5 Mg PO QHS Cardura (Doxazosin Mesylate) 4 Mg Tablet 4 Mg PO QHS Aspirin 81 Mg Tab.chew 81 Mg PO QHS Vitals/I & O Vital Sign - Last 24 Hours 10/23/18 10/23/18 10/23/18 10/23/18 12:39 15:23 16:19 16:30 Pulse 100 97 89 88 Resp 26 B/P (MAP) 156/89 (111) 157/85 (109) 157/85 (109) 135/101 (112) 10/23/18 10/23/18 10/23/18 10/23/18 17:54 19:23 20:00 20:10 Temp 97.8 Pulse 88 88 88 Resp 28 22 B/P (MAP) 134/100 (111) 178/99 (125) 171/101 (124) 178/99 Pulse Ox 100 97 O2 Delivery Nasal Cannula Nasal Cannula O2 Flow Rate 3.0 2.0 10/23/18 10/23/18 10/23/18 10/23/18 20:11 20:11 20:45 21:13 Pulse 88 88 88 Resp 18 B/P (MAP) 178/99 178/99 123/62 (82) Pulse Ox 98 96 O2 Delivery Room Air Room Air 10/23/18 10/23/18 10/23/18 10/24/18 21:30 22:30 23:00 00:21 Temp 97.7 Pulse 45 83 77 87 Resp 25 24 24 B/P (MAP) 131/91 (104) 136/76 (96) 150/74 (99) Pulse Ox 98 100 99 O2 Delivery Room Air Nasal Cannula Nasal Cannula O2 Flow Rate 2.0 2.0 10/24/18 10/24/18 10/24/18 10/24/18 01:24 02:18 03:17 04:21 Pulse 82 83 88 86 Resp 28 20 26 24 B/P (MAP) 169/83 (111) 143/85 (104) 169/95 (119) 178/98 (124) Pulse Ox 98 97 96 96 O2 Delivery Nasal Cannula Nasal Cannula Nasal Cannula Nasal Cannula O2 Flow Rate 2.0 2.0 2.0 2.0 10/24/18 10/24/18 10/24/18 10/24/18 05:09 06:03 07:29 07:57 Pulse 84 85 79 79 Resp 19 24 B/P (MAP) 167/98 (121) 173/97 (122) 138/88 (105) 138/88 Pulse Ox 94 94 O2 Delivery Nasal Cannula Nasal Cannula O2 Flow Rate 2.0 2.0 10/24/18 10/24/18 10/24/18 10/24/18 08:00 08:00 08:37 10:56 Temp 97.7 Pulse 79 89 74 B/P (MAP) 138/88 187/95 (125) 141/85 (103) 10/24/18 12:02 Pulse 80 Intake and Output 10/23/18 10/23/18 10/24/18 14:59 22:59 06:59 Intake Total 240 ml 120 ml Output Total 350 ml 550 ml Balance -110 ml -430 ml SHARMILA NATARAJAN MD Oct 24, 2018 12:58
[2018-10-24] MEDS ORDERED: hydrALAZINE 20 MG/ML VIAL. IV PRN (13:00)
[2018-10-24 13:39] LABS: CALCIUM 8.6 mg/dL (8.5-10.1); CREATININE 0.8 mg/dL (0.7-1.3); GFR 93.5; POTASSIUM 3.8 mmol/L (3.5-5.1)
--- NOTE | 2018-10-24 15:33 | CONS ---
DATE OF CONSULTATION: 10/24/2018 REASON FOR CONSULTATION: Bradycardia. HISTORY OF PRESENT ILLNESS: The patient is a 78-year-old man with severe Alzheimer's dementia, who has been residing at the psych floor at [facility] after being initially admitted to [facility] with a fall. He was evaluated by Cardiology at [facility] and no acute abnormalities were noted and he was discharged in stable condition. Apparently at the [facility] facility he has been to deteriorating according to his and ultimately he was transferred due to hypernatremia and a pulmonary embolus was discovered. He has been currently treated with heparin drip and last evening, he was noted to have a heart rate in the 40s and therefore Cardiology was consulted. Review of his previous EKGs and telemetry reveals sinus rhythm with mostly sinus bradycardia and PACs and occasional PVCs. He does appear to have a type 1 second degree Mobitz block. In speaking with the patient's as the patient is unable to provide any history, she denies any prior cardiac issues. PAST MEDICAL HISTORY: 1. Hypertension. 2. Diabetes. 3. Morbid obesity. 4. Alzheimer's dementia for several years. SOCIAL HISTORY: The patient was living at home, but due to the fall and difficulty with care at home he was then transferred to the psych facility. REVIEW OF SYSTEMS: Not obtained, but as noted above in HPI. ALLERGIES: MORPHINE. CURRENT CARDIAC MEDICATIONS: As follows: 1. Heparin drip. 2. Lisinopril 40 mg p.o. b.i.d. 3. Aspirin 81 mg daily. 4. Metoprolol 25 mg p.o. b.i.d. PHYSICAL EXAMINATION: VITAL SIGNS: Afebrile, 74, 141/85, 94% on 2 liters via nasal cannula. GENERAL: He is arousable and oriented to self, but not place and time. HEAD AND NECK: Unremarkable. CARDIAC: Irregular rhythm without any murmurs, rubs or gallops. LUNGS: Clear to auscultation anteriorly. ABDOMEN: He is morbidly obese and has a protuberant abdomen without any fluid wave. EXTREMITIES: No significant lower extremity edema. Diminished pedal and radial pulses. NEUROLOGIC: No focal neurologic deficits. DIAGNOSTIC STUDIES: Hemoglobin and platelets are within normal limits. Sodium 154, improving and creatinine of 0.8. PTT is 61. CT of the chest reveals right upper and lower lobe distribution pulmonary emboli and telemetry reviewed again thus far does not reveal any evidence of high-grade AV block. IMPRESSION: 1. Bradycardia with underlying right bundle branch block and mild conduction system disease, not requiring any pacemaker implantation at this time. 2. Hypertension, variable blood pressures. 3. Severe Alzheimer's dementia. RECOMMENDATIONS: 1. Previously when he is at [facility] they had elected to stop his beta nadeen in light of his bradycardia and therefore we will discontinue his beta blockade at this time and monitor closely. 2. Continue heparin drip per primary team and transition to oral anticoagulation per PCP. No further cardiac testing necessary at this time. I had a long discussion with the patient's DPOA, his , who stated that given his dementia should there be any evidence of high grade block they would defer any intervention such as pacemaker. She understands risks and benefits. Thank you for this consultation. ADALBERTO JEONG MD DR: ABI/priyank JOB#: [id number] / [id number]
[2018-10-24 18:17] LABS: CALCIUM 8.9 mg/dL (8.5-10.1); CREATININE 0.8 mg/dL (0.7-1.3); GFR 93.5; POTASSIUM 3.9 mmol/L (3.5-5.1)
[2018-10-24] MEDS: MIRTAZAPINE 15 MG TABLET PO SCH (20:28)
[2018-10-24] MEDS: FINASTERIDE 5 MG TABLET PO SCH (20:28)
[2018-10-24] MEDS: MELATONIN 3 MG TABLET PO SCH (20:29)
[2018-10-24] MEDS: ASPIRIN 81 MG TAB.CHEW PO SCH (20:29)
[2018-10-24] MEDS: DOXAZOSIN MESYLATE 4 MG TABLET PO SCH (20:29)
[2018-10-24] MEDS: INSULIN GLARGINE 300 UNITS/3 ML INSULN.PEN. SQ SCH (20:35)
[2018-10-24] MEDS: ACETAMINOPHEN 325 MG TABLET PO PRN (23:06)
[2018-10-25] VITALS (12 sets, daily range): BP systolic 93–152; BP diastolic 48–82
[2018-10-25] MEDS: IV DEXTROSE 5% 1,000 ML IV SCH (06:25)
[2018-10-25 06:47] LABS: CALCIUM 8.7 mg/dL (8.5-10.1); CREATININE 0.9 mg/dL (0.7-1.3); GFR 81.6; MAGNESIUM 1.7 mg/dL (1.8-2.4); POTASSIUM 3.7 mmol/L (3.5-5.1)
[2018-10-25 06:50] LABS: BASO % 0 % (0-3); EOS % 0 % (0-3); HEMOGLOBIN 13.3 g/dL (13.0-17.5); LYMPH # 0.9 x10^3/uL (1.0-4.8); LYMPH % 7 % (24-48); MEAN CORPUSCULAR HEMOGLOBIN 28 pg (25-35); MEAN CORPUSCULAR HGB CONC 33 g/dL (31-37); MEAN CORPUSCULAR VOLUME 88 fL (79-100); MONO % 9 % (0-9); NEUT # 10.3 x10^3uL (1.8-7.7); NEUT % 84 % (31-73); PLATELET COUNT 149 x10^3/uL (140-400); RED BLOOD COUNT 4.69 x10^6/uL (4.30-5.70); RED CELL DISTRIBUTION WIDTH 17.3 % (11.5-14.5); WHITE BLOOD COUNT 12.2 x10^3/uL (4.0-11.0)
[2018-10-25] MEDS: LISINOPRIL 20 MG TABLET PO SCH ×2 (09:00→21:00)
[2018-10-25] MEDS: POLYETHYLENE GLYCOL 3350 17 GM PACKET. PO SCH (09:00)
--- NOTE | 2018-10-25 09:16 | RAD ---
Ultrasound venous Doppler INDICATION:PE TECHNIQUE: Grayscale, color Doppler and spectral waveform ultrasound images of the bilateral lower extremities deep veins obtained. COMPARISON: None FINDINGS: The interrogated deep veins are compressible and demonstrate evidence of blood flow with normal respiratory variation and response to augmentation. IMPRESSION: Technically challenging exam due to patient being combative. Within this limitations, no sonographic evidence of acute DVT of the bilateral lower extremity deep veins. Electronically signed by: Abran Cuevas DO (10/25/2018 9:13 AM) [facility]
[2018-10-25] MEDS: INSULIN LISPRO 300 UNITS/3 ML INSULN.PEN. SQ SCH ×3 (10:14→17:00)
[2018-10-25] MEDS: medroxyPROGESTERone 5 MG TABLET PO SCH (10:18)
[2018-10-25] MEDS: QUEtiapine 25 MG TABLET. PO SCH ×3 (10:18→17:32)
[2018-10-25] MEDS: DIVALPROEX 125 MG CAP.SPRINK PO SCH ×2 (10:18→17:32)
[2018-10-25] MEDS: SERTRALINE 100 MG TABLET. PO SCH (10:19)
[2018-10-25] MEDS: NYSTATIN TOPICAL POWDER 15GM BOTTLE. TP SCH (10:19)
--- NOTE | 2018-10-25 10:36 | PDOC ---
PROGRESS NOTES Assessment 1. Bradycardia - no indications for PM at this time. 2. PE - mgmt per PCP 3. Hypertension, labile - fairly well controlled without severe increase or decreases 4. Severe Alzheimer's dementia. Planning for possible discharge with hospice. continue supportive care. Subjective confused and mildly combative this am Objective Vital Signs Date Time Temp Pulse Resp B/P (MAP) Pulse Ox O2 Delivery O2 Flow Rate FiO2 10/25/18 09:00 97.9 90 20 141/69 (93) 96 Room Air 10/24/18 06:03 2.0 Intake and Output 10/25/18 06:59 Intake Total 1290 ml Output Total 2375 ml Balance -1085 ml Intake Oral 290 ml IV Total 1000 ml Output Urine Total 2375 ml Physical Exam gen: confused and uncooperative with exam CV: irregular with no obvious murmurs, gallops, clicks or rubs Lungs: poor inspiratory effort, upper airway rhonchi abd: +bowel sounds ext: trace edema Review of Relevant I have reviewed the following items alejandra (where applicable) has been applied. Labs Laboratory Tests Test 10/23/18 10:38 10/23/18 12:12 10/23/18 14:00 10/23/18 14:55 Nasal Screen MRSA (PCR) Negative (Negative) Sodium Level 161 mmol/L (136-145) Potassium Level 3.9 mmol/L (3.5-5.1) Chloride Level 122 mmol/L (98-107) Carbon Dioxide Level 30 mmol/L (21-32) Anion Gap 9 (6-14) Blood Urea Nitrogen 40 mg/dL (8-26) Creatinine 1.0 mg/dL (0.7-1.3) Estimated GFR (Cockcroft-Gault) 72.3 Glucose Level 258 mg/dL (70-99) Calcium Level 9.2 mg/dL (8.5-10.1) Urine Collection Type Unknown Urine Color Violet Urine Clarity Cloudy Urine pH 6.0 Urine Specific [place] 1.025 Urine Protein 30 mg/dl (NEG-TRACE) Urine Glucose (UA) 100 mg/dL (NEG) Urine Ketones (Stick) 15 mg/dL (NEG) Urine Blood Large (NEG) Urine Nitrite Neg (NEG) Urine Bilirubin Neg (NEG) Urine Urobilinogen Dipstick 2 mg/dL (0.2 mg/dL) Urine Leukocyte Esterase Trace (NEG) Urine RBC Tntc /HPF (0-2) Urine WBC 5-10 /HPF (0-4) Urine Squamous Epithelial Cells Occ /LPF Urine Amorphous Sediment Present /HPF Urine Bacteria Few /HPF (0-FEW) Urine Mucus Slight /LPF Lactic Acid Level 3.5 mmol/L (0.4-2.0) Test 10/23/18 17:05 10/23/18 17:45 10/23/18 20:19 10/23/18 23:20 Glucose (Fingerstick) 162 mg/dL (70-99) 122 mg/dL (70-99) Sodium Level 162 mmol/L (136-145) 159 mmol/L (136-145) Potassium Level 4.3 mmol/L (3.5-5.1) 3.8 mmol/L (3.5-5.1) Chloride Level 121 mmol/L (98-107) 121 mmol/L (98-107) Carbon Dioxide Level 31 mmol/L (21-32) 31 mmol/L (21-32) Anion Gap 10 (6-14) 7 (6-14) Blood Urea Nitrogen 35 mg/dL (8-26) 31 mg/dL (8-26) Creatinine 0.9 mg/dL (0.7-1.3) 0.8 mg/dL (0.7-1.3) Estimated GFR (Cockcroft-Gault) 81.6 93.5 Glucose Level 188 mg/dL (70-99) 227 mg/dL (70-99) Calcium Level 9.0 mg/dL (8.5-10.1) 8.7 mg/dL (8.5-10.1) Lactic Acid Level 1.5 mmol/L (0.4-2.0) Test 10/24/18 00:15 10/24/18 01:02 10/24/18 07:05 10/24/18 11:30 White Blood Count 8.1 x10^3/uL (4.0-11.0) 6.4 x10^3/uL (4.0-11.0) Red Blood Count 4.71 x10^6/uL (4.30-5.70) 4.45 x10^6/uL (4.30-5.70) Hemoglobin 13.5 g/dL (13.0-17.5) 12.7 g/dL (13.0-17.5) Hematocrit 41.8 % (39.0-53.0) 39.0 % (39.0-53.0) Mean Corpuscular Volume 89 fL (79-100) 88 fL (79-100) Mean Corpuscular Hemoglobin 29 pg (25-35) 29 pg (25-35) Mean Corpuscular Hemoglobin Concent 32 g/dL (31-37) 33 g/dL (31-37) Red Cell Distribution Width 18.0 % (11.5-14.5) 17.4 % (11.5-14.5) Platelet Count 283 x10^3/uL (140-400) 147 x10^3/uL (140-400) Neutrophils (%) (Auto) 74 % (31-73) 72 % (31-73) Lymphocytes (%) (Auto) 14 % (24-48) 16 % (24-48) Monocytes (%) (Auto) 9 % (0-9) 8 % (0-9) Eosinophils (%) (Auto) 2 % (0-3) 3 % (0-3) Basophils (%) (Auto) 2 % (0-3) 1 % (0-3) Neutrophils # (Auto) 6.0 x10^3uL (1.8-7.7) 4.6 x10^3uL (1.8-7.7) Lymphocytes # (Auto) 1.1 x10^3/uL (1.0-4.8) 1.1 x10^3/uL (1.0-4.8) Monocytes # (Auto) 0.7 x10^3/uL (0.0-1.1) 0.5 x10^3/uL (0.0-1.1) Eosinophils # (Auto) 0.2 x10^3/uL (0.0-0.7) 0.2 x10^3/uL (0.0-0.7) Basophils # (Auto) 0.1 x10^3/uL (0.0-0.2) 0.0 x10^3/uL (0.0-0.2) Prothrombin Time 12.4 SEC (9.4-11.4) Prothromb Time International Ratio 1.3 (0.9-1.1) Activated Partial Thromboplast Time 26 SEC (23-33) 121 SEC (23-33) Sodium Level 156 mmol/L (136-145) Potassium Level 3.3 mmol/L (3.5-5.1) Chloride Level 118 mmol/L (98-107) Carbon Dioxide Level 29 mmol/L (21-32) Anion Gap 9 (6-14) Blood Urea Nitrogen 26 mg/dL (8-26) Creatinine 0.8 mg/dL (0.7-1.3) Estimated GFR (Cockcroft-Gault) 93.5 Glucose Level 304 mg/dL (70-99) Calcium Level 8.4 mg/dL (8.5-10.1) Magnesium Level 1.9 mg/dL (1.8-2.4) Glucose (Fingerstick) 213 mg/dL (70-99) Test 10/24/18 13:05 10/24/18 18:00 10/24/18 20:46 10/25/18 05:50 Activated Partial Thromboplast Time 61 SEC (23-33) 24 SEC (23-33) Sodium Level 154 mmol/L (136-145) 152 mmol/L (136-145) 149 mmol/L (136-145) Potassium Level 3.8 mmol/L (3.5-5.1) 3.9 mmol/L (3.5-5.1) 3.7 mmol/L (3.5-5.1) Chloride Level 116 mmol/L (98-107) 112 mmol/L (98-107) 111 mmol/L (98-107) Carbon Dioxide Level 31 mmol/L (21-32) 33 mmol/L (21-32) 30 mmol/L (21-32) Anion Gap 7 (6-14) 7 (6-14) 8 (6-14) Blood Urea Nitrogen 24 mg/dL (8-26) 21 mg/dL (8-26) 17 mg/dL (8-26) Creatinine 0.8 mg/dL (0.7-1.3) 0.8 mg/dL (0.7-1.3) 0.9 mg/dL (0.7-1.3) Estimated GFR (Cockcroft-Gault) 93.5 93.5 81.6 Glucose Level 226 mg/dL (70-99) 209 mg/dL (70-99) 336 mg/dL (70-99) Calcium Level 8.6 mg/dL (8.5-10.1) 8.9 mg/dL (8.5-10.1) 8.7 mg/dL (8.5-10.1) Troponin I Quantitative 0.031 ng/mL (0-0.055) Glucose (Fingerstick) 221 mg/dL (70-99) White Blood Count 12.2 x10^3/uL (4.0-11.0) Red Blood Count 4.69 x10^6/uL (4.30-5.70) Hemoglobin 13.3 g/dL (13.0-17.5) Hematocrit 41.0 % (39.0-53.0) Mean Corpuscular Volume 88 fL (79-100) Mean Corpuscular Hemoglobin 28 pg (25-35) Mean Corpuscular Hemoglobin Concent 33 g/dL (31-37) Red Cell Distribution Width 17.3 % (11.5-14.5) Platelet Count 149 x10^3/uL (140-400) Neutrophils (%) (Auto) 84 % (31-73) Lymphocytes (%) (Auto) 7 % (24-48) Monocytes (%) (Auto) 9 % (0-9) Eosinophils (%) (Auto) 0 % (0-3) Basophils (%) (Auto) 0 % (0-3) Neutrophils # (Auto) 10.3 x10^3uL (1.8-7.7) Lymphocytes # (Auto) 0.9 x10^3/uL (1.0-4.8) Monocytes # (Auto) 1.0 x10^3/uL (0.0-1.1) Eosinophils # (Auto) 0.0 x10^3/uL (0.0-0.7) Basophils # (Auto) 0.0 x10^3/uL (0.0-0.2) Magnesium Level 1.7 mg/dL (1.8-2.4) Test 10/25/18 10:06 Glucose (Fingerstick) 259 mg/dL (70-99) Medications Current Medications Insulin Human Lispro (HumaLOG) 0-9 UNITS TIDWMEALS SQ Last administered on 10/25at 10:14; Start 10/23/18 at 12:00 Dextrose 12.5 gm PRN Q15MIN PRN IV SEE COMMENTS; Start 10/23/18 at 11:00 Dextrose 1,000 ml @ 125 mls/hr Q8H IV Last administered on 10/24/18at 20:35; Start 10/23/18 at 11:15 Acetaminophen (Tylenol) 650 mg Q6HRS PO ; Start 10/23/18 at 18:00; Stop at 18:00; Status DC Bisacodyl (Fleet Bisacodyl) 10 mg PRN DAILY PRN RC CONSTIPATION; Start at 13:15 Al Hydroxide/Mg Hydroxide (Mylanta Plus Xs) 15 ml PRN AFTMEALHC PRN PO DYSPEPSIA; Start 10/23/18 at 13:15 Medroxyprogesterone Acetate (Provera) 7.5 mg DAILY PO Last administered on 10/25at 10:18; Start 10/24/18 at 09:00 Multi-Ingredient Ointment (Analgesic [place]) 1 john PRN QID PRN TP MUSCLE PAIN; Start 10/23/18 at 13:15 Metoprolol Tartrate (Lopressor) 25 mg BID PO Last administered on 10/24/18at 08: 00; Start 10/23/18 at 21:00; Stop 10/24/18 at 15:14; Status DC Nystatin (Nystop) 1 john BID TP Last administered on 10/25/18at 10:19; Start at 21:00 Sertraline HCl (Zoloft) 150 mg DAILY08 PO Last administered on 10/25/18at 10:19 ; Start 10/24/18 at 08:00 Aspirin (Children'S Aspirin) 81 mg QHS PO Last administered on 10/24/18at 20:29 ; Start 10/23/18 at 21:00 Divalproex Sodium (Depakote Sprinkles) 1,000 mg BIDWMEALS PO Last administered on 10/25/18at 10:18; Start 10/23/18 at 17:00 Doxazosin Mesylate (Cardura) 4 mg QHS PO Last administered on 10/24/18at 20:29; Start 10/23/18 at 21:00 Finasteride (Proscar) 5 mg QHS PO Last administered on 10/24/18 20:28; Start 10/23/18 at 21:00 Melatonin 3 mg QHS PO Last administered on 10/24/18 20:29; Start 10/23/18 at 21:00 Mirtazapine (Remeron) 15 mg QHS PO Last administered on 10/24/18 20:28; Start 10/23/18 at 21:00 Olanzapine (ZyPREXA ZYDIS) 5 mg PRN Q2HR PRN PO PSYCHOSIS Last administered on 10/24/18 20:29; Start 10/23/18 at 13:15 Quetiapine Fumarate (SEROquel) 25 mg TID@0900,1300,1700 PO Last administered on 10/25/18 10:18; Start 10/23/18 at 13:00 Enoxaparin Sodium (Lovenox 40mg Syringe) 40 mg Q24H SQ Last administered on 20:12; Start 10/23/18 at 21:00; Stop 10/23/18 at 23:25; Status DC Acetaminophen (Tylenol) 650 mg Q6HRS PRN PO PAIN / TEMP Last administered on 23:06; Start 10/23/18 at 13:30 Insulin Glargine (Lantus) 10 units QHS SQ ; Start 10/23/18 at 21:00; Stop at 21:00; Status DC Insulin Glargine (Lantus) 10 units QHS SQ ; Start 10/23/18 at 21:00; Stop at 12:49; Status DC Lisinopril (Prinivil) 40 mg BID PO Last administered on 10/24/18 20:29; Start 10/23/18 at 21:00 Polyethylene Glycol (miraLAX) 17 gm DAILY PO Last administered on 10/24/18at 07: 58; Start 10/23/18 at 19:30 Iohexol (Omnipaque 350 Mg/ml) 100 ml 1X ONCE IV Last administered on 22:17; Start 10/23/18 at 19:45; Stop 10/23/18 at 19:46; Status DC Info (Do NOT chart on this entry -- for MONITORING) 1 each PRN DAILY PRN MC SEE COMMENTS; Start 10/23/18 at 19:45; Stop 10/25/18 at 19:44 Heparin Sodium/ Dextrose 500 ml @ 0 mls/hr CONT PRN IV SEE I/O RECORD; Start at 23:30; Status UNV Heparin Sodium/ Dextrose 500 ml @ 0 mls/hr CONT PRN IV SEE I/O RECORD Last administered on 10/24/18at 17:38; Start 10/23/18 at 23:30 Heparin Sodium (Porcine) (Heparin Sodium) 2,175 unit 1X ONCE IV ; Start at 23:45; Stop 10/23/18 at 23:45; Status DC Heparin Sodium (Porcine) (Heparin Sodium) 2,000 unit PRN Q6HRS PRN IV FOLLOW PROTOCOL GUIDELINES Last administered on 10/25/18at 07:44; Start 10/23/18 at 23: 30 Heparin Sodium (Porcine) (Heparin Sodium) 1,000 unit PRN Q6HRS PRN IV FOLLOW PROTOCOL GUIDELINES; Start 10/23/18 at 23:30 Info (Anti-Coagulation Monitoring By Pharmacy) 1 each PRN DAILY PRN MC SEE COMMENTS; Start 10/23/18 at 23:45; Stop 10/24/18 at 07:33; Status DC Heparin Sodium (Porcine) (Heparin Sodium) 7,740 unit 1X ONCE IV Last administered on 10/24/18at 00:52; Start 10/23/18 at 23:45; Stop 10/23/18 at 23:46 ; Status DC Potassium Chloride (Klor-Con) 40 meq 1X ONCE PO Last administered on at 07:55; Start 10/24/18 at 07:45; Stop 10/24/18 at 07:50; Status DC Potassium Chloride (KCl Oral Soln) 40 meq 1X ONCE PO ; Start 10/24/18 at 07:45 ; Stop 10/24/18 at 07:50; Status DC Insulin Glargine (Lantus) 13 units QHS SQ Last administered on 10/24/18at 20:35 ; Start 10/24/18 at 21:00 Hydralazine HCl (Apresoline) 10 mg PRN Q4HRS PRN IV ELEVATED BP, SEE COMMENTS Last administered on 10/24/18at 18:07; Start 10/24/18 at 13:00 Olanzapine (ZyPREXA ZYDIS) 5 mg STK-MED ONCE .ROUTE ; Start 10/23/18 at 20:30; Stop 10/24/18 at 16:39; Status DC Olanzapine (ZyPREXA ZYDIS) 5 mg STK-MED ONCE .ROUTE ; Start 10/24/18 at 06:00; Stop 10/24/18 at 16:39; Status DC Active Scripts Active Reported Nystatin 15 Gm Powder 1 John TP BID Trazodone Hcl 150 Mg Tablet 150 Mg PO PRN QHS PRN Trazodone Hcl 150 Mg Tablet 150 Mg PO HS Provera (Medroxyprogesterone Acetate) 5 Mg Tablet 7.5 Mg PO DAILY Seroquel (Quetiapine Fumarate) 25 Mg Tablet 25 Mg PO TID Zyprexa (Olanzapine) 5 Mg Tablet 5 Mg PO PRN Q2HR PRN Mirtazapine 15 Mg Tablet 15 Mg PO QHS Metoprolol Tartrate 25 Mg Tablet 25 Mg PO BID Analgesic [place] (Methyl Salicylate/Menthol) 28 Gm Oint...g. 1 John TP PRN QID PRN Melatonin 3 Mg Tablet 3 Mg PO QHS Milk Of Magnesia (Magnesium Hydroxide) 2,400 Mg/10 Ml Oral.susp 2,400 Mg PO PRN QHS PRN Mag-Al Plus Xs Suspension (Mag Hydrox/Al Hydrox/Simeth) 30 Ml Oral.susp 15 Ml PO PRN AFTMEALHC PRN Depakote Sprinkle (Divalproex Sodium) 125 Mg Cap.sprink 1,000 Mg PO BIDWMEALS Bisacodyl 10 Mg/30 Ml Enema 10 Mg RC PRN DAILY PRN Tylenol (Acetaminophen) 325 Mg Tablet 650 Mg PO [id number] Lorazepam 0.5 Mg Tablet 0.75 Mg PO TID Zoloft (Sertraline Hcl) 100 Mg Tablet 150 Mg PO DAILY08 Letts 3 Fish Oil Softgel (Letts-3 Fatty Acids/Fish Oil) 1 Each Capsule.dr 1 Each PO DAILY Multivitamins (Multivitamin) 1 Each Tablet 1 Tab PO DAILY Metformin Hcl 500 Mg Tablet 500 Mg PO BIDWMEALS Lisinopril 40 Mg Tablet 40 Mg PO BID Glyburide 2.5 Mg Tablet 5 Mg PO BIDWMEALS Proscar (Finasteride) 5 Mg Tablet 5 Mg PO QHS Cardura (Doxazosin Mesylate) 4 Mg Tablet 4 Mg PO QHS Aspirin 81 Mg Tab.chew 81 Mg PO QHS Vitals/I & O Vital Sign - Last 24 Hours 10/24/18 10/24/18 10/24/18 10/24/18 10:56 12:02 13:13 16:00 Pulse 74 80 79 64 B/P (MAP) 141/85 (103) 137/77 (97) 196/98 (130) 10/24/18 10/24/18 10/24/18 10/24/18 18:07 18:36 20:00 20:29 Temp 98.7 Pulse 64 96 110 96 Resp 18 B/P (MAP) 196/98 189/97 (127) 170/86 (114) 189/97 Pulse Ox 96 O2 Delivery Room Air 10/24/18 10/24/18 10/25/18 10/25/18 20:29 22:35 01:00 02:00 Pulse 96 103 102 104 Resp 22 20 20 B/P (MAP) 189/97 135/81 (99) 110/52 (71) 115/56 (75) Pulse Ox 93 93 95 O2 Delivery Room Air Room Air Room Air 10/25/18 10/25/18 10/25/18 10/25/18 03:00 04:00 05:00 06:00 Pulse 102 98 104 100 Resp 16 16 16 16 B/P (MAP) 106/60 (75) 93/48 (63) 100/64 (76) 112/74 (87) Pulse Ox 95 96 96 97 O2 Delivery Room Air Room Air Room Air Room Air 10/25/18 10/25/18 10/25/18 10/25/18 07:00 08:00 09:00 09:00 Temp 97.9 Pulse 94 94 88 90 Resp 20 16 20 B/P (MAP) 98/59 (72) 125/67 (86) 141/69 (93) Pulse Ox 97 97 96 O2 Delivery Room Air Room Air Room Air Intake and Output 10/24/18 10/24/18 10/25/18 14:59 22:59 06:59 Intake Total 240 ml 1000 ml 50 ml Output Total 100 ml 1950 ml 325 ml Balance 140 ml -950 ml -275 ml MEGAN CARRERA APRN Oct 25, 2018 10:36
[2018-10-25] MEDS ORDERED: SCOPOLAMINE 1.5MG PATCH. TD SCH (15:00)
[2018-10-25] MEDS: DOXAZOSIN MESYLATE 4 MG TABLET PO SCH (21:00)
[2018-10-25] MEDS: INSULIN GLARGINE 300 UNITS/3 ML INSULN.PEN. SQ SCH (21:00)
[2018-10-25] MEDS: MELATONIN 3 MG TABLET PO SCH (21:00)
[2018-10-25] MEDS: MIRTAZAPINE 15 MG TABLET PO SCH (21:00)
[2018-10-25] MEDS: FINASTERIDE 5 MG TABLET PO SCH (21:00)
[2018-10-25] MEDS ORDERED: APIXABAN 5 MG TABLET. PO SCH (21:00)
[2018-10-26] VITALS (9 sets, daily range): BP systolic 82–130; BP diastolic 49–73
[2018-10-26] MEDS: SERTRALINE 100 MG TABLET. PO SCH (08:00)
[2018-10-26] MEDS: DIVALPROEX 125 MG CAP.SPRINK PO SCH ×2 (08:00→16:06)
[2018-10-26] MEDS: INSULIN LISPRO 300 UNITS/3 ML INSULN.PEN. SQ SCH ×3 (08:00→17:00)
[2018-10-26] MEDS ORDERED: NYSTATIN TOPICAL POWDER 15GM BOTTLE. TP PRN (09:00)
[2018-10-26] MEDS: QUEtiapine 25 MG TABLET. PO SCH ×3 (09:00→16:06)
[2018-10-26] MEDS: medroxyPROGESTERone 5 MG TABLET PO SCH (09:00)
[2018-10-26] MEDS ORDERED: SCOPOLAMINE 1.5MG PATCH. TD SCH (09:00)
[2018-10-26] MEDS: LISINOPRIL 20 MG TABLET PO SCH ×2 (09:00→21:00)
[2018-10-26] MEDS ORDERED: MORPHINE SULFATE 4 MG/ML DISP.SYRIN. IV PRN ×3 (09:30→09:36)
[2018-10-26] MEDS ORDERED: MORPHINE SULFATE 2 MG/ML DISP.SYRIN. IV PRN ×2 (09:30)
[2018-10-26] MEDS ORDERED: ACETAMINOPHEN 650 MG SUPP.RECT. PR PRN (11:15)
[2018-10-26] MEDS: MORPHINE SULFATE 20 MG/ML CONC SOLUTION. SL PRN ×5 (11:27→18:22)
--- NOTE | 2018-10-26 16:02 | PN ---
DATE: 10/25/2018 SUBJECTIVE: The patient apparently has been brought in. He has severe Alzheimer dementia, BPH, hypertension, insomnia, had an elevated sodium of 163, apparently has been placed on hospice. The patient is resting fairly comfortably, at least stable, and is making comfort. His sodium has dropped from 163 down to 149. Blood sugars were in the 200s. BUN and creatinine are fairly stable. The patient's family is at bedside and we continue to monitor and keep him as comfortable as possible. Most of his home meds have not been restarted. He does have a pulmonary emboli in the right upper lobe distribution. The patient continued to be monitored carefully. His lungs are diminished throughout, poor movement of air. The patient not eating very well. CVA exam, tachycardic at times. PHYSICAL EXAMINATION: VITAL SIGNS: Blood pressure 108/62, respiratory rate 38-20, pulse 115, and temperature 98.5. He is on 4 liters per nasal cannula. GENERAL: The patient barely arousable. LUNGS: Diminished throughout, poor movement of air. CARDIOVASCULAR: Regular, tachycardic. ABDOMEN: Soft, nontender. EXTREMITIES: No clubbing, cyanosis, edema. NEUROLOGIC: Baseline with severe Alzheimer's disease. IMPRESSION: Hypernatremia, dehydration, severe Alzheimer's disease, ____ pulmonary embolus. The patient is a do not resuscitate, Alzheimer disease, type 2 diabetes. PLAN: Continue to monitor here in the ICU and possibly get hospice in for care. DARLEEN REECE MD DR: KERRY/priyank JOB#: [id number] / [id number]
[2018-10-26] MEDS: MELATONIN 3 MG TABLET PO SCH (21:00)
[2018-10-26] MEDS: MIRTAZAPINE 15 MG TABLET PO SCH (21:00)
[2018-10-26] MEDS: INSULIN GLARGINE 300 UNITS/3 ML INSULN.PEN. SQ SCH (21:00)
[2018-10-26] MEDS: DOXAZOSIN MESYLATE 4 MG TABLET PO SCH (21:00)
[2018-10-26] MEDS: FINASTERIDE 5 MG TABLET PO SCH (21:00)
--- NOTE | 2018-10-26 22:59 | PN ---
DATE: SUBJECTIVE: The patient is resting slightly propped up in bed, slightly tachypneic, although according to the nursing staff, he seemed to be much less agitated, restless after we start him on morphine and Ativan. He was transferred from [facility] with markedly elevated sodium of 163 mEq per liter. Apparently, the patient has not been eating and drinking. His sodium has been steadily rising and his lab work done in the [facility] also showed that his D-dimer is markedly elevated at 15.56 and therefore, he was transferred to [address] [place] [address] angio of the chest showed that the patient has pulmonary emboli in the right upper and lower lobe distribution. He was started on D5W at 125 mL per hour and his sodium has been trending down from 163 down to 149 and apparently after discussion with the patient's , a decision was made to switch him to hospice care and his wanted him to be comfortable with no further aggressive treatment and therefore, he was screened for [facility] and ____ was contacted for service that apparently his condition has been declining such that he was started on Roxanol and Ativan and to consider hospice care here at the hospital. PHYSICAL EXAMINATION: GENERAL: When I saw him this afternoon, he was resting slightly propped up in bed, clearly tachypneic. He is afebrile. VITAL SIGNS: His heart rate was 118, blood pressure 118/58, temperature was 101.2, respiratory rate was 29, oxygen saturation is about 87%. HEAD, EYES, EARS, NOSE AND THROAT: Normocephalic, atraumatic. NECK: Supple. HEART: Showed normal first and second sounds. No gallop, rub or murmur. CHEST: Clear to auscultation. No crepitation or rhonchi. ABDOMEN: Distended, soft, nontender. NEUROLOGIC: He is encephalopathic, unresponsive. ASSESSMENT: Metabolic encephalopathy due to severe hyponatremia, pulmonary emboli, severe advanced dementia of Alzheimer type. The plan is to continue with comfort care. He is already on Roxanol and Ativan. SUZIE GLEASON MD DR: ARTURO/priyank JOB#: [id number] / [id number]
--- NOTE | 2018-10-29 21:59 | EKG ---
[address] [address] Test Date: 2018-10-24 Test Time: 10:06:39 Pat Name: ADILSON ORTEGA Department: Room: ICU04 1 Gender: M Grab Setter: KERMIT : 1940 Requested By: SHARMILA NATARAJAN Order Number: [id number] Reading MD: Lorne Wong MD Measurements Intervals [place] Rate: 61 P: NV: QRS: 226 QRSD: 104 T: 218 QT: 442 QTc: 446 Interpretive Statements SR PAC'S RBBB LIMB LEAD MISPLACEMENT Electronically Signed On 11-01-2018 10:00:32 CDT by Lorne Wong MD
--- NOTE | 2018-11-04 13:11 | DS ---
DATE OF DISCHARGE: 10/26/2018 HOSPITAL COURSE: The patient is a 78-year-old male patient who was [facility] on account of worsening confusion and being physically and verbally aggressive towards his at home. He was unmanageable even at [facility], pulling out his IV, impulsive, restless. He was wondering at nighttime, having marked insomnia. He was on a one-to-one status due to the above behavior and he could not be placed in any other nursing facility because of his behavior. He was admitted to [facility] for inpatient psychiatric stabilization. While there, his intake and output was extremely poor despite all efforts by the nursing staff and his serum sodium was noted to be rising and therefore the patient was transferred to ICU and was started on D5W at 125 mL per minute. His D-dimer was extremely high at 15.5 grams and therefore, he underwent a CT angiography of the chest, which showed that the patient has pulmonary emboli in his right upper and lower lobe distribution. Given that the patient is encephalopathic and has bilateral pulmonary emboli and has dysphagia, a decision was made after a lengthy discussion with his to start comfort and hospice care. The patient's condition has gradually deteriorated and the patient was found to be unresponsive with no spontaneous breathing, no audible heart sounds or palpable pulsation and he was pronounced . The cause of is, 1. Cardiopulmonary arrest. 2. Acute respiratory failure. 3. Aspiration pneumonia. 4. Dysphagia with severe hyponatremia. SUZIE GLEASON MD DR: ARTURO/priyank JOB#: [id number] / [id number]
--- NOTE | 2018-11-04 20:25 | PN ---
DATE: 10/26/2018 ADDENDUM Metabolic encephalopathy due to severe hypernatremia. In fact, his serum sodium was 164. Other medical problems include pulmonary emboli, severe advanced dementia of Alzheimer type. SUZIE GLEASON MD DR: ARTURO/priyank JOB#: [id number] / [id number]
== END 2018-10-26 17:59 | disposition hospice, inpatient (51) | DRG 175 ==
LOC: ICU 10:17 → INTOOBSV 10:17 → OBSVTOIN 10-25 18:30
PROVIDERS: ADMIT Internal Medicine; ATTEND Internal Medicine
DX: I26.99 Other pulmonary embolism without acute cor pulmonale (principal); G93.41 Metabolic encephalopathy; E87.2 Acidosis; E87.0 Hyperosmolality and hypernatremia; E86.0 Dehydration; G30.9 Alzheimer's disease, unspecified; N40.0 Benign prostatic hyperplasia without lower urinary tract symptoms; I10 Essential (primary) hypertension; G47.00 Insomnia, unspecified; F02.80 Dementia in other diseases classified elsewhere, unspecified severity, without behavioral disturbance, psychotic disturbance, mood disturbance, and anxiety; R00.1 Bradycardia, unspecified; E11.9 Type 2 diabetes mellitus without complications; E87.6 Hypokalemia; I45.10 Unspecified right bundle-branch block; R09.02 Hypoxemia; Z51.5 Encounter for palliative care; Z66 Do not resuscitate; Z79.4 Long term (current) use of insulin; Z88.5 Allergy status to narcotic agent; Z79.899 Other long term (current) drug therapy; R63.0 Anorexia; Z68.28 Body mass index [BMI] 28.0-28.9, adult
CPT/HCPCS: 36415; 71045; 71275; 74018; 80048; 81001; 82607; 82947; 83605; 83735; 84443; 84484; 85025; 85610; 85730; 87086; 87641; 93005; 93970; G0378; G0379; J0360; J1644; J1650; J1815; J2060; J2270; J3010; Q9967

== ENCOUNTER 2018-10-26 21:41 | Inpatient (IN) | payer MEDICARE, OTHER ==
[2018-10-26 21:11] VITALS: BP 82/61
[~2018-10-26 21:41] MED LIST changes: +ACETAMINOPHEN 650 MG SUPP.RECT. PR PRN; +MORPHINE SULFATE 20 MG/ML CONC SOLUTION. SL PRN
[2018-10-26] MEDS ORDERED: SCOPOLAMINE 1.5MG PATCH. TD SCH (23:00)
--- NOTE | 2018-11-04 15:36 | DS ---
DATE OF DISCHARGE: 10/27/2018 HOSPITAL COURSE: The patient is a 78-year-old male patient who was [facility] on account of worsening confusion and being physically and verbally aggressive towards his at home. He was unmanageable even at [facility], pulling out his IV, impulsive, restless. He was wondering at nighttime, having marked insomnia. He was on a one-to-one status due to the above behavior and he could not be placed in any other nursing facility because of his behavior. He was admitted to [facility] for inpatient psychiatric stabilization. While there, his intake and output was extremely poor despite all efforts by the nursing staff and his serum sodium was noted to be rising and therefore the patient was transferred to ICU and was started on D5W at 125 mL per minute. His D-dimer was extremely high at 15.5 grams and therefore, he underwent a CT angiography of the chest, which showed that the patient has pulmonary emboli in his right upper and lower lobe distribution. Given that the patient is encephalopathic and has bilateral pulmonary emboli and has dysphagia, a decision was made after a lengthy discussion with his to start comfort and hospice care. The patient's condition has gradually deteriorated and the patient was found to be unresponsive with no spontaneous breathing, no audible heart sounds or palpable pulsation and he was pronounced . The cause of is, 1. Cardiopulmonary arrest. 2. Acute respiratory failure. 3. Aspiration pneumonia. 4. Dysphagia with severe hyponatremia. SUZIE GLEASON MD DR: ARTURO/priyank JOB#: [id number] / [id number]
== END 2018-10-27 00:47 | disposition expired | DRG 175 ==
LOC: ICU 21:41
PROVIDERS: ADMIT Internal Medicine; ATTEND Internal Medicine
DX: I26.99 Other pulmonary embolism without acute cor pulmonale (principal); G92 Toxic encephalopathy; J69.0 Pneumonitis due to inhalation of food and vomit; J96.00 Acute respiratory failure, unspecified whether with hypoxia or hypercapnia; E87.0 Hyperosmolality and hypernatremia; E87.2 Acidosis; G30.9 Alzheimer's disease, unspecified; F02.80 Dementia in other diseases classified elsewhere, unspecified severity, without behavioral disturbance, psychotic disturbance, mood disturbance, and anxiety; I10 Essential (primary) hypertension; N40.0 Benign prostatic hyperplasia without lower urinary tract symptoms; E11.9 Type 2 diabetes mellitus without complications; T42.75XA Adverse effect of unspecified antiepileptic and sedative-hypnotic drugs, initial encounter; E86.0 Dehydration; Y92.89 Other specified places as the place of occurrence of the external cause; Z88.5 Allergy status to narcotic agent; Z51.5 Encounter for palliative care; G47.00 Insomnia, unspecified; I46.9 Cardiac arrest, cause unspecified; Z66 Do not resuscitate; R13.10 Dysphagia, unspecified